=== PATIENT | female | born 1990 | race Caucasian/White ===

== ENCOUNTER 2020-07-20 09:43 | Outpatient (CLI) | payer OTHER, SELFPAY ==
[2020-07-20 10:21] LABS: Cholesterol 238 mg/dL (0-200); HDL Direct 45 mg/dL; Triglycerides 80 mg/dL (<150)
[2020-07-20 10:33] LABS: LDL Cholesterol Direct 154 mg/dL
[2020-07-20 11:08] LABS: Free T4 Free Thyroxine 1.16 ng/mL (0.78-2.19)
[2020-07-20 11:24] LABS: Creatinine Urine 148.6 mg/dL
[2020-07-20 11:45] LABS: Hemoglobin A1C 5.9 % (<5.7)
[2020-07-20 12:12] LABS: MALB Creatinine Ratio < 4.0 mg/g (0-30); Microalbumin Urine Random < 6.0 mg/L (0-16.7)
== END 2020-07-20 09:44 | disposition home or self-care (01) ==
LOC: ANHLAB 09:46
PROVIDERS: PCP Emergency Medicine; Visit Provider Emergency Medicine
DX: Z00.00 Encounter for general adult medical examination without abnormal findings (principal); E78.5 Hyperlipidemia, unspecified
CPT/HCPCS: 36415; 80061; 82043; 83036; 84439; 84443

== ENCOUNTER 2020-07-29 08:22 | Emergency (ER) | payer OTHER, SELFPAY ==
--- NOTE | ~2020-07-29 | XR_ITS ---
EXAMINATION: XR chest 1V portable INDICATION: Shortness of breath cough TECHNIQUE: Portable AP chest at 0847 hours COMPARISON: 02/27/2015 FINDINGS: The lungs are free of acute opacities. There is no pleural effusion or pneumothorax. The ca rdiomediastinal silhouette is normal. The visualized bones and soft tissues are unremarkable. IMPRESSION: 1. No acute cardiopulmonary abnormality. Reviewed, dictated and finalized at location A.
[2020-07-29 08:26] VITALS: BP 131/89; PULSE 81; RESP 24; TEMP 36.8; O2SAT 100
[2020-07-29 08:29] VITALS: BP 131/89; PULSE 85; RESP 19; O2SAT 100
[2020-07-29 08:31] VITALS: BP 121/78; PULSE 77; RESP 17; O2SAT 100
--- NOTE | 2020-07-29 08:31 | ECG_ITS ---
Measurements Intervals [place] Rate: 82 P: 41 AL: 154 QRS: 26 QRSD: 84 T: 45 QT: 367 QTc: 429 Interpretive Statements SINUS RHYTHM NONSPECIFIC T-WAVE ABNORMALITY- ANTEROLATERAL LEADS BORDERLINE ECG Electronically Signed On 07-29-2020 8:40:53 CDT by Yosi Bruce D.O.
[2020-07-29 08:36] VITALS: PULSE 78
--- NOTE | 2020-07-29 08:44 | ED.SOB ---
HPI - SOB/Dyspnea General Chief Complaint: Shortness of Breath/Dyspnea Stated Complaint: sob Time Seen by Provider: 07/29/20 08:42 Source: patient Mode of arrival: ambulatory Limitations: no limitations History of Present Illness HPI Narrative: Patient is a 30-year-old female with a history of asthma who presents for evaluation of shortness of breath. Patient reports she has had a dry cough and shortness of breath worsening over the past 72 hours. She states this feels typical to her bronchitis and asthma flare. She denies fever or chills. She reports shortness of breath. She reports her oxygen level normally is between 90 to 92% but is 100% on room air at our facility. Patient denies recent sick contacts. She reports a burning sensation in her chest which is exacerbated with coughing. She denies pain with inspiration. She denies jaw pain, shoulder pain, radiation of the pain to the back. No diaphoresis. No nausea or vomiting. No lower leg swelling, calf pain or erythema. No history of DVT. Patient does take control. She does not smoke. No recent car or air travel. No loss of sense of taste or smell. Patient states she has been using her albuterol inhaler without much improvement. Related Data Home Medications Medication Instructions Recorded Confirmed Qvar RediHaler 1 inh INHALATION Q12H 10/20/19 10/20/19 albuterol sulfate 1 inh INHALATION QID PRN 10/20/19 10/31/19 citalopram [Celexa] 20 mg PO DAILY 10/20/19 10/31/19 norethindrone (contraceptive) 0.35 mg PO DAILY 10/20/19 10/20/19 [Racheal] albuterol sulfate 90 mcg/actuation 2 puff INHALATION Q4H PRN gm 07/03/20 aerosol inhaler diphenhydramine HCl 25 mg capsule 25 mg PO TID PRN 07/03/20 elagolix 200 mg tablet 200 mg PO BID 07/03/20 fexofenadine 60 mg tablet 60 mg PO Q12H 07/03/20 spironolactone 100 mg tablet 100 mg PO DAILY 07/03/20 Allergies Allergy/AdvReac Type Severity Reaction Status Date / Time ketorolac Allergy Intermediate HIVE Verified 07/29/20 08:32 tramadol Allergy Mild Hives Verified 07/29/20 08:32 latex Allergy Unknown Hives Verified 07/29/20 08:32 pineapple Allergy Unknown Anaphylactic Verified 07/29/20 08:32 Shock pollen extracts Allergy Unknown Unknown Verified 07/29/20 08:32 cat dander Allergy Sneezing Verified 07/29/20 08:32 house dust AdvReac Intermediate Unknown Verified 07/29/20 08:32 Review of Systems Review of Systems: Narrative: CONSTITUTIONAL: Denies fever, chills, or sweats. EYES: Denies visual changes, redness, or discharge. ENT: Reports rhinorrhea and congestion, denies sore throat CARDIOVASCULAR: Reports burning chest pain, denies palpitations or edema RESPIRATORY: Reports cough and shortness of breath GASTROINTESTINAL: Denies abdominal pain, nausea, vomiting, or diarrhea. GENITOURINARY: Denies dysuria or hematuria. SKIN: Denies rash or itching. MUSCULOSKELETAL: Denies back pain, joint pain, or myalgia. NEUROLOGIC: Denies headache, numbness, or weakness. [facility] Past Medical History Medical History Asthma Migraine Social History Social History Smoking status: Never smoker Alcohol intake: never Gender identity (if verbalized by the patient): Female Exam Narrative: Exam Narrative: GENERAL: Awake, alert, conversant HEAD: Normocephalic, atraumatic. EYES: PERRLA and EOMI. ENT: Nares clear, no rhinorrhea or epistaxis. Mucous membranes moist. NECK: Supple. CHEST: No respiratory distress, mild tachypnea, able to speak in full sentences without difficulty, bilateral coarse breath sounds, no expiratory wheezing HEART: Regular rate, sinus rhythm ABDOMEN:Non distended, non tender EXTREMITIES: Normal range of motion. No edema. SKIN: Warm, dry, no rash. NEURO:No focal deficits. Alert and oriented x3 Course Vital Signs Vital signs: Vital Signs Temperature 36.8 C 07/29/20 08:26 Pulse Rate 81
[2020-07-29 08:54] LABS: Basophils Percent Auto 0.2 % (0.2-1.2); Eosinophils Absolute Auto 0.1 K/mm3 (0-0.3); Eosinophils Percent Auto 1.4 % (0-4.4); Hematocrit 40.6 % (37.0-47.0); Hemoglobin 13.7 g/dL (12.0-15.0); Immature Granulocyte Absolute 0.02 K/mm3 (0.00-0.031); Immature Granulocyte Percent A 0.2 % (0-0.5); Lymphocytes Absolute Auto 1.86 K/mm3 (0.9-3.2); Lymphocytes Percent Auto 21.2 % (18.3-44.2); Mean Corpuscular HGB Conc 33.7 g/dl (32-36); Mean Corpuscular Hemoglobin 28.6 pg (26-34); Mean Corpuscular Volume 84.8 fl (80-100); Mean Platelet Volume 10.3 fl (7.4-10.4); Monocytes Absolute Auto 0.4 K/mm3 (0.1-0.6); Monocytes Percent Auto 4.7 % (2.6-8.5); Neutrophils Absolute Auto 6.3 K/mm3 (1.3-6.7); Neutrophils Percent Auto 72.3 % (45.5-73.1); Platelet Count Result 324 k/mm3 (150-375); Red Blood Count 4.79 M/mm3 (4.2-5.4); Red Cell Distribution Width 13.4 % (11.5-14.5); White Blood Count 8.8 K/mm3 (4.5-10.0)
[2020-07-29 09:10] LABS: Alanine Aminotransferase 29 U/L (4-35); Albumin Level 4.5 g/dL (3.5-5.1); Alkaline Phosphatase 64 U/L (38-126); Anion Gap 11 mmol/L (8-16); Aspartate Amino Transferase 23 U/L (14-36); Bilirubin,Total 0.4 mg/dL (0.2-1.3); Blood Urea Nitrogen 9 mg/dL (7-17); Carbon Dioxide 22 mmol/L (22-30); Chloride 104 mmol/L (98-107); Estimated CRCL calculation 142 ml/min; Estimated Glomerular Filt Rate > 60; Glucose 125 mg/dL (65-105); Potassium 4.1 mmol/L (3.4-5.0); Sodium 137 mmol/L (137-145)
[2020-07-29] MEDS: methylPREDNISolone SOD SUCC 125 MG VIAL IV PUSH (09:47)
[2020-07-29] MEDS: MAGNESIUM SULF 2 GM/WATER 50ML 2 GM/50 ML BAG IVPB (09:47)
[2020-07-29 09:48] VITALS: BP 116/82; PULSE 78; RESP 18; O2SAT 99
[2020-07-29 09:48] LABS: Troponin I < 0.012 ng/mL (0.000-0.034)
[2020-07-29 10:05] LABS: D Dimer 0.27 ug/mL (<0.48)
[2020-07-29 11:24] VITALS: BP 125/85; PULSE 78; RESP 13; O2SAT 100
[2020-07-29 20:27] LABS: SARS-CoV-2 RNA PCR Negative
--- NOTE | 2020-08-01 11:57 | PC.NURSE ---
LATE ENTRY This note is being entered to document information to the patient's record. The following information was omitted on [08/01/20], by [Armida Barron Magnesium stopped at 1047 on 07/29/20].
== END 2020-07-29 11:25 | disposition home or self-care (01) ==
PROVIDERS: Emergency Provider Emergency Medicine; PCP Emergency Medicine
DX: J45.901 Unspecified asthma with (acute) exacerbation (principal); Z20.828 Contact with and (suspected) exposure to other viral communicable diseases
CPT/HCPCS: 36415; 71045; 80053; 84484; 85025; 85380; 87635; 93005; 96365; 96375; 99284; C9803; J2930; J3475; U0003

== ENCOUNTER 2020-09-18 09:56 | Outpatient (CLI) | payer OTHER, SELFPAY | END 2020-09-18 09:57 | disposition home or self-care (01) | PROVIDERS: PCP Emergency Medicine; Visit Provider Internal Medicine Critical Care Medicine | DX: J45.909 Unspecified asthma, uncomplicated (principal) | CPT/HCPCS: 36415; 82785; 86003 ==

== ENCOUNTER 2020-10-23 09:41 | Outpatient (CLI) | payer OTHER, SELFPAY ==
--- NOTE | 2020-10-25 12:05 | WPDPFTINT ---
PFT Interpretation PFT Interpretation: This PFT met all criteria for ATS standards and reproducibility FEV/FVC 80% FEV1 90% FVC 89% FEV1 improved by 17% and 470 ml post bronchodilator TLC 99% RV 68% RV/TLC 21 % DLCO 83% when adjusted for alveolar volume but not adjusted for hemoglobin Flow volume loops were normal Impression: Normal PFT except for great improvement after bronchodilator which suggest presence of reactive airway disease or Asthma. Clinical correlation is advised.
== END 2020-10-23 09:42 | disposition home or self-care (01) ==
LOC: ANHPFT 09:41
PROVIDERS: PCP Emergency Medicine; Visit Provider Internal Medicine Critical Care Medicine
DX: J45.909 Unspecified asthma, uncomplicated (principal)
CPT/HCPCS: 94060; 94726; 94729

== ENCOUNTER 2020-10-25 09:30 | Emergency (ER) | payer OTHER, SELFPAY ==
--- NOTE | ~2020-10-25 | XR_ITS ---
XR chest 1V portable DATE: 10/25/2020 11:19 INDICATION: Chest pain TECHNIQUE: Portable AP chest on 10/25/2010 1120 hours COMPARISON: 07/29/2020 portable AP chest FINDINGS: Azygos lobe, normal variant. No pulmonary infiltrate or consolidation, pleural effusion or pulmonary vascular congestion or pneumothorax. Heart size appears within normal limits considering ma gnification associated with AP projection. IMPRESSION: No active cardiopulmonary disease Reviewed, dictated and finalized at location A. FILLER
[2020-10-25 09:47] VITALS: BP 127/62; PULSE 92; RESP 18; TEMP 36.7; O2SAT 100
[2020-10-25 09:52] VITALS: O2SAT 100
[2020-10-25 09:55] VITALS: PULSE 81
--- NOTE | 2020-10-25 11:08 | ED.GENADULT ---
HPI - General Adult General Chief complaint: Shortness of Breath/Dyspnea Stated complaint: asthma/ COVID symptoms Time Seen by Provider: 10/25/20 10:06 Source: patient Mode of arrival: ambulatory Limitations: no limitations History of Present Illness HPI narrative: Patient is a 30-year-old female who presents with Covid symptoms for the last 2 days with cough mild shortness of breath sinus congestion rhinorrhea body aches denies vomiting diarrhea chest pain has history of asthma denies tobacco abuse. On arrival is in the room in no distress Related Data Home Medications Medication Instructions Recorded Confirmed albuterol sulfate 1 inh INHALATION QID PRN 10/20/19 09/18/20 citalopram [Celexa] 20 mg PO DAILY 10/20/19 09/18/20 norethindrone (contraceptive) 0.35 mg PO DAILY 10/20/19 09/18/20 [Racheal] albuterol sulfate 90 mcg/actuation 2 puff INHALATION Q4H PRN gm 07/03/20 09/18/20 aerosol inhaler diphenhydramine HCl 25 mg capsule 25 mg PO TID PRN 07/03/20 09/18/20 elagolix 200 mg tablet 200 mg PO BID 07/03/20 09/18/20 fexofenadine 60 mg tablet 60 mg PO Q12H 07/03/20 09/18/20 spironolactone 100 mg tablet 100 mg PO DAILY 07/03/20 09/18/20 melatonin 3 mg capsule mg PO PRN 09/18/20 09/18/20 Allergies Allergy/AdvReac Type Severity Reaction Status Date / Time ketorolac Allergy Intermediate HIVE Verified 10/25/20 09:54 tramadol Allergy Mild Hives Verified 10/25/20 09:54 latex Allergy Unknown Hives Verified 10/25/20 09:54 pineapple Allergy Unknown Anaphylactic Verified 10/25/20 09:54 Shock pollen extracts Allergy Unknown Unknown Verified 10/25/20 09:54 cat dander Allergy Sneezing Verified 10/25/20 09:54 house dust AdvReac Intermediate Unknown Verified 10/25/20 09:54 Review of Systems Review of Systems: All systems reviewed & are unremarkable except as noted in HPI and below PMFSH Past Medical History Medical History Allergies Arthritis Asthma Asthma Bronchitis Chronic endomyometritis Fatty liver Migraine PCOS (polycystic ovarian syndrome) Family History Family History Mother Diabetes mellitus Other Asthma Cerebrovascular accident Family history of arthritis Family history of cardiovascular disease Family history of malignant neoplasm Family history of migraine headaches Family history of seizure disorder Hypertension Social History Social History Smoking status: Never smoker Alcohol intake: never Gender identity (if verbalized by the patient): Female Exam Narrative: Exam Narrative: GENERAL: Well-appearing, well-nourished, and in no acute distress. HEAD: Normocephalic, atraumatic. EYES: PERRLA and EOMI. ENT: Nares clear, no rhinorrhea or epistaxis. Mucous membranes moist. CHEST: Clear to auscultation. No respiratory distress. No wheezes rales or rhonchi HEART: Regular rate and rhythm. No murmur heard. Normal peripheral pulses. ABDOMEN: Soft, nontender, nondistended EXTREMITIES: Normal range of motion. No edema. SKIN: Warm, dry, no rash. NEURO: No focal deficits. Alert and oriented x3. Cranial nerves II through XII grossly intact PSYCH: Normal mood and affect. Course Course Emergency Course: Patient in the room in no distress aware of case findings treatment plan and diagnosis had evaluation no pneumonia normal vital signs ABCs stable tested for Covid aware that she needs to contact her primary care to get the results and agrees with this plan Vital Signs Vital signs: Vital Signs Temperature 98.1 F 10/25/20 09:47 Pulse Rate 92 10/25/20 09:47 Respiratory Rate 18 10/25/20 09:47 Blood Pressure 127/62 10/25/20 09:47 Pulse Oximetry 100 10/25/20 09:47 Temperature 98.1 F 10/25/20 09:47 Pulse Rate 81 10/25/20 09:55 Respiratory Rate 18 10/25/20 09:47 Blood Pressure 127/62 10/25/20 09
[2020-10-25 21:24] LABS: SARS-CoV-2 RNA PCR Negative
== END 2020-10-25 12:07 | disposition home or self-care (01) ==
PROVIDERS: Emergency Medicine Emergency Medical Services; Emergency Provider Emergency Medicine; PCP Emergency Medicine
DX: J06.9 Acute upper respiratory infection, unspecified (principal); Z20.828 Contact with and (suspected) exposure to other viral communicable diseases; M19.90 Unspecified osteoarthritis, unspecified site; N71.1 Chronic inflammatory disease of uterus; E28.2 Polycystic ovarian syndrome; J45.909 Unspecified asthma, uncomplicated
CPT/HCPCS: 71045; 87635; 99283; C9803; U0003

== ENCOUNTER 2020-10-28 13:01 | Emergency (ER) | payer OTHER, SELFPAY ==
[2020-10-28] VITALS (12 sets, daily range): BP systolic 112–132; BP diastolic 73–97; PULSE 71–90; RESP 15–22; TEMP 36.7; O2SAT 95–100
--- NOTE | ~2020-10-28 | XR_ITS ---
EXAMINATION: XR chest 1V portable 10/28/2020 13:46 INDICATION: Shortness of breath and chest tightness PROCEDURE: AP portable chest COMPARISON: Comparison to multiple prior studies sequentially, with oldest reviewed study dated 01/11. FINDINGS: The lungs are clear. The cardiomediastinal silhouette is within normal limits. There are no pleural effusions. There is no pneumothorax suspected. IMPRESSION: 1: NO ACUTE CARDIOPULMONARY DISEASE. Reviewed, dictated and finalized at location B. COVER MAKER
--- NOTE | 2020-10-28 13:13 | ECG_ITS ---
Measurements Intervals [place] Rate: 84 P: 52 GA: 156 QRS: 28 QRSD: 89 T: 25 QT: 350 QTc: 415 Interpretive Statements SINUS RHYTHM NONSPECIFIC T-WAVE ABNORMALITY- ANT/INF LEADS BASELINE WANDER- V1-V2, V4-V6 BORDERLINE ECG Electronically Signed On 10-28-2020 13:30:28 INSTRUCTIONAL PARAPROFESSIONAL by Yosi Bruce D.O.
[2020-10-28 13:26] LABS: Basophils Percent Auto 0.3 % (0.2-1.2); Eosinophils Absolute Auto 0.1 K/mm3 (0-0.3); Eosinophils Percent Auto 1.2 % (0-4.4); Hematocrit 39.3 % (37.0-47.0); Hemoglobin 13.3 g/dL (12.0-15.0); Immature Granulocyte Absolute 0.03 K/mm3 (0.00-0.031); Immature Granulocyte Percent A 0.3 % (0-0.5); Lymphocytes Absolute Auto 2.93 K/mm3 (0.9-3.2); Lymphocytes Percent Auto 27.5 % (18.3-44.2); Mean Corpuscular HGB Conc 33.8 g/dl (32-36); Mean Corpuscular Hemoglobin 29.5 pg (26-34); Mean Corpuscular Volume 87.1 fl (80-100); Mean Platelet Volume 9.9 fl (7.4-10.4); Monocytes Absolute Auto 0.6 K/mm3 (0.1-0.6); Monocytes Percent Auto 5.4 % (2.6-8.5); Neutrophils Percent Auto 65.3 % (45.5-73.1); Platelet Count Result 337 k/mm3 (150-375); Red Blood Count 4.51 M/mm3 (4.2-5.4); Red Cell Distribution Width 12.5 % (11.5-14.5); White Blood Count 10.7 K/mm3 (4.5-10.0)
[2020-10-28 13:36] LABS: Alanine Aminotransferase 23 U/L (4-35); Albumin Level 4.5 g/dL (3.5-5.1); Alkaline Phosphatase 55 U/L (38-126); Anion Gap 10 mmol/L (8-16); Aspartate Amino Transferase 21 U/L (14-36); Bilirubin,Total 0.3 mg/dL (0.2-1.3); Blood Urea Nitrogen 10 mg/dL (7-17); Calcium 9.4 mg/dL (8.4-10.2); Carbon Dioxide 22 mmol/L (22-30); Chloride 106 mmol/L (98-107); Estimated CRCL calculation 140 ml/min; Estimated Glomerular Filt Rate > 60; Glucose 109 mg/dL (65-105); Potassium 3.7 mmol/L (3.4-5.0); Sodium 138 mmol/L (137-145)
[2020-10-28 13:40] LABS: D Dimer 0.27 ug/mL (<0.48)
[2020-10-28 14:21] LABS: Amphetamine Screen Urine Negative (Negative); Barbiturate Screen Urine Negative (Negative); Benzodiazepines Screen Urine Negative (Negative); Cannabinoid Screen Urine Negative (Negative); Cocaine Screen Urine Negative (Negative); Methadone Screen Urine Negative (Negative); Opiate Screen Urine Negative (Negative); Phencyclidine Screen Urine Negative (Negative)
--- NOTE | 2020-10-28 14:30 | ED.GENADULT ---
HPI - General Adult General Chief complaint: Shortness of Breath/Dyspnea Stated complaint: diff. breathing Time Seen by Provider: 10/28/20 13:07 Source: patient Mode of arrival: ambulatory Limitations: no limitations Related Data Home Medications Medication Instructions Recorded Confirmed albuterol sulfate 1 inh INHALATION QID PRN 10/20/19 09/18/20 citalopram [Celexa] 20 mg PO DAILY 10/20/19 09/18/20 norethindrone (contraceptive) 0.35 mg PO DAILY 10/20/19 09/18/20 [Racheal] albuterol sulfate 90 mcg/actuation 2 puff INHALATION Q4H PRN gm 07/03/20 09/18/20 aerosol inhaler diphenhydramine HCl 25 mg capsule 25 mg PO TID PRN 07/03/20 09/18/20 elagolix 200 mg tablet 200 mg PO BID 07/03/20 09/18/20 fexofenadine 60 mg tablet 60 mg PO Q12H 07/03/20 09/18/20 spironolactone 100 mg tablet 100 mg PO DAILY 07/03/20 09/18/20 melatonin 3 mg capsule mg PO PRN 09/18/20 09/18/20 Allergies Allergy/AdvReac Type Severity Reaction Status Date / Time ketorolac Allergy Intermediate HIVE Verified 10/25/20 09:54 tramadol Allergy Mild Hives Verified 10/25/20 09:54 latex Allergy Unknown Hives Verified 10/25/20 09:54 pineapple Allergy Unknown Anaphylactic Verified 10/25/20 09:54 Shock pollen extracts Allergy Unknown Unknown Verified 10/25/20 09:54 cat dander Allergy Sneezing Verified 10/25/20 09:54 house dust AdvReac Intermediate Unknown Verified 10/25/20 09:54 [facility] Past Medical History Medical History Allergies Arthritis Asthma Asthma Bronchitis Chronic endomyometritis Fatty liver Migraine PCOS (polycystic ovarian syndrome) Family History Family History Mother Diabetes mellitus Other Asthma Cerebrovascular accident Family history of arthritis Family history of cardiovascular disease Family history of malignant neoplasm Family history of migraine headaches Family history of seizure disorder Hypertension Social History Social History Smoking status: Never smoker Alcohol intake: never Gender identity (if verbalized by the patient): Female Course Course Emergency Course: Patient in the room in no distress felt appropriate for discharge home will be swabbed again for Covid as she continues to have symptoms Vital Signs Vital signs: Vital Signs Pulse Rate 79 10/28/20 13:06 Respiratory Rate 22 H 10/28/20 13:06 Blood Pressure 132/84 10/28/20 13:06 Pulse Oximetry 100 10/28/20 13:06 Temperature 98.1 F 10/28/20 13:16 Pulse Rate 71 10/28/20 14:45 Respiratory Rate 22 H 10/28/20 14:45 Blood Pressure 112/73 10/28/20 13:55 Pulse Oximetry 100 10/28/20 14:45 Medical Decision Making MDM Narrative Medical decision making narrative: Patient will be we have swabbed for Covid sent home normal vital signs no high risk changes in the blood work or imaging Vital Signs Vital Signs: Vital Signs Pulse Rate 79 10/28/20 13:06 Respiratory Rate 22 H 10/28/20 13:06 Blood Pressure 132/84 10/28/20 13:06 Pulse Oximetry 100 10/28/20 13:06 Temperature 98.1 F 10/28/20 13:16 Pulse Rate 71 10/28/20 14:45 Respiratory Rate 22 H 10/28/20 14:45 Blood Pressure 112/73 10/28/20 13:55 Pulse Oximetry 100 10/28/20 14:45 Lab Data Result diagrams: 10/28/20 13:19 10/28/20 13:19 Labs: Lab Results 10/28/20 10/28/20 10/28/20 Range/Units 13:19 13:19 13:19 WBC 10.7 H (4.5-10.0) K/mm3 RBC 4.51 (4.2-5.4) M/mm3 Hgb 13.3 (12.0-15.0) g/dL Hct 39.3 (37.0-47.0) % MCV 87.1 (80-100) fl MCH 29.5 (26-34) pg MCHC 33.8 (32-36) g/dl RDW 12.5 (11.5-14.5) % Plt Count 337 (150-375) k/mm3 MPV 9.9 (7.4-10.4) fl Immature Gran % (Auto) 0.3 (0-0.5) % Neut % (Auto) 65.3 (45.5-73.1) % Lymph % (Auto) 27.5 (18.3-44.2) % [place] % (Auto) 5.
[2020-10-28 15:05] LABS: Add Urine Microscopic? YES; Appearance Urine Cloudy (Clear); Bacteria Urine Trace /hpf; Bilirubin Urine Negative (Negative); Blood Urine 3+ (Negative); Color Urine Red (Yellow); Glucose Urine UA Negative (Negative); Ketones Urine Negative (Negative); Leukocyte Esterase Ur 1+ LEU/UL (Negative); Mucus Urine Rare /lpf; Nitrate Urine Negative (Negative); Protein Urine 2+ mg/dL (Negative); RBC Urine >75 /hpf (0-2); Specific Grav Ur 1.018 (1.001-1.035); Urobilinogen Urine Negative mg/dL (<2.0); WBC Urine 16-20 /hpf
[2020-10-29 01:01] LABS: SARS-CoV-2 RNA PCR Negative
== END 2020-10-28 15:00 | disposition home or self-care (01) ==
PROVIDERS: Emergency Medicine Emergency Medical Services; Emergency Provider Emergency Medicine; PCP Emergency Medicine
DX: J06.9 Acute upper respiratory infection, unspecified (principal); M19.90 Unspecified osteoarthritis, unspecified site; J45.909 Unspecified asthma, uncomplicated; N71.1 Chronic inflammatory disease of uterus; E28.2 Polycystic ovarian syndrome
CPT/HCPCS: 36415; 71045; 80053; 80307; 81001; 85025; 85380; 87086; 87088; 87635; 93005; 99284; C9803; U0003

== ENCOUNTER 2021-02-03 10:20 | Outpatient (CLI) | payer OTHER, SELFPAY ==
[2021-02-03 10:48] LABS: Hematocrit 39.4 % (37.0-47.0); Mean Corpuscular Hemoglobin 28.8 pg (26-34); Mean Corpuscular Volume 87.2 fl (80-100); Platelet Count Result 318 k/mm3 (150-375); Red Blood Count 4.52 M/mm3 (4.2-5.4); Red Cell Distribution Width 12.8 % (11.5-14.5); White Blood Count 9.1 K/mm3 (4.5-10.0)
[2021-02-03 10:53] LABS: Cholesterol 192 mg/dL (0-200); HDL Direct 41 mg/dL; Triglycerides 129 mg/dL (<150)
[2021-02-03 11:00] LABS: Immunoglobulin G 1045 mg/dL (700-1600)
[2021-02-03 11:05] LABS: LDL Cholesterol Direct 114 mg/dL
[2021-02-03 11:26] LABS: Free T4 Free Thyroxine 0.99 ng/mL (0.78-2.19)
[2021-02-06 04:02] LABS: Immunoglobulin G, Serum 930 mg/dL (600-1640); Immunoglobulin G1 461 mg/dL (382-929); Immunoglobulin G2 327 mg/dL (241-700); Immunoglobulin G3 44 mg/dL (22-178); Immunoglobulin G4 27.8 mg/dL (4.0-86.0)
== END 2021-02-03 10:21 | disposition home or self-care (01) ==
LOC: ANHLAB 10:20
PROVIDERS: Nurse Practitioner Family; PCP Emergency Medicine; Visit Provider Emergency Medicine
DX: D72.829 Elevated white blood cell count, unspecified (principal)
CPT/HCPCS: 36415; 80061; 82784; 82787; 84439; 84443; 85027

== ENCOUNTER 2021-03-21 08:18 | Outpatient (CLI) | payer OTHER, SELFPAY ==
--- NOTE | 2021-04-04 16:12 | WPDHOMESLEEP ---
Sleep Study - Home Unattended Date of Study: 03/21/21 Ordering Provider: Ruddy Estrada APRN Interpreting Provider: Lizett Trivedi MD Home Sleep Study Type: Apnea Link Air Height: 1.65 m Weight: 113.398 kg Body Mass Index: 41.5 Neck Circumference (inches): 17 [place]: 16 Reason for Sleep Study Tired, requires naps, wakes up coughing Sleep History Edilia Washington is a 30 year old female with asthma. she is tired and excessively sleepy in the day often requiring naps and significant amounts of caffeine. She talked sometimes wakes up coughing or having an asthma attack when she slides off of her pillows and is flat in the bed. she wakes up during the night and she has a difficult time waking in the morning. She takes melatonin 3 mg some nights when she knows she does not have to be up early the next day. This seems to help her get to sleep. She occasionally awakens from sleep feeling short of breath and awakens at night with heartburn, belching or coughing. She frequently snores and occasionally this is loud enough that others complain about it. She frequently has trouble sleep with a cold. She occasionally wakes up gasping for breath at night. She occasionally has breathing problems at night observed by others. She frequently sweats excessively at night. She never notices her heart pounding or beating irregularly at night. She frequently falls asleep during the day occasionally involuntarily and occasionally while driving. She rarely falls asleep while exerting physical effort. She does not have loss of muscle tone was strong emotion. She occasionally has daytime difficulties due to excessive sleepiness. She does not feel paralyzed on waking or falling asleep. She rarely has vivid dreamlike scenes upon awakening or falling asleep. She has never free to go to sleep. She really has nightmares. She rarely remembers her dreams. She occasionally has racing thoughts. She frequently feels sad or depressed. She frequently has anxiety. She occasionally has muscular tension. She does not notice parts of her body jerking. She frequently kicks at night and has crawling and aching feelings in her legs. She frequently has leg pain at night. She frequently has morning jaw pain. She rarely grinds her teeth during sleep. She constantly is bothered by pain during the day. She frequently is awakened by pain at night. She frequently wakes up feeling stiff in the morning with sore achy muscles and occasionally wakes up with pain in the neck and spine. She has dizziness, fatigue, memory problems, concentration difficulties and frequent morning headaches. She feels depressed. Normal bedtime is between 8 and 9:00 p.m. falling asleep within an hour, typically waking 3-4 times during the night. Sometimes she stays awake for a few minutes, purposefully not looking at the clock. These awakenings happen in the middle of the night or the parachute inspector hours. When she wakes in the night, she turns over and tries to find a comfortable position to help her fall asleep again. She wakes in the morning at 7:00 a.m.. Her weekend schedule shows that she goes to bed slightly later, bedtime is between 9 and 10:00 p.m. and she still wakes is 7:00 a.m. She estimates getting 6-7 hours of sleep at night. Her sleepiness impacts her social life. She frequently stays at home or leaves and event early because of her excessive sleepiness. At times she takes naps in the afternoon or evening. A short nap is not refreshing. She is usually drowsy in the morning for 3 hours or longer. Habits: NO tobacco. Caffeine 4-5 servings a day. Alcohol 1 or 2 servings per month. [facility] Past Medical History Medical History Allergies Arthritis Asthma Asthma Bronchitis Chronic endomyometritis Fatty liver Migraine PCOS (polycystic ovarian syndrome) Family History Family History (Reviewed 01/27/21 @ 15:01 by Ruddy Estrada,
[2021-04-04 16:14] VITALS: BMI 41.5
== END 2021-03-21 08:19 | disposition home or self-care (01) ==
LOC: ANHCSM 08:19
PROVIDERS: PCP Emergency Medicine; Visit Provider Nurse Practitioner Family
DX: G47.10 Hypersomnia, unspecified (principal)
CPT/HCPCS: 95806

== ENCOUNTER 2021-05-03 09:28 | Outpatient (CLI) | payer OTHER, SELFPAY ==
[2021-05-03 10:02] LABS: Creatinine Urine 179.6 mg/dL
[2021-05-03 10:05] LABS: MALB Creatinine Ratio 8.3 mg/g (0-30); Microalbumin Urine Random 14.9 mg/L (0-16.7)
[2021-05-03 10:05] LABS: Hemoglobin A1C 5.9 % (<5.7)
[2021-05-03 10:16] LABS: Alanine Aminotransferase 30 U/L (4-35); Albumin Level 4.3 g/dL (3.5-5.1); Alkaline Phosphatase 62 U/L (38-126); Anion Gap 10 mmol/L (8-16); Aspartate Amino Transferase 24 U/L (14-36); Bilirubin,Total 0.4 mg/dL (0.2-1.3); Blood Urea Nitrogen 8 mg/dL (7-17); Calcium 9.2 mg/dL (8.4-10.2); Carbon Dioxide 24 mmol/L (22-30); Chloride 105 mmol/L (98-107); Cholesterol 238 mg/dL (0-200); Estimated Glomerular Filt Rate > 60; Glucose 114 mg/dL (65-105); HDL Direct 49 mg/dL; Potassium 4.3 mmol/L (3.4-5.0); Sodium 139 mmol/L (137-145); Triglycerides 102 mg/dL (<150)
[2021-05-03 10:26] LABS: LDL Cholesterol Direct 123 mg/dL
[2021-05-03 10:39] LABS: Free T4 Free Thyroxine 0.97 ng/mL (0.78-2.19); Vitamin D 25 Hydroxy 31.2 ng/mL
[2021-05-03 11:33] LABS: Add Urine Microscopic? YES; Appearance Urine Cloudy (Clear); Bacteria Urine Trace /hpf; Bilirubin Urine Negative (Negative); Blood Urine 1+ (Negative); Color Urine Yellow (Yellow); Glucose Urine UA Negative (Negative); Ketones Urine Negative (Negative); Leukocyte Esterase Ur 2+ LEU/UL (NEGATIVE); Mucus Urine Rare /lpf; Nitrate Urine Negative (Negative); Protein Urine Negative (Negative); RBC Urine 0-2 /hpf (0-2); Specific Grav Ur 1.019 (1.001-1.035); Squamous Epithelial Cell Urine Many /hpf (Few); Urobilinogen Urine Negative mg/dL (<2.0)
[2021-05-03 11:41] LABS: Mean Corpuscular HGB Conc 32.5 g/dl (32-36); Mean Corpuscular Hemoglobin 28.6 pg (26-34); Mean Corpuscular Volume 88.1 fl (80-100); Mean Platelet Volume 10.1 fl (7.4-10.4); Platelet Count Result 344 k/mm3 (150-375); Red Blood Count 4.54 M/mm3 (4.2-5.4); White Blood Count 8.2 K/mm3 (4.5-10.0)
== END 2021-05-03 09:29 | disposition home or self-care (01) ==
PROVIDERS: PCP Emergency Medicine; Visit Provider Emergency Medicine
DX: Z00.00 Encounter for general adult medical examination without abnormal findings (principal); D64.9 Anemia, unspecified; F41.9 Anxiety disorder, unspecified
CPT/HCPCS: 36415; 80053; 80061; 81001; 82043; 82306; 83036; 84439; 84443; 85027

== ENCOUNTER 2021-06-13 15:25 | Outpatient (CLI) | payer OTHER, SELFPAY ==
[2021-06-13 16:18] LABS: Rheumatoid Factor < 8.6 IU/ML (<12)
[2021-06-13 16:28] LABS: Erythrocyte Sedimentation Rate 44 mm/hr (0-20)
== END 2021-06-13 15:26 | disposition home or self-care (01) ==
LOC: ANHLAB 15:27
PROVIDERS: PCP Emergency Medicine; Visit Provider Emergency Medicine
DX: M12.9 Arthropathy, unspecified (principal)
CPT/HCPCS: 36415; 85652; 86038; 86430

== ENCOUNTER 2021-08-01 00:19 | Day surgery (SDC) | payer OTHER, SELFPAY ==
[2021-07-29 13:06] VITALS: BMI 43.8
[2021-08-01] VITALS (10 sets, daily range): BP systolic 116–150; BP diastolic 69–92; PULSE 66–97; RESP 13–22; TEMP 36–36.6; O2SAT 92–100
[2021-08-01] MEDS: ACETAMINOPHEN 500 MG TABLET 1000 MG PO (08:40)
[2021-08-01] MEDS: LACTATED RINGERS 1,000 ML 30 ML IV CONT ×2 (08:52→15:25)
--- NOTE | 2021-08-01 09:05 | WPDANESEPPF ---
Anes - Initial Pre Proc Eval Procedure: Operation Date: 08/01/21 10:00 Proposed Procedures p Total Laparoscopic Hysterectomy, Bilateral Salpingectomy - Juan Walker MD Date/Time: 08/01/21 09:05 Surgeon: Juan Walker MD Pre Op Diagnosis: pelvic pain, dysmenorrhea,menorrhagia Patient Data Age: 31 Gender: F Height: 1.63 m Weight: 113 kg Last Vital Signs Temp 36.4 C 08/01/21 08:51 Pulse 87 08/01/21 08:51 BP 142/92 H 08/01/21 08:51 Pulse Ox 100 08/01/21 08:51 Allergies Allergy/AdvReac Type Severity Reaction Status Date / Time pineapple Allergy Severe Anaphylactic Verified 08/01/21 08:19 Shock ketorolac Allergy Intermediate HIVE Verified 08/01/21 08:19 latex Allergy Intermediate Hives Verified 08/01/21 08:19 cat dander Allergy Mild Sneezing Verified 08/01/21 08:19 pollen extracts Allergy Mild Unknown Verified 08/01/21 08:19 tramadol Allergy Mild Hives Verified 08/01/21 08:19 house dust AdvReac Intermediate Unknown Verified 08/01/21 08:19 Home Medications Medication Instructions Recorded Confirmed Type albuterol sulfate 90 mcg/actuation 2 puff INHALATION Q4H PRN gm 07/03/20 08/01/21 History aerosol inhaler spironolactone 100 mg tablet 100 mg PO DAILY 07/03/20 08/01/21 History tiotropium bromide 18 mcg capsule 1 cap INHALATION DAILY 30 Days #30 09/18/20 08/01/21 Rx with inhalation device inh fexofenadine [Blank] 180 mg PO DAILY 07/29/21 08/01/21 History magnesium 250 mg PO DAILY 07/29/21 08/01/21 History sumatriptan succinate [Imitrex] 100 mg PO ONCE PRN 07/29/21 08/01/21 History trazodone 50 mg PO HS PRN 07/29/21 08/01/21 History vilazodone [Viibryd] 40 mg PO DAILY 07/29/21 08/01/21 History Laboratory Tests 08/01/21 08:30 Sodium Pending Potassium Pending Chloride Pending Carbon Dioxide Pending Anion Gap Pending BUN Pending Creatinine Pending Estim Creat Clear Calc Pending Estimated GFR Pending Glucose Pending Calcium Pending Patient hx anesthesia problems: post op nausea/vomiting Family hx anesthesia problems: none PMFSH Past Medical History Medical History Allergies Arthritis Asthma Asthma Bronchitis Chronic endomyometritis Fatty liver Migraine PCOS (polycystic ovarian syndrome) Family History Family History Mother Diabetes mellitus Hypertension Depression Father Alcoholism Depression Sibling Depression Grandparent Skin cancer Grandparent Skin cancer Hypertension Heart disease Cerebrovascular accident Other Asthma Family history of arthritis Family history of cardiovascular disease Family history of malignant neoplasm Family history of migraine headaches Family history of seizure disorder Social History Social History Smoking status: Never smoker Alcohol intake: current Alcohol use details: 1-2 servings a month Substance use: never Substance use type: does not use Living arrangements: with family Gender identity (if verbalized by the patient): Female Spiritual care concerns: No Anes - Eval Final PreProcedure Day of Procedure 08/01/21 09:05 Patient weight: morbidly obese Heart: regular rate and rhythm Lungs: clear to auscultation Airway: Mallampati scale class II Neurological: alert and oriented Last oral intake: >/= 8 hours ASA classification: III Emergent: no Anesthetic plan: proceed Anesthesia type and monitoring: general ETT and standard monitoring Informed Consent: The patient's anesthetic plan and its attendant risks and benefits were discussed with the patient/family/POA. Questions were solicited and answers provided to the satisfaction of the patient/family/POA.
[2021-08-01 09:14] LABS: Anion Gap 8 mmol/L (8-16); Blood Urea Nitrogen 11 mg/dL (7-17); Carbon Dioxide 21 mmol/L (22-30); Chloride 106 mmol/L (98-107); Estimated CRCL calculation 121 ml/min; Estimated Glomerular Filt Rate > 60; Glucose 118 mg/dL (65-110); Potassium 3.9 mmol/L (3.4-5.0); Sodium 135 mmol/L (137-145)
[2021-08-01] MEDS: SCOPOLAMINE 1.5 MG PATCH TRANSDERM (09:28)
--- NOTE | 2021-08-01 10:34 | SUR.PREOP ---
1030- UPDATED PT THAT DR. SUE IS RUNNING ABOUT A HOUR BEHIND. PT STATED SHE IS TEXTING HER SISTER AND WILL LET HER KNOW
--- NOTE | 2021-08-01 12:20 | WPDHPUPDATE1 ---
History and Physical Update Update Date/Time: 08/01/21 12:20 History and Physical has been reviewed, including an updated exam of the patient. There are NO changes in the patient's condition. Risks, benefits, and alternatives have been discussed and questions answered. Patient agrees to proceed with procedure.
[2021-08-01] MEDS: ceFAZolin 2 GM/D5W 50 ML 2 GM/50 ML BAG IVPB (13:00)
[2021-08-01] MEDS: fentaNYL CITRATE INJ (*CRX) 100 MCG/2 ML VIAL 25 MCG IV PUSH ×6 (15:46→16:35)
--- NOTE | 2021-08-01 15:51 | W.PM.PROC2 ---
Procedure Note - Detailed Date of Procedure 08/01/21 Pre-op Diagnosis pelvic pain, dysmenorrhea,menorrhagia Post-op Diagnosis same Procedure Performed Total laparoscopic hysterectomy and right salpingectomy. Surgeon Juan Walker MD Anesthesia general Indications Severe menometrorrhagia, pelvic pain Findings There was an absent left fallopian tube. The bilateral ovaries appeared normal. The fallopian tube on the right was normal. The uterus appeared normal. Around the cervix there was considerable scarring and adhesions in the surrounding paracervical tissue. The bladder was densely adherent to the lower uterine segment and cervix. Description of Procedure This patient was taken to the operating room. She was prepped and draped in the dorsal lithotomy position after induction of general anesthesia. A 5 mm skin incision was made in the left upper quadrant the abdomen. A 5 mm trocar was inserted into the intrauterine cavity under direct visualization of the scope. Pneumoperitoneum was achieved. A left lower quadrant 11 mm incision was made with scalpel. An 11 mm trocar was inserted into the abdominal cavity under direct visualization the scope. A 5 mm infraumbilical incision was made with a scalpel and a 5 mm trocar was inserted the intra-abdominal cavity under direct visualization of the scope. The uterine manipulator was placed. This was done with a speculum and tenaculum. The speculum was placed. The cervix was grasped with a tenaculum. The stay sutures were placed at 3 and 9:00 a.m.. The stay sutures of 0 Vicryl were brought through the appropriately sized Eloisa cup. The tip of the ERIN manipulator was placed in the intrauterine cavity. The cup was slid into place around the cervix and into the fornices. It was locked into place. The sutures were then wrapped around the handle and tied under tension. Bilateral ureteral lysis was performed. This was done from the pelvic brim down to the uterine artery. This was done with careful dissection using sharp and blunt dissection. The right fallopian tube was removed. The mesosalpinx between the fallopian tube and the ovary was cauterized transected to LigaSure cautery. This was repeated in a stepwise fashion around the tube a cauterized in the mesosalpinx medially to the uterine cornua. The tube was then transected and cauterized and removed. It was taken out the left lower quadrant trocar site. The bilateral suspensory ligament of the ovaries was cauterized transected. The bilateral round ligaments were cauterized and transected.. In a stepwise fashion along the lateral aspects of the uterus the round ligament and broad ligaments were cauterized transected down to the level of the uterine arteries. A bladder flap was created in the bladder was moved distally to the end of the cervix and over the Eloisa cup. The bilateral uterine arteries were cauterized and transected. Colpotomy was then performed. In a circumferential fashion the vagina was transected using unipolar cautery. The incision was made down on the Eloisa. The uterus and cervix were taken out through the vagina. A pneumo occluder was placed in the vagina. The vaginal cuff was closed with a 0 V lock suture. The pelvis was irrigated with copious amounts antibiotic irrigation. The ureters were again examined and found to be intact and flowing freely under the uterine arteries into the bladder. The bladder was intact. It was examined directly. The pneumoperitoneum was then reduced. Trocars removed. The skin incisions were closed with subcuticular could 4 Monocryl and covered with Dermabond para The vagina was irrigated with Betadine solution after removal of the Pneumo occluder. The patient was taken to recovery room. She was stable condition. Sponge lap and needle counts were correct x2. Estimated Blood Loss -200.0 Drains Yes Packing No Pathology yes Complications No immediate complications Condition sta
--- NOTE | 2021-08-01 17:00 | PC.NURSE ---
This patient, Edilia Washington, was received from PACU on 08/01/21 at 1700. Patient/family oriented to unit policies and routines
[2021-08-01] MEDS: DEXTROSE 5%/0.45% SOD CHL 1,000 ML 125 ML IV CONT (17:43)
[2021-08-01] MEDS: HYDROcodone/acetaminophen (*CRX) 5-325 MG TABLET 1 TAB PO ×2 (19:55→21:31)
[2021-08-02 00:14] VITALS: BP 119/66; PULSE 86; RESP 14; TEMP 37; O2SAT 99
[2021-08-02] MEDS: HYDROcodone/acetaminophen (*CRX) 10-325 MG TABLET 1 TAB PO ×4 (00:21→14:13)
[2021-08-02 04:27] VITALS: BP 92/51; PULSE 81; RESP 16; TEMP 36.8; O2SAT 98
[2021-08-02 08:20] VITALS: BP 113/72; PULSE 71; RESP 16; TEMP 36.4; O2SAT 100
--- NOTE | 2021-08-02 12:13 | PM.GYNPNOP ---
TECHNICAL LEAD - A/P Postoperative Procedures: Procedures Operation Date: 08/01/21 10:00 Actual Procedure Side Surgeon p Total Laparoscopic Hysterectomy, Right Salpingectomy Right Juan Walker MD Postoperative day: 1 Postoperative status: doing well and other (Tollerating Regular Diet) Postoperative plan: routine post-op care and discharge Time Spent With Patient Time: Total time spent is greater than 50% in coordination of care (as documented) at patient's floor/unit and/or counseling patient: Time with patient: 15 - 25 minutes TECHNICAL LEAD- PN:Subj Post-Op Subjective Date/time seen: 08/02/21 12:13 Subjective: patient reports feeling better, pain is well controlled and patient is tolerating oral intake Exam Const: General: cooperative, healthy appearing, comfortable and no acute distress Resp: Auscultation: no crackles, no rales, no rhonchi and no wheezes Cardio: Rhythm: regular rhythm Heart sounds: no click and no murmurs GI: Inspection: non-distended Auscultation: normal bowel sounds Other: Incisions - CDI Extrem: General: normal to inspection, no pedal edema and no calf tenderness TECHNICAL LEAD - PN: Obj Data Vital Signs Vital Signs: Vital Signs - 24 hr 08/01/21 15:25 08/01/21 15:40 08/01/21 15:55 Temperature 97.2 F L Pulse Rate 90 85 88 Respiratory Rate 22 H 13 16 Blood Pressure 137/71 139/70 143/72 H Pulse Oximetry 97 100 92 08/01/21 16:10 08/01/21 16:25 08/01/21 16:40 Temperature 97.4 F L Pulse Rate 97 80 76 Respiratory Rate 21 H 20 18 Blood Pressure 146/75 H 150/74 H 145/72 H Pulse Oximetry 98 94 98 08/01/21 16:55 08/01/21 19:45 08/01/21 19:50 Temperature 97.4 F L 97.8 F 96.8 F L Pulse Rate 71 66 78 Respiratory Rate 20 16 16 Blood Pressure 139/70 116/69 145/75 H Pulse Oximetry 99 97 100 08/02/21 00:14 08/02/21 04:27 Temperature 98.6 F 98.3 F Pulse Rate 86 81 Respiratory Rate 14 16 Blood Pressure 119/66 92/51 L Pulse Oximetry 99 98 Intake/Output Intake/Output: Intake & Output 07/30/21 07/31/21 08/01/21 08/02/21 23:59 23:59 23:59 23:59 Intake Total 2240 640 Output Total 600 250 Balance 1640 390 Meds/Results Medications: Active Medications Generic Name Dose Route Start Last Admin Trade Name Freq PRN Reason Stop Dose Admin Hydrocodone Bitart/Acetaminophen 1 tab 08/01/21 15:57 08/01/21 21:31 Hydrocodone/Acetaminophen (*Crx) 5-325 Mg Tablet PO 1 tab Q3H PRN Administration Pain Rated 5 or Less Hydrocodone Bitart/Acetaminophen 1 tab 08/01/21 15:57 08/02/21 09:11 Hydrocodone/Acetaminophen (*Crx) 10-325 Mg Tablet PO 1 tab Q3H PRN Administration Pain Rated 6 or Greater Dextrose/Sodium Chloride 1,000 mls @ 125 mls/hr 08/01/21 16:00 08/01/21 21:40 Dextrose 5% Sodium Chloride 0.45% IV CONT Infused .Q8H TESFAYE Infusion Ibuprofen 600 mg 08/01/21 15:57 Ibuprofen 600 Mg Tablet PO Q6H PRN Cramping Morphine Sulfate 2 mg 08/01/21 19:34 Morphine Sulfate (*Crx) 2 Mg/Ml Inj IV PUSH Q1H PRN Pain Rated 7-10 Naloxone HCl 0.1 mg 08/01/21 15:57 Naloxone Hcl 0.4 Mg/Ml Vial IV PUSH Q2M PRN Respiratory rate less than 10 Ondansetron HCl 4 mg 08/01/21 15:57 Ondansetron Inj 4 Mg/2 Ml Vial IV PUSH Q6H PRN Nausea And Vomiting Labs CBC & Chem 7: 08/01/21 08:30
[2021-08-02 13:00] VITALS: TEMP 36.7
== END 2021-08-02 14:31 | disposition home or self-care (01) ==
LOC: ANHSURGERY 09:30 → ANHOB2 16:44
PROVIDERS: PCP Emergency Medicine; Visit Provider Obstetrics & Gynecology
PROC: 0UT9FZZ Resection of Uterus, Via Natural or Artificial Opening With Percutaneous Endoscopic Assistance (ICD-10-PCS; CPT 58571; principal; 2021-08-01 10:00)
DX: R10.2 Pelvic and perineal pain (principal); N94.6 Dysmenorrhea, unspecified; N92.1 Excessive and frequent menstruation with irregular cycle; N73.6 Female pelvic peritoneal adhesions (postinfective); N72 Inflammatory disease of cervix uteri; N83.8 Other noninflammatory disorders of ovary, fallopian tube and broad ligament; J45.909 Unspecified asthma, uncomplicated; K76.0 Fatty (change of) liver, not elsewhere classified; E28.2 Polycystic ovarian syndrome; E66.01 Morbid (severe) obesity due to excess calories; Z68.41 Body mass index [BMI] 40.0-44.9, adult; Z79.51 Long term (current) use of inhaled steroids
CPT/HCPCS: 58571; 36415; 80048; 88307; 99199; A9270; J0690; J1100; J1170; J1200; J2250; J2405; J2704; J3010; J7030; J7120

== ENCOUNTER → 2021-12-03 03:13 | Outpatient (CLI) | payer OTHER, SELFPAY ==
[2021-12-03 20:49] LABS: SARS-CoV-2 RNA PCR Negative
== END ==
PROVIDERS: PCP Emergency Medicine; Visit Provider Emergency Medicine
DX: R05.9 Cough, unspecified (principal); R06.02 Shortness of breath; Z20.822 Contact with and (suspected) exposure to COVID-19
CPT/HCPCS: C9803; U0003; U0005

== ENCOUNTER 2022-01-02 20:44 | Emergency (ER) | payer OTHER, SELFPAY ==
[2022-01-02 20:50] VITALS: BP 130/89; PULSE 95; RESP 18; TEMP 36.3; O2SAT 100
--- NOTE | 2022-01-02 22:54 | ED.ABDPAIN ---
HPI - Abdominal Pain General Chief Complaint: MILLER KILN DRIED SALT Stated Complaint: abd pain Time Seen by Provider: 01/02/22 22:36 Source: patient Mode of arrival: ambulatory Limitations: no limitations History of Present Illness HPI narrative: Patient is a 31-year-old female complaining of lower abdominal pain, 8 out of 10, accompanied by nausea and vomiting x1 week. Patient states that she was seen at [facility] 3 days ago for the same complaint, had labs and a CT scan of her abdomen pelvis done, was told that she had a cyst and was discharged home and to follow-up with her primary care physician. Patient states that she has seen her primary care physician yesterday and was told to follow-up with her [facility]. Related Data Home Medications Medication Instructions Recorded Confirmed albuterol sulfate 90 mcg/actuation 2 puff INHALATION Q4H PRN gm 07/03/20 08/01/21 aerosol inhaler spironolactone 100 mg tablet 100 mg PO DAILY 07/03/20 08/01/21 Viibryd 40 mg PO DAILY 07/29/21 08/01/21 fexofenadine 180 mg PO DAILY 07/29/21 08/01/21 magnesium 250 mg PO DAILY 07/29/21 08/01/21 sumatriptan succinate [Imitrex] 100 mg PO ONCE PRN 07/29/21 08/01/21 trazodone 50 mg PO HS PRN 07/29/21 08/01/21 Allergies Allergy/AdvReac Type Severity Reaction Status Date / Time pineapple Allergy Severe Anaphylactic Verified 08/01/21 08:19 Shock ketorolac Allergy Intermediate HIVE Verified 08/01/21 08:19 latex Allergy Intermediate Hives Verified 08/01/21 08:19 cat dander Allergy Mild Sneezing Verified 08/01/21 08:19 pollen extracts Allergy Mild Unknown Verified 08/01/21 08:19 tramadol Allergy Mild Hives Verified 08/01/21 08:19 house dust AdvReac Intermediate Unknown Verified 08/01/21 08:19 Review of Systems Review of Systems: All systems reviewed & are unremarkable except as noted in HPI and below Constitutional: Constitutional: Denies body ache(s), Denies chills, Denies excessive sweating, Denies fatigue, Denies fever(s), Denies headache(s), Denies lethargy, Denies malaise, Denies weakness and Denies weight loss Eyes: Eyes: Denies blurry vision, Denies change in vision and Denies loss of vision ENT: Denies dizziness, Denies ear discharge, Denies headache(s), Denies lip swelling, Denies epistaxis, Denies nasal congestion, Denies neck pain, Denies throat swelling and Denies tongue swelling Cardiovascular: Cardiovascular: Denies chest pain, Denies chest pain at rest, Denies chest pain with activity, Denies diaphoresis, Denies rapid heart rate, Denies edema, Denies irregular heart rhythm, Denies lightheadedness, Denies palpitations, Denies dyspnea and Denies dyspnea on exertion Respiratory: Respiratory: Denies chest congestion, Denies cough, Denies hemoptysis, Denies dyspnea and Denies dyspnea on exertion Gastrointestinal: Gastrointestinal: Denies melena, Denies hematochezia, Denies diarrhea and Denies hematemesis Musculoskeletal: Musculoskeletal: Denies abnormal gait, Denies deformity, Denies joint swelling, Denies limited range of motion, Denies neck pain and Denies numbness Neurologic: Denies Abnormal speech present, Denies abnormal gait, Denies confusion, Denies dizziness, Denies headache(s), Denies focal weakness, Denies loss of vision, Denies numbness, Denies Other visual disturbances, Denies Sensory deficit (Neuro) and Denies weakness Psychiatric: Psychiatric: Denies confusion, Denies depression, Denies auditory hallucinations, Denies homicidal ideation and Denies suicidal ideation Endocrine: Endocrine: Denies cold intolerance, Denies excessive sweating, Denies fatigue, Denies heat intolerance and Denies palpitations Hematologic/Lymphatic: Hematologic/Lymphatic: Denies easy bleeding and Denies easy bruising Allergic/Immunologic: Allergic/Immunologic: Denies lip swelling, Denies throat swelling and Denies tongue swelling PMFSH Past Medical History Medical History Allergies Arthritis Asthma Asthma Bro
--- NOTE | 2022-01-02 23:34 | PC.NURSE ---
Pt states she is leaving. States i already had these tests the other day Service recovery attempted, unsuccessful. ERP is aware and pt ambulated out of ER with steady gait in no distress.
== END 2022-01-02 23:35 | disposition left against medical advice (07) ==
PROVIDERS: Emergency Provider Emergency Medicine; PCP Emergency Medicine
DX: R10.30 Lower abdominal pain, unspecified (principal); M19.90 Unspecified osteoarthritis, unspecified site; J45.909 Unspecified asthma, uncomplicated; E28.2 Polycystic ovarian syndrome; N71.1 Chronic inflammatory disease of uterus
CPT/HCPCS: 99281

== ENCOUNTER 2022-01-19 09:24 | Outpatient (CLI) | payer OTHER, SELFPAY ==
--- NOTE | ~2022-01-19 | CT_ITS ---
EXAMINATION: CT abdomen pelvis w con INDICATION: Retroperitoneal lymphadenopathy TECHNIQUE: Computed tomographic images of the abdomen and pelvis were obtained after the administrati on of 100 cc of Omnipaque 350 intravenous contrast. The dose-length product (DLP) was 1020.12 mGy-cm. Automated exposure control and iterative reconstruction technique were employed. COMPARISON: 08/08/2019 FINDINGS: The lung bases are clear. The heart size is normal. There are changes of interval cholecyst ectomy. There is focal fatty infiltration of the liver near the ligamentum teres. The spleen, pancrea s, and adrenal glands are normal. There is a 1.3 cm cyst of the left kidney. The right kidney is unre markable. No pathologically enlarged abdominal or pelvic lymph nodes are identified. There is no free intraperitoneal gas or evidence of bowel obstruction. The appendix is normal. There is a small fat-c ontaining umbilical hernia. Changes of hysterectomy are noted. A corpus luteum is noted in the right ovary. IMPRESSION: 1. No lymphadenopathy identified. Reviewed, dictated and finalized at location F. LY PRACTICE MD
== END 2022-01-19 09:25 | disposition home or self-care (01) ==
LOC: ANHIMG 09:25
PROVIDERS: PCP Emergency Medicine; Visit Provider Internal Medicine Hematology & Oncology
DX: R59.0 Localized enlarged lymph nodes (principal)
CPT/HCPCS: 74177; Q9967

== ENCOUNTER 2022-01-20 16:38 | Outpatient (CLI) | payer OTHER, SELFPAY ==
[2022-01-20 17:25] LABS: Basophils Percent Auto 0.4 % (0.2-1.2); Eosinophils Absolute Auto 0.1 K/mm3 (0-0.3); Eosinophils Percent Auto 0.8 % (0-4.4); Hematocrit 39.4 % (37.0-47.0); Hemoglobin 13.3 g/dL (12.0-15.0); Immature Granulocyte Absolute 0.03 K/mm3 (0.00-0.031); Immature Granulocyte Percent A 0.3 % (0-0.5); Lymphocytes Absolute Auto 2.29 K/mm3 (0.9-3.2); Lymphocytes Percent Auto 23.7 % (18.3-44.2); Mean Corpuscular HGB Conc 33.8 g/dl (32-36); Mean Corpuscular Hemoglobin 29.5 pg (26-34); Mean Corpuscular Volume 87.4 fl (80-100); Mean Platelet Volume 10.4 fl (7.4-10.4); Monocytes Absolute Auto 0.6 K/mm3 (0.1-0.6); Monocytes Percent Auto 6.2 % (2.6-8.5); Neutrophils Absolute Auto 6.6 K/mm3 (1.3-6.7); Neutrophils Percent Auto 68.6 % (45.5-73.1); Platelet Count Result 287 k/mm3 (150-375); Red Blood Count 4.51 M/mm3 (4.2-5.4); Red Cell Distribution Width 13.2 % (11.5-14.5); White Blood Count 9.7 K/mm3 (4.5-10.0)
[2022-01-20 17:39] LABS: Alanine Aminotransferase 22 U/L (4-35); Albumin Level 4.5 g/dL (3.5-5.1); Alkaline Phosphatase 64 U/L (38-126); Anion Gap 10 mmol/L (8-16); Aspartate Amino Transferase 20 U/L (14-36); Bilirubin,Total 0.5 mg/dL (0.2-1.3); Blood Urea Nitrogen 12 mg/dL (7-17); Calcium 8.5 mg/dL (8.4-10.2); Carbon Dioxide 20 mmol/L (22-30); Chloride 108 mmol/L (98-107); Estimated Glomerular Filt Rate > 60; Glucose 131 mg/dL (65-110); Lactate Dehydrogenase 395 U/L (313-618); Potassium 3.3 mmol/L (3.4-5.0); Sodium 138 mmol/L (137-145)
== END 2022-01-20 16:39 | disposition home or self-care (01) ==
LOC: ANHLAB 16:40
PROVIDERS: PCP Emergency Medicine; Visit Provider Internal Medicine Hematology & Oncology
DX: R59.0 Localized enlarged lymph nodes (principal)
CPT/HCPCS: 36415; 80053; 83615; 85025

== ENCOUNTER 2023-08-13 09:12 | Outpatient (CLI) | payer BC, SELFPAY ==
[2023-08-13 10:06] LABS: Hematocrit 38.7 % (37.0-47.0); Hemoglobin 12.9 g/dL (12.0-15.0); Mean Corpuscular HGB Conc 33.3 g/dl (32-36); Mean Corpuscular Hemoglobin 30.4 pg (26-34); Mean Corpuscular Volume 91.3 fl (80-100); Mean Platelet Volume 10.2 fl (7.4-10.4); Platelet Count Result 299 k/mm3 (150-375); Red Blood Count 4.24 M/mm3 (4.2-5.4); Red Cell Distribution Width 12.6 % (11.5-14.5); White Blood Count 7.9 K/mm3 (4.5-10.0)
[2023-08-13 10:40] LABS: Hemoglobin A1C 5.5 % (<5.7)
[2023-08-13 10:49] LABS: Thyroid Stimulating Hormone 0.826 uIU/mL (0.465-4.680)
[2023-08-13 10:56] LABS: Free T4 Free Thyroxine 1.37 ng/mL (0.78-2.19); Vitamin D 25 Hydroxy 30.5 ng/mL
[2023-08-13 11:49] LABS: Creatinine Urine 242.9 mg/dL; MALB Creatinine Ratio 4.5 mg/g (0-30)
[2023-08-13 12:30] LABS: Alanine Aminotransferase 20 U/L (6-35); Albumin Level 4.3 g/dL (3.5-5.1); Alkaline Phosphatase 55 U/L (38-126); Anion Gap 9 mmol/L (8-16); Aspartate Amino Transferase 23 U/L (14-36); Bilirubin,Total 0.6 mg/dL (0.2-1.3); Blood Urea Nitrogen 8 mg/dL (7-17); Calcium 8.6 mg/dL (8.4-10.2); Carbon Dioxide 23 mmol/L (22-30); Chloride 105 mmol/L (98-107); Cholesterol 197 mg/dL (0-200); Estimated Glomerular Filt Rate > 60; Glucose 100 mg/dL (65-110); HDL Direct 44 mg/dL; LDL Cholesterol Direct 114 mg/dL; Potassium 4.6 mmol/L (3.4-5.0); Sodium 137 mmol/L (137-145); Triglycerides 87 mg/dL (<150)
== END 2023-08-13 09:13 | disposition home or self-care (01) ==
LOC: ANHLAB 09:16
PROVIDERS: PCP Emergency Medicine; Visit Provider Emergency Medicine
DX: F41.9 Anxiety disorder, unspecified (principal); M54.50 Low back pain, unspecified; F32.9 Major depressive disorder, single episode, unspecified; E78.5 Hyperlipidemia, unspecified; J45.909 Unspecified asthma, uncomplicated; K76.0 Fatty (change of) liver, not elsewhere classified; K31.84 Gastroparesis; G43.909 Migraine, unspecified, not intractable, without status migrainosus
CPT/HCPCS: 36415; 80053; 80061; 82043; 82306; 83036; 84439; 84443; 85027

== ENCOUNTER 2023-11-08 08:51 | Emergency (ER) | payer BC, SELFPAY ==
--- NOTE | 2023-11-08 08:53 | ED.URI ---
HPI - URI/Sore Throat General Chief Complaint: Upper Respiratory Infection Stated Complaint: Cough, Congestion, Earache, Chest Pain Time Seen by Provider: 11/08/23 09:00 Source: patient, RN notes reviewed and old records reviewed Mode of arrival: ambulatory Limitations: no limitations History of Present Illness HPI Narrative: 33-year-old female presents to the [facility] with complaints of cough, congestion, ear pain that started 4 days ago. Has taken Tamiflu. Denies fevers. Denies any wheezing. Denies shortness of breath, abdominal pain, chest pain Onset (ago): day(s) (4) Treatments prior to arrival: cold medicine Related Data Home Medications Medication Instructions Recorded Confirmed albuterol sulfate 90 mcg/actuation 2 puff inhalation Q4H PRN 07/03/20 08/01/21 aerosol inhaler (Ventolin HFA) Shortness Of Breath spironolactone 100 mg tablet 100 mg PO DAILY 07/03/20 08/01/21 (Aldactone) fexofenadine 180 mg tablet 180 mg PO DAILY 07/29/21 08/01/21 magnesium 250 mg tablet 250 mg PO DAILY 07/29/21 08/01/21 sumatriptan succinate 100 mg 100 mg PO ONCE PRN Migraine 07/29/21 08/01/21 tablet (Imitrex) Headache trazodone 50 mg tablet 50 mg PO HS PRN Insomnia 07/29/21 08/01/21 vilazodone 40 mg tablet (Viibryd) 40 mg PO DAILY 07/29/21 08/01/21 Allergies Allergy/AdvReac Type Severity Reaction Status Date / Time pineapple Allergy Severe Anaphylactic Verified 11/08/23 08:54 Shock ketorolac Allergy Intermediate HIVE Verified 11/08/23 08:54 latex Allergy Intermediate Hives Verified 11/08/23 08:54 cat dander Allergy Mild Sneezing Verified 11/08/23 08:54 pollen extracts Allergy Mild Unknown Verified 11/08/23 08:54 tramadol Allergy Mild Hives Verified 11/08/23 08:54 house dust AdvReac Intermediate Unknown Verified 11/08/23 08:54 Review of Systems Review of Systems: All systems reviewed & are unremarkable except as noted in HPI and below Constitutional: Constitutional: Reports no additional constitutional complaints Eyes: Eyes: Reports no additional eye complaints ENT: Reports as per HPI, Reports otalgia and Reports nasal congestion Cardiovascular: Cardiovascular: Reports no additional cardiovascular complaints, Denies chest pain and Denies dyspnea Respiratory: Respiratory: Reports as per HPI, Reports chest congestion, Reports cough and Denies dyspnea Gastrointestinal: Gastrointestinal: Reports no additional gastrointestinal complaints, Denies abdominal pain, Denies nausea and Denies vomiting Musculoskeletal: Musculoskeletal: Reports no additional musculoskeletal complaints Integumentary/Breasts: Skin/Breast: Reports system reviewed and no additional complaints, except as docu Neurologic: Reports system reviewed and no additional complaints, except as documented Psychiatric: Psychiatric: Reports no additional psychiatric complaints Allergic/Immunologic: Allergic/Immunologic: Reports no additional allergic/immunologic complaints PMFSH Past Medical History Medical History (Updated 11/08/23 @ 09:10 by Carlota Fonseca APRN) Allergies Anxiety Arthritis Asthma Asthma Bronchitis Chronic endomyometritis Fatty liver Hypertension Migraine PCOS (polycystic ovarian syndrome) Family History Family History Mother Diabetes mellitus Hypertension Depression Father Alcoholism Depression Sibling Depression Grandparent Skin cancer Grandparent Skin cancer Hypertension Heart disease Cerebrovascular accident Other Asthma Family history of arthritis Family history of cardiovascular disease Family history of malignant neoplasm Family history of migraine headaches Family history of seizure disorder Social History Social History Smoking status: Never smoker Alcohol intake: current Alcohol use details: 1-2 servings a month Substance use: never Substance use type: does not use
[2023-11-08 08:56] VITALS: BP 106/80; PULSE 87; RESP 20; TEMP 36.7; O2SAT 99
== END 2023-11-08 09:13 | disposition home or self-care (01) ==
PROVIDERS: Emergency Provider Nurse Practitioner; PCP Emergency Medicine
DX: J06.9 Acute upper respiratory infection, unspecified (principal); M19.90 Unspecified osteoarthritis, unspecified site; J45.909 Unspecified asthma, uncomplicated; K76.0 Fatty (change of) liver, not elsewhere classified; I10 Essential (primary) hypertension; E28.2 Polycystic ovarian syndrome
CPT/HCPCS: 99211; G0463

== ENCOUNTER 2024-02-07 08:47 | Emergency (ER) | payer BC, SELFPAY ==
[2024-02-07 08:52] VITALS: BP 101/82; PULSE 85; RESP 16; TEMP 36.4; O2SAT 100
--- NOTE | 2024-02-07 08:52 | ED.URI ---
HPI - URI/Sore Throat General Chief Complaint: Upper Respiratory Infection Stated Complaint: Bodyache, Headahce, Sore Throat, Cough Time Seen by Provider: 02/07/24 08:52 Source: patient Mode of arrival: ambulatory Limitations: no limitations History of Present Illness HPI Narrative: Radha is a 33-year-old female patient presenting to the clinic today with complaints of body aches, headache, sore throat, and cough x3 days. She reports no known fevers as she has not been able discharge her temperature as she does not have a thermometer at home. MD elicited complaint: sore throat and nasal congestion Related Data Home Medications Medication Instructions Recorded Confirmed albuterol sulfate 90 mcg/actuation 2 puff inhalation Q4H PRN 07/03/20 08/01/21 aerosol inhaler (Ventolin HFA) Shortness Of Breath spironolactone 100 mg tablet 100 mg PO DAILY 07/03/20 08/01/21 (Aldactone) fexofenadine 180 mg tablet 180 mg PO DAILY 07/29/21 08/01/21 magnesium 250 mg tablet 250 mg PO DAILY 07/29/21 08/01/21 sumatriptan succinate 100 mg 100 mg PO ONCE PRN Migraine 07/29/21 08/01/21 tablet (Imitrex) Headache trazodone 50 mg tablet 50 mg PO HS PRN Insomnia 07/29/21 08/01/21 budesonide-formoterol HFA 160 inhalation 02/07/24 mcg-4.5 mcg/actuation aerosol inhaler (Symbicort) duloxetine 60 mg capsule,delayed mg PO 02/07/24 release gabapentin 100 mg capsule mg 02/07/24 pantoprazole 40 mg tablet,delayed mg PO 02/07/24 release tiotropium bromide 18 mcg capsule inhalation 02/07/24 with inhalation device (Spiriva with HandiHaler) Allergies Allergy/AdvReac Type Severity Reaction Status Date / Time pineapple Allergy Severe Anaphylactic Verified 11/08/23 08:54 Shock ketorolac Allergy Intermediate HIVE Verified 11/08/23 08:54 latex Allergy Intermediate Hives Verified 11/08/23 08:54 cat dander Allergy Mild Sneezing Verified 11/08/23 08:54 pollen extracts Allergy Mild Unknown Verified 11/08/23 08:54 tramadol Allergy Mild Hives Verified 11/08/23 08:54 house dust AdvReac Intermediate Unknown Verified 11/08/23 08:54 Review of Systems Review of Systems: Pertinent positives per HPI. Patient denies any fever, rash, visual changes, dizziness, shortness of breath, chest pain, palpitations, nausea, vomiting, diarrhea, constipation, abdominal pain, or any urinary issues. PMFSH Past Medical History Medical History Allergies Anxiety Arthritis Asthma Asthma Bronchitis Chronic endomyometritis Fatty liver Hypertension Migraine PCOS (polycystic ovarian syndrome) Family History Family History Mother Diabetes mellitus Hypertension Depression Father Alcoholism Depression Sibling Depression Grandparent Skin cancer Grandparent Skin cancer Hypertension Heart disease Cerebrovascular accident Other Asthma Family history of arthritis Family history of cardiovascular disease Family history of malignant neoplasm Family history of migraine headaches Family history of seizure disorder Social History Social History Smoking status: Never smoker Alcohol intake: current Alcohol use details: 1-2 servings a month Substance use: never Substance use type: does not use Living arrangements: with family Gender identity (if verbalized by the patient): Female Spiritual care concerns: No Comments At the time of my signature, I reviewed and agree with the nursing past medical, surgical, social, and family history. There is no relevant family history pertinent to the patient complaint. Exam Narrative: General: Well-developed, well nourished, in no apparent distress Head: Normocephalic, atraumatic Eyes: Pupils equally round and reactive to light bilaterally, EOM intact, sclera and conjunctive clear, no discharge, lids
== END 2024-02-07 09:33 | disposition home or self-care (01) ==
PROVIDERS: Emergency Provider Nurse Practitioner Family; PCP Emergency Medicine
DX: B34.9 Viral infection, unspecified (principal); J06.9 Acute upper respiratory infection, unspecified; J02.9 Acute pharyngitis, unspecified; Z20.822 Contact with and (suspected) exposure to COVID-19; J45.909 Unspecified asthma, uncomplicated; M19.90 Unspecified osteoarthritis, unspecified site; K76.0 Fatty (change of) liver, not elsewhere classified; I10 Essential (primary) hypertension; E28.2 Polycystic ovarian syndrome
CPT/HCPCS: 87081; 87426; 87804; 87880; 99213; G0463

== ENCOUNTER 2024-05-03 17:30 | Outpatient (CLI) | payer BC, SELFPAY ==
[2024-05-03 18:01] LABS: Basophils Percent Auto 0.4 % (0.2-1.2); Eosinophils Absolute Auto 0.2 K/mm3 (0-0.3); Eosinophils Percent Auto 2.1 % (0-4.4); Hematocrit 37.9 % (37.0-47.0); Hemoglobin 12.6 g/dL (12.0-15.0); Immature Granulocyte Absolute 0.03 K/mm3 (0.00-0.031); Immature Granulocyte Percent A 0.3 % (0-0.5); Lymphocytes Absolute Auto 2.86 K/mm3 (0.9-3.2); Lymphocytes Percent Auto 30.4 % (18.3-44.2); Mean Corpuscular HGB Conc 33.2 g/dl (32-36); Mean Corpuscular Hemoglobin 29.6 pg (26-34); Mean Platelet Volume 10.2 fl (7.4-10.4); Monocytes Absolute Auto 0.5 K/mm3 (0.1-0.6); Monocytes Percent Auto 4.8 % (2.6-8.5); Neutrophils Absolute Auto 5.8 K/mm3 (1.3-6.7); Platelet Count Result 284 k/mm3 (150-375); Red Blood Count 4.26 M/mm3 (4.2-5.4); Red Cell Distribution Width 12.5 % (11.5-14.5); White Blood Count 9.4 K/mm3 (4.5-10.0)
[2024-05-03 18:15] LABS: Albumin Level 4.3 g/dL (3.5-5.1); Anion Gap 9 mmol/L (4-12); Blood Urea Nitrogen 16 mg/dL (7-17); Calcium 8.5 mg/dL (8.4-10.2); Carbon Dioxide 22 mmol/L (22-30); Chloride 108 mmol/L (98-107); Estimated Glomerular Filt Rate > 60; Glucose 103 mg/dL (65-110); Phosphorus 3.7 mg/dL (2.5-4.5); Potassium 3.6 mmol/L (3.4-5.0); Sodium 139 mmol/L (137-145)
[2024-05-03 18:39] LABS: Vitamin D 25 Hydroxy 35.4 ng/mL
[2024-05-03 18:41] LABS: Creatinine Urine 199.7 mg/dL
[2024-05-03 19:00] LABS: Appearance Urine Clear (Clear); Bilirubin Urine Negative (Negative); Blood Urine Negative (Negative); Color Urine Yellow (Yellow); Glucose Urine UA Negative (Negative); Ketones Urine Negative (Negative); Leukocyte Esterase Ur Negative LEU/UL (Negative); Nitrate Urine Negative (Negative); Protein Urine Negative (Negative); Specific Grav Ur 1.029 (1.001-1.035); Urobilinogen Urine 0.2 mg/dL (<2.0); pH Urine 5.5 (5.0-9.0)
[2024-05-03 19:02] LABS: Add Urine Microscopic? NO
[2024-05-03 19:17] LABS: Total Protein Urine Random < 5 mg/dL; Ur Ttl Prot Creatinine Ratio < 0.03 mg/mg (0-0.20)
== END 2024-05-03 17:31 | disposition home or self-care (01) ==
LOC: ANHLAB 17:33
PROVIDERS: PCP Emergency Medicine; Visit Provider Hospitalist
DX: N18.2 Chronic kidney disease, stage 2 (mild) (principal)
CPT/HCPCS: 36415; 80069; 81003; 82306; 82570; 84156; 85025

== ENCOUNTER 2025-01-15 10:14 | Emergency (ER) | payer SELFPAY ==
[2025-01-15 10:33] VITALS: BP 141/83; PULSE 70; RESP 16; TEMP 36.8; O2SAT 100
--- NOTE | 2025-01-15 11:53 | ED_ITS ---
HPI - URI/Sore Throat General Chief Complaint: Upper Respiratory Infection Stated Complaint: Chest Congestion/Body Ache Time Seen by Provider: 01/15/25 11:45 Source: patient, RN notes reviewed and old records reviewed Mode of arrival: ambulatory Limitations: no limitations History of Present Illness HPI Narrative: 34 year old female who presents to [facility] with complaints of cough and congestion with some body aches and headache for the past 6 days. 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 Patient reports that she has taken some Tylenol for her headache and myalgia reports no recent fever.. MD elicited complaint: cough, rhinorrhea, nasal congestion and other (body aches) Pertinent past history: asthma Onset (ago): day(s) (6) Severity: moderate Able to tolerate fluids by mouth: Yes Treatments prior to arrival: acetaminophen Related Data Home Medications ?Medication ?Instructions ?Recorded ?Confirmed ?Last Taken ?Type albuterol sulfate 90 mcg/actuation 2 puff inhalation Q4H PRN 07/03/20 01/15/25 07/29/21 History aerosol inhaler (Ventolin HFA) Shortness Of Breath spironolactone 100 mg tablet 100 mg PO DAILY 07/03/20 01/15/25 07/31/21 History (Aldactone) fexofenadine 180 mg tablet 180 mg PO DAILY 07/29/21 01/15/25 07/31/21 History magnesium 250 mg tablet 250 mg PO DAILY 07/29/21 01/15/25 07/31/21 History sumatriptan succinate 100 mg 100 mg PO ONCE PRN Migraine 07/29/21 01/15/25 07/23/21 History tablet (Imitrex) Headache trazodone 50 mg tablet 50 mg PO HS PRN Insomnia 07/29/21 01/15/25 07/31/21 History budesonide-formoterol HFA 160 1 inh inhalation DIRECTED 02/07/24 01/15/25 Unknown History mcg-4.5 mcg/actuation aerosol inhaler (Symbicort) duloxetine 60 mg capsule,delayed 60 mg PO DIRECTED 02/07/24 01/15/25 Unknown History release gabapentin 100 mg capsule 100 mg DIRECTED 02/07/24 02/07/24 Unknown History pantoprazole 40 mg tablet,delayed 40 mg PO DIRECTED 02/07/24 01/15/25 Unknown History release tiotropium bromide 18 mcg capsule 18 mcg inhalation DIRECTED 02/07/24 01/15/25 Unknown History with inhalation device (Spiriva with HandiHaler) amoxicillin 500 mg capsule mg 01/15/25 Unknown History Allergies Allergy/AdvReac Type Severity Reaction Status Date / Time pineapple Allergy Severe Anaphylactic Verified 11/08/23 08:54 Shock ketorolac Allergy Intermediate HIVE Verified 11/08/23 08:54 latex Allergy Intermediate Hives Verified 11/08/23 08:54 cat dander Allergy Mild Sneezing Verified 11/08/23 08:54 pollen extracts Allergy Mild Unknown Verified 11/08/23 08:54 tramadol Allergy Mild Hives Verified 11/08/23 08:54 house dust AdvReac Intermediate Unknown Verified 11/08/23 08:54 Review of Systems Review of Systems: CONSTITUTIONAL: Reports malaise, no present chills, sweats, or fever. did have at beginning of illness EYES: Denies visual changes, redness, or discharge. ENT: Reports rhinorrhea, congestion, sinus pain, no otalgia and no sore throat. CARDIOVASCULAR: Denies chest pain, palpitations, or edema. RESPIRATORY: Reports cough.? Denies dyspnea. GASTROINTESTINAL: Denies abdominal pain, nausea, vomiting, diarrhea SKIN: Denies rash or itching. MUSCULOSKELETAL: reports myalgia. NEUROLOGIC:Reports headache. All systems reviewed & are unremarkable except as noted in HPI and below PMFSH Past Medical History Medical History Hypertension Anxiety Asthma Fatty liver Bronchitis Arthritis Chronic endomyometritis PCOS (polycystic ovarian syndrome) Allergies Migraine Asthma Surgical History Surgical History H/O: hysterectomy History of cholecystectomy Family History Family History Mother Diabetes mellitus Hypertension Depression Father Alcoholism Depression Sibling Depression Grandparent Skin cancer Grandparent Skin cancer Hypertension Heart disease Cerebrovascular accident Other Asthma Family history of arthritis Family history of cardiovascular disease Family history of malignant neoplasm Family history of migraine headaches Family history of seizure disorder Social History Social History Smoking status: Never smoker Alcohol intake: current Alcohol use details: 1-2 servings a month Substance use: never Substance use type: does not use Living arrangements: with family Gender identity (if verbalized by the patient): Female Spiritual care concerns: No Comments At time of signature, agree with nursing past medical, surgical, social and family history. There is no relevant family history pertinent to the presenting complaint Exam Narrative: GENERAL: Well-appearing, well-nourished, and in no acute distress. HEAD: Normocephalic EYES: PERRLA, conjunctivae clear ENT: Nares clear, turbinates edematous and erythematous, clear discharge. Mucous membranes moist. TM pearly crump with dull light reflex bilaterally; no tragal tenderness. Oropharynx erythematous without lesions. Tonsils not enlarged and without exudate, no drooling, no hoarseness, no trismus, uvula midline.post nasal drainage NECK: Supple. No lymphadenopathy CHEST: Clear to auscultation, breath sounds equal. No wheezing, rhonchi, rales, or stridor. No respiratory distress, speaks in full sentences.ough noted dry SAO2 100% on room air HEART: Regular rate and rhythm. No murmur heard. SKIN: Warm, dry, no rash. NEURO: Alert and oriented x3. PSYCH: Normal mood and affect Course Course Emergency Course: Patient is aware of diagnosis, understands and agrees to treatment plan.? Anticipatory guidance given.? Patient agrees to follow-up as directed and is aware of reasons to seek care at the emergency department. Portions of this record may have been created with voice recognition software Level of Care: Express Care Visit Vital Signs Vital signs: Vital Signs Temperature 36.8 C 01/15/25 10:33 Pulse Rate 70 01/15/25 10:33 Respiratory Rate 16 01/15/25 10:33 Blood Pressure 141/83 H 01/15/25 10:33 Pulse Oximetry 100 01/15/25 10:33 Oxygen Delivery Room Air 01/15/25 10:33 Temperature 36.8 C 01/15/25 10:33 Pulse Rate 70 01/15/25 10:33 Respiratory Rate 16 01/15/25 10:33 Blood Pressure 141/83 H 01/15/25 10:33 Pulse Oximetry 100 01/15/25 10:33 Oxygen Delivery Room Air 01/15/25 10:33 Reviewed MDM - URI/Sore Throat MDM Narrative Medical decision making narrative: Differential diagnosis considered: Wen virus, strep pharyngitis, allergic rhinitis, upper respiratory tract infection, sinusitis, rhinosinusitis, nasopharyngitis. viral pharyngitis, otitis media, otitis externa, pneumonia, bronchitis, viral cough syndrome, viral syndrome, and influenza.? Exam findings show no acute concerns or changes; patient is non-toxic appearing and is in no distress.? Patient is appropriate for outpatient treatment and follow-up. Differential Diagnosis Differential diagnosis: Likely upper respiratory infection, viral infection, bronchitis, influenza and other (COVID cough) Medical Records Attestation: I reviewed the patient's medical records. Lab Data Attestation: I reviewed the patient's lab results. Lab results narrative: Influenza A negative, Influenza B negative, COVID antigen negative Labs: Lab Results 01/15/25 Range/Units 10:26 POC Influenza A Ag Negative (Negative) POC Influenza B Ag Negative (Negative) POC SARS CoV-2 Ag Negative (Negative) reviewed Critical Care Time Critical Care Time Critical Care Time: No Discharge Plan Discharge Clinical Impression: Upper respiratory infection, viral Patient Disposition: Home, Self-Care Condition: Stable Instructions: Antibiotic Form, Upper Respiratory Infection (ED) Additional Instructions: Increase fluids especially juices and water [id number]-wsm-[id number] cough and cold medicine of your choice for your symptoms Zyrtec or Claritin daily Continue your inhaler/nebulizer as directed heat to the face 20-30 minutes 4-6 times a day for pain Salt water gargles, throat lozenges or throat sprays as desired If your symptoms persist, change or worsen significantly before you can contact your personal physician then please, without delay, go to the emergency department for further evaluation. Follow-up with PCP in 7-10 days or sooner if needed Follow up with PCP soon in regards to your blood pressure which is elevated above threshold for referral. Blood pressure above 120/80 may indicate pre- hypertension. 141/83 Patient Language: Dominican Prescriptions: No Action amoxicillin 500 mg capsule pantoprazole 40 mg tablet,delayed release (DR/EC) 40 mg PO DIRECTED gabapentin 100 mg capsule 100 mg DIRECTED tiotropium bromide [Spiriva with HandiHaler] 18 mcg capsule, w/inhalation device 18 mcg INHALATION DIRECTED duloxetine 60 mg capsule,delayed release(DR/EC) 60 mg PO DIRECTED budesonide-formoterol [Symbicort] 160-4.5 mcg/actuation HFA aerosol inhaler 1 inh INHALATION DIRECTED albuterol sulfate [Ventolin HFA] 90 mcg/actuation HFA aerosol inhaler 2 puff INHALATION Q4H PRN (Reason: Shortness Of Breath) spironolactone [Aldactone] 100 mg tablet 100 mg PO DAILY sumatriptan succinate [Imitrex] 100 mg Tablet 100 mg PO ONCE PRN (Reason: Migraine Headache) fexofenadine 180 mg Tablet 180 mg PO DAILY magnesium 250 mg Tablet 250 mg PO DAILY trazodone 50 mg tablet 50 mg PO HS PRN (Reason: Insomnia) Follow-up/Referrals: Phu Wadsworth MD [Primary Care Provider] - Time of Disposition: 12:07 Quality Joelle Coma Scale Eyes: Open Verbal: Oriented and Alert Motor: Follows Commands Joelle Coma Total Score: 15
--- OUTSIDE RECORDS SUMMARY | 2025-01-15 13:08 | XMS_ITS | Clinical Summary ---
Author Organization [facility] Aydee Acevedo Address [address] [place] [address] Care Team Providers Care Databases Software Consultant Name Role Phone Phu Wadsworth MD Primary Care Provider [phone] Allergies Active Allergy Reactions Criticality Noted Date Comments Ketorolac Hives,Unknown High 11/02/2019 Latex Hives,Itching,Other (See Comments) High 08/16/2019 Reddness; Latex gloves Reddness; Latex gloves Reddness; Latex gloves Reddness; Latex gloves Pineapple Unknown 08/20/2021 Tramadol Hives,Itching High 08/16/2019 Medications vilazodone HCl (VIIBRYD ORAL) Viibryd Activ e traZODone (DESYREL) 50 mg tablet trazodone 50 mg tablet TAKE 4 TABLETS BY MOUTH AT BEDTIME NEEDED FOR SLEEP 1 Active DULoxetine (CYMBALTA) 60 mg Capsule, Delayed Release(E.C.) duloxetine 60 mg capsule,delayed release TAKE 1 CAPSULE BY MOUTH EVERY DAY IN THE MORNING Active albuterol sulfate 90 mcg/actuation metered powder inhaler Take by inhalation. Active budesonide-for moteroL (SYMBICORT) 160-4.5 mcg/actuation HFA Aerosol Inhaler Take 1 Puff by inhalation 2 times daily. 1 Active fexofenadine (JESSICA) 180 mg tablet Take 180 mg by mouth. 1 Active fluticasone propionate (FLONASE) 50 mcg/spray [place], Suspension nasal inhaler fluticasone propionate 50 mcg/actuation nasal spray,suspension USE TWO SPRAYS IN EACH NOSTRIL ONCE A DAY 1 Active gabapentin (NEURONTIN) 100 mg capsule gabapentin 100 mg capsule TAKE 1 (ONE) CAPSULE BY MOUTH AT BEDTIME 1 Active Magnesium 250 mg Tablet [facility] Magnesium Oxide 250 MG Oral Tablet QTY: 0 tablet Days: 0 Refills: 0 Written: 05/29/21 Patient Instructions: 1 tab daily otc 1 Active meclizine 25 mg Tablet, Chewable Take 25 mg by mouth. 1 Active metoclopramide HCl (REGLAN) 10 mg tablet Take 1 pill 15 minutes before eating up to 4 times daily to help with nausea and vomiting issues. 2 Active pantoprazole (PROTONIX) 40 mg Tablet, Delayed Release (E.C.) pantoprazole 40 mg tablet,delayed release 1 Active polyethylene glycol 3350 (MIRALAX) 17 gram/dose Powder Take 1 capful nightly as needed for constipation management. 1 Active spironolactone (ALDACTONE) 100 mg tablet spironolactone 100 mg tablet TAKE 1 TABLET BY MOUTH EVERY DAY 1 Active SUMAtriptan (IMITREX) 100 mg tablet sumatriptan 100 mg tablet TAKE 1/2 - 1 TABLET A DAY AT THE ONSET OF MIGRAINE HEADACHE 1 Active tiotropium (Spiriva with HandiHaler) 18 mcg capsule Spiriva with HandiHaler 18 mcg and inhalation capsules 1 CAP DAILY 1 DOSE=2 INHALATIONS HOLD BREATHE FOR 5-10 SECONDS WITH EACH INHALATION 0 Active topiramate (TOPAMAX) 25 mg tablet topiramate 25 mg tablet TAKE ONE TABLET BY MOUTH TWICE DAILY 1 Active Active Problems Problem Noted Date Diagnosed Date Lymphadenopathy, retroperitoneal 10/28/2021 Social History Tobacco Use Types Packs/Day Years Used Date Smoking Tobacco: Never Smokeless Tobacco: Never Comments Unknown Sex and Gender Information Value Date Recorded Sex Assigned at Not on file Legal Sex Female 1:18 PM PLACING JUDGE Gender Identity Not on file Sexual Orientation Not on file Last Filed Vital Signs Vital Sign Reading Time Taken Comments Blood Pressure 93/63 01/26/2022 10:52 AM PLACING JUDGE Pulse 78 01/26/2022 10:52 AM PLACING JUDGE Temperature 36.6 C (97.8 F) 01/26/2022 10:52 AM PLACING JUDGE Respiratory Rate - - Oxygen Saturation 98% 01/26/2022 10: 52 AM PLACING JUDGE Inhaled Oxygen Concentration - - Weight 108.9 kg (240 lb) 01/26/2022 10: 52 AM PLACING JUDGE last weight on 10/28 was put in incorrectly Pt stated 255 Height 165.1 cm (5' 5 ) 01/26/2022 10:5 2 AM PLACING JUDGE Body Mass Index 39.94 01/26/2022 10:52 AM PLACING JUDGE Plan of Treatment Health Maintenance Due Date Last Done Comments PNEUMOCOCCAL VACCINE 0-64 YE ARS (1 of 2 - PCV) 1994 DIABETES ANNUAL FOOT EXAM 2006 DIABETES ANNUAL RETINAL EXAM 2006 DIABETES HBA1C Q 6 MONTHS 2006 DIABETES MICROALBUMIN ANNUAL SCREEN 2006 LDL CHOLESTEROL ANNUAL 2006 DTAP/TDAP/TD VACCINES (1 - Tdap) 2007 HEPATITIS B VACCINES (1 of 3 - 19+ 3-dose series) 2007 CERVICAL CANCER SCREENING 2018 INFLUENZA VACCINE (#1) 2024 HPV VACCINES Aged Out No longer eligi ble based on patient's age to complete this topic Insurance [facility] MEDICAID Care Teams Databases Software Consultant Relationship Specialty Start Date End Date Phu Wadsworth MD [address] [place] [phone] PCP - General Emergency Medicine 10/28/21
--- OUTSIDE RECORDS SUMMARY | 2025-01-15 13:08 | XMS_ITS | Clinical Summary ---
Author Organization [facility] Jessa thibodeaux Address [address] [place] [id number] Phone Care Team Providers Care Services Delivery Driver Name Role Phone Phu Wadsworth MD Primary Care Provider [phone] Allergies Active Allergy Reactions Criticality Noted Date Comments Ketorolac Tromethamine 03/26/2022 Tramadol Hives,Itching High 08/16/2019 Medications Medication Sig Dispensed Refills Start Date End Date Status budesonide-formot harsh (SYMBICORT) 160-4.5 MCG/ACT inhaler Symbicort 160-4.5 MCG/ACT Inhalation Aerosol QTY: 0 Days: 30 Refills: 0 Written: 12/05/20 Patient Instructions: 1 puff twice daily 12/05/2020 Active DULoxetine (CYMBALTA) [address] capsule duloxetine 60 mg capsule,delayed release TAKE 1 CAPSULE BY MOUTH EVERY DAY IN THE MORNING Active fluticasone (FLONASE) 50 MCG/ACT nasal spray fluticasone propionate 50 mcg/actuation nasal spray,suspension USE TWO SPRAYS IN EACH NOSTRIL ONCE A DAY 08/27/2021 Active meclizine (ANTIVERT) 25 MG tablet meclizine 25 mg tablet TAKE 1 (ONE) TABLET BY MOUTH 2 TIMES DAILY 08/20/2021 Active metoclopramide (REGLAN) 10 MG tablet metoclopramide 10 mg tablet PLEASE SEE ATTACHED FOR DETAILED DIRECTIONS 01/05/2022 Active gabapentin (NEURONTIN) 100 MG capsule gabapentin 100 mg capsule TAKE 1 (ONE) CAPSULE BY MOUTH AT BEDTIME 08/20/2021 Active ondansetron (ZOFRAN) 4 MG tablet Take by mouth if needed for nausea or vomiting Active tiotropium (SPIRIVA) 18 MCG per inhalation capsule Place 1 capsule into inhaler and inhale 1 (one) time each day Active SUMAtriptan (IMITREX) 100 MG tablet Take 100 mg by mouth 1 (one) time if needed for migraine Active TOPIRAMATE ER PO Take 50 mg by mouth 2 (two) times a day Active pantoprazole (PROTONIX) 40 MG EC tablet Take 40 mg by mouth 1 (one) time each day before breakfast Do not crush, chew, or split. Active traZODone (DESYREL) 50 MG tablet Take 50 mg by mouth every night Active senna-docusate (PERICOLACE) 8.6-50 MG per tablet Take 1 tablet by mouth 1 (one) time each day Active spironolactone (ALDACTONE) 100 MG tablet Take 100 mg by mouth 1 (one) time each day Active vilazodone (VIIBRYD) 40 mg tablet tablet 40 mg 1 (one) time each day Active ergocalciferol (VITAMIN D2) 1.25 MG (05565 UT) capsule Take 1 capsule (50,000 Units total) by mouth 1 (one) time per week 5 capsule 11 03/25/2023 Active Active Problems Problem Noted Date Diagnosed Date Angiomyolipoma of kidney 05/08/2024 Chronic kidney disease, Stage II (mild) 04/13/20 24 Vitamin D deficiency 04/13/2024 Resolved Problems Problem Noted Date Diagnosed Date Resolved Date Angiomyolipoma of kidney 08/2024 Family History Medical History Relation Comments Alcohol abuse Father Drug abuse Father Diabetes Mother Mental illness Mother Relation Status Comments Father Mother Social History Tobacco Use Types Packs/Day Years Used Date Smoking Tobacco: Former Smokeless Tobacco: Never Tobacco Cessation:Counseling Given: Not Answered Sex and Gender Information Value Date Recorded Sex Assigned at Not on file Gender Identity Not on file Sexual Orientation Not on file Last Filed Vital Signs Vital Sign Reading Time Taken Comments Blood Pressure 121/81 05/09/2024 2:36 PM CDT Pulse 83 05/09/2024 2:36 PM CDT Temperature 36.9 C (98.5 F) 03/26/2022 1:01 PM CDT Respiratory Rate - - Oxygen Saturation - - Inhaled Oxygen Concentration - - Weight 103 kg (227 lb) 05/09/2024 2:36 PM CDT Height 162.6 cm (5' 4 ) 05/09/2024 2:36 PM CDT Body Mass Index 38.96 05/09/2024 2:36 PM CDT Plan of Treatment Health Maintenance Due Date Last Done Comments Diabetic Foot Exam 1998 Ophthalmology Exam 1998 Pneumococcal PPSV23 Highest Risk Adult (1 of 3 - PCV13 ) 2007 Influenza Vaccine (#1) 2024 Care Teams Services Delivery Driver Relationship Specialty Start Date End Date Phu Wadsworth MD PCP - General Family Medicine 08/26/22
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
--- OUTSIDE RECORDS SUMMARY | 2025-01-15 13:08 | XMS_ITS | Referral Summary ---
Author Organization [facility] Address [address] [place] [address] Care Team Providers Care Principal Strategist Name Role Phone Phu Wadsworth MD Primary Care Provider [phone] Encounters Date Type Department Care Team Description 11/11/2024 3:16 PM PLANT RELIABILITY ENGINEER - 11/11/2024 5:18 PM PLANT RELIABILITY ENGINEER Emergency [facility] Emergency Department [address] [place] [address] Allergic reaction, initial encounter (Primary Dx) Discharge Disposition: Discharge to home or self care from Last 3 Months Allergies Active Allergy Reactions Criticality Noted Date Comments Latex Hives,Itching,Other (See comments) Medium 08/16/2019 Reddness; Latex gloves Other Hives Medium 05/29/2021 Pineapple Ketorolac Unknown Low 11/02/2019 Tramadol Medications traZODone (DESYREL) 50 mg tablet 1 Active fexofenadine (JESSICA) 180 mg tablet Take 180 mg by mouth 1 Active spironolactone (ALDACTONE) 100 mg tablet Spironolactone 100 MG Oral Tablet QTY: 0 tablet Days: 30 Refills: 0 Written: 04/21/21 Patient Instructions: 1 tab daily 1 Active budesonide-for moteroL (SYMBICORT) 160-4.5 mcg/actuation inhaler Symbicort 160-4.5 MCG/ACT Inhalation Aerosol QTY: 0 Days: 30 Refills: 0 Written: 12/05/20 Patient Instructions: 1 puff twice daily 1 Active tiotropium (SPIRIVA) 18 mcg per inhalation capsule Spiriva HandiHaler 18 MCG Inhalation Capsule QTY: 0 capsule Days: 30 Refills: 0 Written: 10/15/20 Patient Instructions: 1 inhalation daily 0 Active albuterol (PROAIR RESPICLICK) 90 mcg/actuation inhaler Inhale daily as needed Active magnesium oxide (MAG-OX) 415 mg (250 mg elemental) tablet [facility] Magnesium Oxide 250 MG Oral Tablet QTY: 0 tablet Days: 0 Refills: 0 Written: 05/29/21 Patient Instructions: 1 tab daily otc 1 Active meclizine (ANTIVERT) 25 mg tablet Take 25 mg by mouth every 8 (eight) hours as needed 1 Active vilazodone HCl (VIIBRYD ORAL) Viibryd Activ e gabapentin (NEURONTIN) 100 mg capsule Take 100 mg by mouth nightly 1 Active SUMAtriptan (IMITREX) 100 mg tablet 1 Active topiramate (TOPAMAX) 25 mg tablet Take 25 mg by mouth 2 (two) times a day [address] (CYMBALTA) 30 mg capsule Take 30 mg by mouth daily 1 Active fluticasone propionate (FLONASE) 50 mcg/actuation nasal spray Administer 2 sprays into affected nostril(s) daily 1 Active ondansetron (ZOFRAN) 4 mg tablet Take 1 tablet (4 mg total) by mouth every 6 (six) hours 20 tablet 5 1 Active polyethylene glycol (MIRALAX) 17 gram/dose powder Take 1 capful nightly as needed for constipation management. 595 g [address] (PROTONIX) 40 mg EC tablet Take 1 tablet (40 mg total) by mouth every other day 1 Active ibuprofen (ADVIL,MOTRIN) 600 mg tablet Take 1 tablet (600 mg total) by mouth 4 (four) times a day as needed for pain With food 15 tablet 2 Active cyclobenzaprin e (FLEXERIL) 10 mg tablet Take 1 tablet (10 mg total) by mouth 3 (three) times a day as needed for muscle spasms 12 tablet 2 Active metoclopramide (REGLAN) 10 mg tablet TAKE 1 TABLET BY MOUTH 15 MINUTES BEFORE EATING UP TO 4 TIMES DAILY TO HELP WITH NAUSEA AND VOMITING ISSUES. 120 tablet 3 2 Active senna-docusate (PERICOLACE) 8.6-50 mg Take 2 tablets by mouth nightly 60 tablet 3 Active methylPREDNISo lone (MEDROL DOSEPACK) 4 mg Dosepack follow package directions 21 tablet 4 Active Active Problems Problem Noted Date Diagnosed Date Gastroparesis 03/05/2022 Chronic constipation 02/02/2022 Irritable bowel syndrome wit h both constipation and diarrhea 01/05/2022 Epigastric pain 01/05/2022 Dark stools 01/05/2022 Acute constipation 11/17/2021 History of colitis 11/17/2021 BRBPR (bright red blood per rectum) 11/17/2021 Nausea without vomiting 11/17/2021 Lymphadenopathy, retroperitoneal 10/28/2021 Gastroesophageal reflux disease 09/25/2021 History of GI bleed 09/25/2021 BMI 40.0-44.9, adult 09/25/2021 Status post cholecystectomy 09/25/2021 Persistent asthma without complication Gastroesophageal reflux disease without esophagi tis 07/01/2021 Psychophysiological insomnia 05/29/2021 Major depression 05/29/2021 Generalized anxiety disorder 05/29/2021 Nonalcoholic fatty liver disease 01/21/2021 Mental disorder 01/21/2021 Endometritis 01/21/2021 Diabetes mellitus 01/21/2021 Persistent asthma without complication 1 Social History Tobacco Use Types Packs/Day Years Used Date Smoking Tobacco: Never Smokeless Tobacco: Never Alcohol Use Standard Drinks/Week Comments Yes 0 (1 standard drink = 0.6 oz pur e alcohol) socially Personal Safety Answer Date Recorded Have you ever been in or are you currently in a harmful physical or emotional relationship or is someone making you feel afraid or unsafe? Denies 11/11/2024 Comments No Sex and Gender Information Value Date Recorded Sex Assigned at Not on file Legal Sex Female 8:55 PM PLANT RELIABILITY ENGINEER Gender Identity Not on file Sexual Orientation Not on file Last Filed Vital Signs Vital Sign Reading Time Taken Comments Blood Pressure 110/85 11/11/2024 5:16 PM PLANT RELIABILITY ENGINEER Pulse 81 11/11/2024 5:16 PM PLANT RELIABILITY ENGINEER Temperature 36.6 C (97.9 F) 11/11/2024 3:11 PM PLANT RELIABILITY ENGINEER Respiratory Rate 16 11/11/2024 5:16 PM PLANT RELIABILITY ENGINEER Oxygen Saturation 98% 11/11/2024 5:16 PM PLANT RELIABILITY ENGINEER Inhaled Oxygen Concentration - - Weight 104.3 kg (230 lb) 11/11/2024 3:11 PM PLANT RELIABILITY ENGINEER Height 165.1 cm (5' 5 ) 11/11/2024 3:11 PM PLANT RELIABILITY ENGINEER Body Mass Index 38.27 11/11/2024 3:11 PM PLANT RELIABILITY ENGINEER Plan of Treatment Not on file Procedures Procedure Name Priority Date/Time Associated Diagnosis Comments ECG 12-LEAD STAT 11/11/2024 3:20 PM PLANT RELIABILITY ENGINEER EGFR Routine 03/04/2023 8:09 AM CDT from Last 3 Months or Most Recently Relevant to Health Maintenance Results * ECG 12 lead (11/11/2024 3:20 PM PLANT RELIABILITY ENGINEER) 11/11/2024 3:20 PM PLANT RELIABILITY ENGINEER Narrative [facility] - 11/13/2024 10:59 AM PLANT RELIABILITY ENGINEER Vent Rate: 78 bpm RR Interval: 762 msec GA Interval: 166 msec QRS Duration: 86 msec QT Interval: 372 msec QTC Interval: 406 msec P-R-T [place]: 37 - 15 - 12 degrees IMPRESSION: SINUS RHYTHM POSSIBLE LEFT ATRIAL ENLARGEMENT [-0.1mV P WAVE IN V1/V2] POSSIBLE LEFT VENTRICULAR HYPERTROPHY [VOLTAGE CRITERIA PLUS LAE OR QRS WIDENING] NONSPECIFIC T-WAVE ABNORMALITY ABNORMAL ECG Electronically Signed By: Justo Olsen MD B us Aroldo Marques MD ECG ORDERABLES Final Result [facility] * eGFR (03/04/2023 8:09 AM CDT) eGFR 96 mL/min/1. 73 m2 [facility] ([facility]) Comment: Interpretive Data Reference Interval Normal >/= 90 mL/min/1.73m2 Mildly decreased* 60 - 89 mL/min/1.73m2 Mildly to moderately decreased 45 - 59 mL/min/1.73m2 Moderately to severely decreased 30 - 44 mL/min/1.73m2 Severely decreased 15 - 29 mL/min/1.73m2 Kidney Failure < 15 mL/min/1.73m2 *Relative to young adult level Estimated glomerular filtration rate is determined by the 2020 CKD-EPI equation recommended by the National Kidney Foundation (A Unifying Approach to GFR Estimation: Recommendations of the NKF-ASK Task Force on Reassessing the Inclusion of Race in Diagnosing Kidney Disease, JASN 2020). The CKD-EPI equation should not be used for patients with unstable renal function and has not been validated in children and those over 70. Current interpretive data was last reviewed 2021. Blood 03/04/2023 8:09 AM CDT 03/04/2023 8:35 AM CDT us Ryland Ortiz MD LAB BLOOD ORDERABLES Final Resul t [facility] ([facility]) [facility] Department [place] [address] from Last 3 Months or Most Recently Relevant to Health Maintenance Insurance [facility] IDPA Advance Directives For more information, please contact: [phone] * Full Code (Latest Code Status on File) Date Activated Date Inactivated Comments 01/19/2022 12:48 PM 01/19/2022 6:31 PM * Full Code Date Activated Date Inactivated Comments 01/19/2022 12:48 PM 01/19/2022 12:48 PM Care Teams Principal Strategist Relationship Specialty Start Date End Date Puh Wadsworth MD PCP - General Emergency Medicine 06/11/21
--- OUTSIDE RECORDS SUMMARY | 2025-01-15 13:08 | XMS_ITS | Clinical Summary ---
Author Organization [facility] Address [address] [place] [address] Phone Care Team Providers Care Manager Diversity Name Role Phone JAYDON BOSS, ZAC SABILLON Unavailable [phone] Reason for Visit and Chief Complaint NO SHOW Problems Includes: Problems addressed during this encounter and other active Problems All Visits Onset Date Resolved Date Provider Condition S tatus Migraine Headache 11/29/2022 ZAC Valerio MD Active Last Documented On 3 8:31AM ; [facility] Nonorganic Sleep Apnea Obstructive 11/29/2022 Jason DAVIES MD Active Last Documented On 3 8:31AM ; [facility] Restless Legs Syndrome 11/29/2022 ZAC KERN MD Active Last Documented On 3 8:31AM ; [facility] Adult Attention Deficit Hype ractivity Disorder 01/27/2022 ZAC DAVIES MD Active Last Documented On 2 8:44AM ; [facility] Generalized Anxiety Disorder 05/29/2021 ZAC DAVIES MD Active Last Documented On 1 3:14PM ; [facility] Psychophysiological Insomnia 05/29/2021 ZAC DAVIES MD Active Last Documented On 1 3:14PM ; [facility] Major Depression 05/29/2021 ZAC DAVIES MD Active Last Documented On 1 3:14PM ; [facility] Plan of Treatment No Plan of Treatment Recorded Assessments Includes: Assessments from this encounter No Assessments Recorded Medical Equipment - Implanted Devices Includes: Current Devices No Medical Equipment Recorded Medications Includes: Medications discussed during this encounter and other current Medications Current Medications (continue as prescribed) DULoxetine HCl 60 MG Oral Capsule Delayed Release Particles 03/22/2023 Provider: ZAC DAVIES MD Diagnosis: Major depressive disorder, recurrent, moderate TAKE 1 CAPSULE BY MOUTH EVER Y DAY IN THE MORNING Last Documented On 03/22/2023 5:25AM By Marta Davies MD ; [facility] Aimovig 70 MG/ML Subcutaneous Solution Auto-injector 02/24/2023 Provider: ZAC DAVIES MD Diagnosis: Migraine w/o aur a, not intractable, w/o status migrainosus as directed - inject 70 mg ( 1 ml) SQ once a month to upper thigh, please rotate sites Last Documented On 02/24/2023 8:48AM By Marta Davies MD ; [facility] Aimovig 70 MG/ML Subcutaneou s Solution Auto-injector 02/24/2023 Provider: ZAC TEMPLETON MD Diagnosis: Chronic migraine w/o aura, not intractable, w/o stat migr as directed - inject 1 ml (7 0 mg) subcutaneously to upper thigh once a month, please rotate sites Last Documented On 02/24/2023 8:48AM By Marta Davies MD ; [facility] traZODone HCl 50 MG Oral Tablet 02/22/2023 Provider: ZAC DAVIES MD Diagnosis: Psychophysiologi c insomnia TAKE 4 TABLETS (200MG) AT BE DTIME NEEDED FOR SLEEP Last Documented On 02/22/2023 7:21AM By Marta Davies MD ; [facility] Topiramate 50 MG Oral Tablet 02/02/2023 Provider: ZAC DAVIES MD Diagnosis: Chronic migraine w/o aura, not intractable, w/o stat migr One tablet twice a day Last Documented On 02/02/2023 9:45AM By Marta Davies MD ; [facility] Focalin 10 MG Oral Tablet 02/01/2023 Provider: ZAC DAVIES MD Diagnosis: Attn-defct hyper activity disorder, predom inattentive type as directed -- 1 tab in am a nd 1 tab at noon Last Documented On 02/01/2023 4:41AM By Marta Davies MD ; [facility] Gabapentin 300 MG Oral Capsule 01/26/2023 Provider: ZAC DAVIES MD Diagnosis: Restless legs sy ndrome as directed -- 1 cap in even ing for restless legs Last Documented On 10:27AM By Marta Davies MD ; [facility] Meclizine HCl 25 MG Oral Tablet 11/24/2022 Provider: Diagnosis: 1 TAB BID PRN Last Documented On 01/26/2023 9:26AM By DOMINGA COON ; [facility] DULoxetine HCl 30 MG Oral Capsule Delayed Release Particles 08/20/2022 Provider: ZAC DAVIES MD Diagnosis: Generalized anxi ety disorder TAKE 1 CAPSULE BY MOUTH EVER Y DAY (TAKE WITH 60MG CAPSULE) Last Documented On 11:28AM By Marta Davies MD ; [facility] Ondansetron HCl 4 MG Oral Tablet 03/26/2022 Provider : MARIANN GUTIERREZ TOBACCO CHECKOUT CLERK Diagnosis: as directed Last Documented On 04/21/2022 4:14PM By DOMINGA COON ; [facility] Senexon-S 8.6-50 MG Oral Tablet 02/04/2022 Provider: MARIANN GUTIERREZ NP Diagnosis: 1 daily prn Last Documented On 02/26/2022 4:13PM By DOMINGA COON ; [facility] Metoclopramide HCl 10 MG Oral Tablet 01/27/2022 Prov ider: MARIANN GUTIERREZ TOBACCO CHECKOUT CLERK Diagnosis: 1 ac tid Last Documented On 02/26/2022 4:14PM By DOMINGA COON ; [facility] Fluticasone Propionate 50 MCG/ACT Nasal Suspension 03/2022 Provider: Diagnosis: Last Documented On 12/17/2021 4:21PM By ALEXIS ELI ; [facility] Pantoprazole Sodium 40 MG Oral Tablet Delayed Release 11/23/2021 Provider: Diagnosis: 1 tab daily Last Documented On 12/17/2021 4:21PM By ALEXIS ELI ; [facility] Gabapentin 100 MG Oral Capsule 08/20/2021 Provider: Diagnosis: [address] Ember Santos Last Documented On 08/25/2021 2:01PM By DOMINGA COON ; [facility] Albuterol Sulfate 108 (90 Ba se) MCG/ACT Inhalation Aerosol Powder Breath Activated 05/29/2021 Provider: Diagnosis: 1-2 puffs q 4-6 hours prn Last Documented On 05/29/2021 3:25PM By DOMINGA COON ; [facility] Blank Allergy 180 MG Oral Tablet 05/29/2021 Provid er: Diagnosis: 1 tab daily otc Last Documented On 05/29/2021 3:24PM By DOMINGA COON ; [facility] Spironolactone 100 MG Oral Tablet 04/21/2021 Provide r: JASON BENITO APN Diagnosis: 1 tab daily Last Documented On 05/29/2021 3:20PM By DOMINGA COON ; [facility] Symbicort 160-4.5 MCG/ACT Inhalation Aerosol Provider: CARLO JAQUEZ MD Diagnosis: 1 puff twice daily Last Documented On 05/29/2021 3:21PM By DOMINGA COON ; [facility] Spiriva HandiHaler 18 MCG Inhalation Capsule 0 Provider: Diagnosis: 1 inhalation daily Last Documented On 05/29/2021 3:22PM By DOMINGA COON ; [facility] Medications Administered Includes: Administered Medications from this encounter No Administered Medications Recorded Results Includes: Results discussed during this encounter No Results Recorded For Specified Dates History of Present Illness Includes: History of Present Illness from this encounter No History of Present Illness Recorded Social History No Social History Recorded - Smoking Status Unknown Medical History Includes: Medical History addressed during this encounter No Medical History Recorded Family History Includes: Family History addressed during this encounter No Family History Recorded Review of Systems Includes: Review of Systems from this encounter No Review of Systems Recorded Mental Status Includes: Mental Status from this encounter No Mental Status Recorded Functional Status Includes: Functional Status from this encounter No Functional Status Recorded Physical Exam Includes: Physical Exam from this encounter No Physical Exam Recorded Allergies Includes: Active Allergies Substance Type Reaction Onset Date Resolved Date Statu s traMADol HCl Allergy Hives / Urticaria 05/29/2021 Active Last Documented On 01/27/2024 9:10AM ; [facility] Note: Imported from external source. TORADOL Allergy Hives / Urticaria 05/29/2021 A ctive Last Documented On 01/27/2024 9:10AM ; [facility] Note: Imported from external source. Pineapple Allergy 01/26/2023 Active Last Documented On 01/27/2024 9:10AM ; [facility] Note: Imported from external source. Latex Allergy Hives / Urticaria 05/29/2021 A ctive Last Documented On 01/27/2024 9:10AM ; [facility] Note: Imported from external source. Encounters Encounter Provider Location Date Check-In Time Check-Out Time Diagnosis NO SHOW ZAC DAVIES MD [facility] 12/25/2022 10:00AM 11:59PM Insurance Includes: Active Insurance Policies Plan Name Member ID Group # Subscriber Relationship Effect bea Dates 1 - [facility] [id number] TONY SOLANO Self Clinical Notes Includes: Clinical Notes from this encounter No Clinical Notes Recorded
--- OUTSIDE RECORDS SUMMARY | 2025-01-15 13:08 | XMS_ITS | Continuity of Care Document ---
Author Organization [facility] Address [address] [place] [address] Phone Care Team Providers Care Commercial Artist Name Role Phone Bubba Toro MD Unavailable Unavailable Allergies, Adverse Reactions, Alerts Substance Reaction Status Criticality No Known Allergies Active No Inform ation Medications Medication Instructions Dosage Effective Dates (start - stop) Status Comments Qvar 80 mcg/actuation Metered Aerosol oral inhaler inhale 1 puff by inhalation route 2 times every day - Active Procedures Procedure Date OFFICE/OUTPATIENT VISIT, EST OFFICE/OUTPATIENT VISIT, EST OFFICE/OUTPATIENT VISIT, EST PREV VISIT, NEW, AGE 18-39 Advance Directives Directive Yes / No Effective Date File Name No Information Encounters Encounter Description Practice Location Reason(s) For Visit Diagnoses Date Provider Providers Copied on Encounter OFFICE/OUTPA TIENT VISIT, [facility], [address] [place], [place], [id number], tel:[phone] [facility] knee pain (chief complaint) asthma (chief complaint) Dietary surveillance and counselingAsthmaWei ght gain poorBlood pressure elevatedPain in joint involving lower leg [address] [facility] [place], [id number] , [place]. tel:[phone] Referring Provider: Althea Oseguera [facility], [place], [place], [id number]. tel:[phone] OFFICE/OUTPA TIENT VISIT, [facility], [address] [place], [id number], tel:[phone] [facility] knee pain (chief complaint) Dietary surveillance and counselingPain in joint involving lower leg [address] [place], [place], [address] , . tel:[phone] Referring Provider: Althea Oseguera [address] [facility] [place], [id number]. tel:[phone] OFFICE/OUTPA TIENT VISIT, [facility], [address] [place], [id number], tel:[phone] [facility] HLP (chief complaint) low vitami D (chief complaint) knee pain (chief complaint) Dietary surveillance and counselingOther and unspecified hyperlipidemiaUnspe cified vitamin d deficiencyPain in joint involving lower leg Feb-2 5 [address] Gaffney [address] [place], [address] , . tel:[phone] Referring Provider: Althea Oseguera [address] [place], [id number]. tel:[phone] PREV VISIT, NEW, AGE 18-39 [facility], [address] [place], [id number], [place] tel:[phone] [facility] Physical (chief complaint) Dietary surveillance and counselingRoutine Medical ExamRoutine Medical Exam 0 [address], [place], [id number] , [place]. tel:[phone] Family History Family Member Type Diagnosis Age At Onset Mother Problem (finding) Hypertension Sister Problem (finding) Diabetes mellitus Mother Problem (finding) Diabetes mellitus Father Problem (finding) Anxiety Payers Payer name Insurance type Covered constitution party ID Authoriza tion(s) No Information Social History Type Description Quantity Date Captured Comments Alcohol Use Details Caffeine Use Details Unknown Tobacco Use Status No Information Smoking Status Never smoker Sex Female Vital Signs Date / Time: Height Weight BMI Pulse Rate Blood Pressure Temperature Respiratory Rate Body Surface Area Head Circumference BMI percentile Pulse Ox Inhaled Ox 4:28 PM 162.56 cm 213.00 lbs 36.5 6 kg/m eter (2) 94 /min 145/87 mm[Hg] 98.8 F 18 /min Chief Complaint And Reason For Visit From encounter dated '05/02/2015 15:15'. knee pain (chief complaint). Description: Location: knee. Additional information: Pt has chronic right knee pain. Pt had MRI done which showed some meniscus tear and also chondromalacia. Pt denies any worsening pain. Pt c/o daily pain. Pt denie any swelling. asthma (chief complaint). Description: The initial visit date was 05/02/2015. Additional information: Pt has asthma. Pt is out of symticort Pt statse that when she has symbicort, pt rarely uses albuterol. Pt needs more albuterol without symbicort. Plan Of Treatment Date Type Action Status Goal Special diet education compl eted Referral Ordered: Orthopedic Surgery (related to Pain in joint involving lower leg) ordered Referral Ordered: Referrals: Orthopedic Surgery ordered Referral Ordered: MRI LOWER EXTREMITY W/O DYE Right knee ordered Referral Referred To: Physical Therapy Ordered: Referral: Physical Therapy. ordered History Of Present Illness Encounter Date Complaint History Of Prese nt Illness knee pain Location: knee. Additional information: Pt has chronic right knee pain. Pt had MRI done which showed some meniscus tear and also chondromalacia. Pt denies any worsening pain. Pt c/o daily pain. Pt denie any swelling. asthma The initial visi t date was 05/02/2015. Additional information: Pt has asthma. Pt is out of symticort Pt statse that when she has symbicort, pt rarely uses albuterol. Pt needs more albuterol without symbicort. Instructions Date Instruction Additional Infor dixon Special diet education Related t o Dietary surveillance and counseling Prescribed activity/ exercise education Related to Dietary surveillance and counseling Decrease caloric intake Related to Dietary surveillance counseling Physical activity counseling Rel ated to Dietary surveillance counseling Decrease caloric intake Related to Dietary surveillance counseling Physical activity counseling Rel ated to Dietary surveillance counseling Decrease caloric intake Related to Dietary surveillance counseling Physical activity counseling Rel ated to Dietary surveillance counseling Assessments Type Assessment Date assessment Dietary surveillance and residential counselor ing assessment Asthma assessment Weight gain poor assessment Blood pressure elevated 015 assessment Pain in joint involving lower le g Mental Status Date Cognitive Assessment Orientation - [employer] ed to time, place, person, situation.
--- OUTSIDE RECORDS SUMMARY | 2025-01-15 13:08 | XMS_ITS ---
Care Plan - [facility] Medical Group S Created on: January 15, 2025 TONY SOLANO : 1990 Sex: Female Author Organization [facility] Medical [facility] Address [address] [place] [address] Phone Care Team Providers Care Cargoman Name Role Phone JAYDON BOSS, ZAC SABILLON Unavailable [phone]
--- OUTSIDE RECORDS SUMMARY | 2025-01-15 13:08 | XMS_ITS | Clinical Summary ---
Author Organization [facility] Address [address] [place] [address] Phone Care Team Providers Care Underwriting Manager Name Role Phone JAYDON BOSS, ZAC SABILLON Unavailable [phone] Reason for Visit and Chief Complaint NO SHOW Problems Includes: Problems addressed during this encounter and other active Problems All Visits Onset Date Resolved Date Provider Condition S tatus Migraine Headache 11/29/2022 ZAC Valerio MD Active Last Documented On 3 8:31AM ; [facility] Nonorganic Sleep Apnea Obstructive 11/29/2022 Jason DAVIES MD Active Last Documented On 3 8:31AM ; [facility] Restless Legs Syndrome 11/29/2022 ZAC KERN MD Active Last Documented On 3 8:31AM ; [facility] Adult Attention Deficit Hype ractivity Disorder 01/27/2022 ZAC DAVIES MD Active Last Documented On 2 8:44AM ; [facility] Generalized Anxiety Disorder 05/29/2021 ZAC DAVIES MD Active Last Documented On 1 3:14PM ; [facility] Psychophysiological Insomnia 05/29/2021 ZAC DAVIES MD Active Last Documented On 1 3:14PM ; [facility] Major Depression 05/29/2021 ZAC DAVIES MD Active Last Documented On 1 3:14PM ; [facility] Plan of Treatment No Plan of Treatment [...] 03/22/2023 5:25AM By Marta Davies MD ; [facility] Aimovig 70 MG/ML Subcutaneous Solution Auto-injector 02/24/2023 Provider: ZAC DAVIES MD Diagnosis: Migraine w/o aur a, not intractable, w/o status migrainosus as directed - inject 70 mg ( 1 ml) SQ once a month to upper thigh, please rotate sites Last Documented On 02/24/2023 8:48AM By Marta Davies MD ; [facility] Aimovig 70 MG/ML Subcutaneou s Solution Auto-injector 02/24/2023 Provider: ZAC TEMPLETON MD Diagnosis: Chronic migraine w/o aura, not intractable, w/o stat migr as directed - inject 1 ml (7 0 mg) subcutaneously to upper thigh once a month, please rotate sites Last Documented On 02/24/2023 8:48AM By Marta Davies MD ; [facility] traZODone HCl 50 MG Oral Tablet 02/22/2023 Provider: ZAC DAVIES MD Diagnosis: Psychophysiologi c insomnia TAKE 4 TABLETS (200MG) AT BE DTIME NEEDED FOR SLEEP Last Documented On 02/22/2023 7:21AM By Marta Davies MD ; [facility] Topiramate 50 MG Oral Tablet 02/02/2023 Provider: ZAC DAVIES MD Diagnosis: Chronic migraine w/o aura, not intractable, w/o stat migr One tablet twice a day Last Documented On 02/02/2023 9:45AM By Marta Davies MD ; [facility] Focalin 10 MG Oral Tablet 02/01/2023 Provider: ZAC DAVIES MD Diagnosis: Attn-defct hyper activity disorder, predom inattentive type as directed -- 1 tab in am a nd 1 tab at noon Last Documented On 02/01/2023 4:41AM By Marta Davies MD ; [facility] Gabapentin 300 MG Oral Capsule 01/26/2023 Provider: ZAC DAVIES MD Diagnosis: Restless legs sy ndrome as directed -- 1 cap in even ing for restless legs Last Documented On 10:27AM By Marta Davies MD ; [facility] Meclizine HCl 25 MG Oral Tablet 11/24/2022 Provider: Diagnosis: 1 TAB BID PRN Last Documented On 01/26/2023 9:26AM By DOMINGA COON ; [facility] DULoxetine HCl 30 MG Oral Capsule Delayed Release Particles 08/20/2022 Provider: ZAC DAVIES MD Diagnosis: Generalized anxi ety disorder TAKE 1 CAPSULE BY MOUTH EVER Y DAY (TAKE WITH 60MG CAPSULE) Last Documented On 11:28AM By Marta Davies MD ; [facility] Ondansetron HCl 4 MG Oral Tablet 03/26/2022 Provider : MARIANN GUTIERREZ BRANCH LENDING MANAGER Diagnosis: as directed Last Documented On 04/21/2022 4:14PM By DOMINGA COON ; [facility] Senexon-S 8.6-50 MG Oral Tablet 02/04/2022 Provider: MARIANN GUTIERREZ NP Diagnosis: 1 daily prn Last Documented On 02/26/2022 4:13PM By DOMINGA COON ; [facility] Metoclopramide HCl 10 MG Oral Tablet 01/27/2022 Prov ider: MARIANN GUTIERREZ BRANCH LENDING MANAGER Diagnosis: 1 ac tid Last Documented On 02/26/2022 4:14PM By DOMINGA COON ; [facility] Fluticasone Propionate 50 MCG/ACT Nasal Suspension 03/2022 Provider: Diagnosis: Last Documented On 12/17/2021 4:21PM By ALEXIS ELI ; [facility] Pantoprazole Sodium 40 MG Oral Tablet Delayed Release 11/23/2021 Provider: Diagnosis: 1 tab daily Last Documented On 12/17/2021 4:21PM By ALEXIS ELI ; [facility] Gabapentin 100 MG Oral Capsule 08/20/2021 Provider: Diagnosis: [address] Ember Santos Last Documented On 08/25/2021 2:01PM By DOMINGA COON ; [facility] Albuterol Sulfate 108 (90 Ba se) MCG/ACT Inhalation Aerosol Powder Breath Activated 05/29/2021 Provider: Diagnosis: 1-2 puffs q 4-6 hours prn Last Documented On 05/29/2021 3:25PM By DOMINGA COON ; [facility] Blank Allergy 180 MG Oral Tablet 05/29/2021 Provid er: Diagnosis: 1 tab daily otc Last Documented On 05/29/2021 3:24PM By DOMINGA COON ; [facility] Spironolactone 100 MG Oral Tablet 04/21/2021 Provide r: JASON BENITO APN Diagnosis: 1 tab daily Last Documented On 05/29/2021 3:20PM By DOMINGA COON ; [facility] Symbicort 160-4.5 MCG/ACT Inhalation Aerosol Provider: CARLO JAQUEZ MD Diagnosis: 1 puff twice daily Last Documented On 05/29/2021 3:21PM By DOMINGA COON ; [facility] Spiriva HandiHaler 18 MCG Inhalation Capsule 0 Provider: Diagnosis: 1 inhalation daily Last Documented On 05/29/2021 3:22PM By DOMINGA COON ; [facility] Medications Administered Includes: Administered Medications from this [...] Active Last Documented On 01/27/2024 9:10AM ; [facility] Note: Imported from external source. TORADOL Allergy Hives / Urticaria 05/29/2021 A ctive Last Documented On 01/27/2024 9:10AM ; [facility] Note: Imported from external source. Pineapple Allergy 01/26/2023 Active Last Documented On 01/27/2024 9:10AM ; [facility] Note: Imported from external source. Latex Allergy Hives / Urticaria 05/29/2021 A ctive Last Documented On 01/27/2024 9:10AM ; [facility] Note: Imported from external source. Encounters Encounter Provider Location Date Check-In Time Check-Out Time Diagnosis NO SHOW ZAC DAVIES MD [facility] 09/02/2022 4:30PM 11:59PM Insurance Includes: Active Insurance Policies Plan Name Member ID Group # Subscriber Relationship Effect bea Dates 1 - [facility] [id number] TONY SOLANO Self Clinical Notes Includes: Clinical Notes from this encounter No Clinical Notes Recorded
--- OUTSIDE RECORDS SUMMARY | 2025-01-15 13:08 | XMS_ITS | Patient Health Summary ---
Author Organization [facility] Address [address] [place] [address] Care Team Providers Care Services Clerk Name Role Phone Phu Wadsworth MD Primary Care Provider [phone] Note from [facility],non-owned Affiliates and Associated Physician Practices is amultiple site organization consisting of ambulatory clinics and hospital sitesin [place], [place], [place] and [place]. This disclosure is being madepursuant to the Care Everywhere program and may not contain all information available regarding this patient. Last updated 18.[facility] Allergies * Ketorolac Tromethamine(Urticaria) -Medium Criticality * Latex(Urticaria,Itching,Other) -Medium Criticality * Pineapple(Unknown) * Tramadol(Urticaria,Itching) -Medium Criticality Medications * Be aware that medications may not be up to date on this document. Alwaysverify current medications with the patient. * fexofenadine (JESSICA) 180 MG tablet(Started 05/29/2021) Take 180 mg by mouth once daily * magnesium (V-R MAGNESIUM) 250 MG tablet(Started 05/29/2021) Take 250 mg by mouth once daily * Albuterol Sulfate 108 (90 Base) MCG/ACT Inhale 90 mcg by mouth as directed * budesonide-formoterol (SYMBICORT) 160-4.5 MCG/ACT inhaler(Started 12/05/2020) Inhale 1 puff by mouth 2 times daily * tiotropium (SPIRIVA HANDIHALER) 18 MCG inhalation capsule(Started 10/15/2020) Inhale 1 capsule by mouth once daily * spironolactone (ALDACTONE) 100 MG tablet(Started 04/21/2021) Take 1 tablet by mouth once daily * traZODone (DESYREL) 50 MG tablet(Started 07/26/2021) Take 50 mg by mouth nightly as needed * Vilazodone HCl (VIIBRYD PO) Take 50 mg by mouth once daily * SUMAtriptan (IMITREX) 100 MG tablet Take 100 mg by mouth once * topiramate (TOPAMAX) 25 MG tablet Take 25 mg by mouth 2 times daily * DULoxetine (CYMBALTA) 30 MG capsule(Started 08/25/2021) Take 30 mg by mouth once daily * meclizine (Antivert) 25 MG tablet(Started 11/24/2022) TAKE 1 (ONE) TABLET BY MOUTH 2 TIMES DAILY 11 refills by 11/24/2023 * gabapentin (Neurontin) 100 MG capsule(Started 11/24/2022) TAKE 1 (ONE) CAPSULE BY MOUTH AT BEDTIME 3 refills by 11/24/2023 * fluticasone propionate (Flonase) 50 MCG/ACT nasal spray(Started 12/25/2022) USE TWO SPRAYS IN EACH NOSTRIL ONCE A DAY 4 refills by 12/25/2023 Active Problems Problem Noted Date Diagnosed Date Gastroesophageal reflux disease without esophagi tis 07/01/2021 Diabetes mellitus 01/21/2021 Nonalcoholic fatty liver disease 01/21/2021 Persistent asthma without complication Social History Tobacco Use Types Packs/Day Years Used Date Smoking Tobacco: Never Smokeless Tobacco: Never Alcohol Use Standard Drinks/Week Comments Not Currently 0 (1 standard drink = 0.6 oz pur e alcohol) Sex and Gender Information Value Date Recorded Sex Assigned at Not on file Gender Identity Not on file Sexual Orientation Not on file Last Filed Vital Signs Vital Sign Reading Time Taken Comments Blood Pressure 118/87 08/20/2021 9:26 AM CDT Pulse 84 08/20/2021 9:26 AM CDT Temperature 36.7 C (98 F) 08/20/2021 9:26 AM CDT Respiratory Rate - - Oxygen Saturation 98% 08/20/2021 9:26 AM CDT Inhaled Oxygen Concentration - - Weight 112.5 kg (248 lb) 08/27/2021 9:19 AM CDT Height 165.1 cm (5' 5 ) 08/27/2021 9:19 AM CDT Body Mass Index 41.27 08/27/2021 9:19 AM CDT Procedures * PA NASAL ENDOSCOPY,DX(Performed 08/27/2021) Performed for Sinus problem Results * PA NASAL ENDOSCOPY,DX (08/27/2021 10:22 AM CDT) Narrative Sandeep Peterson MD - 08/27/2021 10:22 AM CDT Oscar Loera MD 08/27/2021 12:07 PM Procedure: Rigid Nasal Endoscopy Anesthesia: Bilateral Nasal Cavities sprayed with lidocaine and Neosynephrine Detail: Rigid nasal endoscopy performed bilaterally. Septum was deviated to the Left high with right midvault septal spur. Bilateral nasal cavity showed no polyps or purulence. Dr. Peterson was present for the entire procedure. Sandeep Peterson MD PROCEDURE/MINOR RITA GICAL ORDERABLES Care Teams Services Clerk Relationship Specialty Start Date End Date Phu Wadsworth MD [address] [place] [address] [address] [place] [address] PCP - General 08/14/21
--- OUTSIDE RECORDS SUMMARY | 2025-01-15 13:08 | XMS_ITS | Clinical Summary ---
Author Organization [facility] Address [address] [place] [address] Phone Care Team Providers Care Talent Acquisition Manager Name Role Phone JAYDON BOSS, ZAC SABILLON Unavailable [phone] Reason for Visit and Chief Complaint PSYCH ADULT FOLLOW UP Problems Includes: Problems addressed during this encounter and other active Problems All Visits Onset Date Resolved Date Provider Condition S tatus Migraine Headache 11/29/2022 Active Last Documented On 3 5:53PM ; [facility] Nonorganic Sleep Apnea Obstructive 11/29/2022 Active Last Documented On 3 5:53PM ; [facility] Restless Legs Syndrome 11/29/2022 Ac tive Last Documented On 3 5:53PM ; [facility] Adult Attention Deficit Hyperactivity Disorder 01/27/2022 Active Last Documented On 3 5:53PM ; [facility] Generalized Anxiety Disorder 05/29/2021 Active Last Documented On 3 5:53PM ; [facility] Psychophysiological Insomnia 05/29/2021 Active Last Documented On 3 5:53PM ; [facility] Major Depression 05/29/2021 Active Last Documented On 3 5:53PM ; [facility] Plan of Treatment No Plan of Treatment Recorded Assessments Includes: Assessments from this encounter No Assessments Recorded Medical Equipment - Implanted Devices Includes: Current Devices No Medical Equipment Recorded Medications Includes: Medications discussed during this encounter and other current Medications Current Medications (continue as prescribed) Azstarys 52.3-10.4 MG Oral Capsule 03/28/2024 Provider: ZAC DAVIES MD Diagnosis: Attn-defct hyper activity disorder, predom inattentive type as directed - 1 cap in am Last Documented On 03/28/2024 2:09PM By Marta Davies MD ; [facility] traZODone HCl 50 MG Oral Tablet 02/29/2024 Provider: ZAC DAVIES MD Diagnosis: Psychophysiologi c insomnia TAKE 3 TABLETS BY MOUTH AT B EDTIME NEEDED FOR SLEEP Last Documented On 02/29/2024 12:32PM By Marta Davies MD ; [facility] rOPINIRole HCl 1 MG Oral Tablet 01/27/2024 Provider: ZAC DAVIES MD Diagnosis: Restless legs sy ndrome as directed -1/2 tab in the evening for 1 week then 1 tab in the evening thereafter Last Documented On 01/27/2024 10:15AM By Marta Davies MD ; [facility] Nurtec 75 MG Oral Tablet Disintegrating 01/27/2024 Provider: ZAC DAVIES MD Diagnosis: Migraine w/o aur a, not intractable, w/o status migrainosus as directed - 1 tab a day as needed at the onset of migraine headaches Last Documented On 01/27/2024 9:42AM By Marta Davies MD ; [facility] Aimovig 70 MG/ML Subcutaneous Solution Auto-injector 01/27/2024 Provider: ZAC DAVIES MD Diagnosis: Migraine w/o aur a, not intractable, w/o status migrainosus as directed - inject 70 mg ( 1 ml) SQ once a month to upper thigh, please rotate sites Last Documented On 01/27/2024 9:42AM By Marta Davies MD ; [facility] Vyvanse 30 MG Oral Capsule 12/13/2023 Provider: ZAC DAVIES MD Diagnosis: Attn-defct hyper activity disorder, predom inattentive type 1 Capsule every morning Last Documented On 12/13/2023 1:47AM By Marta Davies MD ; [facility] Gabapentin 300 MG Oral Capsule 07/29/2023 Provider: ZAC DAVIES MD Diagnosis: Restless legs sy ndrome as directed -- 1 cap in even ing for restless legs Last Documented On 03/28/2024 10:27AM By ALEXIS ELI ; [facility] DULoxetine HCl 60 MG Oral Capsule Delayed Release Particles 07/29/2023 Provider: ZAC DAVIES MD Diagnosis: Major depressive disorder, recurrent, moderate TAKE 1 CAPSULE BY MOUTH EVER Y DAY IN THE MORNING Last Documented On 03/28/2024 10:26AM By ALEXIS ELI ; [facility] DULoxetine HCl 30 MG Oral Capsule Delayed Release Particles 07/29/2023 Provider: ZAC DAVIES MD Diagnosis: Generalized anxi ety disorder TAKE 1 CAPSULE BY MOUTH EVER Y DAY (TAKE WITH 60MG CAPSULE) Last Documented On 03/28/2024 10:26AM By ALEXIS ELI ; [facility] Topiramate 50 MG Oral Tablet 04/20/2023 Provider: ZAC DAVIES MD Diagnosis: Chronic migraine w/o aura, not intractable, w/o stat migr One tablet twice a day Last Documented On 03/28/2024 10:29AM By ALEXIS ELI ; [facility] Meclizine HCl 25 MG OR TABS 11/24/2022 Provider: Diagnosis: 1 TAB BID PRN Last Documented On 03/27/2023 5:34PM By DOMINGA COON ; [facility] Ondansetron HCl 4 MG OR TABS 03/26/2022 Provider: Diagnosis: as directed Last Documented On 03/27/2023 5:34PM By DOMINGA COON ; [facility] Senexon-S 8.6-50 MG OR TABS 02/04/2022 Provider: Diagnosis: 1 daily prn Last Documented On 03/27/2023 5:34PM By DOMINGA COON ; [facility] Metoclopramide HCl 10 MG OR TABS 01/27/2022 Provider : Diagnosis: 1 ac tid Last Documented On 03/27/2023 5:34PM By DOMINGA COON ; [facility] Fluticasone Propionate 50 MCG/ACT NA SUSP 12/03/2021 Provider: Diagnosis: Last Documented On 03/27/2023 5:34PM By ALEXIS ELI ; [facility] Pantoprazole Sodium 40 MG OR TBEC 11/23/2021 Provide r: Diagnosis: 1 tab daily Last Documented On 03/27/2023 5:34PM By ALEXIS ELI ; [facility] Blank Allergy 180 MG OR TABS 05/29/2021 Provider: Diagnosis: 1 tab daily otc Last Documented On 03/27/2023 5:34PM By DOMINGA COON ; [facility] Albuterol Sulfate 108 (90 Base) MCG/ACT IN AEPB 2020 Provider: Diagnosis: 1-2 puffs q 4-6 hours prn Last Documented On 03/27/2023 5:34PM By DOMINGA COON ; [facility] Spironolactone 100 MG OR TABS 04/21/2021 Provider: Diagnosis: 1 tab daily Last Documented On 03/27/2023 5:34PM By DOMINGA COON ; [facility] Symbicort 160-4.5 MCG/ACT IN AERO 12/05/2020 Provide r: Diagnosis: 1 puff twice daily Last Documented On 03/27/2023 5:34PM By DOMINGA COON ; [facility] Spiriva HandiHaler 18 MCG IN CAPS 10/15/2020 Provide r: Diagnosis: 1 inhalation daily Last Documented On 03/27/2023 5:34PM By DOMINGA COON ; [facility] Medications Administered Includes: Administered Medications from [...] Active Last Documented On 01/27/2024 9:10AM ; [facility] Note: Imported from external source. TORADOL Allergy Hives / Urticaria 05/29/2021 A ctive Last Documented On 01/27/2024 9:10AM ; [facility] Note: Imported from external source. Pineapple Allergy 01/26/2023 Active Last Documented On 01/27/2024 9:10AM ; [facility] Note: Imported from external source. Latex Allergy Hives / Urticaria 05/29/2021 A ctive Last Documented On 01/27/2024 9:10AM ; [facility] Note: Imported from external source. Insurance Includes: Active Insurance Policies Plan Name Member ID Group # Subscriber Relationship Effect bea Dates 1 - [facility] [id number] TONY SOLANO Self Clinical Notes Includes: Clinical Notes from this encounter No Clinical Notes Recorded
--- OUTSIDE RECORDS SUMMARY | 2025-01-15 13:08 | XMS_ITS | Clinical Summary ---
Author Organization [facility] Address [address] [place] [address] Phone Care Team Providers Care Operations Management Professionals Name Role Phone JAYDON BOSS, ZAC SABILLON Unavailable [phone] Reason for Visit and Chief Complaint PSYCH ADULT FOLLOW UP Problems Includes: Problems addressed during this encounter and other active Problems All Visits Onset Date Resolved Date Provider Condition S tatus Migraine Headache 11/29/2022 Active Last Documented On 3 5:53PM ; [facility] Nonorganic Sleep Apnea Obstructive 11/29/2022 Active Last Documented On 3 5:53PM ; [facility] Restless Legs Syndrome 11/29/2022 Ac tive Last Documented On 3 5:53PM ; [facility] Adult Attention Deficit Hyperactivity Disorder 01/27/2022 Active Last Documented On 3 5:53PM ; [facility] Generalized Anxiety Disorder 05/29/2021 Active Last Documented On 3 5:53PM ; [facility] Psychophysiological Insomnia 05/29/2021 Active Last Documented On 3 5:53PM ; [facility] Major Depression 05/29/2021 Active Last Documented On 3 5:53PM ; [facility] Plan of Treatment No Plan [...] 03/28/2024 2:09PM By Marta Davies MD ; [facility] traZODone HCl 50 MG Oral Tablet 02/29/2024 Provider: ZAC DAVIES MD Diagnosis: Psychophysiologi c insomnia TAKE 3 TABLETS BY MOUTH AT B EDTIME NEEDED FOR SLEEP Last Documented On 02/29/2024 12:32PM By Marta Davies MD ; [facility] rOPINIRole HCl 1 MG Oral Tablet 01/27/2024 Provider: ZAC DAVIES MD Diagnosis: Restless legs sy ndrome as directed -1/2 tab in the evening for 1 week then 1 tab in the evening thereafter Last Documented On 01/27/2024 10:15AM By Marta Davies MD ; [facility] Nurtec 75 MG Oral Tablet Disintegrating 01/27/2024 Provider: ZAC DAVIES MD Diagnosis: Migraine w/o aur a, not intractable, w/o status migrainosus as directed - 1 tab a day as needed at the onset of migraine headaches Last Documented On 01/27/2024 9:42AM By Marta Davies MD ; [facility] Aimovig 70 MG/ML Subcutaneous Solution Auto-injector 01/27/2024 Provider: ZAC DAVIES MD Diagnosis: Migraine w/o aur a, not intractable, w/o status migrainosus as directed - inject 70 mg ( 1 ml) SQ once a month to upper thigh, please rotate sites Last Documented On 01/27/2024 9:42AM By Marta Davies MD ; [facility] Vyvanse 30 MG Oral Capsule 12/13/2023 Provider: ZAC DAVIES MD Diagnosis: Attn-defct hyper activity disorder, predom inattentive type 1 Capsule every morning Last Documented On 12/13/2023 1:47AM By Marta Davies MD ; [facility] Gabapentin 300 MG Oral Capsule [...] On 03/28/2024 10:26AM By ALEXIS ELI ; [facility] DULoxetine HCl 30 MG Oral Capsule Delayed Release Particles 07/29/2023 Provider: ZAC DAVIES MD Diagnosis: Generalized anxi ety disorder TAKE 1 CAPSULE BY MOUTH EVER Y DAY (TAKE WITH 60MG CAPSULE) Last Documented On 03/28/2024 10:26AM By ALEXIS ELI ; [facility] Topiramate 50 MG Oral Tablet 04/20/2023 Provider: ZAC DAVIES MD Diagnosis: Chronic migraine w/o aura, not intractable, w/o stat migr One tablet twice a day Last Documented On 03/28/2024 10:29AM By ALEXIS ELI ; [facility] Meclizine HCl 25 MG OR TABS 11/24/2022 Provider: Diagnosis: 1 TAB BID PRN Last Documented On 03/27/2023 5:34PM By DOMINGA COON ; [facility] Ondansetron HCl 4 MG OR TABS 03/26/2022 Provider: Diagnosis: as directed Last Documented On 03/27/2023 5:34PM By DOMINGA COON ; [facility] Senexon-S 8.6-50 MG OR TABS 02/04/2022 Provider: Diagnosis: 1 daily prn Last Documented On 03/27/2023 5:34PM By DOMINGA COON ; [facility] Metoclopramide HCl 10 MG OR TABS 01/27/2022 Provider : Diagnosis: 1 ac tid Last Documented On 03/27/2023 5:34PM By DOMINGA COON ; [facility] Fluticasone Propionate 50 MCG/ACT NA SUSP 12/03/2021 Provider: Diagnosis: Last Documented On 03/27/2023 5:34PM By ALEXIS ELI ; [facility] Pantoprazole Sodium 40 MG OR TBEC 11/23/2021 Provide r: Diagnosis: 1 tab daily Last Documented On 03/27/2023 5:34PM By ALEXIS ELI ; [facility] Blank Allergy 180 MG OR TABS 05/29/2021 Provider: Diagnosis: 1 tab daily otc Last Documented On 03/27/2023 5:34PM By DOMINGA COON ; [facility] Albuterol Sulfate 108 (90 Base) MCG/ACT IN AEPB 2020 Provider: Diagnosis: 1-2 puffs q 4-6 hours prn Last Documented On 03/27/2023 5:34PM By DOMINGA COON ; [facility] Spironolactone 100 MG OR TABS 04/21/2021 Provider: Diagnosis: 1 tab daily Last Documented On 03/27/2023 5:34PM By DOMINGA COON ; [facility] Symbicort 160-4.5 MCG/ACT IN AERO 12/05/2020 Provide r: Diagnosis: 1 puff twice daily Last Documented On 03/27/2023 5:34PM By DOMINGA COON ; [facility] Spiriva HandiHaler 18 MCG IN CAPS 10/15/2020 Provide r: Diagnosis: 1 inhalation daily Last Documented On 03/27/2023 5:34PM By DOMINGA COON ; [facility] Medications Administered Includes: Administered Medications from [...] Active Last Documented On 01/27/2024 9:10AM ; [facility] Note: Imported from external source. TORADOL Allergy Hives / Urticaria 05/29/2021 A ctive Last Documented On 01/27/2024 9:10AM ; [facility] Note: Imported from external source. Pineapple Allergy 01/26/2023 Active Last Documented On 01/27/2024 9:10AM ; [facility] Note: Imported from external source. Latex Allergy Hives / Urticaria 05/29/2021 A ctive Last Documented On 01/27/2024 9:10AM ; [facility] Note: Imported from external source. Insurance Includes: Active Insurance Policies Plan Name Member ID Group # Subscriber Relationship Effect bea Dates 1 - [facility] [id number] TONY SOLANO Self Clinical Notes Includes: Clinical Notes from this encounter No Clinical Notes Recorded
--- OUTSIDE RECORDS SUMMARY | 2025-01-15 13:08 | XMS_ITS | Clinical Summary ---
Author Organization [facility] Address [address] [place] [address] Care Team Providers Care Air Table Operator Name Role Phone Phu Wadsworth MD Primary Care Provider [phone] Source Comments [facility],non-owned Affiliates and Associated Physician Practices is amultiple site organization consisting of ambulatory clinics and hospital sitesin [place], [place], [place] and [place]. This disclosure is being madepursuant to the Care Everywhere program and may not contain all information available regarding this patient. Last updated 18.[facility] Allergies Active Allergy Reactions Criticality Noted Date Comments Ketorolac Tromethamine Urticaria Medium 05/20/2020 Latex Urticaria,Itching,Ot her Medium 08/16/2019 Reddness; Latex gloves Reddness; Latex gloves Pineapple Unknown 08/20/2021 Tramadol Urticaria,Itching Medium 08/16/2019 Medications * Be aware that medications may not be up to date on this document. Alwaysverify current medications with the patient. Medication Sig Dispensed Refills Start Date End Date Status fexofenadine (JESSICA) 180 MG tablet Take 180 mg by mouth once daily 05/29/2021 Active magnesium (V-R MAGNESIUM) 250 MG tablet Take 250 mg by mouth once daily 05/29/2021 Active Albuterol Sulfate 108 (90 Base) MCG/ACT Inhale 90 mcg by mouth as directed Active budesonide-formotero l (SYMBICORT) 160-4.5 MCG/ACT inhaler Inhale 1 puff by mouth 2 times daily 12/05/2020 Active tiotropium (SPIRIVA HANDIHALER) 18 MCG inhalation capsule Inhale 1 capsule by mouth once daily 10/15/2020 Active spironolactone (ALDACTONE) 100 MG tablet Take 1 tablet by mouth once daily 04/21/2021 Active traZODone (DESYREL) 50 MG tablet Take 50 mg by mouth nightly as needed 07/26/2021 Active Vilazodone HCl (VIIBRYD PO) Take 50 mg by mouth once daily Active SUMAtriptan (IMITREX) 100 MG tablet Take 100 mg by mouth once Active topiramate (TOPAMAX) 25 MG tablet Take 25 mg by mouth 2 times daily Active DULoxetine (CYMBALTA) 30 MG capsule Take 30 mg by mouth once daily 08/25/2021 Active meclizine (Antivert) 25 MG tabletIndications:Be nign paroxysmal positional vertigo, unspecified laterality TAKE 1 (ONE) TABLET BY MOUTH 2 TIMES DAILY 60 tablet 11 11/24/2022 Active gabapentin (Neurontin) 100 MG capsuleIndications:B enign paroxysmal positional vertigo, unspecified laterality TAKE 1 (ONE) CAPSULE BY MOUTH AT BEDTIME 90 capsule 3 11/24/2022 Active fluticasone propionate (Flonase) 50 MCG/ACT nasal spray USE TWO SPRAYS IN EACH NOSTRIL ONCE A DAY 48 g 4 12/25/2022 Active Active Problems Problem Noted Date Diagnosed [...] Mass Index 41.27 08/27/2021 9:19 AM CDT Plan of Treatment Health Maintenance Due Date Last Done Comments PAP SMEAR 1988 HIV SCREENING 2003 HEPATITIS C SCREENING 07/06/2006 DIABETES-SERUM CREATININE 2006 DTAP/TDAP/TD VACCINES (1 - Tdap) 2007 HEPATITIS B VACCINE (1 of 3 - 19+ 3-dose series) 2007 PNEUMOCOCCAL VACCINE (1 of 2 - PCV) 2007 DIABETES RETINOPATHY SCREENING 08/27/2021 DIABETES-FOOT EXAM WITH MONOFILAMENT 08/27/2021 DIABETES-HGB A1C 08/27/2021 COVID-19 VACCINE (1 - 2023-2 5 season) 2024 INFLUENZA VACCINE (#1) 2024 DEPRESSION SCREENING 11/29/2024 DIABETES - URINE PROTEIN SCREENING 11/29/2024 ZOSTER VACCINE (1 of 2) 2038 HIB VACCINE Aged Out No longer eligi ble based on patient's age to complete this topic HPV VACCINE Aged Out No longer eligi ble based on patient's age to complete this topic MENINGOCOCCAL (Group B) VACCINE Aged Out No longer eligible based on patient's age to complete this topic MENINGOCOCCAL VACCINE Aged Out No luisa jb eligible based on patient's age to complete this topic Care Teams Air Table Operator Relationship Specialty Start Date End Date Phu Wadsworth MD [address] [place] [id number] PCP - General 08/14/21
--- OUTSIDE RECORDS SUMMARY | 2025-01-15 13:08 | XMS_ITS | Referral Summary ---
Author Organization [facility] Address [address] [place] [address] Care Team Providers Care Home Sales Service Professional Name Role Phone Phu Wadsworth MD Primary Care Provider [phone] Source Comments [facility],non-owned Affiliates and Associated Physician Practices is amultiple site organization consisting of ambulatory clinics and hospital sitesin [place], [place], [place] and [place]. This disclosure is being madepursuant to the Care Everywhere program and may not contain all information available regarding this patient. Last updated 18.[facility] Allergies Active Allergy Reactions Criticality Noted Date [...] 08/27/2021 9:19 AM CDT Plan of Treatment Not on file Care Teams Home Sales Service Professional Relationship Specialty Start Date End Date Phu Wadsworth MD [address] [place] [address] [address] [place] [address] PCP - General 08/14/21
--- OUTSIDE RECORDS SUMMARY | 2025-01-15 13:08 | XMS_ITS | Clinical Summary ---
Author Organization [facility] Address [address], [address] [address] Phone Care Team Providers Care Viscosity Inspector Name Role Phone Phu Wadsworth MD Primary Care Provider [phone] Myles Dmitriy Inderjit DO Unavailable [phone] Allergies Active Allergy Reactions Criticality Noted Date Comments Latex Hives,Itching,Other (see Comments) Medium 08/16/2019 Reddness; Latex gloves Ketorolac Tromethamine Hives 05/20/2020 Tramadol Hives,Itching Medium 08/16/2019 Medications citalopram (CELEXA) 10 MG Tablet Take 20 mg by mouth daily. 0 9 Active Beclomethasone Dipropionate (QVAR IN) take 1 Puff by inhalation daily. Active ALBUTEROL IN take by inhalation Daily as needed. Active Cetirizine HCl (ZYRTEC PO) Take 1 Tab by mouth Daily as needed. Active Fexofenadine HCl (JESSICA PO) Take by mouth. Ac tive meclizine (ANTIVERT) 25 MG Chewable Tablet Take 1 Tablet by mouth every 8 hours as needed for Dizziness. 30 Tablet 1 Active ondansetron (Zofran ODT) 4 MG TABLET DISPERSIBLE Take 1 Tablet by mouth every 8 hours as needed for Nausea - 1st line. 10 Tablet 1 Active Family History Medical History Relation Name Comments Diabetes Mother Cancer Paternal Grandfather stomach Diabetes Paternal Grandfather Cancer Paternal Grandmother skin Relation Name Status Comments Father Mother Alive Paternal Grandfather Paternal Grandmother Social History Tobacco Use Types Packs/Day Years Used Date Smoking Tobacco: Never Smokeless Tobacco: Never Alcohol Use Standard Drinks/Week Comments Yes 0 (1 standard drink = 0.6 oz pur e alcohol) once every few months Comments No Sex and Gender Information Value Date Recorded Sex Assigned at Not on file Legal Sex Female 10:50 PM CDT Gender Identity Not on file Sexual Orientation Not on file Last Filed Vital Signs Vital Sign Reading Time Taken Comments Blood Pressure 138/80 01/21/2021 11:45 AM SKIMMER SCOOP OPERATOR Pulse 65 01/21/2021 11:45 AM SKIMMER SCOOP OPERATOR Temperature 36.4 C (97.5 F) 01/21/2021 10:27 AM SKIMMER SCOOP OPERATOR Respiratory Rate 22 01/21/2021 11:45 AM SKIMMER SCOOP OPERATOR Oxygen Saturation 100% 01/21/2021 11:45 AM SKIMMER SCOOP OPERATOR Inhaled Oxygen Concentration - - Weight 115.7 kg (255 lb) 01/21/2021 10:18 AM SKIMMER SCOOP OPERATOR Height 165.1 cm (5' 5 ) 01/21/2021 10:18 AM SKIMMER SCOOP OPERATOR Body Mass Index 42.43 01/21/2021 10:18 AM SKIMMER SCOOP OPERATOR Plan of Treatment Health Maintenance Due Date Last Done Comments Hepatitis C Virus (HCV) Screening 1988 TdaP Immunization 1988 Hepatitis B Immunization (1 of 3 - 19+ 3-dose series) 2007 Pap Smear 2009 Cervical Cancer Screening (CCS) 2018 HPV/Cotest 2018 Influenza Immunization (#1) 2024 SARS-COV-2 Immunization ( season) 2024 Respiratory Syncytial Virus (RSV) Immunization (Adult) (1 - 1-dose 75+ series) 2063 Meningococcal Immunization (ACWY) Aged Out No longer eligible based on patient's age to complete this topic Pneumococcal Immunization Combined Aged Out No longer eligible based on patient's age to complete this topic Rotavirus Immunization Aged Out No lo nger eligible based on patient's age to complete this topic Insurance MEDICAID [facility] Care Teams Viscosity Inspector Relationship Specialty Start Date End Date Phu Wadsworth MD [address] [address] PCP - General Family Medicine 08/15/19 Dmitriy Bueno DO [address] [address] Gastroenterology 08/15/19
--- OUTSIDE RECORDS SUMMARY | 2025-01-15 13:09 | XMS_ITS | Clinical Summary ---
Author Organization [facility] S Address [address] [place] [address] Phone Care Team Providers Care Head Counselor Name Role Phone JAYDON BOSS, ZAC SABILLON Unavailable [phone] Reason for Visit and Chief Complaint The Chief Complaint is: follow up for depression, anxiety, thoughts of self harm Problems Includes: Problems addressed during this encounter and other active Problems Current Visit Onset Date Resolved Date Provider Conditio n Status Adult Attention Deficit Hyperactivity Disorder 01/27/2022 ZAC TEMPLETON MD Active Last Documented On 2 8:44AM ; [facility] General[facility] Anxiety Disorder 05/29/2021 ZAC INTERIANO MD Active Last Documented On 1 3:14PM ; [facility] Psychophysiological Insomnia 05/29/2021 ZAC INTERIANO MD Active Last Documented On 1 3:14PM ; [facility] Major Depression 05/29/2021 ZAC INTERIANO MD Active Last Documented On 1 3:14PM ; [facility] Past Visits Onset Date Resolved Date Provider Condition Status Migraine Headache 11/29/2022 ZAC Valerio MD Active Last Documented On 3 8:31AM ; [facility] Nonorganic Sleep Apnea Obstructive 11/29/2022 Jason INTERIANO MD Active Last Documented On 3 8:31AM ; [facility] Restless Legs Syndrome 11/29/2022 ZAC KERN MD Active Last Documented On 3 8:31AM ; [facility] Plan of Treatment Generalized Anxiety Disorder - Cymbalta to 90 mg a day for anxiety and mood (04/21/22) Major Depressive Disorder - Cymbalta to 90 mg a day (04/21/22) Attention Deficit Disorder - Focalin 10 mg in am, 1 tab at noon Migraine Headaches - Topamax 50 mg 2 x a day Psychophysiological Insomnia - Trazodone 50 mg 4 tabs at bedtime as needed for sleep, encouraged good sleep hygiene habits - Last Documented On 09/24/2022 4:23AM ; [facility] Instructions to patient Lose weight - gained 5 lbs s rina last visit Last Documented On 2 11:32AM ; [facility] Education and Decision Aids were provided during visit for: Patient education about medi cation ---Education was given on medication(s) and diagnosis. I reviewed the risks, benefits and side effects of patient's medications Last Documented On 2 10:10AM ; [facility] Discussed calming techniques such as breathing exercises and other relaxation techniques Last Documented On 2 10:10AM ; [facility] Discussed good sleep hygiene habits Last Documented On 2 10:22AM ; [facility] Assessments Includes: Assessments from this encounter Findings - Major depressive disorder - Last Documented On 09/24/2022 4:23AM ; [facility] - Psychophysiological insomnia - Last Documented On 09/24/2022 4:23AM ; [facility] - Generalized anxiety disorder - Last Documented On 09/24/2022 4:23AM ; [facility] - Adult attention deficit hyperactivity disorder - Last Documented On 09/24/2022 4:23AM ; [facility] Instructions Includes: Instructions from this encounter Instructions to patient Lose weight - gained 5 lbs s rina last visit Last Documented On 2 11:32AM ; [facility] Education and Decision Aids were provided during visit for: Patient education about medi cation ---Education was given on medication(s) and diagnosis. I reviewed the risks, benefits and side effects of patient's medications Last Documented On 2 10:10AM ; [facility] Discussed calming techniques such as breathing exercises and other relaxation techniques Last Documented On 2 10:10AM ; [facility] Discussed good sleep hygiene habits Last Documented On 2 10:22AM ; [facility] Medical Equipment - Implanted Devices Includes: Current Devices No Medical Equipment Recorded Medications Includes: Medications discussed during this encounter and other current Medications New / Renewed during this visit ZAC INTERIANO MD on 09/03/2022 Focalin 10 MG Oral Tablet Provider: ZAC INTERIANO MD 30 day supply: 60 tablet, 0 refills Diagnosis: Attn-defct hyperactivity disorder, predom inattentive type as directed -- 1 tab in am a nd 1 tab at noon Pharmacy: [address], [address] - Last Documented On 11/26/2022 3:40PM By Marta Interiano MD ; [facility] Topiramate 50 MG Oral Tablet Provider: ZAC INTERIANO MD 90 day supply: 180 tablet, 1 refills Diagnosis: Chronic migraine w/o aura, not intractable, w/o stat migr One tablet twice a day Pharmacy: [facility] [address], [address] - Last Documented On 02/02/2023 9:32AM By Marta Interiano MD ; [facility] Cymbalta 60 MG Oral Capsule Delayed Release Particles Provider: ZAC INTERIANO MD 90 day supply: 90 capsule, 1 refills Diagnosis: Major depressive disorder, recurrent, moderate 1 Capsule every morning Pharmacy: [facility] KR[address]SY [address], [address] - Last Documented On 03/22/2023 5:23AM By Marta Interiano MD ; [facility] Current Medications (continue as prescribed) DULoxetine HCl 60 MG Oral Capsule Delayed Release Particles 03/22/2023 Provider: ZAC INTERIANO MD Diagnosis: Major depressive disorder, recurrent, moderate TAKE 1 CAPSULE BY MOUTH EVER Y DAY IN THE MORNING Last Documented On 03/22/2023 5:25AM By Marta Interiano MD ; [facility] Aimovig 70 MG/ML Subcutaneous Solution Auto-injector 02/24/2023 Provider: ZAC INTERIANO MD Diagnosis: Migraine w/o aur a, not intractable, w/o status migrainosus as directed - inject 70 mg ( 1 ml) SQ once a month to upper thigh, please rotate sites Last Documented On 02/24/2023 8:48AM By Marta Interiano MD ; [facility] Aimovig 70 MG/ML Subcutaneou s Solution Auto-injector 02/24/2023 Provider: ZAC TEMPLETON MD Diagnosis: Chronic migraine w/o aura, not intractable, w/o stat migr as directed - inject 1 ml (7 0 mg) subcutaneously to upper thigh once a month, please rotate sites Last Documented On 02/24/2023 8:48AM By Marta Interiano MD ; [facility] traZODone HCl 50 MG Oral Tablet 02/22/2023 Provider: ZAC INTERIANO MD Diagnosis: Psychophysiologi c insomnia TAKE 4 TABLETS (200MG) AT BE DTIME NEEDED FOR SLEEP Last Documented On 02/22/2023 7:21AM By Marta Interiano MD ; [facility] Topiramate 50 MG Oral Tablet 02/02/2023 Provider: ZAC INTERIANO MD Diagnosis: Chronic migraine w/o aura, not intractable, w/o stat migr One tablet twice a day Last Documented On 02/02/2023 9:45AM By Marta Interiano MD ; [facility] Focalin 10 MG Oral Tablet 02/01/2023 Provider: ZAC INTERIANO MD Diagnosis: Attn-defct hyper activity disorder, predom inattentive type as directed -- 1 tab in am a nd 1 tab at noon Last Documented On 02/01/2023 4:41AM By Marta Interiano MD ; [facility] Gabapentin 300 MG Oral Capsule 01/26/2023 Provider: ZAC INTERIANO MD Diagnosis: Restless legs sy ndrome as directed -- 1 cap in even ing for restless legs Last Documented On 10:27AM By Marta Interiano MD ; [facility] Meclizine HCl 25 MG Oral Tablet 11/24/2022 Provider: Diagnosis: 1 TAB BID PRN Last Documented On 01/26/2023 9:26AM By DOMINGA COON ; [facility] DULoxetine HCl 30 MG Oral Capsule Delayed Release Particles 08/20/2022 Provider: ZAC INTERIANO MD Diagnosis: Generalized anxi ety disorder TAKE 1 CAPSULE BY MOUTH EVER Y DAY (TAKE WITH 60MG CAPSULE) Last Documented On 11:28AM By Marta Interiano MD ; [facility] Ondansetron HCl 4 MG Oral Tablet 03/26/2022 Provider : MOSHE GUTIERREZ NP Diagnosis: as directed Last Documented On 04/21/2022 4:14PM By DOMINGA COON ; [facility] Senexon-S 8.6-50 MG Oral Tablet 02/04/2022 Provider: MOSHE GUTIERREZ NP Diagnosis: 1 daily prn Last Documented On 02/26/2022 4:13PM By DOMINGA COON ; [facility] Metoclopramide HCl 10 MG Oral Tablet 01/27/2022 Prov ider: MOSHE GUTIERREZ NP Diagnosis: 1 ac tid Last Documented On 02/26/2022 4:14PM By DOMINGA COON ; [facility] Fluticasone Propionate 50 MCG/ACT Nasal Suspension 03/2022 Provider: Diagnosis: Last Documented On 12/17/2021 4:21PM By ALEXIS ELI ; [facility] Pantoprazole Sodium 40 MG Oral Tablet Delayed Release 11/23/2021 Provider: Diagnosis: 1 tab daily Last Documented On 12/17/2021 4:21PM By ALEXIS ELI ; [facility] Gabapentin 100 MG Oral Capsule 08/20/2021 Provider: Diagnosis: [address] Ember Santos Last Documented On 08/25/2021 2:01PM By DOMINGA COON ; [facility] Albuterol Sulfate 108 (90 Ba se) MCG/ACT Inhalation Aerosol Powder Breath Activated 05/29/2021 Provider: Diagnosis: 1-2 puffs q 4-6 hours prn Last Documented On 05/29/2021 3:25PM By DOMINGA COON ; [facility] Blank Allergy 180 MG Oral Tablet 05/29/2021 Provid er: Diagnosis: 1 tab daily otc Last Documented On 05/29/2021 3:24PM By DOMINGA COON ; [facility] Spironolactone 100 MG Oral Tablet 04/21/2021 Provide r: JASON BENITO JANINA Diagnosis: 1 tab daily Last Documented On 05/29/2021 3:20PM By DOMINGA COON ; [facility] Symbicort 160-4.5 MCG/ACT Inhalation Aerosol 1 Provider: CARLO JAQUEZ MD Diagnosis: 1 puff twice daily Last Documented On 05/29/2021 3:21PM By DOMINGA COON ; [facility] Spiriva HandiHaler 18 MCG Inhalation Capsule 0 Provider: Diagnosis: 1 inhalation daily Last Documented On 05/29/2021 3:22PM By DOMINGA COON ; [facility] Past Medications on file Sunosi 150 MG Oral Tablet 02/24/2023 - 03/26/2023 Provider: ZAC BLACK MD Diagnosis: Obstructive slee p apnea (adult) (pediatric) 1 tablet every morning Last Documented On 02/24/2023 8:41AM By Marta Interiano MD ; [facility] Meclizine HCl 25 MG Oral Tablet 09/03/2022 - 2 Provider: Diagnosis: 1 tab twice daily prn Dr. Ember Santos Last Documented On 09/03/2022 3:07PM By DOMINGA COON ; [facility] Focalin 10 MG Oral Tablet 06/18/2022 - 07/18/2022 Provider: ZAC INTERIANO MD Diagnosis: Attn-defct hyper activity disorder, predom inattentive type as directed -- 1 tab in am, 1 tab at noon Last Documented On 06/18/2022 5:28PM By Marta Interiano MD ; [facility] Focalin 10 MG Oral Tablet 04/21/2022 - 05/21/2022 Provider: ZAC INTERIANO MD Diagnosis: Attn-defct hyper activity disorder, predom inattentive type as directed -- 1 tab in am Last Documented On 04/21/2022 4:54PM By Marta Interiano MD ; [facility] Viibryd Starter Pack 10 & 20 MG Oral Kit 05/29/2021 - 06/28/2021 Provider: ZAC INTERIANO MD Diagnosis: Major depressive disorder, recurrent, moderate as directed -- 10 mg in am w / food for 2 weeks then 20 mg 1 tab in am w/ food thereafter Last Documented On 05/29/2021 4:05PM By Marta Interiano MD ; [facility] Medications Administered Includes: Administered Medications from this encounter No Administered Medications Recorded Vital Signs Includes: Vital Signs from this encounter Vital Name 09/03/2022 10:23A Blood Pressure Sitting L 116/70 BP Cuff Size Regular Pulse Rate-Sitting (bpm) 70 Pulse Rhythm Regular Height (in) 66 Weight (lb) 230 Body Mass Index (kg/m2) 37.1 Body Surface Area (m2) 2.1 Note: self reported vitals Last Documented: On 09/03/2022 10:24A M ; [facility] Results Includes: Results discussed during this encounter No Results Recorded For Specified Dates History of Present Illness Includes: History of Present Illness from this encounter HPI EDILIA SOLANO is a 32 year old female. - Allergy list reviewed - Past medical history reviewed - Medication list reviewed This visit was conducted with use of interactive audio and video telecommunication system with real time communication between the patient and the provider. Patient consent for virtual visit obtained today. Total time spent with patient via audio and video telecommunication 30 minutes. Edilia reported that she seemed to be doing better. She is now taking Cymbalta 90 mg a day which has helped with her mood. She is not as depressed. She has been motivated to do her daily tasks. 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 She goes to work around 11 am to 6 pm. 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 She is able to come home at a decent time but she may be sleeping over and does not have to wake up early. She is not doing shift-work anymore. Sleep has been good with the Trazodone 50 mg three or four at bedtime. She is not napping during the day but occasionally she gets tired. Appetite is good. She admits to overeating at times. She gained 5 pounds since she was last seen. She was reminded to do portion control, low fat low carb diet. Her migraine headaches seem to be less with the Aimovig 70 mg subcutaneous once a month along with Topamax 50 mg twice a day. She has not been as anxious. No major panic attacks. The Buspar 10 mg twice a day was discontinued 03/2022. She is able to focus and concentrate better with the Focalin. At times, it is not lasting long enough, especially if she has a long afternoon but the second dose of Focalin seems to help her get through the long afternoon. At times, she may feel bad about herself but it is getting better. She said that she is trying to get along with her adopted sister who at times can be irritated and turner and so she just goes back to her room and not deal with the argument. She denied having any psychomotor restlessness. She denied having any suicidal thoughts. No delusions or hallucinations. She denied side effects from her medications. She said that last June she had a back strain and showed that she had degenerative joint disease and was given Flexeril and Ibuprofen. She also has history of Asthma and had exacerbation of Bronchitis 07/13/22 and was given Cefdinir and Albuterol. MENTAL STATUS EXAM: Sensorium - alert, oriented to name, place, and time Attitude - cooperative Gait - ambulatory Sleep - good Interest/Energy/Motivation - good occ tired Guilt/Worthlessness - absent Concentration/Attention Span - able to focus and concentrate Memory Recall - fairly good Appetite - good - at times may overeat, on 06/18/22 pt weighed 225 lbs and on 09/03/22 she weighed 230 lbs so she gained 5 lbs Suicidal Thoughts - absent Homicidal Thoughts - absent Delusions - absent Hallucinations - absent Appearance - casually groomed Motor Behavior - calm Eye Contact - intermittent Speech - fluent Mood -better, not as depressed Affect - not as anxious Thought Process - coherent Insight and Judgment - intact Social History Description Last Updated She was born in [place], [place] and raised outside of [facility]. 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 Her sexual orientation is pansexual or aromantic. She has no past or pending legal history. She enjoys reading, sewing, knitting and gardening. 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 Last Documented On 2 10:10AM ; [facility] Non-smoker 09/03/2022 Last Documented On 2 4:23AM ; [facility] Daily coffee consumption - d rinks 1-2 cups of coffee a week, 1-2 cans of soda a week and 1-2 glasses of green tea with ginseng a week 06/18/2022 Last Documented On 2 10:10AM ; [facility] Not using alcohol - none, past history o f heavy drinking 08/25/2021 Last Documented On 2 10:10AM ; [facility] Drug use - narcotics - 4 -7 pills daily from age [age] having stopped in 200505/29/2021 Last Documented On 2 10:10AM ; [facility] Single 05/29/2021 Last Documented On 2 10:10AM ; [facility] Smoking Status Unknown Procedures and Surgical History Includes: Procedures from this encounter Procedures Code Diagnosis Performing Provider Service L ocation Service Date education and instructions Last Documented On 2 10:10AM ; [facility] dangerousness assessment: suicide risk -not suic idal 3085F Last Documented On 2 10:10AM ; [facility] use of tobacco assessment performed 1000F Last Documented On 2 10:10AM ; [facility] patient screened for future fall risk - no recen t falls 3288F Last Documented On 2 10:10AM ; [facility] review of medications documented 1160F Last Documented On 2 10:10AM ; [facility] screening for adult depressi on: impression and score - please see above treatment and PHQ score Last Documented On 2 10:10AM ; [facility] standardized depression screening: posit bea for symptoms Last Documented On 2 10:10AM ; [facility] encouragement to exercise Last Documented On 2 10:10AM ; [facility] Clinical summary provided to patient Last Documented On 2 10:10AM ; [facility] PHQ-9: total score 5 Last Documented On 2 11:31AM ; [facility] Surgical History Last Updated History of hysterectomy - 08/05/21 022 Last Documented On 2 10:10AM ; [facility] History of abdominal surgery Left fallop jovany tube tumors removed-- 201806/16/2021 Last Documented On 2 10:10AM ; [facility] History of knee surgery - right knee rec onstruction 201405/29/2021 Last Documented On 2 10:10AM ; [facility] History of cholecystectomy - 2018 Last Documented On 2 10:10AM ; [facility] Medical History Includes: Medical History addressed during this encounter Description Last Updated History of gastroparesis 02/24/2023 Last Documented On 2 10:10AM ; [facility] Primary Care Provider: Dr. Iman Jaquez ~Dr. Yaniv Walker -- Unleavened Dough Mixer ~ENT -- at [facility] ~Dr. 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[facility] [employer] 02/24/2023 Last Documented On 2 10:10AM ; [facility] History of infection of tooth - given Am oxil 500 mg 07/27/22 09/03/2022 Last Documented On 2 4:23AM ; [facility] History of back strain - Deg enerative Disc Disease -- given Flexeril 10 mg and Ibuprofen 600 mg 07/20/22; with bulging discs -- given Prednisone 20 mg and Norflex 100 mg 04/24/22 09/03/2022 Last Documented On 2 4:23AM ; [facility] History of bronchitis - give n Cefdinir 300 mg and Albuterol HFA 90 mcg inhaler 09/03/2022 Last Documented On 2 4:23AM ; [facility] History of COVID-19 infection - tested p ositive/isolation 08/10/22-08/17/22 09/03/2022 Last Documented On 2 4:23AM ; [facility] History of migraine headache 06/19/2022 Last Documented On 2 10:10AM ; [facility] History of Nausea with vomiting - given Zofran 4 mg 03/26/22 04/21/2022 Last Documented On 2 10:10AM ; [facility] History of constipation - gi [facility] Miralax 03/26/22; Senexon-S 8.6mg -50 mg -- started 02/04/22 04/21/2022 Last Documented On 2 10:10AM ; [facility] History of coronavirus 2019- nCoV vaccine - Pfizer #1 03/10/21 #2 04/01/21 #3 02/202204/21/2022 Last Documented On 2 10:10AM ; [facility] History of an endoscopic / f iberoptic examination was performed - for Dysphagia -- 11/2021 -- normal per patient 02/26/2022 Last Documented On 2 10:10AM ; [facility] History of ovarian cyst - CT scan of abdomen/pelvis from 11/2021 showed a 5 cm mass/cyst on an ovary -- has ultrasound every 6-8 weeks to monitor 02/26/2022 Last Documented On 2 10:10AM ; [facility] History of colonoscopy - 11/2021 -- lisa l per patient 02/26/2022 Last Documented On 2 10:10AM ; [facility] History of dysphagia - started Reglan 10 mg 01/05/22 02/26/2022 Last Documented On 2 10:10AM ; [facility] History of acute suppurative sinusitis - given Augmentin 875 mg 02/06/22 02/26/2022 Last Documented On 2 10:10AM ; [facility] History of sleep testing was performed - in 2019 by [facility] -- inconclusive 02/26/2022 Last Documented On 2 10:10AM ; [facility] History of GI bleed - via en doscopy - was hospitalized for 4 days -- 2019 -- should not be using anymore NSAIDS 12/17/2021 Last Documented On 2 10:10AM ; [facility] History of Polycystic Ovaria n Syndrome (PCOS) - age 23 - left fallopian tube removed in 2019 -- complete hysterectomy 08/05/21 -- given Hydrocodone 5/325 #25 -- still has ovaries 08/25/2021 Last Documented On 2 10:10AM ; [facility] History of hyperlipidemia 06/16/2021 Last Documented On 2 10:10AM ; [facility] History of endometriosis - age 23 2020 Last Documented On 2 10:10AM ; [facility] History of fatty liver - age 28 05/29/20 Last Documented On 2 10:10AM ; [facility] History of asthma - since childhood 11/2020 Last Documented On 2 10:10AM ; [facility] Family History Includes: Family History addressed during this encounter Description Last Updated Maternal history of alcoholism - Mother 06/16/2021 Last Documented On 2 10:10AM ; [facility] Maternal history of bipolar disorder NOS - Mother 06/16/2021 Last Documented On 2 10:10AM ; [facility] Paternal history of combined drug and al cohol abuse - Father 06/16/2021 Last Documented On 2 10:10AM ; [facility] Fraternal history of depression - Brothe r 06/16/2021 Last Documented On 2 10:10AM ; [facility] Paternal grandmother's history of depres edward 06/16/2021 Last Documented On 2 10:10AM ; [facility] Sororal history of depression and Anxiet y - Sister 06/16/2021 Last Documented On 2 10:10AM ; [facility] Paternal grandmother's history of lisy ia 05/29/2021 Last Documented On 2 10:10AM ; [facility] Review of Systems Includes: Review of Systems from this encounter Systemic: Feeling poorly (malaise) - occasionally tired. No fever, no chills, and no night sweats. Head: Headache. No sinus pain. Neck: Neck pain and neck stiffness. Eyes: No vision problems. Itching of the eyes. No eye pain. Otolaryngeal: No hearing loss and no earache. Nasal discharge. No hoarseness and no sore throat. Cardiovascular: No chest pain or discomfort, no palpitations, and the heart rate was not fast. Pulmonary: No dyspnea, no cough, and no wheezing. Gastrointestinal: No heartburn. No nausea, no vomiting, no diarrhea, and no constipation. Genitourinary: No increase in urinary frequency. No dysuria. Endocrine: No polydipsia and no excessive sweating. Musculoskeletal: No muscle aches. Pain localized to one or more joints and joint stiffness localized to one or more joints. Neurological: No dizziness, no vertigo, no fainting, and no motor disturbances. [...] Last Documented On 01/27/2024 9:10AM ; [facility] Note: Imported from external source. TORADOL Allergy Hives / Urticaria 05/29/2021 A ctive Last Documented On 01/27/2024 9:10AM ; [facility] Note: Imported from external source. Pineapple Allergy 01/26/2023 Active Last Documented On 01/27/2024 9:10AM ; [facility] [facility] Note: Imported from external source. Latex Allergy Hives / Urticaria 05/29/2021 A ctive Last Documented On 01/27/2024 9:10AM ; [facility] Note: Imported from external source. Encounters Encounter Provider Location Date Check-In Time Check-Out Time Diagnosis [facility] MD [facility] 09/03/20 22 10:09AM 11:59PM Generalized Anxiety Disorder,Psychoph ysiological Insomnia,Major Depression,Adult Attention Deficit Hyperactivity Disorder Insurance Includes: Active Insurance Policies Plan Name Member ID Group # Subscriber Relationship Effect bea Dates 1 - [facility] [id number] EDILIA SOLANO Self Clinical Notes Includes: Clinical Notes from this encounter No Clinical Notes Recorded
--- OUTSIDE RECORDS SUMMARY | 2025-01-15 13:09 | XMS_ITS | Clinical Summary ---
Author Organization [facility] Address [address] [place] [address] Care Team Providers Care Shipfitter Helper Name Role Phone Phu Wadsworth MD Primary Care Provider [phone] Allergies Active Allergy Reactions Criticality Noted Date [...] Diabetes mellitus 01/21/2021 Persistent asthma without complication Encounters Date Type Department Care Team Description 11/11/2024 3:16 PM TALEND DEVELOPER - 11/11/2024 5:18 PM TALEND DEVELOPER Emergency [facility] Emergency Department [address] [place] [address] Allergic reaction, initial encounter (Primary Dx) Discharge Disposition: Discharge to home or self care from Last 3 Months Surgical History Surgery Date Site/Laterality Comments ABDOMINAL SURGERY LAPAROSCOPIC CHOLECYSTECTOMY 11/29/2018 - 11/28/2019 COLONOSCOPY 11/29/2018 - 11/28/2019 at [facility] Medical History Medical History Date Comments Asthma Morbid obesity (HCC) Type 2 diabetes mellitus (HCC) GERD (gastroesophageal reflux disease) LEAL (nonalcoholic steatohepatitis) Depression Anxiety H/O: hysterectomy Hx of cholecystectomy H/O right knee surgery Social History Tobacco Use Types Packs/Day Years [...] on file Legal Sex Female 8:55 PM TALEND DEVELOPER Gender Identity Not on file Sexual Orientation Not on file Obstetrics History Last Filed Vital Signs Vital Sign Reading Time Taken Comments Blood Pressure 110/85 11/11/2024 5:16 PM TALEND DEVELOPER Pulse 81 11/11/2024 5:16 PM TALEND DEVELOPER Temperature 36.6 C (97.9 F) 11/11/2024 3:11 PM TALEND DEVELOPER Respiratory Rate 16 11/11/2024 5:16 PM TALEND DEVELOPER Oxygen Saturation 98% 11/11/2024 5:16 PM TALEND DEVELOPER Inhaled Oxygen Concentration - - Weight 104.3 kg (230 lb) 11/11/2024 3:11 PM TALEND DEVELOPER Height 165.1 cm (5' 5 ) 11/11/2024 3:11 PM TALEND DEVELOPER Body Mass Index 38.27 11/11/2024 3:11 PM TALEND DEVELOPER Plan of Treatment Health Maintenance Due Date Last Done Comments Albumin Creatinine Ratio, Urine 1988 Depression Screening 1988 Hemoglobin A1C 1988 Hepatitis C Screening 1988 Dilated Eye Exam 1988 Foot Exam 1988 Lipid Panel 1988 Varicella Vaccines (1 of 2 - 13+ 2-dose series) 2001 Regular Well Visit/Exam 18-64 2006 Pneumococcal vaccine <65 (1 of 2 - PCV) 2007 eGFR 03/04/2024 03/04/2023, 02/0 11/2021, 10/21/2021, Additional history exists Influenza Vaccine (#1) 2024 08/10/2019 DTaP/Tdap/Td Vaccine (2 - Td or Tdap) 04/25/2027 04/25/2017, 08/24/2002 HPV Vaccines Aged Out No longer eligi ble based on patient's age to complete this topic Procedures Procedure Name Priority Date/Time Associated Diagnosis Comments ECG 12-LEAD STAT 11/11/2024 3:20 PM TALEND DEVELOPER EGFR Routine 03/04/2023 8:09 AM CDT from Last 3 Months or Most Recently Relevant to Health Maintenance Results * ECG 12 lead (11/11/2024 3:20 PM TALEND DEVELOPER) 11/11/2024 3:20 PM TALEND DEVELOPER Narrative [facility] - 11/13/2024 10:59 AM TALEND DEVELOPER Vent Rate: 78 bpm RR Interval: 762 msec [place] Interval: 166 msec QRS Duration: 86 msec QT Interval: 372 msec QTC Interval: 406 msec P-R-T [place]: 37 - 15 - 12 degrees IMPRESSION: SINUS RHYTHM POSSIBLE LEFT ATRIAL ENLARGEMENT [-0.1mV P WAVE IN V1/V2] POSSIBLE LEFT VENTRICULAR HYPERTROPHY [VOLTAGE CRITERIA PLUS LAE OR QRS WIDENING] NONSPECIFIC T-WAVE ABNORMALITY ABNORMAL ECG Electronically Signed By: Justo Olsen MD [facility] us Aroldo Marques MD ECG ORDERABLES Final Result [facility] * eGFR (03/04/2023 8:09 AM CDT) eGFR [...] of Race in Diagnosing Kidney Disease, JASN 202). The CKD-EPI equation should not be used for patients with unstable renal function and has not been validated in children and those over 70. Current interpretive data was last reviewed 2021. Blood 03/04/2023 8:09 AM CDT 03/04/2023 8:35 AM CDT us Ryland Ortiz MD LAB BLOOD ORDERABLES Final Resul t [facility]) 1 [facility] Department of Laboratories [place], [place] [id number] from Last 3 Months or Most Recently Relevant to Health Maintenance Insurance [facility] IDSD Advance Directives For more information, please contact: [phone] * Full Code (Latest Code Status on File) Date Activated Date Inactivated Comments 01/19/2022 12:48 PM 01/19/2022 6:31 PM * Full Code Date Activated Date Inactivated Comments 01/19/2022 12:48 PM 01/19/2022 12:48 PM Care Teams Shipfitter Helper Relationship Specialty Start Date End Date Phu Wadsworth MD PCP - General Emergency Medicine 06/11/21
--- OUTSIDE RECORDS SUMMARY | 2025-01-15 13:09 | XMS_ITS ---
Author Organization [facility] Address [address] [place] [address] Phone Care Team Providers Care Grocery Clerk Name Role Phone JAYDON BOSS, ZAC SABILLON Unavailable [phone] Problems Includes: Active, inactive, and resolved Problems All Visits Onset Date Resolved Date Provider Condition S tatus Migraine Headache 11/29/2022 Active Last Documented On 3 5:53PM ; [facility] Nonorganic Sleep Apnea Obstructive 11/29/2022 Active Last Documented On 3 5:53PM ; [facility] Restless Legs Syndrome 11/29/2022 Ac tive Last Documented On 3 5:53PM ; [facility] Adult Attention Deficit Hyperactivity Disorder 01/27/2022 Active Last Documented On 3 5:53PM ; [facility] Generalized Anxiety Disorder 05/29/2021 Active Last Documented On 3 5:53PM ; [facility] Psychophysiological Insomnia 05/29/2021 Active Last Documented On 3 5:53PM ; [facility] Major Depression 05/29/2021 Active Last Documented On 3 5:53PM ; [facility] Plan of Treatment Education and Decision Aids were provided during visit for: Discussed good sleep hygiene habits Last Documented On 4 1:54AM ; [facility] Calming techniques such as b reathing exercises/meditation and other relaxation techniques Last Documented On 4 1:54AM ; [facility] Calming techniques such as b reathing exercises/meditation and other relaxation techniques Last Documented On 3 7:19AM ; [facility] Assessments Includes: Assessments for all patient encounters Findings Encounter Date Adult attention deficit hype ractivity disorder PSYCH ADULT FOLLOW UP with ZAC INTERIANO MD 01/27/2024 Last Documented On 4 9:28AM ; [facility] Generalized anxiety disorder PSYCH ADULT FOLLOW UP with ZAC INTERIANO MD 01/27/2024 Last Documented On 4 9:28AM ; [facility] Major depressive disorder PSYCH ADULT FO LLOW UP with ZAC INTERIANO MD 01/27/2024 Last Documented On 4 9:28AM ; [facility] Migraine headache PSYCH ADULT FOLLOW UP with MET BENITO INTERIANO MD 01/27/2024 Last Documented On 4 9:28AM ; [facility] Obstructive sleep apnea PSYCH ADULT FOLLOW UP wi th ZAC INTERIANO MD 01/27/2024 Last Documented On 4 9:28AM ; [facility] Psychophysiological insomnia PSYCH ADULT FOLLOW UP with ZAC INTERIANO MD 01/27/2024 Last Documented On 4 9:28AM ; [facility] Restless legs syndrome PSYCH ADULT FOLLOW UP wit h ZAC INTERIANO MD 01/27/2024 Last Documented On 4 9:28AM ; [facility] Adult attention deficit hype ractivity disorder TELEHEALTH ADULT PSYCH ESTABLISHED with ZAC INTERIANO MD 12/10/2023 Last Documented On 4 1:59AM ; [facility] Generalized anxiety disorder TELEHEALTH ADULT PSYCH ESTABLISHED with ZAC INTERIANO MD 12/10/2023 Last Documented On 4 1:59AM ; [facility] Major depressive disorder TELEHEALTH SEKOU LT PSYCH ESTABLISHED with ZAC INTERIANO MD 12/10/2023 Last Documented On 4 1:59AM ; [facility] Migraine headache TELEHEALTH ADULT PSY CH ESTABLISHED with ZAC INTERIANO MD 12/10/2023 Last Documented On 4 1:59AM ; [facility] Obstructive sleep apnea TELEHEALTH ADULT PSYCH ESTABLISHED with ZAC INTERIANO MD 12/10/2023 Last Documented On 4 1:59AM ; [facility] Psychophysiological insomnia TELEHEALTH ADULT PSYCH ESTABLISHED with ZAC INTERIANO MD 12/10/2023 Last Documented On 4 1:59AM ; [facility] Restless legs syndrome TELEHEALTH ADULT PSYCH ESTABLISHED with ZAC INTERIANO MD 12/10/2023 Last Documented On 4 1:59AM ; [facility] Adult attention deficit hype ractivity disorder PSYCH ADULT FOLLOW UP with ZAC INTERIANO MD 07/29/2023 Last Documented On 3 7:26AM ; [facility] Generalized anxiety disorder PSYCH ADULT FOLLOW UP with ZAC INTERIANO MD 07/29/2023 Last Documented On 3 7:26AM ; [facility] Major depressive disorder PSYCH ADULT FO LLOW UP with ZAC INTERIANO MD 07/29/2023 Last Documented On 3 7:26AM ; [facility] Migraine headache PSYCH ADULT FOLLOW UP with MET BENITO INTERIANO MD 07/29/2023 Last Documented On 3 7:26AM ; [facility] Obstructive sleep apnea PSYCH ADULT FOLLOW UP wi th ZAC INTERIANO MD 07/29/2023 Last Documented On 3 7:26AM ; [facility] Psychophysiological insomnia PSYCH ADULT FOLLOW UP with ZAC INTERIANO MD 07/29/2023 Last Documented On 3 7:26AM ; [facility] Restless legs syndrome PSYCH ADULT FOLLOW UP wit h ZAC INTERIANO MD 07/29/2023 Last Documented On 3 7:26AM ; [facility] Adult attention deficit hype ractivity disorder TELEHEALTH ADULT PSYCH ESTABLISHED with ZAC INTERIANO MD 04/20/2023 Last Documented On 3 9:12AM ; [facility] Generalized anxiety disorder TELEHEALTH ADULT PSYCH ESTABLISHED with ZAC INTERIANO MD 04/20/2023 Last Documented On 3 9:12AM ; [facility] Major depressive disorder TELEHEALTH SEKOU LT PSYCH ESTABLISHED with ZAC INTERIANO MD 04/20/2023 Last Documented On 3 9:12AM ; [facility] Migraine headache TELEHEALTH ADULT PSY CH ESTABLISHED with ZAC INTERIANO MD 04/20/2023 Last Documented On 3 9:12AM ; [facility] Obstructive sleep apnea TELEHEALTH ADULT PSYCH ESTABLISHED with ZAC INTERIANO MD 04/20/2023 Last Documented On 3 9:12AM ; [facility] Psychophysiological insomnia TELEHEALTH ADULT PSYCH ESTABLISHED with ZAC INTERIANO MD 04/20/2023 Last Documented On 3 9:12AM ; [facility] Restless legs syndrome TELEHEALTH ADULT PSYCH ESTABLISHED with ZAC INTERIANO MD 04/20/2023 Last Documented On 3 9:12AM ; [facility] Cervicalgia THE PREDNISONE P RESCRIBED UNDERNEATH DEPRESSION IS FOR THE NECK PAIN MED CHECK with YAGRESHAM D.O. 05/06/2011 Last Documented On 1 2:55PM ; [facility] Depression F/U 6 MONTHS MED CHECK with YAGRESHAM D.O. 05/06/2011 Last Documented On 1 2:55PM ; [facility] Anxiety disorder NOS which i s inadequately controlled increased the zoloft.,f/u 1 monthj MED CHECK with YAGRESHAM D.O. 02/25/2011 Last Documented On 1 6:34PM ; [facility] Dentoalveolar abscess antibi otic prescribed MED CHECK with YAGRESHAM D.O. 02/25/2011 Last Documented On 1 6:34PM ; [facility] Dermatitis medrol dose pack MED CHECK with LESTE R A JOHNCER D.O. 02/25/2011 Last Documented On 1 6:34PM ; [facility] Headache syndromes PROBLEM VISIT with YAMADRID D.O. 06/25/2010 Last Documented On 0 7:28PM ; [facility] Depression which is well-con trolled CONTINUE MEDS MED CHECK with YAGRESHAM D.O. 06/12/2010 Last Documented On 0 4:51PM ; [facility] Headache syndromes which is inadequately controlled F/U 1 MONTH MED CHECK with YA A CRANCER D.O. 06/12/2010 Last Documented On 0 4:51PM ; [facility] Contraceptive management SURY L CONT ORTHO TRICYCLEN F/U 3 MONTHS 1 MONTH CHECK with YA A CRANCER D.O. 04/17/2010 Last Documented On 0 10:18AM ; [facility] Depression which is stable 1 MONTH CHECK with LE STER A CRANCER D.O. 04/17/2010 Last Documented On 0 10:18AM ; [facility] Dysmenorrhea HEAVY MENSTRUAL PERIODS SINCE STARTING BAN,WILL STOP THAT. THE ORTHOCYCLIN SCRIPT WAS GIVEN TO THE PT. F/U 4 WEEKS MED CHECK with YA A CRANCER D.O. 03/18/2010 Last Documented On 0 4:08PM ; [facility] Contraceptive management 2 WK CK-UP with YA A CRANCER D.O. 02/14/2010 Last Documented On 0 1:55PM ; [facility] Depression which is well-con trolled F/U 3 MONTHS 2 WK CK-UP with YA A CRANCER D.O. 02/14/2010 Last Documented On 0 1:55PM ; [facility] Acute sinusitis 3 WK CK-UP with YA A CRANCER D.O. 01/24/2010 Last Documented On 0 11:42AM ; [facility] Depression which is inadequa tely controlled CELEXA MAKES HER EDGY 3 WK CK-UP with YA A CRANCER D.O. 01/24/2010 Last Documented On 0 11:42AM ; [facility] Depression which is inadequa tely controlled SNF NEW PATIENT VISIT with YA A CRANCER D.O. 01/03/2010 Last Documented On 0 2:53PM ; [facility] LEFT KNEE PAIN NEW PATIENT VISIT with YA A CRANCER D.O. 01/03/2010 Last Documented On 0 2:53PM ; [facility] Pain in limb B/L HIP PAIN ON/OFF NEW PAT IENT VISIT with YA A CRANCER D.O. 01/03/2010 Last Documented On 0 2:53PM ; [facility] RIGHT KNEE PAIN NEW PATIENT VISIT with YA SCHNEIDER D.O. 01/03/2010 Last Documented On 0 2:53PM ; [facility] Instructions Includes: Instructions for all patient encounters Education and Decision Aids were provided during visit for: Discussed good sleep hygiene habits Last Documented On 4 1:54AM ; [facility] Calming techniques such as b reathing exercises/meditation and other relaxation techniques Last Documented On 4 1:54AM ; [facility] Calming techniques such as b reathing exercises/meditation and other relaxation techniques Last Documented On 3 7:19AM ; [facility] Medical Equipment - Implanted Devices Includes: Current and historical Devices No Medical Equipment Recorded Medications Includes: Current and historical Medications Current Medications (continue as prescribed) Azstarys 52.3-10.4 MG Oral Capsule 03/28/2024 Provider: ZAC INTERIANO MD Diagnosis: Attn-defct hyper activity disorder, predom inattentive type as directed - 1 cap in am Last Documented On 03/28/2024 2:09PM By Marta Interiano MD ; [facility] traZODone HCl 50 MG Oral Tablet 02/29/2024 Provider: ZAC INTERIANO MD Diagnosis: Psychophysiologi c insomnia TAKE 3 TABLETS BY MOUTH AT B EDTIME NEEDED FOR SLEEP Last Documented On 02/29/2024 12:32PM By Marta Interiano MD ; [facility] rOPINIRole HCl 1 MG Oral Tablet 01/27/2024 Provider: ZAC INTERIANO MD Diagnosis: Restless legs sy ndrome as directed -1/2 tab in the evening for 1 week then 1 tab in the evening thereafter Last Documented On 01/27/2024 10:15AM By Marta Interiano MD ; [facility] Nurtec 75 MG Oral Tablet Disintegrating 01/27/2024 Provider: ZAC INTERIANO MD Diagnosis: Migraine w/o aur a, not intractable, w/o status migrainosus as directed - 1 tab a day as needed at the onset of migraine headaches Last Documented On 01/27/2024 9:42AM By Marta Interiano MD ; [facility] Aimovig 70 MG/ML Subcutaneous Solution Auto-injector 01/27/2024 Provider: ZAC INTERIANO MD Diagnosis: Migraine w/o aur a, not intractable, w/o status migrainosus as directed - inject 70 mg ( 1 ml) SQ once a month to upper thigh, please rotate sites Last Documented On 01/27/2024 9:42AM By Marta Interiano MD ; [facility] Vyvanse 30 MG Oral Capsule 12/13/2023 Provider: ZAC INTERIANO MD Diagnosis: Attn-defct hyper activity disorder, predom inattentive type 1 Capsule every morning Last Documented On 12/13/2023 1:47AM By Marta Interiano MD ; [facility] Gabapentin 300 MG Oral Capsule 07/29/2023 Provider: ZAC INTERIANO MD Diagnosis: Restless legs sy ndrome as directed -- 1 cap in even ing for restless legs Last Documented On 03/28/2024 10:27AM By ALEXIS ELI ; [facility] DULoxetine HCl 60 MG Oral Capsule Delayed Release Particles 07/29/2023 Provider: ZAC INTERIANO MD Diagnosis: Major depressive disorder, recurrent, moderate TAKE 1 CAPSULE BY MOUTH EVER Y DAY IN THE MORNING Last Documented On 03/28/2024 10:26AM By ALEXIS ELI ; [facility] DULoxetine HCl 30 MG Oral Capsule Delayed Release Particles 07/29/2023 Provider: ZAC INTERIANO MD Diagnosis: Generalized anxi ety disorder TAKE 1 CAPSULE BY MOUTH EVER Y DAY (TAKE WITH 60MG CAPSULE) Last Documented On 03/28/2024 10:26AM By ALEXIS ELI ; [facility] Topiramate 50 MG Oral Tablet 04/20/2023 Provider: ZAC INTERIANO MD Diagnosis: Chronic migraine w/o aura, not intractable, w/o stat migr One tablet twice a day Last Documented On 03/28/2024 10:29AM By ALEXIS ELI ; [facility] Meclizine HCl 25 MG OR TABS 11/24/2022 Provider: Diagnosis: 1 TAB BID PRN Last Documented On 03/27/2023 5:34PM By DOMINGA COON ; [facility] Ondansetron HCl 4 MG OR TABS 03/26/2022 Provider: Diagnosis: as directed Last Documented On 03/27/2023 5:34PM By DOMINGA COON ; [facility] Senexon-S 8.6-50 MG OR TABS 02/04/2022 Provider: Diagnosis: 1 daily prn Last Documented On 03/27/2023 5:34PM By DOMINGA COON ; [facility] Metoclopramide HCl 10 MG OR TABS 01/27/2022 Provider : Diagnosis: 1 ac tid Last Documented On 03/27/2023 5:34PM By DOMINGA COON ; [facility] Fluticasone Propionate 50 MCG/ACT NA SUSP 12/03/2021 Provider: Diagnosis: Last Documented On 03/27/2023 5:34PM By ALEXIS ELI ; [facility] Pantoprazole Sodium 40 MG OR TBEC 11/23/2021 Provide r: Diagnosis: 1 tab daily Last Documented On 03/27/2023 5:34PM By ALEXIS ELI ; [facility] Blank Allergy 180 MG OR TABS 05/29/2021 Provider: Diagnosis: 1 tab daily otc Last Documented On 03/27/2023 5:34PM By DOMINGA COON ; [facility] Albuterol Sulfate 108 (90 Base) MCG/ACT IN AEPB 2020 Provider: Diagnosis: 1-2 puffs q 4-6 hours prn Last Documented On 03/27/2023 5:34PM By DOMINGA COON ; [facility] Spironolactone 100 MG OR TABS 04/21/2021 Provider: Diagnosis: 1 tab daily Last Documented On 03/27/2023 5:34PM By DOMINGA COON ; [facility] Symbicort 160-4.5 MCG/ACT IN AERO 12/05/2020 Provide r: Diagnosis: 1 puff twice daily Last Documented On 03/27/2023 5:34PM By DOMINGA COON ; [facility] Spiriva HandiHaler 18 MCG IN CAPS 10/15/2020 Provide r: Diagnosis: 1 inhalation daily Last Documented On 03/27/2023 5:34PM By DOMINGA COON ; [facility] Past Medications on file traZODone HCl 50 MG Oral Tablet 01/27/2024 - 02/29/2024 Provider: ZAC INTERIANO MD Diagnosis: Psychophysiologi c insomnia TAKE 3 TABLETS AT BEDTIME NEEDED FOR SLEEP Last Documented On 02/29/2024 12:26PM By Marta Interiano MD ; [facility] Azstarys 52.3-10.4 MG Oral Capsule 01/27/2024 - 03/28/2024 Provider: ZAC INTERIANO MD Diagnosis: Attn-defct hyper activity disorder, predom inattentive type as directed - 1 cap in am Last Documented On 03/28/2024 2:02PM By Marta Interiano MD ; [facility] Azstarys 39.2-7.8 MG Oral Capsule 12/13/2023 - 03/28/2024 Provider: ZAC INTERIANO MD Diagnosis: Attn-defct hyper activity disorder, predom inattentive type as directed - 1 capsule at noon Last Documented On 03/28/2024 10:25AM By ALEXIS ELI ; [facility] Vyvanse 30 MG Oral Capsule 11/05/2023 - 12/10/2023 Provider: ZAC INTERIANO MD Diagnosis: Attn-defct hyper activity disorder, predom inattentive type 1 Capsule every morning Last Documented On 12/13/2023 1:40AM By Marta Interiano MD ; [facility] Nurtec 75 MG Oral Tablet Disintegrating 08/12/2023 - 01/27/2024 Provider: ZAC INTERIANO MD Diagnosis: Migraine w/o aur a, not intractable, w/o status migrainosus as directed - 1 tab a day as needed only at the onset of migraine headache Last Documented On 03/28/2024 10:27AM By ALEXIS ELI ; [facility] Nurtec 75 MG Oral Tablet Disintegrating 08/12/2023 - 01/27/2024 Provider: ZAC INTERIANO MD Diagnosis: Migraine w/o aur a, not intractable, w/o status migrainosus as directed - 1 tab a day as needed at the onset of migraine headaches Last Documented On 01/27/2024 9:35AM By Marta Interiano MD ; [facility] Vyvanse 30 MG Oral Capsule 07/29/2023 - 11/05/2023 Provider: ZAC INTERIANO MD Diagnosis: Attn-defct hyper activity disorder, predom inattentive type 1 Capsule every morning Last Documented On 11/05/2023 3:10PM By Marta Interiano MD ; [facility] traZODone HCl 50 MG Oral Tablet 07/29/2023 - 01/27/2024 Provider: ZAC INTERIANO MD Diagnosis: Psychophysiologi c insomnia TAKE 4 TABLETS (200MG) AT BE DTIME NEEDED FOR SLEEP Last Documented On 01/27/2024 9:54AM By Marta Interiano MD ; [facility] Aimovig 70 MG/ML Subcutaneous Solution Auto-injector 04/20/2023 - 01/27/2024 Provider: ZAC INTERIANO MD Diagnosis: Migraine w/o aur a, not intractable, w/o status migrainosus as directed - inject 70 mg ( 1 ml) SQ once a month to upper thigh, please rotate sites Last Documented On 01/27/2024 9:35AM By Marta Interiano MD ; [facility] traZODone HCl 50 MG Oral Tablet 04/20/2023 - 07/29/2023 Provider: ZAC INTERIANO MD Diagnosis: Psychophysiologi c insomnia TAKE 4 TABLETS (200MG) AT BE DTIME NEEDED FOR SLEEP Last Documented On 07/29/2023 10:58AM By Marta Interiano MD ; [facility] DULoxetine HCl 30 MG Oral Capsule Delayed Release Particles 04/20/2023 - 07/29/2023 Provider: ZAC INTERIANO MD Diagnosis: Generalized anxi ety disorder TAKE 1 CAPSULE BY MOUTH EVER Y DAY (TAKE WITH 60MG CAPSULE) Last Documented On 07/29/2023 10:53AM By Marta Interiano MD ; [facility] DULoxetine HCl 60 MG Oral Capsule Delayed Release Particles 04/20/2023 - 07/29/2023 Provider: ZAC INTERIANO MD Diagnosis: Major depressive disorder, recurrent, moderate TAKE 1 CAPSULE BY MOUTH EVER Y DAY IN THE MORNING Last Documented On 07/29/2023 10:52AM By Marta Interiano MD ; [facility] Vyvanse 30 MG Oral Capsule 04/20/2023 - 12/13/2023 Provider: ZAC INTERIANO MD Diagnosis: Attn-defct hyper activity disorder, predom inattentive type 1 Capsule every morning Last Documented On 03/28/2024 10:30AM By ALEXIS ELI ; [facility] DULoxetine HCl 60 MG OR CPEP 03/22/2023 - 04/20/2023 Provider: ZAC INTERIANO MD Diagnosis: Major depressive disorder, recurrent, moderate TAKE 1 CAPSULE BY MOUTH EVER Y DAY IN THE MORNING Last Documented On 04/20/2023 10:01AM By Marta Interiano MD ; [facility] Aimovig 70 MG/ML SC SOAJ 02/24/2023 - 02/23/2023 Provider: ZAC INTERIANO MD Diagnosis: Migraine w/o aur a, not intractable, w/o status migrainosus as directed - once a month SQ Last Documented On 03/27/2023 5:34PM By Marta Interiano MD ; [facility] Aimovig 70 MG/ML SC SOAJ 02/24/2023 - 04/20/2023 Provider: ZAC INTERIANO MD Diagnosis: Migraine w/o aur a, not intractable, w/o status migrainosus as directed - inject 70 mg ( 1 ml) SQ once a month to upper thigh, please rotate sites Last Documented On 04/20/2023 10:06AM By Marta Interiano MD ; [facility] Aimovig 70 MG/ML SC SOAJ 02/24/2023 - 04/20/2023 Provider: ZAC INTERIANO MD Diagnosis: Chronic migraine w/o aura, not intractable, w/o stat migr as directed - inject 1 ml (7 0 mg) subcutaneously to upper thigh once a month, please rotate sites Last Documented On 04/20/2023 9:13AM By ALEXIS ELI ; [facility] Sunosi 150 MG OR TABS 02/24/2023 - 03/26/2023 Provider: ZAC BLACK MD Diagnosis: Obstructive slee p apnea (adult) (pediatric) 1 tablet every morning Last Documented On 03/27/2023 5:34PM By Marta Interiano MD ; [facility] traZODone HCl 50 MG OR TABS 02/22/2023 - 04/20/2023 Provider: ZAC INTERIANO MD Diagnosis: Psychophysiologi c insomnia TAKE 4 TABLETS (200MG) AT BE DTIME NEEDED FOR SLEEP Last Documented On 04/20/2023 10:03AM By Marta Interiano MD ; [facility] Topiramate 50 MG OR TABS 02/02/2023 - 04/20/2023 Provider: ZAC INTERIANO MD Diagnosis: Chronic migraine w/o aura, not intractable, w/o stat migr One tablet twice a day Last Documented On 04/20/2023 9:44AM By Marta Interiano MD ; [facility] Focalin 10 MG OR TABS 02/01/2023 - 04/20/2023 Provider: ZAC INTERIANO MD Diagnosis: Attn-defct hyper activity disorder, predom inattentive type as directed -- 1 tab in am a nd 1 tab at noon Last Documented On 04/20/2023 9:44AM By Marta Interiano MD ; [facility] Gabapentin 300 MG OR CAPS 01/26/2023 - 07/29/2023 Provider: ZAC INTERIANO MD Diagnosis: Restless legs syndrome as directed -- 1 cap in even ing for restless legs Last Documented On 07/29/2023 10:50AM By Marta Interiano MD ; [facility] traZODone HCl 50 MG OR TABS 01/22/2023 - 02/22/2023 Provider: ZAC INTERIANO MD Diagnosis: Psychophysiologi c insomnia as directed -- 4 tabs at bed time as needed for sleep Last Documented On 03/27/2023 5:34PM By Marta Interiano MD ; [facility] Focalin 10 MG OR TABS 11/26/2022 - 01/26/2023 Provider: ZAC INTERIANO MD Diagnosis: Attn-defct hyper activity disorder, predom inattentive type as directed -- 1 tab in am a nd 1 tab at noon Last Documented On 03/27/2023 5:34PM By Marta Interiano MD ; [facility] Topiramate 50 MG OR TABS 09/03/2022 - 02/02/2023 Provider: ZAC INTERIANO MD Diagnosis: Chronic migraine w/o aura, not intractable, w/o stat migr One tablet twice a day Last Documented On 03/27/2023 5:34PM By Marta Interiano MD ; [facility] Cymbalta 60 MG OR CPEP 09/03/2022 - 03/22/2023 Provider: ZAC BLACK MD Diagnosis: Major depressive disorder, recurrent, moderate 1 Capsule every morning Last Documented On 03/27/2023 5:34PM By Marta Interiano MD ; [facility] Focalin 10 MG OR TABS 09/03/2022 - 11/26/2022 Provider: ZAC INTERIANO MD Diagnosis: Attn-defct hyper activity disorder, predom inattentive type as directed -- 1 tab in am a nd 1 tab at noon Last Documented On 03/27/2023 5:34PM By Marta Interiano MD ; [facility] Meclizine HCl 25 MG OR TABS 09/03/2022 - 11/24/2022 Pr ovider: Diagnosis: 1 tab twice daily prn Dr. Ember Santos Last Documented On 03/28/2024 10:27AM By ALEXIS ELI ; [facility] DULoxetine HCl 30 MG OR CPEP 08/20/2022 - 04/20/2023 Provider: ZAC INTERIANO MD Diagnosis: Generalized anxi ety disorder TAKE 1 CAPSULE BY MOUTH EVER Y DAY (TAKE WITH 60MG CAPSULE) Last Documented On 04/20/2023 10:02AM By Marta Interiano MD ; [facility] Aimovig 70 MG/ML SC SOAJ 07/24/2022 - 02/23/2023 Provider: ZAC INTERIANO MD Diagnosis: Chronic migraine w/o aura, not intractable, w/o stat migr as directed - inject 1 ml (7 0 mg) subcutaneously to upper thigh once a month, please rotate sites Last Documented On 03/27/2023 5:34PM By Marta Interiano MD ; [facility] Topiramate 50 MG OR TABS 06/18/2022 - 09/03/2022 Provider: ZAC INTERIANO MD Diagnosis: Chronic migraine w/o aura, not intractable, w/o stat migr One tablet twice a day Last Documented On 03/27/2023 5:34PM By Marta Interiano MD ; [facility] Focalin 10 MG OR TABS 06/18/2022 - 03/28/2024 Provider: ZAC INTERIANO MD Diagnosis: Attn-defct hyper activity disorder, predom inattentive type as directed -- 1 tab in am, 1 tab at noon Last Documented On 03/28/2024 10:26AM By ALEXIS ELI ; [facility] busPIRone HCl 10 MG OR TABS 06/18/2022 - 09/23/2022 Provider: ZAC INTERIANO MD Diagnosis: Generalized anxi ety disorder One tablet twice a day Last Documented On 03/27/2023 5:34PM By Marta Interiano MD ; [facility] traZODone HCl 50 MG OR TABS 06/03/2022 - 01/22/2023 Provider: ZAC INTERIANO MD Diagnosis: Psychophysiologi c insomnia as directed -- 4 tabs at bed time as needed for sleep Last Documented On 03/27/2023 5:34PM By Marta Interiano MD ; [facility] Focalin 10 MG OR TABS 04/21/2022 - 05/21/2022 Provider: ZAC INTERIANO MD Diagnosis: Attn-defct hyper activity disorder, predom inattentive type as directed -- 1 tab in am Last Documented On 03/28/2024 10:27AM By ALEXIS ELI ; [facility] Cymbalta 30 MG OR CPEP 04/21/2022 - 08/20/2022 Provider: ZAC INTERIANO MD Diagnosis: Generalized anxi ety disorder 1 capsule daily Last Documented On 03/27/2023 5:34PM By Marta Interiano MD ; [facility] SUMAtriptan Succinate 100 MG OR TABS 03/26/2022 - 06/18/2022 Provider: ZAC INTERIANO MD Diagnosis: Chronic migraine w/o aura, not intractable, w/o stat migr TAKE 1/2 - 1 TABLET A DAY AT THE ONSET OF MIGRAINE HEADACHE Last Documented On 03/27/2023 5:34PM By Marta Interiano MD ; [facility] busPIRone HCl 10 MG OR TABS 02/26/2022 - 06/03/2022 Provider: ZAC INTERIANO MD Diagnosis: Generalized anxi ety disorder as directed -- 1 tab 2 x a day Last Documented On 03/27/2023 5:34PM By Marta Interiano MD ; [facility] SUMAtriptan Succinate 100 MG OR TABS 12/25/2021 - 03/26/2022 Provider: ZAC INTERIANO MD Diagnosis: Chronic migraine w/o aura, not intractable, w/o stat migr DIRECTED - 1/2 - 1 TAB A DAY AT THE ONSET OF MIGRAINE HEADACHE Last Documented On 03/27/2023 5:34PM By Marta Interiano MD ; [facility] traZODone HCl 50 MG OR TABS 12/17/2021 - 06/03/2022 Provider: ZAC INTERIANO MD Diagnosis: Psychophysiologi c insomnia as directed -- 4 tabs at bed time as needed for sleep Last Documented On 03/27/2023 5:34PM By Marta Interiano MD ; [facility] Cymbalta 60 MG OR CPEP 12/17/2021 - 09/03/2022 Provider: ZAC BLACK MD Diagnosis: Major depressive disorder, recurrent, moderate 1 Capsule every morning Last Documented On 03/27/2023 5:34PM By Marta Interiano MD ; [facility] Topiramate 50 MG OR TABS 12/17/2021 - 06/18/2022 Provider: ZAC INTERIANO MD Diagnosis: Chronic migraine w/o aura, not intractable, w/o stat migr One tablet twice a day Last Documented On 03/27/2023 5:34PM By Marta Interiano MD ; [facility] Topiramate 25 MG OR TABS 11/19/2021 - 03/19/2022 Provider: ZAC INTERIANO MD Diagnosis: Chronic migraine w/o aura, not intractable, w/o stat migr as directed -- 1 tab 2 x a day Last Documented On 03/27/2023 5:34PM By Marta Interiano MD ; [facility] SUMAtriptan Succinate 100 MG OR TABS 10/22/2021 - 12/25/2021 Provider: ZAC INTERIANO MD Diagnosis: Chronic migraine w/o aura, not intractable, w/o stat migr DIRECTED - 1/2 - 1 TAB A DAY AT THE ONSET OF MIGRAINE HEADACHE Last Documented On 03/27/2023 5:34PM By Marta Interiano MD ; [facility] Cymbalta 30 MG OR CPEP 08/25/2021 - 03/19/2022 Provider: ZAC INTERIANO MD Diagnosis: Generalized anxi ety disorder 1 Capsule every morning Last Documented On 03/27/2023 5:34PM By Marta Interiano MD ; [facility] traZODone HCl 50 MG OR TABS 08/25/2021 - 09/23/2022 Provider: ZAC INTERIANO MD Diagnosis: Psychophysiologi c insomnia as directed -3 tabs at bedti me as needed for sleep Last Documented On 03/27/2023 5:34PM By Marta Interiano MD ; [facility] Gabapentin 100 MG OR CAPS 08/20/2021 - 04/20/2023 Prov ider: Diagnosis: [address] Ember Santos Last Documented On 04/20/2023 9:37AM By ALEXIS ELI ; [facility] Meclizine HCl 25 MG OR TABS 08/20/2021 - 09/03/2022 Pr ovider: Diagnosis: [address] Ember Santos Last Documented On 03/27/2023 5:34PM By DOMINGA COON ; [facility] Viibryd 40 MG OR TABS 07/15/2021 - 09/23/2022 Provider : ZAC INTERIANO MD Diagnosis: Major depressive disorder, recurrent, moderate as directed -- 1 tab in am with food Last Documented On 03/27/2023 5:34PM By Marta Interiano MD ; [facility] Imitrex 100 MG OR TABS 07/15/2021 - 10/22/2021 Provider: ZAC BLACK MD Diagnosis: Chronic migraine w/o aura, not intractable, w/o stat migr as directed - 1/2 - 1 tab a day at the onset of migraine headache Last Documented On 03/27/2023 5:34PM By Marta Interiano MD ; [facility] Topiramate 25 MG OR TABS 07/15/2021 - 11/19/2021 Provider: ZAC INTERIANO MD Diagnosis: Chronic migraine w/o aura, not intractable, w/o stat migr as directed -- 1 tab 2 x a day Last Documented On 03/27/2023 5:34PM By Marta Interiano MD ; [facility] traZODone HCl 50 MG OR TABS 07/15/2021 - 08/25/2021 Provider: ZAC INTERIANO MD Diagnosis: Psychophysiologi c insomnia as directed - 2 tabs at bedt rand as needed for sleep Last Documented On 03/27/2023 5:34PM By Marta Interiano MD ; [facility] traZODone HCl 50 MG OR TABS 05/29/2021 - 07/15/2021 Provider: ZAC INTERIANO MD Diagnosis: Psychophysiologi c insomnia as directed - 1 tab at bedti me as needed for sleep Last Documented On 03/27/2023 5:34PM By Marta Interiano MD ; [facility] Viibryd Starter Pack 10 & 20 MG OR KIT 05/29/2021 - 06/28/2021 Provider: ZAC INTERIANO MD Diagnosis: Major depressive disorder, recurrent, moderate as directed -- 10 mg in am w / food for 2 weeks then 20 mg 1 tab in am w/ food thereafter Last Documented On 03/28/2024 10:29AM By ALEXIS ELI ; [facility] Magnesium Oxide 250 MG OR TABS 05/29/2021 - 2022 Provider: Diagnosis: 1 tab daily otc Last Documented On 03/27/2023 5:34PM By DOMINGA COON ; [facility] Racheal 0.35 MG OR TABS 05/29/2021 - 07/15/2021 Provide r: Diagnosis: 1 tab daily Last Documented On 03/27/2023 5:34PM By DOMINGA COON ; [facility] Citalopram Hydrobromide 20 MG OR TABS 05/05/2021 - Provider: Diagnosis: 1 tab daily Last Documented On 03/27/2023 5:34PM By DOMINGA COON ; [facility] Zoloft 100 MG OR TABS 05/06/2011 - 11/02/2011 Provider: YA SCHNEIDER D.O. Diagnosis: DEPRESSIVE DISOR EMMA NEC Last Documented On 05/06/2011 2:19PM By LEIGH FALCON MA ; [facility] predniSONE 10 MG OR TABS 05/06/2011 - 06/05/2011 Provider: YA SCHNEIDER D.O. Diagnosis: DEPRESSIVE DISOR EMMA NEC 4 tabs qd x2days, 3 tabs qd x2days, 2 tabs qd x2days, 1 tab qd x2days Last Documented On 03/28/2024 10:29AM By ALEXIS ELI ; [facility] Zoloft 100 MG OR TABS 04/13/2011 - 05/06/2011 Provider: YA SCHNEIDER D.O. Diagnosis: DEPRESSIVE DISOR EMMA NEC TAKE 1 1/2 TABLET BY MOUTH E VERY DAY FOR 7 DAYS . THEN 2 TABLETS BY MOUTH EVERY DAY . Last Documented On 05/06/2011 2:19PM By LEIGH FALCON MA ; [facility] Ortho-Cyclen (28) 0.25-35 MG-MCG OR TABS 02/25/2011 - 01/27/2012 Provider: YA SCHNEIDER D.O. Diagnosis: DYSMENORRHEA Last Documented On 03/28/2024 10:28AM By ALEXIS ELI ; [facility] Amoxicillin 500 MG OR TABS 02/25/2011 - 03/28/2024 Provider: YA SCHNEIDER D.O. Diagnosis: ACUTE SINUSITIS NOS Last Documented On 03/28/2024 10:26AM By ALEXIS ELI ; [facility] Zoloft 100 MG OR TABS 02/25/2011 - 06/25/2011 Provider: YA SCHNEIDER D.O. Diagnosis: DEPRESSIVE DISOR EMMA NEC 1 1/2 pills qd x7d, then 2 pills qd Last Documented On 02/25/2011 6:16PM By YA SCHNEIDER DO ; [facility] Propranolol HCl 20 MG OR TABS 07/06/2010 - 08/05/2010 Provider: YA SCHNEIDER D.O. Diagnosis: HEADACHE SYNDROM E NEC Last Documented On 03/28/2024 10:31AM By ALEXIS ELI ; [facility] Midrin 325-65-100 MG OR CAPS 06/15/2010 - 07/15/2010 Provider: YA SCHNEIDER D.O. Diagnosis: HEADACHE SYNDROM E NEC 2 PILLS INITIALLY THEN 1 PO Q1 HR MAX 5 PILLSA DAY Last Documented On 03/28/2024 10:27AM By ALEXIS ELI ; [facility] Propranolol HCl 40 MG OR TABS 06/15/2010 - 07/15/2010 Provider: YA SCHNEIDER D.O. Diagnosis: HEADACHE SYNDROM E NEC Last Documented On 03/28/2024 10:31AM By ALEXIS ELI ; [facility] Ortho-Cyclen (28) 0.25-35 MG-MCG OR TABS 04/17/2010 - 02/25/2011 Provider: YA SCHNEIDER D.O. Diagnosis: DYSMENORRHEA Last Documented On 02/25/2011 6:17PM By YA BLACKMAN [facility] Ortho-Cyclen (28) 0.25-35 MG-MCG OR TABS 03/18/2010 - 04/17/2010 Provider: YA SCHNEIDER D.O. Diagnosis: DYSMENORRHEA Last Documented On 04/17/2010 10:12AM By YA SCHNEIDER DO ; [facility] BAN 3-0.02 MG OR TABS 02/16/2010 - 03/16/2010 Provider: YA SCHNEIDER D.O. Diagnosis: OTHER FAMILY MAGALI NNING ADVICE NEC Last Documented On 03/28/2024 10:30AM By ALEXIS Rojas [facility] Zoloft 100 MG OR TABS 02/16/2010 - 02/25/2011 Provider: YA SCHNEIDER D.O. Diagnosis: DEPRESSIVE DISOR EMMA NEC Last Documented On 02/25/2011 6:16PM By YA BLACKMAN [facility] Zoloft 100 MG OR TABS 01/26/2010 - 04/13/2011 Provider: YA SCHNEIDER D.O. Diagnosis: DEPRESSIVE DISOR EMMA NEC 1/2 PILL A DAY FOR 1 WEEK,TH EN 1 PILL A DAY Last Documented On 04/13/2011 1:56PM By YA BLACKMAN [facility] Amoxicillin 500 MG OR TABS 01/26/2010 - 02/25/2011 Provider: YA SCHNEIDER D.O. Diagnosis: ACUTE SINUSITIS NOS Last Documented On 02/25/2011 6:15PM By YA BLACKMAN [facility] CeleXA 20 MG OR TABS 01/05/2010 - 03/28/2024 Provider: YA SCNHEIDER D.O. Diagnosis: DEPRESSIVE DISOR EMMA NEC Last Documented On 03/28/2024 10:26AM By ALEXIS ELI ; [facility] Medications Administered Includes: Administered Medications in patient's chart No Administered Medications Recorded Vital Signs Includes: Vital Signs from 01/15/2024 through 01/15/2025 Vital Name 01/27/2024 09:18A Blood Pressure Sitting L 128/80 BP Cuff Size Regular Pulse Rate-Sitting (bpm) 75 Pulse Rhythm Regular Height (in) 66 Weight (lb) 233 Body Mass Index 37.6 Body Surface Area 2.1 Last Documented: On 01/27/2024 9:18AM ; [facility] Results Includes: Results from 01/15/2024 through 01/15/2025 No Results Recorded For Specified Dates History of Present Illness History of Present Illness not supported for this document type No History of Present Illness Recorded Social History Description Last Updated Tobacco non-user 01/27/2024 Last Documented On 4 9:28AM ; [facility] Not smoking 05/06/2011 Last Documented On 1 2:55PM ; [facility] Chronic emotional stress which is inadeq uately controlled 02/25/2011 Last Documented On 1 6:34PM ; [facility] Recent emotional stress she feels she is in a stressful academic environment 02/25/2011 Last Documented On 1 6:34PM ; [facility] Smoking Status Unknown Procedures and Surgical History Includes: Procedures from 01/15/2024 through 01/15/2025 Procedures Code Diagnosis Performing Provider Service Location Service Date PSYCHOTHERAPY 45 MIN W/ PT-WHEN PERFMD WITH E/ 94002 Major depressive disorder, recurrent, unspecified, Attn-defct hyperactivity disorder, predom inattentive type, Generalized anxiety disorder, Restless legs syndrome ZAC INTERIANO MD [facility]PSY 01/27/2024 Last Documented On 4 4:08PM ; [facility] Medical History Includes: Medical History in patient's chart Description Last Updated DEPRESSION,B/L KNEE PAIN 01/05/2010 Last Documented On 0 2:53PM ; [facility] Family History Includes: Family History in patient's chart No Family History Recorded Review of Systems Review of Systems not supported for this document type No Review of Systems Recorded Mental Status Description Major depressive disorder Functional Status No Functional Status Recorded Physical Exam Physical Exam not supported for this document type No Physical Exam Recorded Allergies Includes: Active, inactive, and resolved Allergies Substance Type Reaction Onset Date Resolved Date Statu s traMADol HCl Allergy Hives / Urticaria 05/29/2021 Active Last Documented On 01/27/2024 9:10AM ; [facility] Note: Imported from external source. TORADOL Allergy Hives / Urticaria 05/29/2021 A ctive Last Documented On 01/27/2024 9:10AM ; [facility] Note: Imported from external source. Pineapple Allergy 01/26/2023 Active Last Documented On 01/27/2024 9:10AM ; [facility] Note: Imported from external source. Latex Allergy Hives / Urticaria 05/29/2021 A ctive Last Documented On 01/27/2024 9:10AM ; [facility] Note: Imported from external source. Encounters Includes: Encounters from 01/15/2024 through 01/15/2025 Encounter Provider Location Date Check-In Time Check-Out Time Diagnosis PSYCH ADULT FOLLOW UP ZAC INTERIANO MD [facility]PS[facility] 01/27/20 24 8:59AM 10:03AM Migraine Headache,General ized Anxiety Disorder,Restles s Legs Syndrome,Nonorga gaye Sleep Apnea Obstructive,Psyc hophysiological Insomnia,Major Depression,Adult Attention Deficit Hyperactivity Disorder Insurance Includes: Active Insurance Policies Plan Name Member ID Group # Subscriber Relationship Effect bea Dates 1 - [facility] [id number] EDILIA SOLANO Self Clinical Notes Includes: Signed Clinical Notes starting from 12/18/2022 * Progress note Date Encounter Last Documented by 01/27/2024 PSYCH ADULT FOLLOW UP Last docum ented on 02/10/2024; 9:28 AM, ZAC INTERIANO MD; [facility] Top of Document Medication psychotherapy 45 minutes [...] more work related. 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 Phu Walker -- Carbon Capture Power Plant Engineer Dr. Oscar Flores -- ENT at [facility] Dr. Ember Santos -- Neurologist Hatchery Laborer at [facility] Moshe Quintero NP/Dr. Mooney -- Retail Business Manager Invoice Control Clerk at [employer] Other: Endoscopic / fiberoptic examination - for Dysphagia -- 11/2021 -- normal per patient. Sleep testing was performed - in 2019 by [facility] -- inconclusive Diagnoses: URI -- given [...] - was hospitalized for 4 days -- 2018 -- should not be using anymore NSAIDS [...] given Hydrocodone 5325 #25 -- still has ovaries Endometriosis - [...] normal per patient Surgical: - Cholecystectomy - 2018 - Abdominal surgery Left fallopian tube tumors removed-- 2018 - Hysterectomy - 08/05/21 - Knee surgery [...] [age] having stopped in 2005. 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 She was born in [place], [place] and raised outside of [facility]. 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 Her sexual orientation is pansexual or aromantic. She has no past or pending legal history. She enjoys reading, sewing, knitting and gardening. Her mandaen background as a child was [employer] and currently is [place]. Allergies - Latex [...] Clinical summary provided to patient. * Call [phone] and /or go to the nearest emergency [...]
--- OUTSIDE RECORDS SUMMARY | 2025-01-15 13:09 | XMS_ITS | Data Portability ---
Author Organization [facility] [place] Address [address] [place] [address] [place] [address] Care Team Providers Care Litigation Attorney Associate Name Role Phone CARLO JAQUEZ Primary Care Provider [phone] Assessment No assessment recorded. Plan of Treatment Reminders Order Date Submit Date Provider Last Modified By Organization Details Last Modified Time Details Appointments None recorded. Lab None recorded. Referral None recorded. Procedures None recorded. Surgeries None recorded. Imaging US, transvagina l 2021 022 [address], [address], [place], [address], 22:05:09 US, pelvis 2021 022 [address], [address], [place], [address], 19:45:54 US, transvagina l 2021 022 [address], [address], [place], [address], 19:45:54 Medication Orders None recorded. Patient TargetsNo targets recorded. Patient InstructionsNo instructions recorded. Reason for Referral None Reported. Results Created Date Observation Date Name Description Value Unit Range Abnormal Flag Note LastModifiedBy Organization Detail LastModifiedTime 02/17/2002/16/2022 US, pelvi s No observ ation record ed. [email or web address] [place] [address], [place], [address], 02/16/2022 15:20:32 02/17/20 22 02/16/2022 US, trans vagin al No observ ation record ed. [email or web address] [place] [address], [place], [address], 02/16/2022 15:20:41 02/17/20 22 02/16/2022 US, pelvi s No observ ation record ed. [email or web address] [address], [place], [address], 05/18/2023 17:54:31 04/20/20 22 04/20/2022 US, trans vagin al No observ ation record ed. [email or web address] [place] [address], [place], [address], 04/20/2022 18:33:54 04/20/20 22 04/20/2022 US, trans vagin al No observ ation record ed. [email or web address] [address], [place], [address], 04/20/2022 21:18:24 Result Notes None recorded. Problems Name Problem SNOMED Code Status Onset Date Resolution Date Notes Provider Name and Address Organization Details Recorded Time Dysmenor glynn [id number] Completed 201401/21/2021 Dysmenor glynn;Rec orded Elsewher e: No [facility]at [facility] S ource: EHR Waste Treatment Operator gaye: N Tristan ce ID: [email or web address] Silverio lable Time: 11:15:00 AM YOHAN Foy - [facility] 12:45:[address] Concept Completed 201601/21/2021 Encntr for general adult medical exam w/o abnormal findings ;Recorde d Elsewher e: No Locat ion: [facility] S ource: EHR Waste Treatment Operator gaye: N Almitati ce ID: [email or web address] Silverio lable Time: 10:30:00 AM Marie pablo [facility] 12:45:32 Pain in female genitali a Completed 201401/21/2021 Dysmenor glynn;Rec orded Elsewher e: No Locat ion: [facility] S ource: EHR Waste Treatment Operator gaye: N Practi ce ID: [email or web address] Silverio lable Time: 09:30:00 AM Marie pablo [facility] 12:45:[address] Concept Completed 201801/21/2021 Encntr for lcpc exam (general ) (routine ) w/o abn findings ;Recorde d Elsewher e: No Locat ion: [facility] S ource: EHR Waste Treatment Operator gaye: N Almitati ce ID: [email or web address] Silverio lable Time: 01:00:00 PM Marie pablo [facility] 12:45:33 Pelvic and perineal pain [id number] Completed 201801/21/2021 Pelvic and perineal pain;Rec orded Elsewher e: No Locat ion: [facility] S ource: EHR Waste Treatment Operator gaye: N Practi ce ID: [email or web address] Silverio lable Time: 04:15:00 PM Marie pablo [facility] 12:45:27 Speciali zed medical examinat ion Completed 201401/21/2021 Gynecolo gical Examinat ion;Sachin rded Elsewher e: No Locat ion: [facility] S ource: EHR Waste Treatment Operator gaye: N Practi ce ID: [email or web address] Silverio lable Time: 11:15:00 AM Marie pablo [facility] 12:45:35 Screenin g for malignan t neoplasm of rectum Completed 201701/21/2021 Encounte r for screenin g for malignan t neoplasm of rectum;R ecorded Elsewher e: No Locat ion: [facility] S ource: EHR Waste Treatment Operator gaye: N Almitati ce ID: [email or web address] Silverio lable Time: 02:30:00 PM Marie pablo [facility] 1 12:45:30 Pregnanc y test negative [id number] Completed 201401/21/2021 Encounte r for pregnanc y test, result negative ;Recorde d Elsewher e: No Locat ion: [facility] S ource: EHR Waste Treatment Operator gaye: N Almitati ce ID: [email or web address] Silverio lable Time: 09:30:00 AM Marie pablo [facility] 12:45:29 Adult health examinat ion Completed 201401/21/2021 ROUTINE MEDICAL EXAM;Rec orded Elsewher e: No Locat ion: [facility] S ource: EHR Waste Treatment Operator gaye: N Almitati ce ID: [email or web address] Silverio lable Time: 11:15:00 AM Marie pablo [facility] 12:45:20 Surveill ance of contrace ption Completed 201501/21/2021 Encounte r for surveill ance of contrace ptives, unspecif ied;Sachin rded Elsewher e: No Locat ion: [facility] S ource: EHR Waste Treatment Operator gaye: N Almitati ce ID: [email or web address] Silverio lable Time: 01:00:00 PM Marie pablo [facility] 1 12:45:36 Endometr iosis (clinica l) [id number] Completed 201801/21/2021 Endometr iosis;Re corded Elsewher e: No Locat ion: [facility] S ource: EHR Waste Treatment Operator gaye: N Almitati ce ID: [email or web address] Silverio lable Time: 04:30:00 PM Marie pablo [facility] 12:45:24 Endometr itis 88156837 Active 2020 Marie Dudley [facility], [facility] 14:03:19 Asthma 958250791 Active 2020 Marie pablo, [facility] 14:05:44 Diabetes mellitus 71481862 Active 2020 Marie Dudley [facility], [facility] 14:05:49 Non-alco holic fatty liver 803790488 Active 2020 Mariestacy Dudley [facility], [facility] 14:06:19 Mental disorder 77010050 Active 2020 Marie Doran [facility] 14:06:26 Problem Notes None recorded. Procedures Surgical History Date Name Laterality Status Provider Name and Address Organization Details Recorded Time 08/01/20 21 TOTAL HYSTERECTOMY, LAPAROSCOPIC, WITH BILATERAL SALPINGECTOMY (SURG) completed Brigitte Aranda [facility] 08/05/2021 11:15:44 01/22/20 21 Date of Last Pap Smear completed Marie Luis Enrique [facility] 01/21/2021 14:04:24 10/31/20 19 left salpingectomy completed [facility] 02/12/2021 15:09:08 10/31/20 19 Endometrial Biopsy completed [facility] 02/12/2021 15:10:12 08/29/20 19 cholecystectomy completed [facility] 05/29/2020 15:55:01 Endometrial Biopsy completed [facility] 06/09/2021 14:30:41 Total Hysterectomy completed [facility] 01/05/2022 10:05:54 reconstruction of anterior cruciate ligament of knee joint completed Imelda Laura [facility] 05/29/2020 15:54:29 Imaging Results Imaging Date Name Status LastModified by Organization Details LastModified Time 02/16/2022 US, pelvis completed [email or web address] [place] [address], [place], [address], 02/16/2022 15:20:32 02/16/2022 US, transvaginal completed [email or web address] [place] [address], [place], [address], 02/16/2022 15:20:41 02/16/2022 US, pelvis completed [email or web address] [address], [place], [address], 05/18/2023 17:54:31 04/20/2022 US, transvaginal completed [email or web address] [place] [address], [place], [address], 04/20/2022 18:33:54 04/20/2022 US, transvaginal completed [email or web address] [place], [place], [address], 04/20/2022 21:18:24 Procedure Notes None recorded. Medical Equipment None Reported. Allergies Allergen ID Allergen Name Allergen Category Reaction Reaction Severity Criticality Documentation Date Start Date Code Code System Note Provider Name and Address Organization Details Recorded Time 1175 ketorolac medicatio n Not available Not available Not available 05/29/2020 81411 RxNorm Imelda Sanchez samy [facility] 0 15:44:58 1176 pineapple extract food Not available Not available Not available 05/29/2020 62523 74 RxNorm Imelda Sanchez samy [facility] 0 15:45:24 Medications Name Sig Start Date Stop Date Status Note LastModified by Organization Details LastModified Time Prescript ion - Prior Authoriza tion Request 01/21 completed Not Available Not Available Not Available amoxicill in 500 mg capsule TAKE 1 CAPSULE BY MOUTH EVERY 8 HOURS FOR 7 DAYS 06/09 completed Not Available Not Available Not Available prednison e 10 mg tablet 01/21 completed Not Available Not Available Not Available clindamyc in HCl 300 mg capsule 01/21 completed Not Available Not Available Not Available trazodone 50 mg tablet TAKE 4 TABLETS BY MOUTH AT BEDTIME NEEDED FOR SLEEP active Not Available Not Available No t Available citalopra m 10 mg tablet Take 1 tablet every day by oral route. 06/09 completed Not Available Not Available Not Available sumatript an 100 mg tablet TAKE 1/2 - 1 TABLET A DAY AT THE ONSET OF MIGRAINE HEADACHE active Not Available Not Available No t Available hydrocodo ne 5 mg-acetam inophen 325 mg tablet TAKE ONE OR TWO TABLETS BY MOUTH EVERY FOUR HOURS NEEDED FOR PAIN active Not Available Not Available No t Available ondansetr on HCl 4 mg tablet TAKE 1 TABLET BY MOUTH EVERY 6 HOURS. active Not Available Not Available No t Available prednison e 20 mg tablet 01/21 completed Not Available Not Available Not Available spironola ctone 100 mg tablet TAKE 1 TABLET BY MOUTH EVERY DAY 2020 active Not Available Not Available Not Avai lable topiramat e 25 mg tablet TAKE ONE TABLET BY MOUTH TWICE DAILY active Not Available Not Available No t Available metronida zole 500 mg tablet TAKE 1 TABLET BY MOUTH TWICE A DAY FOR 10 DAYS active Not Available Not Available No t Available dexmethyl phenidate 10 mg tablet active Not Available Not Available Not Available amoxicill in 875 mg tablet 06/09 completed Not Available Not Available Not Available citalopra m 20 mg tablet TAKE 1 TABLET BY MOUTH EVERY DAY 06/09 completed Not Available Not Available Not Available Depo-Prov era 150 mg/mL intramusc ular suspensio n inject 1 millilit er by intramus cular route every 3 months 11/20 completed Prescrib ed Deandre e: No Locat ion: [facility] M odify By: sri vidal DateTime : 11/20/20 15 09:30:00 AM Not Available Not Available Not Available Ear Wax Removal Drops 6.5 % 01/21 completed Not Available Not Available Not Available meclizine 25 mg tablet TAKE 1 (ONE) TABLET BY MOUTH 2 TIMES DAILY active Not Available Not Available No t Available hydrocodo ne 7.5 mg-acetam inophen 325 mg tablet 01/21 completed Not Available Not Available Not Available pantopraz ole 40 mg tablet,de layed release TAKE 1 TABLET BY MOUTH EVERY DAY active Not Available Not Available No t Available Prednison e Intensol 5 mg/mL oral concentra te take 1 millilit er by oral route every day 01/21 completed Prescrib ed Elsewher e: Yes [facility] By: sawyer acevedo DateTime : 09/20/20 19 04:15:00 PM Not Available Not Available Not Available Qvar 40 mcg/actua tion Metered Aerosol oral inhaler inhale 2 puff by inhalati on route 2 times every day 01/21 completed Prescrib ed Elsewher e: Yes [facility] By: poly Bacon ncounter DateTime : 08/27/20 15 11:15:00 AM Not Available Not Available Not Available gabapenti n 100 mg capsule TAKE 1 (ONE) CAPSULE BY MOUTH AT BEDTIME active Not Available Not Available No t Available polyethyl jaymie glycol 3350 17 gram/dose oral powder TAKE 17G (1 CAPFUL) NIGHTLY NEEDED FOR CONSTIPA TION MANAGEME NT. active Not Available Not Available No t Available Vitamin D2 1,250 mcg (50,000 unit) capsule take 1 capsule by oral route every week 09/20 completed Prescrib ed Elsewher e: No [facility] By: sawyer acevedo DateTime : 11/01/20 15 12:58:28 PM Not Available Not Available Not Available cefdinir 300 mg capsule 01/21 completed Not Available Not Available Not Available fluticaso ne propionat e 50 mcg/actua tion nasal spray,darren pension USE TWO SPRAYS IN EACH NOSTRIL ONCE A DAY active Not Available Not Available No t Available metoclopr amide 10 mg tablet PLEASE SEE ATTACHED FOR DETAILED DIRECTIO NS active Not Available Not Available No t Available amoxicill in 875 mg-potass ium clavulana te 125 mg tablet TAKE 1 TABLET BY MOUTH EVERY 12 HOURS FOR 10 DAYS active Not Available Not Available No t Available amoxicill in 500 mg-potass ium clavulana te 125 mg tablet 01/21 completed Not Available Not Available Not Available Benadryl 25 mg capsule take 2 capsule by oral route every 4 - 6 hours as needed 01/21 completed Prescrib ed Elsewher e: Yes [facility]oca [facility]ion[facility] odify By: poly Bacon ncounter DateTime : 08/27/20 15 11:15:00 AM Not Available Not Available Not Available neomycin- polymyxin -hydrocor t 3.5 mg-10,000 unit/mL-1 % ear drops,darren p 01/21 completed Not Available Not Available Not Available Racheal 0.35 mg tablet TAKE 1 TABLET BY MOUTH EVERY DAY active Not Available Not Available No t Available iron 325 mg (65 mg iron) tablet take 1 tablet by oral route every day 01/21 completed Prescrib ed Elsewher e: Yes Loca tion: [facility] odify By: sawyer acevedo DateTime : 09/20/20 19 04:15:00 PM Not Available Not Available Not Available topiramat e 50 mg tablet TAKE 1 TABLET BY MOUTH TWICE A DAY active Not Available Not Available No t Available Ortho-Cyc norman (28) 0.25 mg-35 mcg tablet take 1 tablet by oral route every day 11/20 completed Prescrib ed Elsewher e: No [facility] By: pierre tz Encou nter DateTime : 09/09/20 15 02:33:30 PM Not Available Not Available Not Available Spiriva with HandiHale r 18 mcg and inhalatio n capsules USE 1 CAP DAILY WITH DEVICE, HOLD BREATH FOR 5 TO 10 SECONDS WITH EACH INHALATI ON active Not Available Not Available No t Available nitrofura ntoin monohydra te/macroc rystals 100 mg capsule TAKE 1 CAPSULE BY MOUTH EVERY 12 HOURS FOR 5 DAYS WITH FOOD active Not Available Not Available No t Available duloxetin e 30 mg capsule,d elayed release TAKE 1 CAPSULE BY MOUTH EVERY DAY IN THE MORNING active Not Available Not Available No t Available duloxetin e 60 mg capsule,d elayed release TAKE 1 CAPSULE BY MOUTH EVERY DAY IN THE MORNING active Not Available Not Available No t Available Benadryl 01/21 completed Not Available Not Available Not Available prednison e 01/21 completed Not Available Not Available Not Available spironola ctone 01/21 completed Not Available Not Available Not Available Blank active Not Available Not Avail able Not Available Qvar 01/21 completed Not Available Not Available Not Available ProAir HFA 90 mcg/actua tion aerosol inhaler inhale 2 puff by inhalati on route every 4 - 6 hours as needed 01/21 completed Prescrib ed Elsewher e: Yes Loca tion: Gamal bacon [facility] odify By: poly vidal DateTime : 08/27/20 15 11:15:00 AM Not Available Not Available Not Available ProAir HFA active Not Available Not Available Not Available Symbicort 160 mcg-4.5 mcg/actua tion HFA aerosol inhaler USE 1 PUFF BY MOUTH TWICE DAILY active Not Available Not Available No t Available Symbicort active Not Available Not Ellen ilable Not Available Senexon-S 8.6 mg-50 mg tablet TAKE 2 TABLETS BY MOUTH EVERY DAY AT NIGHT active Not Available Not Available No t Available Zyrtec [address] by Topical route every USE ASS NEEDED WITH INTERCOU RSE 01/21 completed Prescrib ed Elsewher e: Yes Loca tion: Jana arleen [facility] odify By: poly vidal DateTime : 08/27/20 15 11:15:00 AM Not Available Not Available Not Available Aleve 220 mg capsule 08/24 completed Prescrib ed Elsewher e: Yes Loca [facility]ion: [facility] odify By: bambi augustin DateTime : 08/27/20 15 11:15:00 AM Not Available Not Available Not Available Viibryd active Not Available Not Avail able Not Available Qvar RediHaler 80 mcg/actua tion HFA breath activated aerosol 01/21 completed Not Available Not Available Not Available Orilissa 150 mg tablet Take 1 tablet every day by oral route. 01/21 completed Not Available Not Available Not Available Orilissa 200 mg tablet Take 1 tablet every day by oral route for 28 days. active Not Available Not Available No t Available COVID-19 test specimen collectio n TEST DIRECTED TODAY active Not Available Not Available No t Available Vitals Date Recorded Body height Body mass index (BMI) Body weight Systolic blood pressure Diastolic blood pressure Provider Name and Address Organization Details Last Updated DateTime 01/05/2022 168.91 cm 38.6 kg/m2 757444.9 5 g 111 mm[Hg] 79 mm[Hg] [facility] 2 10:05:50 Date Recorded Body height Body mass index (BMI) Body weight Systolic blood pressure Diastolic blood pressure Provider Name and Address Organization Details Last Updated DateTime 02/18/2022 168.91 cm 38.3 kg/m2 083394.7 6 g 119 mm[Hg] 82 mm[Hg] [facility] 2 18:13:30 Date Recorded Body height Body mass index (BMI) Body weight Systolic blood pressure Diastolic blood pressure Provider Name and Address Organization Details Last Updated DateTime 04/23/2022 168.91 cm 36.7 kg/m2 424614.8 4 g 107 mm[Hg] 74 mm[Hg] [facility] 2 17:13:49 Social History Question Answer Notes LastModified by Organizat ion Details LastModified Time Tobacco Smoking Status [facility] 04/23/2022 16:49:04 Do You Have An Advance Directive? Yes Information not available 06/09/2021 What Is Your Level Of Alcohol Consumption? Occasional Information not available 06/09/2021 How Many Years Have You Consumed Alcohol? 15 Information not available 06/09/2021 Are You Blind Or Do You Have Difficulty Seeing? No Information not available 06/09/2021 What Is Your Level Of Caffeine Consumption? Moderate Information not available 06/09/2021 How Much Tobacco Do You Chew? None Information not available 06/09/2021 In The 14 Days Before Symptom Onset, Have You Had Close Contact With A Laboratory-confir med COVID-19 While That Case Was Ill? No Information not available 06/09/2021 In The 14 Days Before Symptom Onset, Have You Had Close Contact With A Person Who Is Under Investigation For COVID-19 While That Person Was Ill? No Information not available 06/09/2021 Have You Been To An Area Known To Be High Risk For COVID-19? No Information not available 06/09/2021 Are You Deaf Or Do You Have Serious Difficulty Hearing? No Information not available 06/09/2021 What Type Of Diet Are You Following? REGULAR Information not available 06/09/2021 What Is The Highest Grade Or Level Of School You Have Completed Or The Highest Degree You Have Received? 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 No Information not available 06/09/2021 Do You Use Protection During Sex? Always Information not available 06/09/2021 Do You Use Your Seat Belt Or Car Seat Routinely? Yes Information not available 06/09/2021 Do You Have Smoke And Carbon Monoxide Detectors In Your Home? Yes Information not available 06/09/2021 How Much Tobacco Do You Smoke? No Information not available 06/09/2021 Do You Feel Stressed (tense, Restless, Nervous, Or Anxious, Or Unable To Sleep At Night)? [id number] Information not available 06/09/2021 Do You Use Any Illicit Or Recreational Drugs? No Information not available 06/09/2021 Do You Use Sunscreen Routinely? No Information not available 06/09/2021 Have You Used IV Drugs? No Information not available 06/09/2021 Sex: Unknown Functional Status Question Answer Note LastModified by Organization D etails LastModified Time Are you able to walk? YESWOREST Information not available 06/09/2021 What is your exercise level? Moderate Information not available 06/09/2021 Mental Status None recorded. Family History Relationship Description Onset Age of this Age Resolved Age Notes LastModified by Organization Details LastModified Time Brother Mental disorder Not available 2020 09:51:23 Paternal Grandmother Seizure disorder [email or web address] Not available 2021 16:49:03 Paternal Grandmother Blood coagulation disorder Not available 2020 09:51:23 Paternal Grandmother Hypertensive disorder Not available 2020 09:51:23 Maternal Aunt Mental disorder Not available 2020 09:51:23 Paternal Grandfather Diabetes mellitus Not available 2020 09:51:23 Paternal Grandfather Hypertensive disorder Not available 2020 09:51:23 Father Mental disorder Not available 2020 09:51:23 Mother Mental disorder Not available 2020 09:51:23 Mother Diabetes mellitus Not available 2020 09:51:23 Sister Mental disorder Not available 2020 09:51:23 Sister Anemia Not available 08/08/2021 09:51:23 Medical History Condition Response Diabetes Y Allergies (Food, seasonal, environmental ) Y Endometriosis Y Asthma Y Psychiatric Illness Y Gynecological History Statement/Question Response Abnormal Pap N Date of LMP 07/07/2021 On BCP's at [facility]? N N Was last menstrual period normal Y STIs/STDs N HPV Vaccine N Duration of Flow (days) 5 Current Control Method Hysterectom y Sexually Active? N BCPs Age of first menstrual cycle 11 Date of Last Pap Smear 01/22/2021 Sexual Problems? N LMP Approximate N Obstetrics History GPAL:G 0 P 0 0 0 0 Past Encounters Encounter ID Performer Location Encounter Start Date Encounter Closed Date Diagnosis/Indication Diagnosis SNOMED-CT Code Diagnosis ICD10 Code Diagnosis Note [id number] Yaniv Walker MD [place] [address] [address] 05/29/2020 15:28:51 05/29/2020 17:00:35 Pain in pelvis 86346889 R10.2 This patient is a 29-year-ol d female with longstandi ng pelvic pain. She is known to have endometrio sis. She initially was treated with 200 mg of Orilissa. She had a pretty good response to the 200 mg twice daily. Her insurance would only cover 150s of orlissa. She noticed an increase in her pain after taking 150s for 3 months. Her pain is described here in the nodes. We would like to return to the 200s. We talked about side effects. We talked about the limited treatment duration. She is willing to accept that for the benefit she received and pain reduction. The current pain is affecting her quality of life and activities of daily living. [id number] Jessy Melchor [place] [address] [place] [address] 01/22/2021 10:13:43 01/22/2021 10:51:12 Gynecologic examination [id number] Z01.419 Take Calcium with Vitamin D 1200mg daily if not receiving in daily diet. It is strongly advised to have an annual flu shot and up can obtain at most pharmacies . If you have not had a TDap shot in the last 10 years you should obtain one as well. Discussed with patient & provided with informatio n regarding Gardisil vaccine to prevent the 4 strains for HPV that cause cervical cancer if under age 26. Encourage safe sexual practices, to use condoms and limit partners if not already in a monogamous relationsh ip. Do monthly self breast exams. Have mammogram yearly or every other year depending on family history. BRCA testing is now available for patients with strong genetic history of female cancer. If interested contact the office. Engage in daily exercise of low impact aerobic exercise 45-60 minutes 4-5 times weekly. Avoid tobacco and illicit drugs as well as using moderation with alcohol intake less than 1-2 8 oz beverages daily. This lifestyle behavior pattern will lead to less health conditions and longer life span. If BMI greater than 25 weight watchers or dietary consult advised. Patient received above instructio ns, and questions have been answered. If you have any questions please call or respond to this email. Patient was made aware of the patient portal and may obtain a paper copy of today's plan if desired. [id number] Yaniv Walker MD [facility] [address] [address] 06/09/2021 13:43:38 06/09/2021 15:37:58 Menorrhagia [id number] N92.0 Dysmenorrhea [id number] N 94.6 Pain in pelvis [id number] R10.2 This patient is a 30-year-ol d female presents for heavy vaginal bleeding. She has longstandi ng very heavy bleeding. Her menses are regular. However, they require double protection . Patient has accidents, getting blood on her bedding and clothing. Is affected work. She changes a pad or tampon every hour. She leaks blood around the pad and tampon. This bleeding has a profound impact on her quality of life and her activities of daily living. patient also has severe dysmenorrh ea. This is a problem that is been well described in her note. She has had previous laparoscop y where endometrio sis was removed. Her pain has caused her to leave work on numerous occasions. This severely affects her quality of life and activities of daily living. She has taken elagolix with relief for the recommende d amount of time. She can no longer take this medication . We discussed treatment options. She would like definitive therapy. She has had laparoscop y for her endometrio sis and pelvic pain. She has severe bleeding at the time of her menses. There is also severe pain at that time. She would like to proceed with hysterecto my. We agreed to move forward with total laparoscop ic hysterecto my bilateral salpingo-o ophorectom y. [id number] Yaniv Walker MD [facility] [address] [address] 07/24/2021 14:54:21 07/25/2021 09:33:48 Menorrhagia [id number] N92.0 this patient is a 31-year-ol d female who presents for preoperati ve care. She has severe menorrhagi a and we have agreed to perform total laparoscop ic hysterecto my and bilateral salpingect gurpreet. She understand s the risks, benefits, and alternativ es. She has completed the informed consent process and is ready to proceed. [id number] Yaniv Walker MD [facility] [address],[place] [address] 08/07/2021 09:15:33 08/07/2021 09:17:08 [id number] Yaniv Walker MD [facility] [address],[place] [address] 08/08/2021 09:37:37 08/08/2021 10:24:53 Postoperative care [id number] Z48.89 This patient is a 31-year-ol d female presents for postop follow-up. She is 1 week postop from a [facility]. She is recovering normally. She has had some nausea and that is resolving. Her incisions are clean dry and intact. She has no foul-smell ing vaginal discharge. She denies any vomiting, fever, chills. To follow-up as needed. [id number] Yaniv Walker MD [facility] [address],[place] [address] 09/11/2021 12:41:56 09/12/2021 14:05:22 Postoperative care [id number] Z48.89 this patient is a 31-year-ol d female presents for postop follow-up. She is recovering from a total laparoscop ic hysterecto my bilateral salpingect gurpreet. She is recovering normally. Her incisions are clean dry and intact. She has no complaints . She feels well. She denies any vaginal bleeding. She will follow up as needed. [id number] Yaniv Walker MD [facility] [address],[place] [address] 01/05/2022 09:49:19 01/05/2022 11:10:33 Cyst of ovary [id number] N83.209 this patient is a 31-year-ol d female who presents for follow-up on ER visit. She was found have a 5.6 cm ovarian cyst on CT. She had abdominal pain but it was upper abdominal. She has a kidney mass. She also has some stomach issues. She has doctors helping her with those 2 things. We talked about treatment, observatio n, etiology, natural history of ovarian cyst. We agreed to observe and have her repeat ultrasound 6 weeks. She will see me afterwards [id number] [facility] [address],[place] [address] 02/16/2022 14:50:19 02/16/2022 15:25:44 Imaging finding [id number] R93.5 N83.291 [id number] Yaniv Walker MD [facility] [address],[place] [address] 02/18/2022 17:20:31 02/19/2022 15:18:38 Cyst of ovary [id number] N83.209 This patient is a 31-year-ol d female presents for follow-up on ovarian cyst. Ultrasound was repeated and showed her to have a stable 4-5 cm ovarian cyst. We discussed these findings. We discussed treatment options. We discussed risk. We spent more than 15 minutes face-to-fa ce and agreed to observe the problem. She does not want any surgical treatment at this time and we agreed to observe. We repeat ultrasound in 3 months. [id number] [facility] [address],[place] [address] 04/20/2022 17:16:47 04/20/2022 18:29:44 Cyst of right ovary [id number] N83.291 [id number] Yaniv Walker MD [facility] [address],[place] [address] 04/23/2022 16:48:45 04/23/2022 17:43:26 Cyst of ovary [id number] N83.209 This patient is a 31-year-ol d female who presents for follow-up on ovarian cyst. The cyst has resolved. We reviewed the ultrasound results. She has a contralate ral corpus luteum cyst. She said that she had some pain associated with that but that resolved. We agreed to observe for symptoms and evaluate if that was indicated. Health Concerns Section Related Observation LastModified by Organization Detai ls LastModified Time None Recorded Concern Status LastModified by Organization Details LastModified Time None Recorded Advance Directives Directive Y: Payers Encounter Date Sequence Insurance Name Policy Number Policy [place] Covered Member ID [place] Member ID Guarantor Name 01/05/2022 1 [facility] ON OR AFTER 05/29/21 (MEDICAID REPLACEMENT - HMO) Edilia Modene [id number] Edilia Modene 02/16/2022 1 [facility] ON OR AFTER 05/29/21 (MEDICAID REPLACEMENT - HMO) Edilia Modene [id number] Edilia Modene 02/18/2022 1 [facility] ON OR AFTER 05/29/21 (MEDICAID REPLACEMENT - HMO) Edilia Modene [id number] Edilia Modene 04/20/2022 1 [facility] ON OR AFTER 05/29/21 (MEDICAID REPLACEMENT - HMO) Edilia Modene [id number] Edilia Modene 04/23/2022 1 [facility] ON OR AFTER 05/29/21 (MEDICAID REPLACEMENT - HMO) Edilia Modene [id number] Edilia Modene Notes Date Note Type Note Provider Name and Address Organization Details Recorded Time 01/05/2022 text/html this patient is a 31-year-old female who presents for follow-up on ER visit. She was found have a 5.6 cm ovarian cyst on CT. She had abdominal pain but it was upper abdominal. She has a kidney mass. She also has some stomach issues. She has doctors helping her with those 2 things. We talked about treatment, observation, etiology, natural history of ovarian cyst. We agreed to observe and have her repeat ultrasound 6 weeks. She will see me afterwards Yaniv Walker MD [address], [place], [address], [facility] 01/05/2022 10:51:46 02/18/2022 text/html This patient is a 31-year-old female presents for follow-up on ovarian cyst. Ultrasound was repeated and showed her to have a stable 4-5 cm ovarian cyst. We discussed these findings. We discussed treatment options. We discussed risk. We spent more than 15 minutes [id number] and agreed to observe the problem. She does not want any surgical treatment at this time and we agreed to observe. We repeat ultrasound in 3 months. Yaniv Walker MD [address], [place], [address], [facility] 02/18/2022 23:10:21 04/23/2022 text/html This patient is a 31-year-old female who presents for follow-up on ovarian cyst. The cyst has resolved. We reviewed the ultrasound results. She has a contralateral corpus luteum cyst. She said that she had some pain associated with that but that resolved. We agreed to observe for symptoms and evaluate if that was indicated. Yaniv Walker MD [address], [place], [address], [facility] 04/23/2022 17:42:54 OBGyn Episode No OBEpisode recorded.
--- OUTSIDE RECORDS SUMMARY | 2025-01-15 13:09 | XMS_ITS | Clinical Summary ---
Author Organization [facility] Address [address] [place] [address] Phone Care Team Providers Care Automatic Screwmaker Name Role Phone JAYDON BOSS, ZAC SABILLON Unavailable [phone] Reason for Visit and Chief Complaint The Chief Complaint is: Follow up for depression, anxiety, thoughts of self harm Problems Includes: Problems addressed during this encounter and other active Problems Current Visit Onset Date Resolved Date Provider Conditio n Status Migraine Headache 11/29/2022 Active Last Documented On 3 5:53PM ; [facility] Nonorganic Sleep Apnea Obstructive 11/29/2022 Active Last Documented On 3 5:53PM ; [facility] Restless Legs Syndrome 11/29/2022 Ac tive Last Documented On 3 5:53PM ; [facility] Adult Attention Deficit Hyperactivity Disorder 01/27/2022 Active Last Documented On 3 5:53PM ; [facility] Generalized Anxiety Disorder 05/29/2021 Active Last Documented On 3 5:53PM ; [facility] Psychophysiological Insomnia 05/29/2021 Active Last Documented On 3 5:53PM ; [facility] Major Depression 05/29/2021 Active Last Documented On 3 5:53PM ; [facility] Plan of Treatment Generalized Anxiety Disorder - Cymbalta to 90 mg a day for anxiety and mood (04/21/22) Major Depressive Disorder - Cymbalta to 90 mg a day (04/21/22) Attention Deficit Disorder - Vyvanse 30 mg in am, add Azstarys 39.2 mg at noon as a back up Migraine Headaches - Topamax 50 mg 2 x a day, Aimovig 70 mg SQ once a month, Nurtec ODT 75 mg 1 tab a day as needed only at the onset of migraine headache Psychophysiological Insomnia - Trazodone 50 mg 2 tabs at bedtime as needed for sleep, encouraged good sleep hygiene habits - Last Documented On 12/13/2023 1:59AM ; [facility] Education and Decision Aids were provided during visit for: Discussed good sleep hygiene habits Last Documented On 4 1:54AM ; [facility] Calming techniques such as b reathing exercises/meditation and other relaxation techniques Last Documented On 4 1:54AM ; [facility] Assessments Includes: Assessments from this encounter Findings - Obstructive sleep apnea - Last Documented On 12/13/2023 1:59AM ; [facility] - Migraine headache - Last Documented On 12/13/2023 1:59AM ; [facility] - Restless legs syndrome - Last Documented On 12/13/2023 1:59AM ; [facility] - Major depressive disorder - Last Documented On 12/13/2023 1:59AM ; [facility] - Psychophysiological insomnia - Last Documented On 12/13/2023 1:59AM ; [facility] - Generalized anxiety disorder - Last Documented On 12/13/2023 1:59AM ; [facility] - Adult attention deficit hyperactivity disorder - Last Documented On 12/13/2023 1:59AM ; [facility] Instructions Includes: Instructions from this encounter Education and Decision Aids were provided during visit for: Discussed good sleep hygiene habits Last Documented On 4 1:54AM ; [facility] Calming techniques such as b reathing exercises/meditation and other relaxation techniques Last Documented On 4 1:54AM ; [facility] Medical Equipment - Implanted Devices Includes: Current Devices No Medical Equipment Recorded Medications Includes: Medications discussed during this encounter and other current Medications Discontinued / Stopped on this date ZAC INTERIANO MD on 11/05/2023 Vyvanse 30 MG Oral Capsule Provider: ZAC INTERIANO MD Diagnosis: Attn-defct hyper activity disorder, predom inattentive type Last Documented On 12/13/2023 1:40AM By Marta Interiano MD ; [facility] Current Medications (continue as prescribed) Azstarys 52.3-10.4 MG Oral Capsule 03/28/2024 Provider: ZAC INTERIANO MD Diagnosis: Attn-defct hyper activity disorder, predom inattentive type as directed - 1 cap in am Last Documented On 03/28/2024 2:09PM By Marta Interiano MD ; [facility] traZODone HCl 50 MG Oral Tablet 02/29/2024 Provider: ZAC INTERIANO MD Diagnosis: Psychophysiologi c insomnia TAKE 3 TABLETS BY MOUTH AT B EDTIME NEEDED FOR SLEEP Last Documented On 02/29/2024 12:32PM By Marta Interiano MD ; [facility] rOPINIRole HCl 1 MG Oral Tablet 01/27/2024 Provider: ZAC INTERIANO MD Diagnosis: Restless legs sy ndrome as directed -1/2 tab in the evening for 1 week then 1 tab in the evening thereafter Last Documented On 01/27/2024 10:15AM By Marta Interiano MD ; [facility] Nurtec 75 MG Oral Tablet Disintegrating 01/27/2024 Provider: ZAC INTERIANO MD Diagnosis: Migraine w/o aur a, not intractable, w/o status migrainosus as directed - 1 tab a day as needed at the onset of migraine headaches Last Documented On 01/27/2024 9:42AM By Marta Interiano MD ; [facility] Aimovig 70 MG/ML Subcutaneous Solution Auto-injector 01/27/2024 Provider: ZAC INTERIANO MD Diagnosis: Migraine w/o aur a, not intractable, w/o status migrainosus as directed - inject 70 mg ( 1 ml) SQ once a month to upper thigh, please rotate sites Last Documented On 01/27/2024 9:42AM By Marta Interiano MD ; [facility] Vyvanse 30 MG Oral Capsule 12/13/2023 Provider: ZAC INTERIANO MD Diagnosis: Attn-defct hyper activity disorder, predom inattentive type 1 Capsule every morning Last Documented On 12/13/2023 1:47AM By Marta Interiano MD ; [facility] Gabapentin 300 MG Oral Capsule 07/29/2023 Provider: ZAC INTERIANO MD Diagnosis: Restless legs sy ndrome as directed -- 1 cap in even ing for restless legs Last Documented On 03/28/2024 10:27AM By ALEXIS ELI ; [facility] DULoxetine HCl 60 MG Oral Capsule Delayed Release Particles 07/29/2023 Provider: ZAC INTERIANO MD Diagnosis: Major depressive disorder, recurrent, moderate TAKE 1 CAPSULE BY MOUTH EVER Y DAY IN THE MORNING Last Documented On 03/28/2024 10:26AM By ALEXIS ELI ; [facility] DULoxetine HCl 30 MG Oral Capsule Delayed Release Particles 07/29/2023 Provider: ZAC INTERIANO MD Diagnosis: Generalized anxi ety disorder TAKE 1 CAPSULE BY MOUTH EVER Y DAY (TAKE WITH 60MG CAPSULE) Last Documented On 03/28/2024 10:26AM By ALEXIS ELI ; [facility] Topiramate 50 MG Oral Tablet 04/20/2023 Provider: ZAC INTERIANO MD Diagnosis: Chronic migraine w/o aura, not intractable, w/o stat migr One tablet twice a day Last Documented On 03/28/2024 10:29AM By ALEXIS ELI ; [facility] Meclizine HCl 25 MG OR TABS 11/24/2022 Provider: Diagnosis: 1 TAB BID PRN Last Documented On 03/27/2023 5:34PM By DOMINGA COON ; [facility] Ondansetron HCl 4 MG OR TABS 03/26/2022 Provider: Diagnosis: as directed Last Documented On 03/27/2023 5:34PM By DOMINGA COON ; [facility] Senexon-S 8.6-50 MG OR TABS 02/04/2022 Provider: Diagnosis: 1 daily prn Last Documented On 03/27/2023 5:34PM By DOMINGA COON ; [facility] Metoclopramide HCl 10 MG OR TABS 01/27/2022 Provider : Diagnosis: 1 ac tid Last Documented On 03/27/2023 5:34PM By DOMINGA COON ; [facility] Fluticasone Propionate 50 MCG/ACT NA SUSP 12/03/2021 Provider: Diagnosis: Last Documented On 03/27/2023 5:34PM By ALEXIS ELI ; [facility] Pantoprazole Sodium 40 MG OR TBEC 11/23/2021 Provide r: Diagnosis: 1 tab daily Last Documented On 03/27/2023 5:34PM By ALEXIS ELI ; [facility] Blank Allergy 180 MG OR TABS 05/29/2021 Provider: Diagnosis: 1 tab daily otc Last Documented On 03/27/2023 5:34PM By DOMINGA COON ; [facility] Albuterol Sulfate 108 (90 Base) MCG/ACT IN AEPB 2020 Provider: Diagnosis: 1-2 puffs q 4-6 hours prn Last Documented On 03/27/2023 5:34PM By DOMINGA COON ; [facility] Spironolactone 100 MG OR TABS 04/21/2021 Provider: Diagnosis: 1 tab daily Last Documented On 03/27/2023 5:34PM By DOMINGA COON ; [facility] Symbicort 160-4.5 MCG/ACT IN AERO 12/05/2020 Provide r: Diagnosis: 1 puff twice daily Last Documented On 03/27/2023 5:34PM By DOMINGA COON ; [facility] Spiriva HandiHaler 18 MCG IN CAPS 10/15/2020 Provide r: Diagnosis: 1 inhalation daily Last Documented On 03/27/2023 5:34PM By DOMINGA COON ; [facility] Past Medications on file Sunosi 150 MG OR TABS 02/24/2023 - 03/26/2023 Provider: ZAC BLACK MD Diagnosis: Obstructive slee p apnea (adult) (pediatric) 1 tablet every morning Last Documented On 03/27/2023 5:34PM By Marta Interiano MD ; [facility] Zoloft 100 MG OR TABS 05/06/2011 - 11/02/2011 Provider: YA SCHNEIDER D.O. Diagnosis: DEPRESSIVE DISOR EMMA NEC Last Documented On 05/06/2011 2:19PM By LEIGH FALCON MA ; [facility] Zoloft 100 MG OR TABS 02/25/2011 - 06/25/2011 Provider: YA SCHNEIDER D.O. Diagnosis: DEPRESSIVE DISOR EMMA NEC 1 1/2 pills qd x7d, then 2 pills qd Last Documented On 02/25/2011 6:16PM By YA SCHNEIDER DO ; [facility] Medications Administered Includes: Administered Medications from this encounter No Administered Medications Recorded Vital Signs Includes: Vital Signs from this encounter Vital Name 12/10/2023 05:29P Blood Pressure Sitting L 138/80 BP Cuff Size Regular Pulse Rate-Sitting (bpm) 86 Pulse Rhythm Regular Height (in) 66 Weight (lb) 203 Body Mass Index 32.8 Body Surface Area 2 Note: self reported vitals Last Documented: On 12/10/2023 5:30PM ; [facility] Results Includes: Results discussed during this encounter No Results Recorded For Specified Dates History of Present Illness Includes: History of Present Illness from this encounter HPI TONY SOLANO is a 33 year old female. - Allergy list reviewed - Past medical history reviewed - Medication list reviewed Pt reported feeling down lately. She is grieving towards the loss of her grandmother. She said that she had to miss her last appointment since she had to attend her grandmother's which as been difficult for her since she was close to her grandmother. Pt has been stressed/anxious due to her job situation. 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 She said that besides writing the curriculum and delivering them, she is also in charge of cooking, housekeeping, cleaning and participating on committee meetings and her hands are tied up since she is responsible for quite a few tasks that she cannot keep up with. She gets paid $17 per hour but she is overwhelmed with the tasks and so she may be looking for another job if things do not improve. Pt denied having any mood swings but gets irritable. Pt has not been as motivated in general in doing daily tasks. Sleep has been difficult. Pt has not been napping/sleeping too much during the daytime. Pt gets occ tired. Appetite is decreased. Pt feels bad about self. Pt is not able to focus and concentrate emlanie when she is out of [employer] due to supply shortage. She gets easily distracted and inattentive. Pt denied having any psychomotor restlessness. Pt denied suicidal thoughts. Pt denied having any delusions/hallucinations. The Nurtec ODT helps with her migraine but it is more stress headaches that she has been having lately. The Aimovig and Topamax are helping to prevent her migraine headaches. She takes Trazodone 100 mg 2 at hs which helps some but is hesitant to take 3 at hs since this may cause daytime sedation. She takes Duloxetine which may not be as helpful right now because she is overwhelmed but she might be worse if she stops the Duloxetine so will continue to observe. I also discussed about possible ise of Azstarys in case she is not able to get Vyvanse. MENTAL STATUS EXAM: Sensorium - alert, oriented to name, place, and time Attitude - cooperative Gait - ambulatory Sleep - good - difficulty falling and staying asleep Interest/Energy/Motivation - not as motivated Guilt/Worthlessness - absent Concentration/Attention Span - at times hard to focus and concentrate Memory Recall - fairly good Appetite - decreased - on 07/29/23 pt weighed 228 lbs and on 12/10/23 she weighed 203 lbs so she lost 25 lbs Suicidal Thoughts - absent Homicidal Thoughts - absent Delusions - absent Hallucinations - absent Appearance - casually groomed Motor Behavior - calm Eye Contact - intermittent Speech - fluent Mood - grieving, depressed Affect - anxious Thought Process - coherent Insight and [...] age [age] having stopped in 2005.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 Her sexual orientation is pansexual or aromantic. She has no past or pending legal history. She enjoys reading, sewing, knitting and gardening. Her taoist background as a child was [employer] and currently is [place]. 12/10/2023 Last Documented On 4 5:18PM ; [facility] Tobacco non-user 12/10/2023 Last Documented On 4 1:59AM ; [facility] Smoking Status Unknown Procedures and Surgical History Includes: Procedures from this encounter Procedures Code Diagnosis Performing Provider Service L ocation Service Date education and instructions Last Documented On 4 5:18PM ; [facility] supportive care and encourag ement--given positive reinforcement to keep patient motivated and active, supportive listening provided, grief supportive therapy Last Documented On 4 1:55AM ; [facility] ~* Call 911/[phone] and /or go t o the nearest emergency room or call me if suicidal/homicidal ideation or other serious concerns arise. ~ ~* I gave instructions to call me should there be any questions or concerns. ~ ~* Patient voiced understanding and agreed to treatment plan Last Documented On 4 5:27PM ; [facility] dangerousness assessment: no suicide risk 3085F Last Documented On 4 5:18PM ; [facility] use of tobacco assessment performed 1000F Last Documented On 4 5:28PM ; [facility] patient screened for future fall risk: documentation of any fall with injury in past year - no recent falls 1100F Last Documented On 4 5:27PM ; [facility] review of medications documented 1160F Last Documented On 4 5:27PM ; [facility] assessment of suicide risk performed - n ot suicidal Last Documented On 4 5:28PM ; [facility] screening for adult depressi on: impression and score - please see above for treatment and PHQ score Last Documented On 4 5:28PM ; [facility] standardized depression screening: posit bea for symptoms Last Documented On 4 5:28PM ; [facility] encouragement to exercise - balanced nithya l plan, low fat low carb diet Last Documented On 4 5:27PM ; [facility] Counseling on new medication : I discussed the risks, benefits and side effects of Azstarys . Patient verbalized understanding and agreed to treatment Last Documented On 4 1:54AM ; [facility] Clinical summary provided to patient Last Documented On 4 5:18PM ; [facility] PHQ-9: total score 19 Last Documented On 4 1:54AM ; [facility] Medical History Includes: Medical History addressed during this encounter Description Last Updated Primary Care Provider: Dr. Iman Walker -- [employer] Grade Teacher Dr. Oscar Flores -- ENT at [facility] Dr. Ember Santos -- Neurologist Team Leader/Research Psychologist at [facility] Moshe Quintero NP/Dr. Mooney -- Product Lead Public Space Attendant [facility] / fiberoptic examination - for Dysphagia -- 11/2021 -- normal per patient. Sleep testing was performed - in 2019 by [facility] -- inconclusiveDiagnoses: URI -- given Zpak [...] Laxative -- from [facility] under Dr. Ham[place]ontipation - given Miralax 03/26/22; [...] given Hydrocodone 5/325 #25 -- still has ovariesEndometriosis - age [...] 08/05/21 Knee surgery - right knee reconstruction 201412/10/2023 Last Documented On 4 5:34PM ; [facility] Family History Includes: Family History addressed during this encounter Description Last Updated Paternal: Combined drug and alcohol abuse - FatherMaternal: Alcoholism - Mother Bipolar disorder NOS - MotherPaternal grandmother's: Dementia DepressionFraternal: Depression - BrotherSororal: Depression and Anxiety - Sister 12/10/2023 Last Documented On 4 5:18PM ; [facility] Review of Systems Includes: Review of Systems from this encounter Systemic: Feeling poorly (malaise) - occasionally tired. No fever, no chills, and no night sweats. Head: No headache. Sinus pain. Neck: No neck pain. Neck stiffness. Eyes: No vision problems, no itching of the eyes, and no eye pain. Otolaryngeal: No hearing loss, no earache, no nasal discharge, no hoarseness, and no sore throat. Cardiovascular: No chest pain or discomfort, no palpitations, and the heart rate was not fast. Pulmonary: No dyspnea, no cough, and no wheezing. Gastrointestinal: No heartburn. No nausea and no vomiting. Diarrhea. No constipation. Genitourinary: No increase in urinary frequency. No dysuria. Endocrine: No polydipsia and no excessive sweating. Musculoskeletal: No muscle aches, no localized joint pain, and no localized joint stiffness. Neurological: No dizziness, no vertigo, no fainting, [...] Active Last Documented On 01/27/2024 9:10AM ; [facility] Note: Imported from external source. TORADOL Allergy Hives / Urticaria 05/29/2021 A ctive Last Documented On 01/27/2024 9:10AM ; [facility] Note: Imported from external source. Pineapple Allergy 01/26/2023 Active Last Documented On 01/27/2024 9:10AM ; [facility] Note: Imported from external source. Latex Allergy Hives / Urticaria 05/29/2021 A ctive Last Documented On 01/27/2024 9:10AM ; [facility] Note: Imported from external source. Encounters Encounter Provider Location Date Check-In Time Check-Out Time Diagnosis TELEHEALTH ADULT PSYCH ESTABLISHED ZAC INTERIANO MD [facility]-PSY 024 5:16PM 11:59PM Migraine Headache,General ized Anxiety Disorder,Restles s Legs Syndrome,Nonorga gaye Sleep Apnea Obstructive,Psyc hophysiological Insomnia,Major Depression,Adult Attention Deficit Hyperactivity Disorder Insurance Includes: Active Insurance Policies Plan Name Member ID Group # Subscriber Relationship Effect bea Dates 1 - [facility] [id number] TONY SOLANO Self Clinical Notes Includes: Clinical Notes from this encounter * Progress note Date Encounter Last Documented by 12/10/2023 TELEHEALTH ADULT PSYCH ESTABLISH ED Last documented on 12/13/2023; 1:59 AM, ZAC INTERIANO MD; [facility] Top of Document Medication psychotherapy 30 minutes Patient gave verbal consent for Telehealth 12/10/23. Location of patient: patient's home Location of provider: provider's office Patient was alone for the session. This visit was conducted with use of interactive audio and video telecommunication system with real time communication between the patient and the provider. Patient consent for virtual visit obtained today. Total time spent with patient via audio and video telecommunication 30 minutes. Active Problems & Conditions - Adult Attention Deficit Hyperactivity Disorder - Generalized Anxiety Disorder - Major Depression - Migraine Headache - Nonorganic Sleep Apnea Obstructive - Psychophysiological Insomnia - Restless Legs Syndrome Chief Complaint The Chief Complaint is: Follow up for depression, anxiety, thoughts of self harm. History of Present Illness TONY SOLANO is a 33 year old female. - Allergy list reviewed - Past medical history reviewed - Medication list reviewed Pt reported feeling down lately. She is grieving towards the loss of her grandmother. She said that she had to miss her last appointment since she had to attend her grandmother's which as been difficult for her since she was close to her grandmother. Pt has been stressed/anxious due to her job situation. 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 She said that besides writing the curriculum and delivering them, she is also in charge of cooking, housekeeping, cleaning and participating on committee meetings and her hands are tied up since she is responsible for quite a few tasks that she cannot keep up with. She gets paid $17 per hour but she is overwhelmed with the tasks and so she may be looking for another job if things do not improve. Pt denied having any mood swings but gets irritable. Pt has not been as motivated in general in doing daily tasks. Sleep has been difficult. Pt has not been napping/sleeping too much during the daytime. Pt gets occ tired. Appetite is decreased. Pt feels bad about self. Pt is not able to focus and concentrate melanie when she is out of [facility] due to supply shortage. She gets easily distracted and inattentive. Pt denied having any psychomotor restlessness. Pt denied suicidal thoughts. Pt denied having any delusions/hallucinations. The Nurtec ODT helps with her migraine but it is more stress headaches that she has been having lately. The Aimovig and Topamax are helping to prevent her migraine headaches. She takes Trazodone 100 mg 2 at hs which helps some but is hesitant to take 3 at hs since this may cause daytime sedation. She takes Duloxetine which may not be as helpful right now because she is overwhelmed but she might be worse if she stops the Duloxetine so will continue to observe. I also discussed about possible ise of Azstarys in case she is not able to get Vyvanse. MENTAL STATUS EXAM: Sensorium - alert, oriented to name, place, and time Attitude - cooperative Gait - ambulatory Sleep - good - difficulty falling and staying asleep Interest/Energy/Motivation - not as motivated Guilt/Worthlessness - absent Concentration/Attention Span - at times hard to focus and concentrate Memory Recall - fairly good Appetite - decreased - on 07/29/23 pt weighed 228 lbs and on 12/10/23 she weighed 203 lbs so she lost 25 lbs Suicidal Thoughts - absent Homicidal Thoughts - absent Delusions - absent Hallucinations - absent Appearance - casually groomed Motor Behavior - calm Eye Contact - intermittent Speech - fluent Mood - grieving, depressed Affect - anxious Thought Process - coherent Insight and [...] daily otc, 0 days, 0 refills - DULoxetine HCl 30 MG Oral Capsule Delayed Release Particles TAKE 1 CAPSULE BY MOUTH EVERY DAY (TAKE WITH 60MG CAPSULE), 90 days, 1 refills - DULoxetine HCl 60 MG Oral Capsule Delayed Release Particles TAKE 1 CAPSULE BY MOUTH EVERY DAY IN THE MORNING, 90 days, 1 refills - Fluticasone Propionate 50 MCG/ACT Suspension as directed 90 days, 0 refills - Gabapentin 300 MG Oral Capsule as directed -- 1 cap in evening for restless legs, 90 days, 1 refills - Meclizine HCl 25 MG Tablet [...] twice daily, 30 days, 0 refills - - No side effects reported Past Medical/Surgical History Primary Care Provider: Dr. Phu Walker -- [employer] Grade Teacher Dr. Oscar Flores -- ENT at [facility] Dr. Ember Santos -- Neurologist Team Leader/Research Psychologist at [facility] Moshe Quintero NP/Dr. Mooney -- Product Lead Public Space Attendant at [facility] Other: Endoscopic / fiberoptic examination - for Dysphagia -- 11/2021 -- normal per patient. Sleep testing was performed - in 2019 by [facility] -- inconclusive Diagnoses: URI -- given [...] -- complete hysterectomy 08/05/21 -- given Hydrocodone 5 #25 -- still has ovaries Endometriosis - [...] 15-17 having stopped in 2005. 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 She was born in [place], [place] and raised outside of [facility]. 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 Her sexual orientation is pansexual or aromantic. She has no past or pending legal history. She enjoys reading, sewing, knitting and gardening. Her taoist background as a child was [employer] and [...] Anxiety - Sister Review Of Systems Systemic: Feeling poorly (malaise) - occasionally tired. No fever, no chills, and no night sweats. Head: No headache. Sinus pain. Neck: No neck pain. Neck stiffness. Eyes: No vision problems, no itching of the eyes, and no eye pain. Otolaryngeal: No hearing loss, no earache, no nasal discharge, no hoarseness, and no sore throat. Cardiovascular: No chest pain or discomfort, no palpitations, and the heart rate was not fast. Pulmonary: No dyspnea, no cough, and no wheezing. Gastrointestinal: No heartburn. No nausea and no vomiting. Diarrhea. No constipation. Genitourinary: No increase in urinary frequency. No dysuria. Endocrine: No polydipsia and no excessive sweating. Musculoskeletal: No muscle aches, no localized joint pain, and no localized joint stiffness. Neurological: No dizziness, no vertigo, no fainting, and no motor disturbances. Skin: No pruritus. No skin lesions and no rash. Physical Findings - Vitals taken 12/10/2023 05:29 pm self reported vitals BP-Sitting L 138/80 mmHg BP Cuff Size Regular Pulse Rate-Sitting 86 bpm Pulse Rhythm Regular Height 66 in Weight 203 lbs Body Mass Index 32.8 kg/m2 Body Surface Area 2 m2 Tests Educational Testing: Questionnaires PHQ-9: Value PHQ-9: total score 19 Assessment - Obstructive sleep apnea - Migraine headache - Restless legs syndrome - Major depressive disorder - Psychophysiological insomnia - Generalized anxiety disorder - Adult attention deficit hyperactivity disorder Therapy - Dangerousness assessment: no suicide risk. - Counseling on new medication: I discussed the risks, benefits and side effects of Azstarys . Patient verbalized understanding and agreed to treatment. - Supportive care and encouragement--given positive reinforcement to keep patient motivated and active, supportive listening provided, grief supportive therapy. - Encouragement to exercise - balanced meal plan, low fat low carb diet. - Education and instructions. - Assessment of suicide risk performed - not suicidal - Clinical summary provided to patient. * Call [phone] and /or go to the nearest emergency room or call me if suicidal/homicidal ideation or other serious concerns arise. * I gave instructions to call me should there be any questions or concerns. * Patient voiced understanding and agreed to treatment plan. Counseling/Education - Discussed good sleep hygiene habits - Calming techniques such as breathing exercises/meditation and other relaxation techniques Plan StartCited - Attn-defct hyperactivity disorder, predom inattentive type Vyvanse 30 MG capsule 1 Capsule every morning, 30 days, 0 refills Azstarys 39.2-7.8 MG capsule as directed - 1 capsule at noon, 30 days, 0 refills EndCited StartCited - Other Follow-up 01/27/24 EndCited Generalized Anxiety Disorder - Cymbalta to 90 mg a day for anxiety and mood (04/21/22) Major Depressive Disorder - Cymbalta to 90 mg a day (04/21/22) Attention Deficit Disorder - Vyvanse 30 mg in am, add Azstarys 39.2 mg at noon as a back up Migraine Headaches - Topamax 50 mg 2 x a day, Aimovig 70 mg SQ once a month, Nurtec ODT 75 mg 1 tab a day as needed only at the onset of migraine headache Psychophysiological Insomnia - Trazodone 50 mg 2 tabs at bedtime as needed for sleep, encouraged good sleep hygiene habits Practice Management Use of tobacco assessment performed and patient screened for future fall risk documentation of any fall with injury in past year - no recent falls Review of medications documented; Standardized depression screening: positive for symptoms and for adult impression and score - please see above for treatment and PHQ score.
--- OUTSIDE RECORDS SUMMARY | 2025-01-15 13:09 | XMS_ITS ---
Author Organization [facility] Address [address] [place] [address] Phone Care Team Providers Care Play Therapist Name Role Phone JAYDON BOSS, ZAC SABILLON Unavailable [phone] Problems Includes: Active, inactive, and resolved Problems All Visits Onset Date Resolved Date Provider Condition S tatus Migraine Headache 11/29/2022 ZAC Valerio MD Active Last Documented On 3 8:31AM ; [facility] Nonorganic Sleep Apnea Obstructive 11/29/2022 M GISSELLE INTERIANO MD Active Last Documented On 3 8:31AM ; [facility] Restless Legs Syndrome 11/29/2022 ZAC KERN MD Active Last Documented On 3 8:31AM ; [facility] Adult Attention Deficit Hype ractivity Disorder 01/27/2022 ZAC INTERIANO MD Active Last Documented On 2 8:44AM ; [facility] Generalized Anxiety Disorder 05/29/2021 ZAC INTERIANO MD Active Last Documented On 1 3:14PM ; [facility] Psychophysiological Insomnia 05/29/2021 ZAC INTERIANO MD Active Last Documented On 1 3:14PM ; [facility] Major Depression 05/29/2021 ZAC INTERIANO MD Active Last Documented On 1 3:14PM ; [facility] Plan of Treatment Findings Encounter Date Clinical summary transmitted to referring provider electronically with reasonable certainty of receipt TELEHEALTH with ZAC INTERIANO MD 02/23/2023 Last Documented On 3 9:28AM ; [facility] Or[facility] in care, clinical summary provided TELEHEALTH with ZAC INTERIANO MD 02/23/2023 Last Documented On 3 9:28AM ; [facility] -- Home Sleep Study to r/o EFRA -- 02/23/23 TELEHEALTH with ZAC INTERIANO MD 02/23/2023 Last Documented On 3 9:28AM ; [facility] Referrals To Diagnosis Sleep Study at [facility] ADRIAN RHODES MD - ALT ON [address] [address] - Obstructive sleep apnea (adult) (pediatric) Note: Refer to sleep special ist Dr. Rhodes Last Documented On 3 9:44AM ; [facility] Instructions to patient Lose weight -- portion contr ol Last Documented On 3 8:27AM ; [facility] Lose weight -- lost 10 lbs s rina last visit Last Documented On 3 4:27AM ; [facility] Lose weight - gained 5 lbs s rina last visit Last Documented On 2 11:32AM ; [facility] Lose weight - lost 10 lbs si nce last visit Last Documented On 2 8:42AM ; [facility] Lose weight - portion contro l, balanced diet Last Documented On 2 8:49AM ; [facility] Lose weight Last Documented On 2 4:18PM ; [facility] Lose weight Last Documented On 1 2:02PM ; [facility] Lose weight Last Documented On 1 5:27PM ; [facility] Education and Decision Aids were provided during visit for: Discussed calming techniques such as breathing exercises and other relaxation techniques Last Documented On 3 9:50AM ; [facility] Patient education about medi cation ---Education was given on medication(s) and diagnosis. I reviewed the risks, benefits and side effects of patient's medications Last Documented On 3 9:11AM ; [facility] Discussed calming techniques such as breathing exercises and other relaxation techniques Last Documented On 3 9:11AM ; [facility] Discussed good sleep hygiene habits Last Documented On 3 9:27AM ; [facility] Patient education about medi cation ---Education was given on medication(s) and diagnosis. I reviewed the risks, benefits and side effects of patient's medications Last Documented On 2 10:10AM ; [facility] Discussed calming techniques such as breathing exercises and other relaxation techniques Last Documented On 2 10:10AM ; [facility] Discussed good sleep hygiene habits Last Documented On 2 10:22AM ; [facility] Patient education about medi cation --- I educated patient on medication(s) and diagnosis. I reviewed the risks, benefits and side effects of patient's medications Last Documented On 2 4:43PM ; [facility] Discussed calming techniques such as breathing exercises and other relaxation techniques Last Documented On 2 4:43PM ; [facility] Counseling for nutrition/zeinab ght management provided Last Documented On 2 4:54PM ; [facility] Discussed good sleep hygiene habits Last Documented On 2 4:54PM ; [facility] Patient education about medi cation --- I educated patient on medication(s) and diagnosis. I reviewed the risks, benefits and side effects of patient's medications Last Documented On 2 3:53PM ; [facility] Discussed calming techniques such as breathing exercises and other relaxation techniques Last Documented On 2 3:53PM ; [facility] Counseling for nutrition/zeinab ght management provided Last Documented On 2 4:15PM ; [facility] Discussed good sleep hygiene habits Last Documented On 2 4:15PM ; [facility] Patient education about medi cation --- I educated patient on medication(s) and diagnosis. I reviewed the risks, benefits and side effects of patient's medications Last Documented On 2 4:03PM ; [facility] Discussed calming techniques such as breathing exercises and other relaxation techniques Last Documented On 2 4:03PM ; [facility] Patient education about medi cation --- I educated patient on medication(s) and diagnosis. I reviewed the risks, benefits and side effects of patient's medications Last Documented On 2 3:49PM ; [facility] Discussed calming techniques such as breathing exercises and other relaxation techniques Last Documented On 2 3:49PM ; [facility] Counseling for nutrition/zeinab ght management provided Last Documented On 2 4:18PM ; [facility] Discussed good sleep hygiene habits Last Documented On 2 4:18PM ; [facility] Patient education about medi cation --- I educated patient on medication(s) and diagnosis. I reviewed the risks, benefits and side effects of patient's medications Last Documented On 1 1:41PM ; [facility] Discussed calming techniques such as breathing exercises and other relaxation techniques Last Documented On 1 1:41PM ; [facility] Counseling for nutrition/zeinab ght management provided Last Documented On 1 2:02PM ; [facility] Discussed good sleep hygiene habits Last Documented On 1 2:02PM ; [facility] Patient education about medi cation --- I educated patient on medication(s) and diagnosis. I reviewed the risks, benefits and side effects of patient's medications Last Documented On 1 5:17PM ; [facility] Discussed calming techniques such as breathing exercises and other relaxation techniques Last Documented On 1 5:17PM ; [facility] Counseling for nutrition/zeinab ght management provided Last Documented On 1 5:27PM ; [facility] Discussed good sleep hygiene habits Last Documented On 1 5:27PM ; [facility] Patient education about medi cation --- I educated patient on medication(s) and diagnosis. I reviewed the risks, benefits and side effects of patient's medications Last Documented On 1 2:59PM ; [facility] Discussed calming techniques such as breathing exercises and other relaxation techniques Last Documented On 1 2:59PM ; [facility] Counseling for nutrition/zeinab ght management provided Last Documented On 1 7:43AM ; [facility] Discussed good sleep hygiene habits Last Documented On 1 3:27PM ; [facility] Assessments Includes: Assessments for all patient encounters Findings Encounter Date Adult attention deficit hype ractivity disorder TELEHEALTH with ZAC INTERIANO MD 02/23/2023 Last Documented On 3 9:28AM ; [facility] Generalized anxiety disorder TELEHEALTH with MET BENITO INTERIANO MD 02/23/2023 Last Documented On 3 9:28AM ; [facility] Major depressive disorder TELEHEALTH with PEDRO INTERIANO MD 02/23/2023 Last Documented On 3 9:28AM ; [facility] Migraine headache TELEHEALTH with ZAC TORRES MD 02/23/2023 Last Documented On 3 9:28AM ; [facility] Obstructive sleep apnea TELEHEALTH with ZAC INTERIANO MD 02/23/2023 Last Documented On 3 9:28AM ; [facility] Psychophysiological insomnia TELEHEALTH with MET BENITO INTERIANO MD 02/23/2023 Last Documented On 3 9:28AM ; [facility] Restless legs syndrome TELEHEALTH with ZAC INTERIANO MD 02/23/2023 Last Documented On 3 9:28AM ; [facility] Adult attention deficit hype ractivity disorder TELEHEALTH with ZAC INTERIANO MD 01/26/2023 Last Documented On 3 4:31AM ; [facility] Generalized anxiety disorder TELEHEALTH with MET BENITO INTERIANO MD 01/26/2023 Last Documented On 3 4:31AM ; [facility] Major depressive disorder TELEHEALTH with PEDRO INTERIANO MD 01/26/2023 Last Documented On 3 4:31AM ; [facility] Psychophysiological insomnia TELEHEALTH with MET BENITO INTERIANO MD 01/26/2023 Last Documented On 3 4:31AM ; [facility] Adult attention deficit hype ractivity disorder TELEHEALTH with ZAC INTERIANO MD 09/03/2022 Last Documented On 2 4:23AM ; [facility] Generalized anxiety disorder TELEHEALTH with MET BENITO INTERIANO MD 09/03/2022 Last Documented On 2 4:23AM ; [facility] Major depressive disorder TELEHEALTH with PEDRO INTERIANO MD 09/03/2022 Last Documented On 2 4:23AM ; [facility] Psychophysiological insomnia TELEHEALTH with MET BENITO INTERIANO MD 09/03/2022 Last Documented On 2 4:23AM ; [facility] Adult attention deficit hype ractivity disorder TELEHEALTH with ZAC INTERIANO MD 06/18/2022 Last Documented On 2 8:44AM ; [facility] Generalized anxiety disorder TELEHEALTH with MET BENITO INTERIANO MD 06/18/2022 Last Documented On 2 8:44AM ; [facility] Major depressive disorder TELEHEALTH with PEDRO INTERIANO MD 06/18/2022 Last Documented On 2 8:44AM ; [facility] Psychophysiological insomnia TELEHEALTH with MET BENITO INTERIANO MD 06/18/2022 Last Documented On 2 8:44AM ; [facility] Adult attention deficit hype ractivity disorder TELEHEALTH with ZAC INTERIANO MD 04/21/2022 Last Documented On 2 8:55AM ; [facility] Generalized anxiety disorder TELEHEALTH with MET BENITO INTERIANO MD 04/21/2022 Last Documented On 2 8:55AM ; [facility] Major depressive disorder TELEHEALTH with PEDRO INTERIANO MD 04/21/2022 Last Documented On 2 8:55AM ; [facility] Psychophysiological insomnia TELEHEALTH with MET BENITO INTERIANO MD 04/21/2022 Last Documented On 2 8:55AM ; [facility] Adult attention deficit hype ractivity disorder TELEHEALTH with ZAC INTERIANO MD 02/26/2022 Last Documented On 2 8:52AM ; [facility] Generalized anxiety disorder TELEHEALTH with MET BENITO INTERIANO MD 02/26/2022 Last Documented On 2 8:52AM ; [facility] Major depressive disorder TELEHEALTH with PEDRO INTERIANO MD 02/26/2022 Last Documented On 2 8:52AM ; [facility] Psychophysiological insomnia TELEHEALTH with MET BENITO INTERIANO MD 02/26/2022 Last Documented On 2 8:52AM ; [facility] Generalized anxiety disorder TELEHEALTH with MET BENITO INTERIANO MD 12/17/2021 Last Documented On 2 9:06AM ; [facility] Major depressive disorder TELEHEALTH with PEDRO INTERIANO MD 12/17/2021 Last Documented On 2 9:06AM ; [facility] Psychophysiological insomnia TELEHEALTH with MET BENITO INTERIANO MD 12/17/2021 Last Documented On 2 9:06AM ; [facility] Generalized anxiety disorder FOLLOW UP with PITER INTERIANO MD 08/25/2021 Last Documented On 1 11:01AM ; [facility] Major depressive disorder FOLLOW UP with ZAC INTERIANO MD 08/25/2021 Last Documented On 1 11:01AM ; [facility] Psychophysiological insomnia FOLLOW UP with PITER INTERIANO MD 08/25/2021 Last Documented On 1 11:01AM ; [facility] Generalized anxiety disorder FOLLOW UP with PITER INTERIANO MD 07/15/2021 Last Documented On 1 4:24PM ; [facility] Major depressive disorder FOLLOW UP with ZAC INTERIANO MD 07/15/2021 Last Documented On 1 4:24PM ; [facility] Psychophysiological insomnia FOLLOW UP with PITER INTERIANO MD 07/15/2021 Last Documented On 1 4:24PM ; [facility] Generalized anxiety disorder PSYCH NEW P ATIENT EXAM- ADULT with ZAC INTERIANO MD 05/29/2021 Last Documented On 1 7:48AM ; [facility] Major depressive disorder PSYCH NEW MARKY ENT EXAM- ADULT with ZAC INTERIANO MD 05/29/2021 Last Documented On 1 7:48AM ; [facility] Psychophysiological insomnia PSYCH NEW P ATIENT EXAM- ADULT with ZAC INTERIANO MD 05/29/2021 Last Documented On 1 7:48AM ; [facility] Instructions Includes: Instructions for all patient encounters Instructions to patient Lose weight -- portion contr ol Last Documented On 3 8:27AM ; [facility] Lose weight -- lost 10 lbs s rina last visit Last Documented On 3 4:27AM ; [facility] Lose weight - gained 5 lbs s rina last visit Last Documented On 2 11:32AM ; [facility] Lose weight - lost 10 lbs si nce last visit Last Documented On 2 8:42AM ; [facility] Lose weight - portion contro l, balanced diet Last Documented On 2 8:49AM ; [facility] Lose weight Last Documented On 2 4:18PM ; [facility] Lose weight Last Documented On 1 2:02PM ; [facility] Lose weight Last Documented On 1 5:27PM ; [facility] Education and Decision Aids were provided during visit for: Discussed calming techniques such as breathing exercises and other relaxation techniques Last Documented On 3 9:50AM ; [facility] Patient education about medi cation ---Education was given on medication(s) and diagnosis. I reviewed the risks, benefits and side effects of patient's medications Last Documented On 3 9:11AM ; [facility] Discussed calming techniques such as breathing exercises and other relaxation techniques Last Documented On 3 9:11AM ; [facility] Discussed good sleep hygiene habits Last Documented On 3 9:27AM ; [facility] Patient education about medi cation ---Education was given on medication(s) and diagnosis. I reviewed the risks, benefits and side effects of patient's medications Last Documented On 2 10:10AM ; [facility] Discussed calming techniques such as breathing exercises and other relaxation techniques Last Documented On 2 10:10AM ; [facility] Discussed good sleep hygiene habits Last Documented On 2 10:22AM ; [facility] Patient education about medi cation --- I educated patient on medication(s) and diagnosis. I reviewed the risks, benefits and side effects of patient's medications Last Documented On 2 4:43PM ; [facility] Discussed calming techniques such as breathing exercises and other relaxation techniques Last Documented On 2 4:43PM ; [facility] Counseling for nutrition/zeinab ght management provided Last Documented On 2 4:54PM ; [facility] Discussed good sleep hygiene habits Last Documented On 2 4:54PM ; [facility] Patient education about medi cation --- I educated patient on medication(s) and diagnosis. I reviewed the risks, benefits and side effects of patient's medications Last Documented On 2 3:53PM ; [facility] Discussed calming techniques such as breathing exercises and other relaxation techniques Last Documented On 2 3:53PM ; [facility] Counseling for nutrition/zeinab ght management provided Last Documented On 2 4:15PM ; [facility] Discussed good sleep hygiene habits Last Documented On 2 4:15PM ; [facility] Patient education about medi cation --- I educated patient on medication(s) and diagnosis. I reviewed the risks, benefits and side effects of patient's medications Last Documented On 2 4:03PM ; [facility] Discussed calming techniques such as breathing exercises and other relaxation techniques Last Documented On 2 4:03PM ; [facility] Patient education about medi cation --- I educated patient on medication(s) and diagnosis. I reviewed the risks, benefits and side effects of patient's medications Last Documented On 2 3:49PM ; [facility] Discussed calming techniques such as breathing exercises and other relaxation techniques Last Documented On 2 3:49PM ; [facility] Counseling for nutrition/zeinab ght management provided Last Documented On 2 4:18PM ; [facility] Discussed good sleep hygiene habits Last Documented On 2 4:18PM ; [facility] Patient education about medi cation --- I educated patient on medication(s) and diagnosis. I reviewed the risks, benefits and side effects of patient's medications Last Documented On 1 1:41PM ; [facility] Discussed calming techniques such as breathing exercises and other relaxation techniques Last Documented On 1 1:41PM ; [facility] Counseling for nutrition/zeinab ght management provided Last Documented On 1 2:02PM ; [facility] Discussed good sleep hygiene habits Last Documented On 1 2:02PM ; [facility] Patient education about medi cation --- I educated patient on medication(s) and diagnosis. I reviewed the risks, benefits and side effects of patient's medications Last Documented On 1 5:17PM ; [facility] Discussed calming techniques such as breathing exercises and other relaxation techniques Last Documented On 1 5:17PM ; [facility] Counseling for nutrition/zeinab ght management provided Last Documented On 1 5:27PM ; [facility] Discussed good sleep hygiene habits Last Documented On 1 5:27PM ; [facility] Patient education about [facility] cation --- I educated patient on medication(s) and diagnosis. I reviewed the risks, benefits and side effects of patient's medications Last Documented On 1 2:59PM ; [facility] Discussed calming techniques such as breathing exercises and other relaxation techniques Last Documented On 1 2:59PM ; [facility] Counseling for nutrition/zeinab ght management provided Last Documented On 1 7:43AM ; [facility] Discussed good sleep hygiene habits Last Documented On 1 3:27PM ; [facility] Medical Equipment - Implanted Devices Includes: Current and historical Devices No Medical Equipment Recorded Medications Includes: Current and historical Medications Current Medications (continue as prescribed) DULoxetine HCl 60 MG Oral Capsule Delayed Release Particles 03/22/2023 Provider: ZAC INTERIANO MD Diagnosis: Major depressive disorder, recurrent, moderate TAKE 1 CAPSULE BY MOUTH EVER Y DAY IN THE MORNING Last Documented On 03/22/2023 5:25AM By Marta Inteirano MD ; [facility] Aimovig 70 MG/ML Subcutaneous Solution Auto-injector 02/24/2023 Provider: ZAC INTERIANO MD Diagnosis: Migraine w/o aur a, not intractable, w/o status migrainosus as directed - inject 70 mg ( 1 ml) SQ once a month to upper thigh, please rotate sites Last Documented On 02/24/2023 8:48AM By Marta Interiano MD ; [facility] Aimovig 70 MG/ML Subcutaneou s Solution Auto-injector 02/24/2023 Provider: ZAC TEMPLETON MD Diagnosis: Chronic migraine w/o aura, not intractable, w/o stat migr as directed - inject 1 ml (7 0 mg) subcutaneously to upper thigh once a month, please rotate sites Last Documented On 02/24/2023 8:48AM By Marta Interiano MD ; [facility] traZODone HCl 50 MG Oral Tablet 02/22/2023 Provider: ZAC INTERIANO MD Diagnosis: Psychophysiologi c insomnia TAKE 4 TABLETS (200MG) AT BE DTIME NEEDED FOR SLEEP Last Documented On 02/22/2023 7:21AM By Marta Interiano MD ; [facility] Topiramate 50 MG Oral Tablet 02/02/2023 Provider: ZAC INTERIANO MD Diagnosis: Chronic migraine w/o aura, not intractable, w/o stat migr One tablet twice a day Last Documented On 02/02/2023 9:45AM By Marta Interiano MD ; [facility] Focalin 10 MG Oral Tablet 02/01/2023 Provider: ZAC INTERIANO MD Diagnosis: Attn-defct hyper activity disorder, predom inattentive type as directed -- 1 tab in am a nd 1 tab at noon Last Documented On 02/01/2023 4:41AM By Marta Interiano MD ; [facility] Gabapentin 300 MG Oral Capsule 01/26/2023 Provider: ZAC INTERIANO MD Diagnosis: Restless legs sy ndrome as directed -- 1 cap in even ing for restless legs Last Documented On 10:27AM By Marta Interiano MD ; [facility] Meclizine HCl 25 MG Oral Tablet 11/24/2022 Provider: Diagnosis: 1 TAB BID PRN Last Documented On 01/26/2023 9:26AM By DOMINGA COON ; [facility] DULoxetine HCl 30 MG Oral Capsule Delayed Release Particles 08/20/2022 Provider: ZAC INTERIANO MD Diagnosis: Generalized anxi ety disorder TAKE 1 CAPSULE BY MOUTH EVER Y DAY (TAKE WITH 60MG CAPSULE) Last Documented On 11:28AM By Marta Interiano MD ; [facility] Ondansetron HCl 4 MG Oral Tablet 03/26/2022 Provider : MOSHE GUTIERREZ [employer] INSPECTOR Diagnosis: as directed Last Documented On 04/21/2022 4:14PM By DOMINGA COON ; [facility] Senexon-S 8.6-50 MG Oral Tablet 02/04/2022 Provider: MOSHE GUTIERREZ [employer]OV[employer] ASSEMBLY FINAL INSPECTOR Diagnosis: 1 daily prn Last Documented On 02/26/2022 4:13PM By DOMINGA COON ; [facility] Metoclopramide HCl 10 MG Oral Tablet 01/27/2022 Prov ider: MOSHE GUTIERREZ [employer] ASSEM[employer] FINAL INSPECTOR Diagnosis: 1 ac tid Last Documented On 02/26/2022 4:14PM By DOMINGA COON ; [facility] Fluticasone Propionate 50 MCG/ACT Nasal Suspension 03/2022 Provider: Diagnosis: Last Documented On 12/17/2021 4:21PM By ALEXIS ELI ; [facility] Pantoprazole Sodium 40 MG Oral Tablet Delayed Release 11/23/2021 Provider: Diagnosis: 1 tab daily Last Documented On 12/17/2021 4:21PM By ALEXIS ELI ; [facility] Gabapentin 100 MG Oral Capsule 08/20/2021 Provider: Diagnosis: [address] Ember Santos Last Documented On 08/25/2021 2:01PM By DOMINGA COON ; [facility] Albuterol Sulfate 108 (90 Ba se) MCG/ACT Inhalation Aerosol Powder Breath Activated 05/29/2021 Provider: Diagnosis: 1-2 puffs q 4-6 hours prn Last Documented On 05/29/2021 3:25PM By DOMINGA COON ; [facility] Blank Allergy 180 MG Oral Tablet 05/29/2021 Provid er: Diagnosis: 1 tab daily otc Last Documented On 05/29/2021 3:24PM By DOMINGA COON ; [facility] Spironolactone 100 MG Oral Tablet 04/21/2021 Provide r: JASON BENITO APN Diagnosis: 1 tab daily Last Documented On 05/29/2021 3:20PM By DOMINGA COON ; [facility] Symbicort 160-4.5 MCG/ACT Inhalation Aerosol 1 Provider: CARLO JAQUEZ MD Diagnosis: 1 puff twice daily Last Documented On 05/29/2021 3:21PM By DOMINGA COON ; [facility] Spiriva HandiHaler 18 MCG Inhalation Capsule 0 Provider: Diagnosis: 1 inhalation daily Last Documented On 05/29/2021 3:22PM By DOMINGA COON ; [facility] Past Medications on file Aimovig 70 MG/ML Subcutaneous Solution Auto-injector 02/24/2023 - 02/23/2023 Provider: ZAC INTERIANO MD Diagnosis: Migraine w/o aur a, not intractable, w/o status migrainosus as directed - once a month SQ Last Documented On 02/24/2023 8:38AM By Marta Interiano MD ; [facility] Sunosi 150 MG Oral Tablet 02/24/2023 - 03/26/2023 Provider: ZAC BLACK MD Diagnosis: Obstructive slee p apnea (adult) (pediatric) 1 tablet every morning Last Documented On 02/24/2023 8:41AM By Marta Interiano MD ; [facility] traZODone HCl 50 MG Oral Tablet 01/22/2023 - 02/22/2023 Provider: ZAC INTERIANO MD Diagnosis: Psychophysiologi c insomnia as directed -- 4 tabs at bed time as needed for sleep Last Documented On 02/22/2023 7:16AM By Marta Interiano MD ; [facility] Focalin 10 MG Oral Tablet 11/26/2022 - 01/26/2023 Provider: ZAC INTERIANO MD Diagnosis: Attn-defct hyper activity disorder, predom inattentive type as directed -- 1 tab in am a nd 1 tab at noon Last Documented On 02/01/2023 4:30AM By Marta Interiano MD ; [facility] Focalin 10 MG Oral Tablet 09/03/2022 - 11/26/2022 Provider: ZAC INTERIANO MD Diagnosis: Attn-defct hyper activity disorder, predom inattentive type as directed -- 1 tab in am a nd 1 tab at noon Last Documented On 11/26/2022 3:40PM By Marta Interiano MD ; [facility] Topiramate 50 MG Oral Tablet 09/03/2022 - 02/02/2023 Provider: ZAC INTERIANO MD Diagnosis: Chronic migraine w/o aura, not intractable, w/o stat migr One tablet twice a day Last Documented On 02/02/2023 9:32AM By Marta Interiano MD ; [facility] Meclizine HCl 25 MG Oral Tablet 09/03/2022 - Provider: Diagnosis: 1 tab twice daily prn Dr. Ember Santos Last Documented On 09/03/2022 3:07PM By DOMINGA COON ; [facility] Cymbalta 60 MG Oral Capsule Delayed Release Particles 09/03/2022 - 03/22/2023 Provider: ZAC INTERIANO MD Diagnosis: Major depressive disorder, recurrent, moderate 1 Capsule every morning Last Documented On 03/22/2023 5:23AM By Marta Interiano MD ; [facility] Aimovig 70 MG/ML Subcutaneous Solution Auto-injector 07/24/2022 - 02/23/2023 Provider: ZAC INTERIANO MD Diagnosis: Chronic migraine w/o aura, not intractable, w/o stat migr as directed - inject 1 ml (7 0 mg) subcutaneously to upper thigh once a month, please rotate sites Last Documented On 02/24/2023 8:38AM By Marta Interiano MD ; [facility] busPIRone HCl 10 MG Oral Tablet 06/18/2022 - 09/23/2022 Provider: ZAC INTERIANO MD Diagnosis: Generalized anxi ety disorder One tablet twice a day Last Documented On 11:36AM By Marta Interiano MD ; [facility] Topiramate 50 MG Oral Tablet 06/18/2022 - 09/03/2022 Provider: ZAC INTERIANO MD Diagnosis: Chronic migraine w/o aura, not intractable, w/o stat migr One tablet twice a day Last Documented On 2 10:53AM By Marta Interiano MD ; [facility] Focalin 10 MG Oral Tablet 06/18/2022 - 07/18/2022 Provider: ZAC INTERIANO MD Diagnosis: Attn-defct hyper activity disorder, predom inattentive type as directed -- 1 tab in am, 1 tab at noon Last Documented On 06/18/2022 5:28PM By Marta Interiano MD ; [facility] traZODone HCl 50 MG Oral Tablet 06/03/2022 - 01/22/2023 Provider: ZAC INTERIANO MD Diagnosis: Psychophysiologi c insomnia as directed -- 4 tabs at bed time as needed for sleep Last Documented On 01/22/2023 9:01AM By Marta Interiano MD ; [facility] Cymbalta 30 MG Oral Capsule Delayed Release Particles 04/21/2022 - 08/20/2022 Provider: ZAC INTERIANO MD Diagnosis: Generalized anxi ety disorder 1 capsule daily Last Documented On 2 11:13AM By Marta Interiano MD ; [facility] Focalin 10 MG Oral Tablet 04/21/2022 - 05/21/2022 Provider: ZAC INTERIANO MD Diagnosis: Attn-defct hyper activity disorder, predom inattentive type as directed -- 1 tab in am Last Documented On 04/21/2022 4:54PM By Marta Interiano MD ; [facility] SUMAtriptan Succinate 100 MG Oral Tablet 03/26/2022 - 06/18/2022 Provider: ZAC INTERIANO MD Diagnosis: Chronic migraine w/o aura, not intractable, w/o stat migr TAKE 1/2 - 1 TABLET A DAY AT THE ONSET OF MIGRAINE HEADACHE Last Documented On 06/18/2022 5:08PM By Marta Interiano MD ; [facility] busPIRone HCl 10 MG Oral Tablet 02/26/2022 - 06/03/2022 Provider: ZAC INTERIANO MD Diagnosis: Generalized anxi ety disorder as directed -- 1 tab 2 x a day Last Documented On 06/03/2022 8:38AM By Marta Interiano MD ; [facility] SUMAtriptan Succinate 100 MG Oral Tablet 12/25/2021 - 03/26/2022 Provider: ZAC INTERIANO MD Diagnosis: Chronic migraine w/o aura, not intractable, w/o stat migr DIRECTED - 1/2 - 1 TAB A DAY AT THE ONSET OF MIGRAINE HEADACHE Last Documented On 2 10:06AM By Marta Interiano MD ; [facility] Cymbalta 60 MG Oral Capsule Delayed Release Particles 12/17/2021 - 09/03/2022 Provider: ZAC INTERIANO MD Diagnosis: Major depressive disorder, recurrent, moderate 1 Capsule every morning Last Documented On 2 10:51AM By Marta Interiano MD ; [facility] Topiramate 50 MG Oral Tablet 12/17/2021 - 06/18/2022 Provider: ZAC INTERIANO MD Diagnosis: Chronic migraine w/o aura, not intractable, w/o stat migr One tablet twice a day Last Documented On 06/18/2022 5:14PM By Marta Interiano MD ; [facility] traZODone HCl 50 MG Oral Tablet 12/17/2021 - 06/03/2022 Provider: ZAC INTERIANO MD Diagnosis: Psychophysiologi c insomnia as directed -- 4 tabs at bed time as needed for sleep Last Documented On 06/03/2022 9:13AM By Marta Interiano MD ; [facility] Topiramate 25 MG Oral Tablet 11/19/2021 - 03/19/2022 Provider: ZAC INTERIANO MD Diagnosis: Chronic migraine w/o aura, not intractable, w/o stat migr as directed -- 1 tab 2 x a day Last Documented On 03/19/2022 8:48AM By Marta Interiano MD ; [facility] SUMAtriptan Succinate 100 MG Oral Tablet 10/22/2021 - 12/25/2021 Provider: ZAC INTERIANO MD Diagnosis: Chronic migraine w/o aura, not intractable, w/o stat migr DIRECTED - 1/2 - 1 TAB A DAY AT THE ONSET OF MIGRAINE HEADACHE Last Documented On 12/25/2021 7:43AM By Marta Interiano MD ; [facility] traZODone HCl 50 MG Oral Tablet 08/25/2021 - 09/23/2022 Provider: ZAC INTERIANO MD Diagnosis: Psychophysiologi c insomnia as directed -3 tabs at bedti me as needed for sleep Last Documented On 11:36AM By Marta Interiano MD ; [facility] Cymbalta 30 MG Oral Capsule Delayed Release Particles 08/25/2021 - 03/19/2022 Provider: ZAC INTERIANO MD Diagnosis: Generalized anxi ety disorder 1 Capsule every morning Last Documented On 03/19/2022 8:48AM By Marta Interiano MD ; [facility] Meclizine HCl 25 MG Oral Tablet 08/20/2021 - Provider: Diagnosis: [address] Ember Santos Last Documented On 09/03/2022 3:07PM By DOMINGA COON ; [facility] Imitrex 100 MG Oral Tablet 07/15/2021 - 10/22/2021 Provider: ZAC BLACK MD Diagnosis: Chronic migraine w/o aura, not intractable, w/o stat migr as directed - 1/2 - 1 tab a day at the onset of migraine headache Last Documented On 10/22/2021 2:11PM By Marta Interiano MD ; [facility] traZODone HCl 50 MG Oral Tablet 07/15/2021 - 08/25/2021 Provider: ZAC INTERIANO MD Diagnosis: Psychophysiologi c insomnia as directed - 2 tabs at bedt rand as needed for sleep Last Documented On 08/25/2021 2:35PM By Marta Interiano MD ; [facility] Viibryd 40 MG Oral Tablet 07/15/2021 - 09/23/2022 Provider: ZAC BLACK MD Diagnosis: Major depressive disorder, recurrent, moderate as directed -- 1 tab in am with food Last Documented On 11:36AM By Marta Interiano MD ; [facility] Topiramate 25 MG Oral Tablet 07/15/2021 - 11/19/2021 Provider: ZAC INTERIANO MD Diagnosis: Chronic migraine w/o aura, not intractable, w/o stat migr as directed -- 1 tab 2 x a day Last Documented On 11/19/2021 8:56AM By Marta Interiano MD ; [facility] Viibryd Starter Pack 10 & 20 MG Oral Kit 05/29/2021 - 06/28/2021 Provider: ZAC INTERIANO MD Diagnosis: Major depressive disorder, recurrent, moderate as directed -- 10 mg in am w / food for 2 weeks then 20 mg 1 tab in am w/ food thereafter Last Documented On 05/29/2021 4:05PM By Marta Interiano MD ; [facility] traZODone HCl 50 MG Oral Tablet 05/29/2021 - 07/15/2021 Provider: ZAC INTERIANO MD Diagnosis: Psychophysiologi c insomnia as directed - 1 tab at bedti me as needed for sleep Last Documented On 07/15/2021 6:22PM By Marta Interiano MD ; [facility] Magnesium Oxide 250 MG Oral Tablet 05/29/2021 - Provider: Diagnosis: 1 tab daily otc Last Documented On 01/26/2023 9:20AM By DOMINGA COON ; [facility] Racheal 0.35 MG Oral Tablet 05/29/2021 - 07/15/2021 Pro vider: Diagnosis: 1 tab daily Last Documented On 07/15/2021 5:22PM By DOMINGA COON ; [facility] Citalopram Hydrobromide 20 M G Oral Tablet 05/05/2021 - 07/15/2021 Provider: CARLO JAQUEZ MD Diagnosis: 1 tab daily Last Documented On 07/15/2021 5:22PM By DOMINGA COON ; [facility] Medications Administered Includes: Administered Medications in patient's chart No Administered Medications Recorded Results Includes: Results from 01/15/2024 through 01/15/2025 No Results Recorded For Specified Dates History of Present Illness History of Present Illness not supported for this document type No History of Present Illness Recorded Social History Description Last Updated She was born in [place], [place] and raised outside of [facility]. She was taken in by a [...] grade level achieved is some college. 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 Her sexual orientation is pansexual or aromantic. She has no past or pending legal history. She enjoys reading, sewing, knitting and gardening. 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 02/01/2023 Last Documented On 3 4:31AM ; [facility] Non-smoker 09/03/2022 Last Documented On 2 4:23AM ; [facility] Daily coffee consumption - d rinks 1-2 cups of coffee a week, 1-2 cans of soda a week and 1-2 glasses of green tea with ginseng a week 06/18/2022 Last Documented On 2 8:44AM ; [facility] Not using alcohol - none, past history o f heavy drinking 08/25/2021 Last Documented On 1 11:01AM ; [facility] Work history 08/25/2021 Last Documented On 1 11:01AM ; [facility] No tobacco use 07/15/2021 Last Documented On 1 4:24PM ; [facility] Drug use - narcotics - 4 -7 pills daily from age [age] having stopped in 200505/29/2021 Last Documented On 1 7:48AM ; [facility] Alcohol 05/29/2021 Last Documented On 1 7:48AM ; [facility] Current nonsmoker 05/29/2021 Last Documented On 1 7:48AM ; [facility] Single 05/29/2021 Last Documented On 1 7:48AM ; [facility] Smoking Status Unknown Procedures and Surgical History Surgical History Last Updated History of hysterectomy - 08/05/21 022 Last Documented On 2 8:52AM ; [facility] History of abdominal surgery Left fallop jovany tube tumors removed-- 201806/16/2021 Last Documented On 1 7:48AM ; [facility] History of knee surgery - right knee rec onstruction 201405/29/2021 Last Documented On 1 7:48AM ; [facility] History of cholecystectomy - 2018 Last Documented On 1 7:48AM ; [facility] Medical History Includes: Medical History in patient's chart Description Last Updated History of gastroparesis - M etoclopromide and Stimulant Laxative -- from [facility] under Dr. Mooney 02/24/2023 Last Documented On 3 9:28AM ; [facility] Primary Care Provider: Dr. Iman Jaquez ~Dr. Yaniv Walker -- Operations Intern ~Dr. Oscar Flores -- [facility] ~Dr. Ember Santos -- Neurologist ~Revenue Agent at [facility] ~Moshe Gutierrez NP/Dr. Mooney -- Foundation Digger ~Track Maintainer at [facility] 02/24/2023 Last Documented On 3 9:28AM ; [facility] History of vertigo - takes Meclizine prn 01/26/2023 Last Documented On 3 4:31AM ; [facility] History of infection of tooth - given Am oxil 500 mg 07/27/22 09/03/2022 Last Documented On 2 4:23AM ; [facility] History of back strain - Deg enerative Disc Disease -- given Flexeril 10 mg and Ibuprofen 600 mg 07/20/22; with bulging discs -- given Prednisone 20 mg and Norflex 100 mg 04/24/22 09/03/2022 Last Documented On 2 4:23AM ; [facility] History of bronchitis - give n Cefdinir 300 mg and Albuterol HFA 90 mcg inhaler 09/03/2022 Last Documented On 2 4:23AM ; [facility] History of COVID-19 infection - tested p ositive/isolation 08/10/22-08/17/22 09/03/2022 Last Documented On 2 4:23AM ; [facility] History of migraine headache 06/19/2022 Last Documented On 2 8:44AM ; [facility] History of Nausea with vomiting - given Zofran 4 mg 03/26/22 04/21/2022 Last Documented On 2 8:55AM ; [facility] History of constipation - gi je[facility]erson Miralax 03/26/22; Senexon-S 8.6mg -50 mg -- started 02/04/22 04/21/2022 Last Documented On 2 8:55AM ; [facility] History of coronavirus 2019- nCoV vaccine - [employer] #1 03/10/21 #2 04/01/21 #3 02/202204/21/2022 Last Documented On 2 8:55AM ; [facility] History of an endoscopic / f iberoptic examination was performed - for Dysphagia -- 11/2021 -- normal per patient 02/26/2022 Last Documented On 2 8:52AM ; [facility] History of ovarian cyst - CT scan of abdomen/pelvis from 11/2021 showed a 5 cm mass/cyst on an ovary -- has ultrasound every 6-8 weeks to monitor 02/26/2022 Last Documented On 2 8:52AM ; [facility] History of colonoscopy - 11/2021 -- lisa l per patient 02/26/2022 Last Documented On 2 8:52AM ; [facility] of dysphagia - started Reglan 10 mg 01/05/22 02/26/2022 Last Documented On 2 8:52AM ; [facility] History of acute suppurative sinusitis - given Augmentin 875 mg 02/06/22 02/26/2022 Last Documented On 2 8:52AM ; [facility] History of sleep testing was performed - in 2019 by [facility] -- inconclusive 02/26/2022 Last Documented On 2 8:52AM ; [facility] History of GI bleed - via en doscopy - was hospitalized for 4 days -- 2019 -- should not be using anymore NSAIDS 12/17/2021 Last Documented On 2 9:06AM ; [facility] History of Polycystic Ovaria n Syndrome (PCOS) - age 23 - left fallopian tube removed in 2019 -- complete hysterectomy 08/05/21 -- given Hydrocodone 5/325 #25 -- still has ovaries 08/25/2021 Last Documented On 1 11:01AM ; [facility] History of hyperlipidemia 06/16/2021 Last Documented On 1 7:48AM ; [facility] History of endometriosis - age 23 2020 Last Documented On 1 7:48AM ; [facility] History of fatty liver - age 28 05/29/20 Last Documented On 1 7:48AM ; [facility] History of asthma - since childhood 11/2020 Last Documented On 1 7:48AM ; [facility] Family History Includes: Family History in patient's chart Description Last Updated Maternal history of alcoholism - Mother 06/16/2021 Last Documented On 1 7:48AM ; [facility] Maternal history of bipolar disorder NOS - Mother 06/16/2021 Last Documented On 1 7:48AM ; [facility] Paternal history of combined drug and al cohol abuse - Father 06/16/2021 Last Documented On 1 7:48AM ; [facility] Fraternal history of depression - Brothe r 06/16/2021 Last Documented On 1 7:48AM ; [facility] Paternal grandmother's history of depres edward 06/16/2021 Last Documented On 1 7:48AM ; [facility] Sororal history of depression and Anxiet y - Sister 06/16/2021 Last Documented On 1 7:48AM ; [facility] Paternal grandmother's history of lisy ia 05/29/2021 Last Documented On 7:48AM ; [facility] Review of Systems Review of Systems not [...] Active Last Documented On 01/27/2024 9:10AM ; [facility] Note: Imported from external source. TORADOL Allergy Hives / Urticaria 05/29/2021 A ctive Last Documented On 01/27/2024 9:10AM ; [facility] Note: Imported from external source. Pineapple Allergy 01/26/2023 Active Last Documented On 01/27/2024 9:10AM ; [facility] Note: Imported from external source. Latex Allergy Hives / Urticaria 05/29/2021 A ctive Last Documented On 01/27/2024 9:10AM ; [facility] Note: Imported from external source. Insurance Includes: Active Insurance Policies Plan Name Member ID Group # Subscriber Relationship Effect bea Dates 1 - [facility] [id number] TONY SOLANO Self Clinical Notes Includes: Signed Clinical Notes starting from 12/18/2022 No Clinical Notes Recorded
--- OUTSIDE RECORDS SUMMARY | 2025-01-15 13:10 | XMS_ITS ---
Care Plan - [facility] Created on: January 15, 2025 TONY SOLANO : 1990 Sex: Female Author Organization [facility] Address [address] [place] [address] Phone Care Team Providers Care Agriculture Internship Name Role Phone JAYDON BOSS, ZAC SABILLON Unavailable [phone]
--- OUTSIDE RECORDS SUMMARY | 2025-01-15 13:10 | XMS_ITS | Clinical Summary ---
Author Organization [facility] Address [address] [place] [address] Phone Care Team Providers Care Wellness Consultant Name Role Phone JAYDON BOSS, ZAC SABILLON Unavailable [phone] Reason for Visit and Chief Complaint The Chief Complaint is: follow up ADD, anxiety, depression and insomnia, The Chief Complaint is: Follow up for depression, anxiety, thoughts of self harm Problems Includes: Problems addressed during this encounter and other active Problems Current Visit Onset Date Resolved Date Provider Conditio n Status Migraine Headache 11/29/2022 Active Last Documented On 3 5:53PM ; [facility] Nonorganic Sleep Apnea Obstructive 11/29/2022 Active Last Documented On 3 5:53PM ; [facility] Restless Legs Syndrome 11/29/2022 Ac tive Last Documented On 3 5:53PM ; [facility] Adult Attention Deficit Hyperactivity Disorder 01/27/2022 Active Last Documented On 3 5:53PM ; [facility] Generalized Anxiety Disorder 05/29/2021 Active Last Documented On 3 5:53PM ; [facility] Psychophysiological Insomnia 05/29/2021 Active Last Documented On 3 5:53PM ; [facility] Major Depression 05/29/2021 Active Last Documented On 3 5:53PM ; [facility] Plan of Treatment Generalized Anxiety Disorder - Cymbalta to 90 mg a day for anxiety and mood (04/21/22) Major Depressive Disorder - Cymbalta to 90 mg a day (04/21/22) Attention Deficit Disorder - Vyvanse 30 mg in am Migraine Headaches - Topamax 50 mg 2 x a day, Aimovig 70 mg SQ once a month, Nurtec ODT 75 mg 1 tab a day as needed only at the onset of migraine headache Psychophysiological Insomnia - Trazodone 50 mg 4 tabs at bedtime as needed for sleep, encouraged good sleep hygiene habits - Last Documented On 08/12/2023 7:26AM ; [facility] Education and Decision Aids were provided during visit for: Calming techniques such as b reathing exercises/meditation and other relaxation techniques Last Documented On 7:19AM ; [facility] Assessments Includes: Assessments from this encounter Findings - Obstructive sleep apnea - Last Documented On 08/12/2023 7:26AM ; [facility] - Migraine headache - Last Documented On 08/12/2023 7:26AM ; [facility] - Restless legs syndrome - Last Documented On 08/12/2023 7:26AM ; [facility] - Major depressive disorder - Last Documented On 08/12/2023 7:26AM ; [facility] - Psychophysiological insomnia - Last Documented On 08/12/2023 7:26AM ; [facility] - Generalized anxiety disorder - Last Documented On 08/12/2023 7:26AM ; [facility] - Adult attention deficit hyperactivity disorder - Last Documented On 08/12/2023 7:26AM ; [facility] Instructions Includes: Instructions from this encounter Education and Decision Aids were provided during visit for: Calming techniques such as b reathing exercises/meditation and other relaxation techniques Last Documented On 7:19AM ; [facility] Medical Equipment - Implanted Devices Includes: Current Devices No Medical Equipment Recorded Medications Includes: Medications discussed during this encounter and other current Medications New / Renewed during this visit ZAC INTERIANO MD on 07/29/2023 Vyvanse 30 MG Oral Capsule Provider: ZAC INTERIANO MD 30 day supply: 30 capsule, 0 refills Diagnosis: Attn-defct hyperactivity disorder, predom inattentive type 1 Capsule every morning Pharmacy: [facility]) [address] [place] [address] [place], [id number] - Last Documented On 11/05/2023 3:10PM By Marta Interiano MD ; [facility] Gabapentin 300 MG Oral Capsule Provider: ZAC INTERIANO MD 90 day supply: 90 capsule, 1 refills Diagnosis: Restless legs syndrome as directed -- 1 cap in even ing for restless legs Pharmacy: [facility]) - [address] [facility], [id number] - Last Documented On 03/28/2024 10:27AM By ALEXIS ELI ; [facility] DULoxetine HCl 60 MG Oral Capsule Delayed Release Particles Provider: ZAC INTERIANO MD 90 day supply: 90 capsule, 1 refills Diagnosis: Major depressive disorder, recurrent, moderate TAKE 1 CAPSULE BY MOUTH EVER Y DAY IN THE MORNING [facility] - [address] [facility], [id number] - Last Documented On 03/28/2024 10:26AM By ALEXIS ELI ; [facility] DULoxetine HCl 30 MG Oral Capsule Delayed Release Particles Provider: ZAC INTERIANO MD 90 day supply: 90 capsule, 1 refills Diagnosis: Generalized anxiety disorder TAKE 1 CAPSULE BY MOUTH EVER Y DAY (TAKE WITH 60MG CAPSULE) [facility] - [address] [facility], [id number] - Last Documented On 03/28/2024 10:26AM By ALEXIS ELI ; [facility] traZODone HCl 50 MG Oral Tablet Provider: ZAC INTERIANO MD 30 day supply: 120 tablet, 0 refills Diagnosis: Psychophysiologic insomnia TAKE 4 TABLETS (200MG) AT BE DTIWV NEEDED FOR SLEEP [facility] - [address] [facility], [id number] - Last Documented On 01/27/2024 9:54AM By Marta Interiano MD ; [facility] Current Medications (continue as prescribed) Azstarys 52.3-10.4 MG Oral Capsule 03/28/2024 Provider: ZAC INTERIANO MD Diagnosis: Attn-defct hyper activity disorder, predom inattentive type as directed - 1 cap in am Last Documented On 03/28/2024 2:09PM By Marta Interiano MD ; [facility] traZODone HCl 50 MG Oral Tablet 02/29/2024 Provider: ZAC INTERIANO MD Diagnosis: Psychophysiologi c insomnia TAKE 3 TABLETS BY MOUTH AT B EDTIME NEEDED FOR SLEEP Last Documented On 02/29/2024 12:32PM By Marta Interiano MD ; [facility] rOPINIRole HCl 1 MG Oral Tablet 01/27/2024 Provider: ZAC INTERIANO MD Diagnosis: Restless legs sy ndrome as directed -1/2 tab in the evening for 1 week then 1 tab in the evening thereafter Last Documented On 01/27/2024 10:15AM By Marta Interiano MD ; [facility] Nurtec 75 MG Oral Tablet Disintegrating 01/27/2024 Provider: ZAC INTERIANO MD Diagnosis: Migraine w/o aur a, not intractable, w/o status migrainosus as directed - 1 tab a day as needed at the onset of migraine headaches Last Documented On 01/27/2024 9:42AM By Marta Interiano MD ; [facility] Aimovig 70 MG/ML Subcutaneous Solution Auto-injector 01/27/2024 Provider: ZAC INTERIANO MD Diagnosis: Migraine w/o aur a, not intractable, w/o status migrainosus as directed - inject 70 mg ( 1 ml) SQ once a month to upper thigh, please rotate sites Last Documented On 01/27/2024 9:42AM By Marta Interiano MD ; [facility] Vyvanse 30 MG Oral Capsule 12/13/2023 Provider: ZAC INTERIANO MD Diagnosis: Attn-defct hyper activity disorder, predom inattentive type 1 Capsule every morning Last Documented On 12/13/2023 1:47AM By Marta Interiano MD ; [facility] Topiramate 50 MG Oral Tablet 04/20/2023 Provider: ZAC INTERIANO MD Diagnosis: Chronic migraine w/o aura, not intractable, w/o stat migr One tablet twice a day Last Documented On 03/28/2024 10:29AM By ALEXIS ELI ; [facility] Meclizine HCl 25 MG OR TABS 11/24/2022 Provider: Diagnosis: 1 TAB BID PRN Last Documented On 03/27/2023 5:34PM By DOMINGA COON ; [facility] Ondansetron HCl 4 MG OR TABS 03/26/2022 Provider: Diagnosis: as directed Last Documented On 03/27/2023 5:34PM By DOMINGA COON ; [facility] Senexon-S 8.6-50 MG OR TABS 02/04/2022 Provider: Diagnosis: 1 daily prn Last Documented On 03/27/2023 5:34PM By DOMINGA COON ; [facility] Metoclopramide HCl 10 MG OR TABS 01/27/2022 Provider : Diagnosis: 1 ac tid Last Documented On 03/27/2023 5:34PM By DOMINGA COON ; [facility] Fluticasone Propionate 50 MCG/ACT NA SUSP 12/03/2021 Provider: Diagnosis: Last Documented On 03/27/2023 5:34PM By ALEXIS ELI ; [facility] Pantoprazole Sodium 40 MG OR TBEC 11/23/2021 Provide r: Diagnosis: 1 tab daily Last Documented On 03/27/2023 5:34PM By ALEXIS ELI ; [facility] Blank Allergy 180 MG OR TABS 05/29/2021 Provider: Diagnosis: 1 tab daily otc Last Documented On 03/27/2023 5:34PM By DOMINGA COON ; [facility] Albuterol Sulfate 108 (90 Base) MCG/ACT IN AEPB 2020 Provider: Diagnosis: 1-2 puffs q 4-6 hours prn Last Documented On 03/27/2023 5:34PM By DOMINGA COON ; [facility] Spironolactone 100 MG OR TABS 04/21/2021 Provider: Diagnosis: 1 tab daily Last Documented On 03/27/2023 5:34PM By DOMINGA COON ; [facility] Symbicort 160-4.5 MCG/ACT IN AERO 12/05/2020 Provide r: Diagnosis: 1 puff twice daily Last Documented On 03/27/2023 5:34PM By DOMINGA COON ; [facility] Spiriva HandiHaler 18 MCG IN CAPS 10/15/2020 Provide r: Diagnosis: 1 inhalation daily Last Documented On 03/27/2023 5:34PM By DOMINGA COON ; [facility] Past Medications on file Sunosi 150 MG OR TABS 02/24/2023 - 03/26/2023 Provider: ZAC BLACK MD Diagnosis: Obstructive slee p apnea (adult) (pediatric) 1 tablet every morning Last Documented On 03/27/2023 5:34PM By Marta Interiano MD ; [facility] Zoloft 100 MG OR TABS 05/06/2011 - 11/02/2011 Provider: YA SCHNEIDER D.O. Diagnosis: DEPRESSIVE DISOR EMMA NEC Last Documented On 05/06/2011 2:19PM By LEIGH FALCON MA ; [facility] Zoloft 100 MG OR TABS 02/25/2011 - 06/25/2011 Provider: YA SCHNEIDER D.O. Diagnosis: DEPRESSIVE DISOR EMMA NEC 1 1/2 pills qd x7d, then 2 pills qd Last Documented On 02/25/2011 6:16PM By YA SCHNEIDER DO ; [facility] Medications Administered Includes: Administered Medications from this encounter No Administered Medications Recorded Vital Signs Includes: Vital Signs from this encounter Vital Name 07/29/2023 10:11A Blood Pressure Sitting L 102/70 BP Cuff Size Regular Pulse Rate-Sitting (bpm) 70 Pulse Rhythm Regular Height (in) 66 Weight (lb) 228 Body Mass Index 36.8 Body Surface Area 2.1 Last Documented: On 07/29/2023 10:11A M ; [facility] Results Includes: Results discussed during this encounter No Results Recorded For Specified Dates History of Present Illness Includes: History of Present Illness from this encounter DEWEY SOLANO is a 33 year old female. - Allergy list reviewed - Past medical history reviewed - Medication list reviewed Pt has been feeling somewhat stressed and down lately due to some family/housing issues. Pt gets occ anxious. Pt denied having any mood swings but at times can get easily annoyed, irritable. Pt has been motivated in general in doing daily tasks. Sleep has been restless, at times has trouble falling asleep since she cannot shut off her brain. Pt has not been napping/sleeping too much during the day. Pt occ gets tired. Appetite is good. Pt has been feeling as bad about self. Pt is not able to focus and concentrate at times. Pt gets occ restless. Pt denied suicidal thoughts. Pt denied having any delusions/hallucinations. She said that for some reason her adopted sister/roommate kicked her out of her house. Her roommate instead allowed her brother and father to stay with her so Edilia was forced to find another place and ended up in an apt in [place]. She is still in the middle of unpacking and organizing. She thought that her roommate told her that they have religion differences and so she was kiccked out but that was never a problem before per Edilia. She is paying $200 more in rent. She is also busy with her job that she does not have time for errands and for herself. Overall she is trying to cope and the Duloxetine seemed to help with mood in general and that it is just situational that is why her mood got somewhat down. Gabapentin seemed to help with her RLA. Trazodone helps with sleep. Vyvanse seemed to help with her ADHD sx unless she is stressed out. Her migraine seemed to be less frequent with Aimovig. Pt was given samples of Nurtec ODT for prn migraine attacks. MENTAL STATUS EXAM: Sensorium - alert, oriented to name, place, and time Attitude - cooperative Gait - ambulatory Sleep - difficulty falling asleep at times Interest/Energy/Motivation - some days tired and not as motivated Guilt/Worthlessness - absent Concentration/Attention Span - able to focus and concentrate unless anxious/stressed Memory Recall - fairly good Appetite - good - on 04/20/23 pt weighed 230 lbs and on 07/29/23 she weighed 228 lbs so she lost 2 lbs Suicidal Thoughts - absent Homicidal Thoughts - absent Delusions - absent Hallucinations - absent Appearance - casually groomed Motor Behavior - calm Eye Contact - intermittent Speech - fluent Mood - somewhat down, stressed with the move Affect - at times anxious Thought Process - coherent Insight and [...] age 15-17 having stopped in 2005.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 Her sexual orientation is pansexual or aromantic. She has no past or pending legal history. She enjoys reading, sewing, knitting and gardening. Her religion background as a child was [employer]an and currently is [place]. 07/29/2023 Last Documented On 3 9:57AM ; [facility] Tobacco non-user 07/29/2023 Last Documented On 3 7:26AM ; [facility] Smoking Status Unknown Procedures and Surgical History Includes: Procedures from this encounter Procedures Code Diagnosis Performing Provider Service L ocation Service Date education and instructions Last Documented On 3 9:57AM ; [facility] supportive care and encourag ement--given positive reinforcement to keep patient motivated and active Last Documented On 3 10:14AM ; [facility] ~* Call [phone] and /or go t o the nearest emergency room or call me if suicidal/homicidal ideation or other serious concerns arise. ~ ~* I gave instructions to call me should there be any questions or concerns. ~ ~* Patient voiced understanding and agreed to treatment plan Last Documented On 3 10:09AM ; [facility] dangerousness assessment: no suicide risk 3085F Last Documented On 3 9:57AM ; [facility] use of tobacco assessment performed 1000F Last Documented On 3 9:57AM ; [facility] patient screened for future fall risk: documentation of any fall with injury in past year - no recent falls 1100F Last Documented On 3 9:57AM ; [facility] review of medications documented 1160F Last Documented On 3 9:57AM ; [facility] assessment of suicide risk performed - n ot suicidal Last Documented On 3 10:10AM ; [facility] screening for adult depressi on: impression and score - please see above treatment and PHQ score Last Documented On 3 9:57AM ; [facility] standardized depression screening: posit bea for symptoms Last Documented On 3 9:57AM ; [facility] encouragement to exercise - balanced nithya l plan, low fat low carb diet Last Documented On 3 10:09AM ; [facility] Counseling on new medication : I discussed the risks, benefits and side effects of Nurtec ODT . Patient verbalized understanding and agreed to treatment Last Documented On 3 7:19AM ; [facility] Clinical summary provided to patient Last Documented On 3 9:57AM ; [facility] PHQ-9: total score 11 Last Documented On 3 7:19AM ; [facility] Medical History Includes: Medical History addressed during this encounter Description Last Updated Primary Care Provider: Dr. Iman Walker -- [employer] A[employer] Dr. Oscar Flores -- ENT at [facility] Dr. Ember Santos -- Neurologist Local Hazmat Driver at [facility] Moshe Quintero NP/Dr. Mooney -- [employer] Sequestration Plant Operator [facility] / fiberoptic examination - for Dysphagia -- 11/2021 -- normal per patient. Sleep testing was performed - in 2019 by [facility] -- inconclusiveDiagnoses: Acute suppurative sinusitis - given Augmentin 875 [...] given Hydrocodone 5 #25 -- still has ovariesEndometriosis - age [...] 08/05/21 Knee surgery - right knee reconstruction 201407/29/2023 Last Documented On 3 9:57AM ; [facility] Family History Includes: Family History addressed during this encounter Description Last Updated Paternal: Combined drug and alcohol abuse - FatherMaternal: Alcoholism - Mother Bipolar disorder NOS - MotherPaternal grandmother's: Dementia DepressionFraternal: Depression - BrotherSororal: Depression and Anxiety - Sister 07/29/2023 Last Documented On 3 9:57AM ; [facility] Review of Systems Includes: Review of Systems from this encounter Systemic: Not feeling poorly (malaise). No fever, no chills, and no night sweats. Head: Headache. No sinus pain. Neck: No neck pain. Neck stiffness. Eyes: No vision problems. Itching of the eyes and eye pain. Otolaryngeal: No hearing loss, no earache, no nasal discharge, no hoarseness, and no sore throat. Cardiovascular: No chest pain or discomfort, no palpitations, and the heart rate was not fast. Pulmonary: No dyspnea. Cough. No wheezing. Gastrointestinal: No heartburn. No nausea, no vomiting, and no diarrhea. Constipation. Genitourinary: No increase in urinary frequency. No dysuria. Endocrine: No polydipsia, no excessive sweating, and libido has not changed. Musculoskeletal: No muscle aches and no localized joint pain. Stiffness localized to one [...] Active Last Documented On 01/27/2024 9:10AM ; [facility] Note: Imported from external source. TORADOL Allergy Hives / Urticaria 05/29/2021 A ctive Last Documented On 01/27/2024 9:10AM ; [facility] Note: Imported from external source. Pineapple Allergy 01/26/2023 Active Last Documented On 01/27/2024 9:10AM ; [facility] Note: Imported from external source. Latex Allergy Hives / Urticaria 05/29/2021 A ctive Last Documented On 01/27/2024 9:10AM ; [facility] Note: Imported from external source. Encounters Encounter Provider Location Date Check-In Time Check-Out Time Diagnosis PSYCH ADULT FOLLOW UP ZAC INTERIANO MD [facility] 07/29/20 23 9:55AM 10:59AM Migraine Headache,General ized Anxiety Disorder,Restles s Legs Syndrome,Nonorga gaye Sleep Apnea Obstructive,Psyc hophysiological Insomnia,Major Depression,Adult Attention Deficit Hyperactivity Disorder Insurance Includes: Active Insurance Policies Plan Name Member ID Group # Subscriber Relationship Effect bea Dates 1 - [facility] [id number] EDILIA SOLANO Self Clinical Notes Includes: Clinical Notes from this encounter * Progress note Date Encounter Last Documented by 07/29/2023 PSYCH ADULT FOLLOW UP Last docum ented on 08/12/2023; 7:26 AM, ZAC INTERIANO MD; [facility] Top of Document Medication psychotherapy 45 minutes Active Problems & Conditions - Adult Attention Deficit Hyperactivity Disorder - Generalized Anxiety Disorder - Major Depression - Migraine Headache - Nonorganic Sleep Apnea Obstructive - Psychophysiological Insomnia - Restless Legs Syndrome Chief Complaint The Chief Complaint is: Follow up for depression, anxiety, thoughts of self harmThe Chief Complaint is: Follow up ADD, anxiety, depression and insomnia. History of Present Illness EDILIA SOLANO is a 33 year old female. - Allergy list reviewed - Past medical history reviewed - Medication list reviewed Pt has been feeling somewhat stressed and down lately due to some family/housing issues. Pt gets occ anxious. Pt denied having any mood swings but at times can get easily annoyed, irritable. Pt has been motivated in general in doing daily tasks. Sleep has been restless, at times has trouble falling asleep since she cannot shut off her brain. Pt has not been napping/sleeping too much during the day. Pt occ gets tired. Appetite is good. Pt has been feeling as bad about self. Pt is not able to focus and concentrate at times. Pt gets occ restless. Pt denied suicidal thoughts. Pt denied having any delusions/hallucinations. She said that for some reason her adopted sister/roommate kicked her out of her house. Her roommate instead allowed her brother and father to stay with her so Edilia was forced to find another place and ended up in an apt in [place]. She is still in the middle of unpacking and organizing. She thought that her roommate told her that they have religion differences and so she was kiccked out but that was never a problem before per Edilia. She is paying $200 more in rent. She is also busy with her job that she does not have time for errands and for herself. Overall she is trying to cope and the Duloxetine seemed to help with mood in general and that it is just situational that is why her mood got somewhat down. Gabapentin seemed to help with her RLA. Trazodone helps with sleep. Vyvanse seemed to help with her ADHD sx unless she is stressed out. Her migraine seemed to be less frequent with Aimovig. Pt was given samples of Nurtec ODT for prn migraine attacks. MENTAL STATUS EXAM: Sensorium - alert, oriented to name, place, and time Attitude - cooperative Gait - ambulatory Sleep - difficulty falling asleep at times Interest/Energy/Motivation - some days tired and not as motivated Guilt/Worthlessness - absent Concentration/Attention Span - able to focus and concentrate unless anxious/stressed Memory Recall - fairly good Appetite - good - on 04/20/23 pt weighed 230 lbs and on 07/29/23 she weighed 228 lbs so she lost 2 lbs Suicidal Thoughts - absent Homicidal Thoughts - absent Delusions - absent Hallucinations - absent Appearance - casually groomed Motor Behavior - calm Eye Contact - intermittent Speech - fluent Mood - somewhat down, stressed with the move Affect - at times anxious Thought Process - coherent Insight and [...] days, 0 refills - Gabapentin 300 MG Capsule as directed as directed -- 1 cap in evening for restless legs, 30 days, 3 refills - Meclizine HCl 25 MG Tablet [...] twice daily, 30 days, 0 refills - Topiramate 50 MG Oral Tablet One tablet twice a day, 90 days, 1 refills - - No side effects reported Past Medical/Surgical History Primary Care Provider: Dr. Phu Walker -- [employer] A[employer] Dr. Oscar Flores -- ENT at [facility] Dr. Ember Santos -- Neurologist Local Hazmat Driver at [facility] Moshe Quintero NP/Dr. Mooney -- Carbon Sequestration Plant Operator Tapping Machine Operator Automatic [facility] Other: Endoscopic / fiberoptic examination - for Dysphagia -- 11/2021 -- normal per patient. Sleep testing was performed - in 2019 by [facility] -- inconclusive Diagnoses: Acute suppurative sinusitis - given Augmentin 875 [...] [age] having stopped in 2005. 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 She was born in [place], [place] and raised outside of [facility]. 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 Her sexual orientation is pansexual or aromantic. She has no past or pending legal history. She enjoys reading, sewing, knitting and gardening. Her religion background as a child was [employer] and [...] sweats. Head: Headache. No sinus pain. Neck: No neck pain. Neck stiffness. Eyes: No vision problems. Itching of the eyes and eye pain. Otolaryngeal: No hearing loss, no earache, no nasal discharge, no hoarseness, and no sore throat. Cardiovascular: No chest pain or discomfort, no palpitations, and the heart rate was not fast. Pulmonary: No dyspnea. Cough. No wheezing. Gastrointestinal: No heartburn. No nausea, no vomiting, and no diarrhea. Constipation. Genitourinary: No increase in urinary frequency. No dysuria. Endocrine: No polydipsia, no excessive sweating, and libido has not changed. Musculoskeletal: No muscle aches and no localized joint pain. Stiffness localized to one or more joints. Neurological: No dizziness, no vertigo, no fainting, and no motor disturbances. Skin: No pruritus. No skin lesions and no rash. Physical Findings - Vitals taken 07/29/2023 10:11 am BP-Sitting L 102/70 mmHg BP Cuff Size Regular Pulse Rate-Sitting 70 bpm Pulse Rhythm Regular Height 66 in Weight 228 lbs Body Mass Index 36.8 kg/m2 Body Surface Area 2.1 m2 Tests Educational Testing: Questionnaires PHQ-9: Value PHQ-9: total score 11 Assessment - Obstructive sleep apnea - Migraine headache - Restless legs syndrome - Major depressive disorder - Psychophysiological insomnia - Generalized anxiety disorder - Adult attention deficit hyperactivity disorder Therapy - Dangerousness assessment: no suicide risk. - Counseling on new medication: I discussed the risks, benefits and side effects of Nurtec ODT . Patient verbalized understanding and agreed to treatment. - Supportive care and encouragement--given positive reinforcement to keep patient motivated and active. - Encouragement to exercise - balanced meal plan, low fat low carb diet. - Education and instructions. - Assessment of suicide risk performed - not suicidal - Clinical summary provided to patient. * Call [phone] and /or go to the nearest emergency room or call me if suicidal/homicidal ideation or other serious concerns arise. * I gave instructions to call me should there be any questions or concerns. * Patient voiced understanding and agreed to treatment plan. Counseling/Education - Calming techniques such as breathing exercises/meditation and other relaxation techniques Plan StartCited - Attn-defct hyperactivity disorder, predom inattentive type Vyvanse 30 MG capsule 1 Capsule every morning, 30 days, 0 refills EndCited StartCited - Generalized anxiety disorder DULoxetine HCl 30 MG capsule TAKE 1 CAPSULE BY MOUTH EVERY DAY (TAKE WITH 60MG CAPSULE), 90 days, 1 refills EndCited StartCited - Major depressive disorder, recurrent, moderate DULoxetine HCl 60 MG capsule TAKE 1 CAPSULE BY MOUTH EVERY DAY IN THE MORNING, 90 days, 1 refills EndCited StartCited - Migraine w/o aura, not intractable, w/o status migrainosus Nurtec 75 MG tablet as directed - 1 tab a day as needed only at the onset of migraine headache, 30 days, 3 refills Nurtec 75 MG tablet as directed - 1 tab a day as needed at the onset of migraine headaches, 30 days, 0 refills EndCited StartCited - Other Follow-up 10/18/23 EndCited StartCited - Psychophysiologic insomnia traZODone HCl 50 MG tablet TAKE 4 TABLETS (200MG) AT BEDTIME NEEDED FOR SLEEP, 30 days, 0 refills EndCited StartCited - Restless legs syndrome Gabapentin 300 MG capsule as directed -- 1 cap in evening for restless legs, 90 days, 1 refills EndCited Generalized Anxiety Disorder - Cymbalta to 90 mg a day for anxiety and mood (04/21/22) Major Depressive Disorder - Cymbalta to 90 mg a day (04/21/22) Attention Deficit Disorder - Vyvanse 30 mg in am Migraine Headaches - Topamax 50 mg 2 x a day, Aimovig 70 mg SQ once a month, Nurtec ODT 75 mg 1 tab a day as needed only at the onset of migraine headache Psychophysiological Insomnia - Trazodone 50 mg 4 [...] - please see above treatment and PHQ score.
--- OUTSIDE RECORDS SUMMARY | 2025-01-15 13:10 | XMS_ITS | Continuity of Care Document ---
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 Phone Unavailable Unavailable Unavailable Allergies, Adverse Reactions, Alerts Substance Reaction Status Criticality latex Rash Active No Information tramadol Hives(moderate)Hives(moderate) Active No Information pineapple Anaphylaxis Active No Information Medications Medication Instructions Dosage Effective Dates (start - stop) Status Comments ProAir HFA 90 mcg/actuation aerosol inhaler inhale 1 - 2 puff by inhalation route every 4 hours as needed - Active spironolactone 25 mg tablet take 1 tablet by oral route every day 25 MG - Active citalopram 20 mg tablet take 1 tablet by oral route every day 20 MG - Active MULTI-SYMPTOM ALLERGY RELIEF (unknown strength) take 2 tablet by oral route every 4 hours as needed not to exceed 8 tablets per 24hrs Not Available - Active Aerospan 80 mcg/actuation HFA aerosol inhaler inhale 2 puff by inhalation route 2 times every day - Active norethindrone (contraceptive) 0.35 mg tablet take 1 tablet by oral route every day 1.00 tablet - Active Procedures Procedure Date OFFICE/OUTPATIENT VISIT, EST OFFICE/OUTPATIENT VISIT, EST OFFICE/OUTPATIENT VISIT, EST OFFICE/OUTPATIENT VISIT, EST OFFICE/OUTPATIENT VISIT, EST REMOVE IMPACTED EAR WAX OFFICE/OUTPATIENT VISIT, EST OFFICE/OUTPATIENT VISIT, EST REMOVE IMPACTED EAR WAX OFFICE/OUTPATIENT VISIT, NEW Advance Directives Directive Yes / No Effective Date File Name No Information Encounters Encounter Description Practice Location Reason(s) For Visit Diagnoses Date Provider Providers Copied on Encounter [facility], [address] [place] [address], [facility], tel:[phone] [place] No Information Jan-2 2 No Information OFFICE/OUTPA TIENT VISIT, [facility], [address] [place] [address], [facility], tel: [phone] [place] cough (chief complaint) sore throat (chief complaint) body aches/pain (chief complaint) BronchitisOthe r asthmaLaryngit is 0- 0 Fred Lakesha. [address] [place] [address], [facility], . tel:[phone] OFFICE/OUTPA TIENT VISIT, [facility], [address] [place] [address], [facility], tel: [phone] [place] TOOTH PAIN (chief complaint) Dental infectionPain, dental Reza- 2 9 Cecilio Delvalle. [address] [place] [address]. tel:[phone] OFFICE/OUTPA TIENT VISIT, [facility], [address] [place] [address], [facility], tel: [phone] [place] Sore throat (chief complaint) BronchitisAcut e non-recurrent frontal sinusitis Jan- 9 Fred Lakesha. [address] [place] [address], [facility], . tel:[phone] OFFICE/OUTPA TIENT VISIT, [facility], [address] [place] [address], [facility], tel: [phone] [place] CHEST COLD (chief complaint) Acute upper respiratory infection, unspecified Sep- 0-201 8 Bar Gulam. [address] [place] [address], [facility], . tel:[phone] OFFICE/OUTPA TIENT VISIT, [facility], [address] [place] [address], [facility], tel:[phone] [place] URI (chief complaint) Acute upper respiratory infection, unspecified 8 No Information OFFICE/OUTPA TIENT VISIT, [facility], [address] [place] [address], [facility], [phone] [place] DIZZY (chief complaint) Seasonal allergic rhinitis, unspecified triggerExcessi ve cerumen in both ear canalsLeft serous otitis media, unspecified chronicity 8 Fred Lakesha. [address] [place] [address], [facility], . [phone] OFFICE/OUTPA TIENT VISIT, [facility], [address] [place] [address], [facility], tel:[phone] Ad[place] Chills. (chief complaint) Vomiting (chief complaint) Acute non-recurrent frontal sinusitis 7 Kvng Ornelas. [address], [place], [facility] [place], . tel:[phone] OFFICE/OUTPA TIENT VISIT, [facility], [address] [place] [address], [facility], tel:[phone] Adal both ear pain (chief complaint) Cold symptoms (chief complaint) Impacted cerumen, bilateralOtiti s externaOtitis media, unspecified, left ear 7 Fred Lakesha. [address] [place] [address], [facility], . tel:[phone] Family History Family Member Type Diagnosis Age At Onset Brother Problem (finding) hypertension Mother Problem (finding) Mental illness Mother Problem (finding) Diabetes mellitus Mother Problem (finding) hypertension Brother Problem (finding) Mental illness Payers Payer name Insurance type Covered constitution party ID Authoriza tion(s) No Information Social History Type Description Quantity Date Captured Comments Sex Female Smoking Status No Information Chief Complaint And Reason For Visit No Information Reason For Referral Reason For Referral No Information Plan Of Treatment Date Type Action Status Goal Influenza vaccine. Due on due Goal Td vaccine. Due on 20 due Goal Pap/HPV testing. Due on due Goal Depression screening. Due on due Goal Tdap. Due on due Patient Education Laryngitis: After Your Visit completed Patient Education Bronchitis: After Your Visit completed History Of Present Illness Encounter Date Complaint History Of Prese nt Illness cough Onset: 1 week ag o. The patient describes the cough as hacking and non-productive. It occurs persistently. The problem has become gradually worse. Context: exposure to strep, known asthmatic and smoke exposure. Symptoms are aggravated by lying down. Relieving factors include OTC cough syrup, MUCINEX and THERA FLU. Associated symptoms include chills, cough, fatigue, hoarseness, nasal congestion and post-nasal drainage. The patient has a history of allergies and asthma. sore throat Onset: 4 Days. The severity of the problem is moderate. The problem has worsened. Symptoms are associated with exposure to strep. Symptoms are not associated with sick family member and smoker. Aggravating factors include cold air. Associated symptoms include cough, fatigue, nasal congestion and postnasal drainage. body aches/pain The symptoms beg an 1 week ago. BODY ACHES ASSOCIATED WITH COUGH AND SORE THROAT. TOOTH PAIN (comments) Tony sanabria presents with complaints of left upper mouth pain for the past 30 minutes. She states that she was eating a Bundt cake approximately 30 minutes ago and 1 of her left upper teeth broke off. She states that this is happened to her in the past with a different tooth. She has scheduled an appointment with a dentist at [facility] on 05/12/2019. She denies fever, chills, dysphagia. TOOTH PAIN The symptoms beg an 30 minutes ago. Pt states on the upper left side one of her teeth broke off while eating. Pt states it is painful. Pt states she thought it was infected. Pt goes to the dentist Wednesday. Sore throat (comments) Some dysp deirdre and wheezing with exertion but well controlled with her rescue inhaler. Sore throat Onset: 1 Week. T he severity of the problem is moderate. The problem has worsened. The symptoms are persistent. Symptoms are associated with history of allergies, history of asthma and recent cold. Aggravating factors include lying down. Associated symptoms include chills/rigors, cough, dyspnea, fatigue, fever, headache, myalgia, nasal congestion, postnasal drainage, sinus pressure and tooth pain. Pertinent negatives include facial pain, hemoptysis, otalgia or rash. Additional information: max temp 100 yesterday. CHEST COLD The symptoms beg an 2 weeks ago. Pt states she caught a cold two weeks ago and it is getting worse. Pt states she is coughing and he chest zimmerman. Pt states she is a little congested. Pt states she has been taking Mucinex. URI The symptoms beg an 1 week ago. The symptoms have worsened. The symptoms occur constantly. The patient presents with chills, cough, earache, fatigue, fever, generalized weakness, headache and pharyngitis. The symptoms are aggravated by exertion. Interventions that have been tried have not provided any relief. The illness is associated with dyspnea, hoarseness and lightheadedness. DIZZY PT COMPLAINS OF BEING DIZZY ALONG WITH BIALT EAR, JAW, AND NECK PAIN X 5 DAYS. PT DENIES FEVER Vomiting Chills. Patient complain s of a headache for about a week and today she has vomiting and diarrhia. She has been achy and nauseated for quite a while now Cold symptoms Onset: 2 weeks a go. Severity: mild-moderate. The patient describes the cough as non-productive. The problem has become gradually worse. There are no aggravating factors. There are no relieving factors. Associated symptoms include cough, fatigue, hoarseness, nasal congestion, post-nasal drainage, rhinitis, sinus pressure and sore throat. Pertinent negatives include chills, dyspnea, fever, pleuritic pain and wheezing. The patient does not have a history of allergies or asthma. both ear pain PT STATES THAT S HE HAS HAD SEVERE PAIN IN BILAT EARS X 2 WEEKS THAT SEEMS TO BE GETTING WORSE. PT STATES THAT SHE IS UNABLE TO BEND OVER DUE TO PAIN Functional Status Date Functional Assessmen t No Information Instructions Date Instruction Additional Infor dixon Tylenol or Ibuprofen for discomf ort. Related to Laryngitis Warm fluids, warm te a with honey may help, throat lozenges Related to Laryngitis Follow up with primary Related t o Other asthma Continue maintenance medications Related to Other asthma Increase fluids and rest Related to Bronchitis Continue over the co unter cough and cold medicine Related to Bronchitis Education given that antibiotics are not needed for viral infections Related to Bronchitis Warm salt water rins es. Antibiotics as prescribed. Related to Dental infection Follow-up with denti st as scheduled 05/12/2019. Related to Dental infection Finish all antibiotics as prescr ibed. Related to Acute non-recurrent frontal sinusitis Increase fluids, rest Related to Bronchitis Mucinex DM + Sudafed for sinus relief, mucous, and cough Related to Acute non-recurrent frontal sinusitis FINISH [employer]TIBIOTICS Related to Ac edy upper respiratory infection, unspecified Sinusitis/bronchitis . Empiric treatment, f.u in one to two weeks if not better. Discussed red flags and advised to f.u sooner. Related to Acute upper respiratory infection, unspecified Keep air filters in home changed regularly Related to Seasonal allergic rhinitis, unspecified trigger Do not sleep with windows open R elated to Seasonal allergic rhinitis, unspecified trigger restart your Zyrtec and FLonase Related to Left serous otitis media, unspecified chronicity Avoid triggers Related to Seaso nal allergic rhinitis, unspecified trigger do not drive if feeling dizzy Re lated to Left serous otitis media, unspecified chronicity change positions slowly Related to Left serous otitis media, unspecified chronicity Dramamine over the c ounter for vertigo if needed Related to Left serous otitis media, unspecified chronicity Rest,increase intake of clear fl uids. Related to Acute non-recurrent frontal sinusitis Observe for worsening s/s. Relat ed to Acute non-recurrent frontal sinusitis Take medication as directed Rela fatemeh to Acute non-recurrent frontal sinusitis Finish all antibiotics as prescr ibed. Related to Otitis media, unspecified, left ear Avoid q-tip use Related to Impac fatemeh cerumen, bilateral over the counter Allie brennen and gentle flushing once a month may prevent this Related to Impacted cerumen, bilateral Warm heating pad or rice pack may help with discomfort Related to Otitis externa Tylenol or Ibuprofen for discomf ort Related to Otitis externa Assessments Type Assessment Date No Information Patient Care Teams Name Effective Dates (start - stop) Status Members No Information
--- OUTSIDE RECORDS SUMMARY | 2025-01-15 13:10 | XMS_ITS | Clinical Summary ---
Author Organization [facility] Address [address] [place] [address] Phone Care Team Providers Care Outside Sales Account Executive Name Role Phone JAYDON BOSS, ZAC SABILLON Unavailable [phone] Reason for Visit and Chief Complaint The Chief Complaint is: follow up for depression, anxiety, thoughts of self harm Problems Includes: Problems addressed during this encounter and other active Problems Current Visit Onset Date Resolved Date Provider Conditio n Status Adult Attention Deficit Hyperactivity Disorder 01/27/2022 ZAC TEMPLETON MD Active Last Documented On 2 8:44AM ; [facility] Generalized Anxiety Disorder 05/29/2021 ZAC INTERIANO MD Active Last Documented On 1 3:14PM ; [facility] Psychophysiological Insomnia 05/29/2021 ZAC INTERIANO MD Active Last Documented On 1 3:14PM ; [facility] Major Depression 05/29/2021 ZAC INTERIANO MD Active Last Documented On 1 3:14PM ; [facility] Past Visits Onset Date Resolved Date Provider Condition Status Migraine Headache 11/29/2022 ZAC Valerio MD Active Last Documented On 3 8:31AM ; [facility] Nonorganic Sleep Apnea Obstructive 11/29/2022 Jason INTERIANO MD Active Last Documented On 3 8:31AM ; [facility] Restless Legs Syndrome 11/29/2022 ZAC KERN MD Active Last Documented On 3 8:31AM ; [facility] Plan of Treatment Generalized Anxiety Disorder - Cymbalta to 90 mg a day for anxiety and mood (04/21/22) Major Depressive Disorder - Cymbalta to 90 mg a day (04/21/22) Attention Deficit Disorder - Focalin 10 mg in am, 1 tab at noon Migraine Headaches - Topamax 50 mg 2 x a day, Aimovig 70 mg SQ once a month Psychophysiological Insomnia - Trazodone 50 mg 4 tabs at bedtime as needed for sleep, encouraged good sleep hygiene habits Restless Legs Syndrome - Gabapentin 300 mg in the evening - Last Documented On 02/01/2023 4:31AM ; [facility] Instructions to patient Lose weight -- lost 10 lbs s rina last visit Last Documented On 3 4:27AM ; [facility] Education and Decision Aids were provided during visit for: Patient education about medi cation ---Education was given on medication(s) and diagnosis. I reviewed the risks, benefits and side effects of patient's medications Last Documented On 3 9:11AM ; [facility] Discussed calming techniques such as breathing exercises and other relaxation techniques Last Documented On 3 9:11AM ; [facility] Discussed good sleep hygiene habits Last Documented On 3 9:27AM ; [facility] Assessments Includes: Assessments from this encounter Findings - Major depressive disorder - Last Documented On 02/01/2023 4:31AM ; [facility] - Psychophysiological insomnia - Last Documented On 02/01/2023 4:31AM ; [facility] - Generalized anxiety disorder - Last Documented On 02/01/2023 4:31AM ; [facility] - Adult attention deficit hyperactivity disorder - Last Documented On 02/01/2023 4:31AM ; [facility] Instructions Includes: Instructions from this encounter Instructions to patient Lose weight -- lost 10 lbs s rina last visit Last Documented On 3 4:27AM ; [facility] Education and Decision Aids were provided during visit for: Patient education about medi cation ---Education was given on medication(s) and diagnosis. I reviewed the risks, benefits and side effects of patient's medications Last Documented On 3 9:11AM ; [facility] Discussed calming techniques such as breathing exercises and other relaxation techniques Last Documented On 3 9:11AM ; [facility] Discussed good sleep hygiene habits Last Documented On 3 9:27AM ; [facility] Medical Equipment - Implanted Devices Includes: Current Devices No Medical Equipment Recorded Medications Includes: Medications discussed during this encounter and other current Medications Discontinued / Stopped on this date ZAC INTERIANO MD on 11/26/2022 Focalin 10 MG Oral Tablet Provider: ZAC INTERIANO MD Diagnosis: Attn-defct hyper activity disorder, predom inattentive type Last Documented On 02/01/2023 4:30AM By Marta Interiano MD ; [facility] Magnesium Oxide 250 MG Oral Tablet Pr ovider: Diagnosis: Last Documented On 01/26/2023 9:20AM By DOMINGA COON ; [facility] New / Renewed during this visit ZAC INTERIANO MD on 01/26/2023 Gabapentin 300 MG Oral Capsule Provider: ZAC INTERIANO MD 30 day supply: 30 capsule, 3 refills Diagnosis: Restless legs syndrome as directed -- 1 cap in even ing for restless legs Pharmacy: [facility], [address] Last Documented On 3 10:27AM By Marta Interiano MD ; [facility] Current Medications (continue as prescribed) DULoxetine HCl 60 MG Oral Capsule Delayed Release Particles 03/22/2023 Provider: ZAC INTERIANO MD Diagnosis: Major depressive disorder, recurrent, moderate TAKE 1 CAPSULE BY MOUTH EVER Y DAY IN THE MORNING Last Documented On 03/22/2023 5:25AM By Marta Interiano MD ; [facility] Aimovig 70 MG/ML Subcutaneous Solution Auto-injector 02/24/2023 Provider: ZAC INTERIANO MD Diagnosis: Migraine w/o aur a, not intractable, w/o status migrainosus as directed - inject 70 mg ( 1 ml) SQ once a month to upper thigh, please rotate sites Last Documented On 02/24/2023 8:48AM By Marta Interiano MD ; [facility] Aimovig 70 MG/ML Subcutaneou s Solution Auto-injector 02/24/2023 Provider: ZAC TEMPLETON MD Diagnosis: Chronic migraine w/o aura, not intractable, w/o stat migr as directed - inject 1 ml (7 0 mg) subcutaneously to upper thigh once a month, please rotate sites Last Documented On 02/24/2023 8:48AM By Marta Interiano MD ; [facility] traZODone HCl 50 MG Oral Tablet 02/22/2023 Provider: ZAC INTERIANO MD Diagnosis: Psychophysiologi c insomnia TAKE 4 TABLETS (200MG) AT BE DTIME NEEDED FOR SLEEP Last Documented On 02/22/2023 7:21AM By Marta Interiano MD ; [facility] Topiramate 50 MG Oral Tablet 02/02/2023 Provider: ZAC INTERIANO MD Diagnosis: Chronic migraine w/o aura, not intractable, w/o stat migr One tablet twice a day Last Documented On 02/02/2023 9:45AM By Marta Interiano MD ; [facility] Focalin 10 MG Oral Tablet 02/01/2023 Provider: ZAC INTERIANO MD Diagnosis: Attn-defct hyper activity disorder, predom inattentive type as directed -- 1 tab in am a nd 1 tab at noon Last Documented On 02/01/2023 4:41AM By Marta Interiano MD ; [facility] Meclizine HCl 25 MG Oral Tablet 11/24/2022 Provider: Diagnosis: 1 TAB BID PRN Last Documented On 01/26/2023 9:26AM By DOMINGA COON ; [facility] DULoxetine HCl 30 MG Oral Capsule Delayed Release Particles 08/20/2022 Provider: ZAC INTERIANO MD Diagnosis: Generalized anxi ety disorder TAKE 1 CAPSULE BY MOUTH EVER Y DAY (TAKE WITH 60MG CAPSULE) Last Documented On 11:28AM By Marta Interiano MD ; [facility] Ondansetron HCl 4 MG Oral Tablet 03/26/2022 Provider : MOSHE GUTIERREZ NP Diagnosis: as directed Last Documented On 04/21/2022 4:14PM By DOMINGA COON ; [facility] Senexon-S 8.6-50 MG Oral Tablet 02/04/2022 Provider: MOSHE GUTIERREZ NP Diagnosis: 1 daily prn Last Documented On 02/26/2022 4:13PM By DOMINGA COON ; [facility] Metoclopramide HCl 10 MG Oral Tablet 01/27/2022 Prov ider: MOSHE GUTIERREZ AIR DEODORIZER SERVICER Diagnosis: 1 ac tid Last Documented On 02/26/2022 4:14PM By DOMINGA COON ; [facility] Fluticasone Propionate 50 MCG/ACT Nasal Suspension 03/2022 Provider: Diagnosis: Last Documented On 12/17/2021 4:21PM By ALEXIS ELI ; [facility] Pantoprazole Sodium 40 MG Oral Tablet Delayed Release 11/23/2021 Provider: Diagnosis: 1 tab daily Last Documented On 12/17/2021 4:21PM By ALEXIS ELI ; [facility] Gabapentin 100 MG Oral Capsule 08/20/2021 Provider: Diagnosis: [address] Ember Santos Last Documented On 08/25/2021 2:01PM By DOMINGA COON ; [facility] Albuterol Sulfate 108 (90 Ba se) MCG/ACT Inhalation Aerosol Powder Breath Activated 05/29/2021 Provider: Diagnosis: 1-2 puffs q 4-6 hours prn Last Documented On 05/29/2021 3:25PM By DOMINGA COON ; [facility] Blank Allergy 180 MG Oral Tablet 05/29/2021 Provid er: Diagnosis: 1 tab daily otc Last Documented On 05/29/2021 3:24PM By DOMINGA COON ; [facility] Spironolactone 100 MG Oral Tablet 04/21/2021 Provide r: JASON BENITO APN Diagnosis: 1 tab daily Last Documented On 05/29/2021 3:20PM By DOMINGA COON ; [facility] Symbicort 160-4.5 MCG/ACT Inhalation Aerosol Provider: CARLO JAQUEZ MD Diagnosis: 1 puff twice daily Last Documented On 05/29/2021 3:21PM By DOMINGA COON ; [facility] Spiriva HandiHaler 18 MCG Inhalation Capsule 0 Provider: Diagnosis: 1 inhalation daily Last Documented On 05/29/2021 3:22PM By DOMINGA COON ; [facility] Past Medications on file Sunosi 150 MG Oral Tablet 02/24/2023 - 03/26/2023 Provider: ZAC BLACK MD Diagnosis: Obstructive slee p apnea (adult) (pediatric) 1 tablet every morning Last Documented On 02/24/2023 8:41AM By Marta Interiano MD ; [facility] Meclizine HCl 25 MG Oral Tablet 09/03/2022 - Provider: Diagnosis: 1 tab twice daily prn Dr. Ember Santos Last Documented On 09/03/2022 3:07PM By DOMINGA COON ; [facility] Focalin 10 MG Oral Tablet 06/18/2022 - 07/18/2022 Provider: ZAC INTERIANO MD Diagnosis: Attn-defct hyper activity disorder, predom inattentive type as directed -- 1 tab in am, 1 tab at noon Last Documented On 06/18/2022 5:28PM By Marta Interiano MD ; [facility] Focalin 10 MG Oral Tablet 04/21/2022 - 05/21/2022 Provider: ZAC INTERIANO MD Diagnosis: Attn-defct hyper activity disorder, predom inattentive type as directed -- 1 tab in am Last Documented On 04/21/2022 4:54PM By Marta Interiano MD ; [facility] Viibryd Starter Pack 10 & 20 MG Oral Kit 05/29/2021 - 06/28/2021 Provider: ZAC INTERIANO MD Diagnosis: Major depressive disorder, recurrent, moderate as directed -- 10 mg in am w / food for 2 weeks then 20 mg 1 tab in am w/ food thereafter Last Documented On 05/29/2021 4:05PM By Marta Interiano MD ; [facility] Medications Administered Includes: Administered Medications from this encounter No Administered Medications Recorded Vital Signs Includes: Vital Signs from this encounter Vital Name 01/26/2023 09:30A Blood Pressure Sitting L 111/73 BP Cuff Size Regular Pulse Rate-Sitting (bpm) 110 Pulse Rhythm Regular Height (in) 66 Weight (lb) 220 Body Mass Index 35.5 Body Surface Area 2.1 Note: self reported vitals Last Documented: On 01/26/2023 9:31AM ; [facility] Results Includes: Results discussed during this encounter No Results Recorded For Specified Dates History of Present Illness Includes: History of Present Illness from this encounter DEWEY SOLANO is a 32 year old female. - Allergy list reviewed - Past medical history reviewed - Medication list reviewed Pt has some days where she gets down and anxious due to some health issues. She is having some joint pains, occ shortness of breath. She has been having some ear problems as well as vertigo and was given Meclizine last 11/24/22. 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 She had to be up at 6:30 am - 8 am then works from 10 am to 6 pm -- 40 hours a week. Pt denied having any mood swings. At times pt can get irritable depending on her situation. 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 She gets home late but Bowen expects her to have a clean house when she gets home which is hard for her to do since she works long hours. She has occ headache but less migraine episodes since she has the AImovig and Topiramate. Pt has not been as motivated in general in doing daily tasks. Sleep has been difficult at times. Pt has not been napping/sleeping too much during the daytime. Pt occ gets tired. Appetite is good but at times may overeat. Pt at times feels bad about self. Since she has been out of Focalin, pt has not been able to focus and concentrate at times. She gets easily distracted, mind tends to wander, it has been harder to pay attention at times. She said that she really needs to get back on her Focalin which has been helping her. She also recently got back on her Cymbalta and Trazodone. Pt denied having any psychomotor restlessness. Pt denied suicidal thoughts. Pt denied having any delusions/hallucinations. I stressed the importance of compliance with her meds to prevent relapse. She uses Gabapentin 100 mg in evening for RLS but it does not seem to be enough so will titrate up. MENTAL STATUS EXAM: Sensorium - alert, oriented to name, place, and time Attitude - cooperative Gait - ambulatory Sleep - difficulty staying asleep at times and having bad dreams Interest/Energy/Motivation - not as motivated Guilt/Worthlessness - absent Concentration/Attention Span - at times hard to focus and concentrate Memory Recall - fairly good Appetite - good - on 09/03/22 pt weighed 230 lbs and on 01/26/23 she weighed 220 lbs so she lost 10 lbs Suicidal Thoughts - absent Homicidal Thoughts - absent Delusions - absent Hallucinations - absent Appearance - casually groomed Motor Behavior - calm, at times can get restless Eye Contact - intermittent Speech - fluent Mood - at times down and anxious Affect - occ worries about things Thought Process - coherent Insight and Judgment - intact Social History Description Last Updated She was born in [place], [place] and raised outside of [facility] [facility] [place]. 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 Her sexual orientation is pansexual or aromantic. She has no past or pending legal history. She enjoys reading, sewing, knitting and gardening. 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 Last Documented On 3 4:31AM ; [facility] Non-smoker 09/03/2022 Last Documented On 3 9:11AM ; [facility] Daily coffee consumption - d rinks 1-2 cups of coffee a week, 1-2 cans of soda a week and 1-2 glasses of green tea with ginseng a week 06/18/2022 Last Documented On 3 9:11AM ; [facility] Not using alcohol - none, past history o f heavy drinking 08/25/2021 Last Documented On 3 9:11AM ; [facility] Drug use - narcotics - 4 -7 pills daily from age [age] having stopped in 200505/29/2021 Last Documented On 3 9:11AM ; [facility] Single 05/29/2021 Last Documented On 3 9:11AM ; [facility] Smoking Status Unknown Procedures and Surgical History Includes: Procedures from this encounter Procedures Code Diagnosis Performing Provider Service L ocation Service Date education and instructions Last Documented On 3 9:11AM ; [facility] dangerousness assessment: suicide risk -not suic idal 3085F Last Documented On 3 9:11AM ; [facility] use of tobacco assessment performed 1000F Last Documented On 3 9:11AM ; [facility] patient screened for future fall risk - no recen t falls 3288F Last Documented On 3 9:11AM ; [facility] review of medications documented 1160F Last Documented On 3 9:11AM ; [facility] screening for adult depressi on: impression and score - please see above treatment and PHQ score Last Documented On 3 9:11AM ; [facility] standardized depression screening: posit bea for symptoms Last Documented On 3 9:11AM ; [facility] encouragement to exercise Last Documented On 3 9:11AM ; [facility] Clinical summary provided to patient Last Documented On 3 9:11AM ; [facility] PHQ-9: total score 11 Last Documented On 3 4:26AM ; [facility] Surgical History Last Updated History of hysterectomy - 08/05/21 022 Last Documented On 3 9:11AM ; [facility] History of abdominal surgery Left fallop jovany tube tumors removed-- 201806/16/2021 Last Documented On 3 9:11AM ; [facility] History of knee surgery - right knee rec onstruction 201405/29/2021 Last Documented On 3 9:11AM ; [facility] History of cholecystectomy - 2018 Last Documented On 3 9:11AM ; [facility] Medical History Includes: Medical History addressed during this encounter Description Last Updated History of gastroparesis 02/24/2023 Last Documented On 3 9:11AM ; [facility] Primary Care Provider: Dr. Iman Jaquez ~Dr. Yaniv Walker -- Airplane Pilot Photogrammetry ~ENT -- [facility] ~Dr. Ember Santos -- Neurologist ~Precision Machinist at [facility] ~Moshe Gutierrez NP -- Band Sawmill Operator ~Transition Mgr Rn at [facility] 02/24/2023 Last Documented On 3 9:11AM ; [facility] History of vertigo - takes Meclizine prn 01/26/2023 Last Documented On 3 4:31AM ; [facility] History of infection of tooth - given Am oxil 500 mg 07/27/22 09/03/2022 Last Documented On 3 9:11AM ; [facility] History of back strain - Deg enerative Disc Disease -- given Flexeril 10 mg and Ibuprofen 600 mg 07/20/22; with bulging discs -- given Prednisone 20 mg and Norflex 100 mg 04/24/22 09/03/2022 Last Documented On 3 9:11AM ; [facility] History of bronchitis - give n Cefdinir 300 mg and Albuterol HFA 90 mcg inhaler 09/03/2022 Last Documented On 3 9:11AM ; [facility] History of COVID-19 infection - tested p ositive/isolation 08/10/22-08/17/22 09/03/2022 Last Documented On 3 9:11AM ; [facility] History of migraine headache 06/19/2022 Last Documented On 3 9:11AM ; [facility] History of Nausea with vomiting - given Zofran 4 mg 03/26/22 04/21/2022 Last Documented On 3 9:11AM ; [facility] History of constipation - gi jefferson Miralax 03/26/22; Senexon-S 8.6mg -50 mg -- started 02/04/22 04/21/2022 Last Documented On 3 9:11AM ; [facility] History of coronavirus 2019- nCoV vaccine - Pfizer #1 03/10/21 #2 04/01/21 #3 02/202204/21/2022 Last Documented On 3 9:11AM ; [facility] History of an endoscopic / f iberoptic examination was performed - for Dysphagia -- 11/2021 -- normal per patient 02/26/2022 Last Documented On 3 9:11AM ; [facility] History of ovarian cyst - CT scan of abdomen/pelvis from 11/2021 showed a 5 cm mass/cyst on an ovary -- has ultrasound every 6-8 weeks to monitor 02/26/2022 Last Documented On 3 9:11AM ; [facility] History of colonoscopy - 11/2021 -- lisa l per patient 02/26/2022 Last Documented On 3 9:11AM ; [facility] History of dysphagia - started Reglan 10 mg 01/05/22 02/26/2022 Last Documented On 3 9:11AM ; [facility] History of acute suppurative sinusitis - given Augmentin 875 mg 02/06/22 02/26/2022 Last Documented On 3 9:11AM ; [facility] History of sleep testing was performed - in 2019 by [facility] -- inconclusive 02/26/2022 Last Documented On 3 9:11AM ; [facility] History of GI bleed - via en doscopy - was hospitalized for 4 days -- 2019 -- should not be using anymore NSAIDS 12/17/2021 Last Documented On 3 9:11AM ; [facility] History of Polycystic Ovaria n Syndrome (PCOS) - age 23 - left fallopian tube removed in 2019 -- complete hysterectomy 08/05/21 -- given Hydrocodone 5/325 #25 -- still has ovaries 08/25/2021 Last Documented On 3 9:11AM ; [facility] History of hyperlipidemia 06/16/2021 Last Documented On 3 9:11AM ; [facility] History of endometriosis - age 23 2020 Last Documented On 3 9:11AM ; [facility] History of fatty liver - age 28 05/29/20 Last Documented On 3 9:11AM ; [facility] History of asthma - since childhood 11/2020 Last Documented On 3 9:11AM ; [facility] Family History Includes: Family History addressed during this encounter Description Last Updated Maternal history of alcoholism - Mother 06/16/2021 Last Documented On 3 9:11AM ; [facility] Maternal history of bipolar disorder NOS - Mother 06/16/2021 Last Documented On 3 9:11AM ; [facility] Paternal history of combined drug and al cohol abuse - Father 06/16/2021 Last Documented On 3 9:11AM ; [facility] Fraternal history of depression - Brothe r 06/16/2021 Last Documented On 3 9:11AM ; [facility] Paternal grandmother's history of depres edward 06/16/2021 Last Documented On 3 9:11AM ; [facility] S Sororal history of depression and Anxiet y - Sister 06/16/2021 Last Documented On 3 9:11AM ; [facility] Paternal grandmother's history of lisy ia 05/29/2021 Last Documented On 3 9:11AM ; [facility] Review of Systems Includes: Review of Systems from this encounter Systemic: Feeling poorly (malaise) - occasionally tired. No fever, no chills, and no night sweats. Head: Headache. Neck: Neck pain and neck stiffness. Eyes: No vision problems. Itching of the eyes. No eye pain. Otolaryngeal: No hearing loss and no earache. Nasal discharge. No hoarseness and no sore throat. Cardiovascular: No chest pain or discomfort, no palpitations, and the heart rate was not fast. Pulmonary: Dyspnea. No cough and no wheezing. Gastrointestinal: No heartburn. No nausea, no vomiting, no diarrhea, and no constipation. Genitourinary: No increase in urinary frequency. No dysuria. Endocrine: No excessive sweating. Musculoskeletal: No muscle aches. Pain [...] Active Last Documented On 01/27/2024 9:10AM ; [facility] Note: Imported from external source. TORADOL Allergy Hives / Urticaria 05/29/2021 A ctive Last Documented On 01/27/2024 9:10AM ; [facility] Note: Imported from external source. Pineapple Allergy 01/26/2023 Active Last Documented On 01/27/2024 9:10AM ; [facility] Note: Imported from external source. Latex Allergy Hives / Urticaria 05/29/2021 A ctive Last Documented On 01/27/2024 9:10AM ; [facility] Note: Imported from external source. Encounters Encounter Provider Location Date Check-In Time Check-Out Time Diagnosis TELEHEALTH ZAC INTERIANO MD [facility] 01/26/20 9:11AM 11:59PM Generalized Anxiety Disorder,Psychoph ysiological Insomnia,Major Depression,Adult Attention Deficit Hyperactivity Disorder Insurance Includes: Active Insurance Policies Plan Name Member ID Group # Subscriber Relationship Effect bea Dates 1 - [facility] [id number] TONY SOLANO Self Clinical Notes Includes: Clinical Notes from this encounter No Clinical Notes Recorded
--- OUTSIDE RECORDS SUMMARY | 2025-01-15 13:10 | XMS_ITS | Clinical Summary ---
Author Organization [facility] Address [address] [place] [address] Phone Care Team Providers Care Print Machine Operator Name Role Phone JAYDON BOSS, ZAC SABILLON Unavailable [phone] Reason for Visit and Chief Complaint The Chief Complaint is: follow up for depression, anxiety, thoughts of self harm Problems Includes: Problems addressed during this encounter and other active Problems Current Visit Onset Date Resolved Date Provider Conditio n Status Migraine Headache 11/29/2022 ZAC Valerio MD Active Last Documented On 3 8:31AM ; [facility] Nonorganic Sleep Apnea Obstructive 11/29/2022 Jason INTERIANO MD Active Last Documented On 3 8:31AM ; [facility] Restless Legs Syndrome 11/29/2022 ZAC KERN MD Active Last Documented On 3 8:31AM ; [facility] Adult Attention Deficit Hype ractivity Disorder 01/27/2022 ZAC INTERIANO MD Active Last Documented On 2 8:44AM ; [facility] Generalized Anxiety Disorder 05/29/2021 ZAC INTERIANO MD Active Last Documented On 1 3:14PM ; [facility] Psychophysiological Insomnia 05/29/2021 ZAC INTERIANO MD Active Last Documented On 1 3:14PM ; [facility] Major Depression 05/29/2021 ZAC INTERIANO MD Active Last Documented On 1 3:14PM ; [facility] Plan of Treatment - Referred to: [facility] Sleep Specialist -- Home Sleep Study to r/o EFRA -- 02/23/23 - Last Documented On 02/24/2023 9:28AM ; [facility] - Transition in care, clinical summary provided - Last Documented On 02/24/2023 9:28AM ; [facility] - Clinical summary transmitted to referring provider electronically with reasonable certainty of receipt - Last Documented On 02/24/2023 9:28AM ; [facility] Generalized Anxiety Disorder - Cymbalta to 90 mg a day for anxiety and mood (04/21/22) Major Depressive Disorder - Cymbalta to 90 mg a day (04/21/22) Attention Deficit Disorder - Focalin 10 mg in am, 1 tab at noon, plan to start Azstarys once she finds her insurance card Migraine Headaches - Topamax 50 mg 2 x a day, Aimovig 70 mg SQ once a month (3 months samples 01/2023) Sumatriptan 100 mg 1 tab a day as needed at the onset of migraine Psychophysiological Insomnia - Trazodone 50 mg 4 tabs at bedtime as needed for sleep, encouraged good sleep hygiene habits EFRA - Home Sleep Study through [facility] - ordered 02/23/23 Restless Legs Syndrome - Gabapentin 300 mg in the evening - Last Documented On 02/24/2023 9:28AM ; [facility] Referrals To Diagnosis Sleep Study at [facility] ADRIAN RHODES MD - ALT ON [facility] - [address] [place] [id number] - Obstructive sleep apnea (adult) (pediatric) Note: Refer to sleep special ist Dr. Rhodes Last Documented On 3 9:44AM ; [facility] Instructions to patient Lose weight -- portion contr ol Last Documented On 3 8:27AM ; [facility] Education and Decision Aids were provided during visit for: Discussed calming techniques such as breathing exercises and other relaxation techniques Last Documented On 3 9:50AM ; [facility] Assessments Includes: Assessments from this encounter Findings - Obstructive sleep apnea - Last Documented On 02/24/2023 9:28AM ; [facility] - Migraine headache - Last Documented On 02/24/2023 9:28AM ; [facility] - Restless legs syndrome - Last Documented On 02/24/2023 9:28AM ; [facility] - Major depressive disorder - Last Documented On 02/24/2023 9:28AM ; [facility] - Psychophysiological insomnia - Last Documented On 02/24/2023 9:28AM ; [facility] - Generalized anxiety disorder - Last Documented On 02/24/2023 9:28AM ; [facility] - Adult attention deficit hyperactivity disorder - Last Documented On 02/24/2023 9:28AM ; [facility] Instructions Includes: Instructions from this encounter Instructions to patient Lose weight -- portion contr ol Last Documented On 8:27AM ; [facility] Education and Decision Aids were provided during visit for: Discussed calming techniques such as breathing exercises and other relaxation techniques Last Documented On 9:50AM ; [facility] Medical Equipment - Implanted Devices Includes: Current [...] 03/22/2023 5:25AM By Marta Interiano MD ; [facility] Aimovig 70 MG/ML Subcutaneous Solution Auto-injector 02/24/2023 Provider: ZAC INTERIANO MD Diagnosis: Migraine w/o aur a, not intractable, w/o status migrainosus as directed - inject 70 mg ( 1 ml) SQ once a month to upper thigh, please rotate sites Last Documented On 02/24/2023 8:48AM By Marta Interiano MD ; [facility] Aimovig 70 MG/ML Subcutaneou s Solution Auto-injector 02/24/2023 Provider: ZAC TEMPLETON MD Diagnosis: Chronic migraine w/o aura, not intractable, w/o stat migr as directed - inject 1 ml (7 0 mg) subcutaneously to upper thigh once a month, please rotate sites Last Documented On 02/24/2023 8:48AM By Marta Interiano MD ; [facility] traZODone HCl 50 MG Oral Tablet 02/22/2023 Provider: ZAC INTERIANO MD Diagnosis: Psychophysiologi c insomnia TAKE 4 TABLETS (200MG) AT BE DTIME NEEDED FOR SLEEP Last Documented On 02/22/2023 7:21AM By Marta Interiano MD ; [facility] Topiramate 50 MG Oral Tablet 02/02/2023 Provider: ZAC INTERIANO MD Diagnosis: Chronic migraine w/o aura, not intractable, w/o stat migr One tablet twice a day Last Documented On 02/02/2023 9:45AM By Marta Interiano MD ; [facility] Focalin 10 MG Oral Tablet 02/01/2023 Provider: ZAC INTERIANO MD Diagnosis: Attn-defct hyper activity disorder, predom inattentive type as directed -- 1 tab in am a nd 1 tab at noon Last Documented On 02/01/2023 4:41AM By Marta Interiano MD ; [facility] Gabapentin 300 MG Oral Capsule 01/26/2023 Provider: ZAC INTERIANO MD Diagnosis: Restless legs sy ndrome as directed -- 1 cap in even ing for restless legs Last Documented On 10:27AM By Marta Interiano MD ; [facility] Meclizine HCl 25 MG Oral Tablet 11/24/2022 Provider: Diagnosis: 1 TAB BID PRN Last Documented On 01/26/2023 9:26AM By DOMINGA COON ; [facility] DULoxetine HCl 30 MG Oral Capsule Delayed Release Particles 08/20/2022 Provider: ZAC INTERIANO MD Diagnosis: Generalized anxi ety disorder TAKE 1 CAPSULE BY MOUTH EVER Y DAY (TAKE WITH 60MG CAPSULE) Last Documented On 11:28AM By Marta Interiano MD ; [facility] Ondansetron HCl 4 MG Oral Tablet 03/26/2022 Provider : MOSHE GUTIERREZ NP Diagnosis: as directed Last Documented On 04/21/2022 4:14PM By DOMINGA COON ; [facility] Senexon-S 8.6-50 MG Oral Tablet 02/04/2022 Provider: MOSHE GUTIERREZ TOOL DISTRIBUTOR Diagnosis: 1 daily prn Last Documented On 02/26/2022 4:13PM By DOMINGA COON ; [facility] Metoclopramide HCl 10 MG Oral Tablet 01/27/2022 Prov ider: MOSHE GUTIERREZ TOOL DISTRIBUTOR Diagnosis: 1 ac tid Last Documented On 02/26/2022 4:14PM By DOMINGA COON ; [facility] Fluticasone Propionate 50 MCG/ACT Nasal Suspension 03/2022 Provider: Diagnosis: Last Documented On 12/17/2021 4:21PM By ALEXIS ELI ; [facility] Pantoprazole Sodium 40 MG Oral Tablet Delayed Release 11/23/2021 Provider: Diagnosis: 1 tab daily Last Documented On 12/17/2021 4:21PM By ALEXIS ELI ; [facility] Gabapentin 100 MG Oral Capsule 08/20/2021 Provider: Diagnosis: [address] Ember Santos Last Documented On 08/25/2021 2:01PM By DOMINGA COON ; [facility] Albuterol Sulfate 108 (90 Ba se) MCG/ACT Inhalation Aerosol Powder Breath Activated 05/29/2021 Provider: Diagnosis: 1-2 puffs q 4-6 hours prn Last Documented On 05/29/2021 3:25PM By DOMINGA COON ; [facility] Blank Allergy 180 MG Oral Tablet 05/29/2021 Provid er: Diagnosis: 1 tab daily otc Last Documented On 05/29/2021 3:24PM By DOMINGA COON ; [facility] Spironolactone 100 MG Oral Tablet 04/21/2021 Provide r: JASON BENITO APN Diagnosis: 1 tab daily Last Documented On 05/29/2021 3:20PM By DOMINGA COON ; [facility] Symbicort 160-4.5 MCG/ACT Inhalation Aerosol Provider: CARLO JAQUEZ MD Diagnosis: 1 puff twice daily Last Documented On 05/29/2021 3:21PM By DOMINGA COON ; [facility] Spiriva HandiHaler 18 MCG Inhalation Capsule 0 Provider: Diagnosis: 1 inhalation daily Last Documented On 05/29/2021 3:22PM By DOMINGA COON ; [facility] Past Medications on file Sunosi 150 MG Oral Tablet 02/24/2023 - 03/26/2023 Provider: ZAC BLACK MD Diagnosis: Obstructive slee p apnea (adult) (pediatric) 1 tablet every morning Last Documented On 02/24/2023 8:41AM By Marta Interiano MD ; [facility] Meclizine HCl 25 MG Oral Tablet 09/03/2022 - Provider: Diagnosis: 1 tab twice daily prn Dr. Ember Santos Last Documented On 09/03/2022 3:07PM By DOMINGA COON ; [facility] Focalin 10 MG Oral Tablet 06/18/2022 - 07/18/2022 Provider: ZAC INTERIANO MD Diagnosis: Attn-defct hyper activity disorder, predom inattentive type as directed -- 1 tab in am, 1 tab at noon Last Documented On 06/18/2022 5:28PM By Marta Interiano MD ; [facility] Focalin 10 MG Oral Tablet 04/21/2022 - 05/21/2022 Provider: ZAC INTERIANO MD Diagnosis: Attn-defct hyper activity disorder, predom inattentive type as directed -- 1 tab in am Last Documented On 04/21/2022 4:54PM By Marta Interiano MD ; [facility] Viibryd Starter Pack 10 & 20 MG Oral Kit 05/29/2021 - 06/28/2021 Provider: ZAC INTERIANO MD Diagnosis: Major depressive disorder, recurrent, moderate as directed -- 10 mg in am w / food for 2 weeks then 20 mg 1 tab in am w/ food thereafter Last Documented On 05/29/2021 4:05PM By Marta Interiano MD ; [facility] Medications Administered Includes: Administered Medications from this encounter No Administered Medications Recorded Vital Signs Includes: Vital Signs from this encounter Vital Name 02/23/2023 10:34A Blood Pressure Sitting L 115/70 BP Cuff Size Regular Pulse Rate-Sitting (bpm) 97 Pulse Rhythm Regular Height (in) 66 Weight (lb) 220 Body Mass Index 35.5 Body Surface Area 2.1 Note: self reported vitals Last Documented: On 02/23/2023 10:35A M ; [facility] Results Includes: Results discussed during this encounter No Results Recorded For Specified Dates History of Present Illness Includes: History of Present Illness from this encounter DEWEY SOLANO is a 32 year old female. - Allergy list reviewed - Past medical history reviewed - Medication list reviewed Pt reported that she gets occ stressed with work since it has been busy but pt said that she is managing/coping so far. Pt has not been feeling as depressed but occ gets anxious but more situational. The Cymbalta seemed to be helping her mood/anxiety for the most part. Pt denied having any mood swings. Pt has not been as irritable. Pt has been motivated in general in doing daily tasks. Sleep has been good with Trazodone. However pt tends to nap/sleep too much during the daytime when she is not at work. Pt wakes up feeling tired and not well rested. She had HSS done at [place] in 2019 but was inconclusive so I recommended repeating it at [facility] to r/o EFRA. In the meantime, I suggested trying Modafinil or Sunosi to help reduce tiredness/hypersomnia during the daytime. Appetite is down but has not been able to lose the weight. She has gastroparesis and is on Metoclopramide and was made aware that this can cause TD i.e., abnormal involuntary movements. She is also on med for constipation given by Moshe Gutierrez - GI nurse practitioner. Pt has not been feeling as bad about self. Pt is not able to focus and concentrate with the Focalin. She gets distracted and inattentive. I recommended Azstarys but she has not been able to find her insurance card since she needs to have a commercial insurance to qualify for the savings coupon. Her medical card will not be able to accept the savings coupon card. Pt occ gets restless. Pt denied suicidal thoughts. Pt denied having any delusions/hallucinations. She has had bad migraine mid January and somehow she said that her Aimovig was not covered so she had to pay out of pocket. She was asked to stop by the office to get Aimovig samples. Gabapentin seems to help with her restless legs. MENTAL STATUS EXAM: Sensorium - alert, oriented to name, place, and time Attitude - cooperative Gait - ambulatory Sleep - good Interest/Energy/Motivation - good except when tired, she wakes up tired, not feeling refreshed Guilt/Worthlessness - absent Concentration/Attention Span - at times hard to focus and concentrate, gets distracted Memory Recall - fairly good Appetite - decreased due to gastroparesis- on 01/26/23 pt weighed 220 lbs and on 02/23/23 she weighed the same Suicidal Thoughts - absent Homicidal Thoughts - absent Delusions - absent Hallucinations - absent Appearance - casually groomed Motor Behavior - calm Eye Contact - intermittent Speech - fluent Mood - not as depressed, occ stressed with work Affect - occ anxious Thought Process - coherent Insight and Judgment - intact Social History Description Last Updated She was born in [place], [place] and raised outside of [facility]. 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 Her sexual orientation is pansexual or aromantic. She has no past or pending legal history. She enjoys reading, sewing, knitting and gardening. 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 02/01/2023 Last Documented On 3 9:50AM ; [facility] Non-smoker 09/03/2022 Last Documented On 3 9:50AM ; [facility] Daily coffee consumption - d rinks 1-2 cups of coffee a week, 1-2 cans of soda a week and 1-2 glasses of green tea with ginseng a week 06/18/2022 Last Documented On 3 9:50AM ; [facility] Not using alcohol - none, past history o f heavy drinking 08/25/2021 Last Documented On 3 9:50AM ; [facility] Work history 08/25/2021 Last Documented On 3 9:50AM ; [facility] Drug use - narcotics - 4 -7 pills daily from age [age] having stopped in 200505/29/2021 Last Documented On 3 9:50AM ; [facility] Single 05/29/2021 Last Documented On 3 9:50AM ; [facility] Smoking Status Unknown Procedures and Surgical History Includes: Procedures from this encounter Procedures Code Diagnosis Performing Provider Service L ocation Service Date education and instructions Last Documented On 3 9:50AM ; [facility] dangerousness assessment: suicide risk -not suic idal 3085F Last Documented On 3 9:50AM ; [facility] use of tobacco assessment performed 1000F Last Documented On 3 9:50AM ; [facility] patient screened for future fall risk - no recen t falls 3288F Last Documented On 3 9:50AM ; [facility] review of medications documented 1160F Last Documented On 3 9:50AM ; [facility] screening for adult depressi on: impression and score - please see above treatment and PHQ score Last Documented On 3 9:50AM ; [facility] standardized depression screening: posit bea for symptoms Last Documented On 3 9:50AM ; [facility] encouragement to exercise Last Documented On 3 9:50AM ; [facility] Counseling on new medication : I discussed the risks, benefits and side effects of Sunosi/Modafinil. Patient verbalized understanding and agreed to treatment Last Documented On 3 8:27AM ; [facility] Clinical summary provided to patient Last Documented On 3 9:50AM ; [facility] PHQ-9: total score 10 Last Documented On 3 8:27AM ; [facility] Surgical History Last Updated History of hysterectomy - 08/05/21 022 Last Documented On 3 9:50AM ; [facility] History of abdominal surgery Left fallop jovany tube tumors removed-- 201806/16/2021 Last Documented On 3 9:50AM ; [facility] History of knee surgery - right knee rec onstruction 201405/29/2021 Last Documented On 3 9:50AM ; [facility] History of cholecystectomy - 2018 Last Documented On 3 9:50AM ; [facility] Medical History Includes: Medical History addressed during this encounter Description Last Updated History of gastroparesis - M etoclopromide and Stimulant Laxative -- from [facility] under Dr. Mooney 02/24/2023 Last Documented On 3 9:28AM ; [facility] Primary Care Provider: Dr. Iman Jaquez ~Dr. Yaniv Walker -- [place] Worker ~Dr. Oscar Flores -- E[facility] ~Dr. Ember Santos -- Neurologist ~Senior Test Analyst at [facility] ~Moshe Gutierrez NP/Dr. 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 [facility] 02/24/2023 Last Documented On 3 9:28AM ; [facility] History of vertigo - takes Meclizine prn 01/26/2023 Last Documented On 3 9:50AM ; [facility] History of infection of tooth - given Am oxil 500 mg 07/27/22 09/03/2022 Last Documented On 3 9:50AM ; [facility] History of back strain - Deg enerative Disc Disease -- given Flexeril 10 mg and Ibuprofen 600 mg 07/20/22; with bulging discs -- given Prednisone 20 mg and Norflex 100 mg 04/24/22 09/03/2022 Last Documented On 3 9:50AM ; [facility] History of bronchitis - give n Cefdinir 300 mg and Albuterol HFA 90 mcg inhaler 09/03/2022 Last Documented On 3 9:50AM ; [facility] History of COVID-19 infection - tested p ositive/isolation 08/10/22-08/17/22 09/03/2022 Last Documented On 3 9:50AM ; [facility] History of migraine headache 06/19/2022 Last Documented On 3 9:50AM ; [facility] History of Nausea with vomiting - given Zofran 4 mg 03/26/22 04/21/2022 Last Documented On 3 9:50AM ; [facility] History of constipation - [facility] Miralax 03/26/22; Senexon-S 8.6mg -50 mg -- started 02/04/22 04/21/2022 Last Documented On 3 9:50AM ; [facility] History of coronavirus 2019- nCoV vaccine - Pfizer #1 03/10/21 #2 04/01/21 #3 02/202204/21/2022 Last Documented On 3 9:50AM ; [facility] History of an endoscopic / f iberoptic examination was performed - for Dysphagia -- 11/2021 -- normal per patient 02/26/2022 Last Documented On 3 9:50AM ; [facility] History of ovarian cyst - CT scan of abdomen/pelvis from 11/2021 showed a 5 cm mass/cyst on an ovary -- has ultrasound every 6-8 weeks to monitor 02/26/2022 Last Documented On 3 9:50AM ; [facility] History of colonoscopy - 11/2021 -- lisa l per patient 02/26/2022 Last Documented On 3 9:50AM ; [facility] History of dysphagia - started Reglan 10 mg 01/05/22 02/26/2022 Last Documented On 3 9:50AM ; [facility] History of acute suppurative sinusitis - given Augmentin 875 mg 02/06/22 02/26/2022 Last Documented On 3 9:50AM ; [facility] History of sleep testing was performed - in 2019 by [facility] -- inconclusive 02/26/2022 Last Documented On 3 9:50AM ; [facility] History of GI bleed - via en doscopy - was hospitalized for 4 days -- 2019 -- should not be using anymore NSAIDS 12/17/2021 Last Documented On 3 9:50AM ; [facility] History of Polycystic Ovaria n Syndrome (PCOS) - age 23 - left fallopian tube removed in 2019 -- complete hysterectomy 08/05/21 -- given Hydrocodone 5/325 #25 -- still has ovaries 08/25/2021 Last Documented On 3 9:50AM ; [facility] History of hyperlipidemia 06/16/2021 Last Documented On 3 9:50AM ; [facility] History of endometriosis - age 23 2020 Last Documented On 3 9:50AM ; [facility] History of fatty liver - age 28 05/29/20 Last Documented On 3 9:50AM ; [facility] History of asthma - since childhood 11/2020 Last Documented On 3 9:50AM ; [facility] Family History Includes: Family History addressed during this encounter Description Last Updated Maternal history of alcoholism - Mother 06/16/2021 Last Documented On 3 9:50AM ; [facility] Maternal history of bipolar disorder NOS - Mother 06/16/2021 Last Documented On 3 9:50AM ; [facility] Paternal history of combined drug and al cohol abuse - Father 06/16/2021 Last Documented On 3 9:50AM ; [facility] Fraternal history of depression - Brothe r 06/16/2021 Last Documented On 3 9:50AM ; [facility] Paternal grandmother's history of depres edward 06/16/2021 Last Documented On 3 9:50AM ; [facility] Sororal history of depression and Anxiet y - Sister 06/16/2021 Last Documented On 3 9:50AM ; [facility] Paternal grandmother's history of lisy ia 05/29/2021 Last Documented On 3 9:50AM ; [facility] Review of Systems Includes: Review of Systems from this encounter Systemic: Feeling poorly (malaise) - occasionally tired. No fever, no chills, and no night sweats. Head: Headache. No sinus pain. Neck: No neck pain and no neck stiffness. Eyes: No vision problems. Itching of the eyes. No eye pain. Otolaryngeal: No hearing loss and no earache. Nasal discharge. No hoarseness and no sore throat. Cardiovascular: No chest pain or discomfort, no palpitations, and the heart rate was not fast. Pulmonary: Dyspnea. No cough and no wheezing. Gastrointestinal: No heartburn. No nausea, no vomiting, no diarrhea, and no constipation. Genitourinary: Increased urinary frequency. No dysuria. Endocrine: No polydipsia and no excessive sweating. Musculoskeletal: Muscle aches, pain localized to one or more joints, and joint stiffness localized to one or [...] Last Documented On 01/27/2024 9:10AM ; [facility] Note: Imported from external source. TORADOL Allergy Hives / Urticaria 05/29/2021 A ctive Last Documented On 01/27/2024 9:10AM ; [facility] Note: Imported from external source. Pineapple Allergy 01/26/2023 Active Last Documented On 01/27/2024 9:10AM ; [facility] Note: Imported from external source. Latex Allergy Hives / Urticaria 05/29/2021 A ctive Last Documented On 01/27/2024 9:10AM ; [facility] Note: Imported from external source. Encounters Encounter Provider Location Date Check-In Time Check-Out Time Diagnosis [facility] INTERIANO MD [facility] 02/24/20 23 9:49AM 11:59PM Generalized Anxiety Disorder,Psychoph ysiological Insomnia,Major Depression,Adult Attention Deficit Hyperactivity Disorder,Nonorgan ic Sleep Apnea Obstructive,Restl ess Legs Syndrome,Migraine Headache Insurance Includes: Active Insurance Policies Plan Name Member ID Group # Subscriber Relationship Effect bea Dates 1 - [facility] [id number] TONY SOLANO Self Clinical Notes Includes: Clinical Notes from this encounter No Clinical Notes Recorded
--- OUTSIDE RECORDS SUMMARY | 2025-01-15 13:14 | XMS_ITS | Clinical Summary ---
Author Organization [facility] Address [address] [place] [address] Phone Care Team Providers Care Assistant Auditor Name Role Phone JAYDON BOSS, ZAC SABILLON Unavailable [phone] Reason for Visit and Chief Complaint PSYCH ADULT FOLLOW UP Problems Includes: Problems addressed during this encounter and other active Problems All Visits Onset Date Resolved Date Provider Condition S tatus Migraine Headache 11/29/2022 Active Last Documented On 3 5:53PM ; [facility] Nonorganic Sleep Apnea Obstructive 11/29/2022 Active Last Documented On 3 5:53PM ; [facility] Restless Legs Syndrome 11/29/2022 Ac tive Last Documented On 3 5:53PM ; [facility] Adult Attention Deficit Hyperactivity Disorder 01/27/2022 Active Last Documented On 3 5:53PM ; [facility] Generalized Anxiety Disorder 05/29/2021 Active Last Documented On 3 5:53PM ; [facility] Psychophysiological Insomnia 05/29/2021 Active Last Documented On 3 5:53PM ; [facility] Major Depression 05/29/2021 Active Last Documented On 3 5:53PM ; [facility] Plan of Treatment No Plan [...] 03/28/2024 2:09PM By Marta Davies MD ; [facility] traZODone HCl 50 MG Oral Tablet 02/29/2024 Provider: ZAC DAVIES MD Diagnosis: Psychophysiologi c insomnia TAKE 3 TABLETS BY MOUTH AT B EDTIME NEEDED FOR SLEEP Last Documented On 02/29/2024 12:32PM By Marta Davies MD ; [facility] rOPINIRole HCl 1 MG Oral Tablet 01/27/2024 Provider: ZAC DAVIES MD Diagnosis: Restless legs sy ndrome as directed -1/2 tab in the evening for 1 week then 1 tab in the evening thereafter Last Documented On 01/27/2024 10:15AM By Marta Davies MD ; [facility] Nurtec 75 MG Oral Tablet Disintegrating 01/27/2024 Provider: ZAC DAVIES MD Diagnosis: Migraine w/o aur a, not intractable, w/o status migrainosus as directed - 1 tab a day as needed at the onset of migraine headaches Last Documented On 01/27/2024 9:42AM By Marta Davies MD ; [facility] Aimovig 70 MG/ML Subcutaneous Solution Auto-injector 01/27/2024 Provider: ZAC DAVIES MD Diagnosis: Migraine w/o aur a, not intractable, w/o status migrainosus as directed - inject 70 mg ( 1 ml) SQ once a month to upper thigh, please rotate sites Last Documented On 01/27/2024 9:42AM By Marta Davies MD ; [facility] Vyvanse 30 MG Oral Capsule 12/13/2023 Provider: ZAC DAVIES MD Diagnosis: Attn-defct hyper activity disorder, predom inattentive type 1 Capsule every morning Last Documented On 12/13/2023 1:47AM By Marta Davies MD ; [facility] Gabapentin 300 MG Oral Capsule [...] On 03/28/2024 10:26AM By ALEXIS ELI ; [facility] DULoxetine HCl 30 MG Oral Capsule Delayed Release Particles 07/29/2023 Provider: ZAC DAVIES MD Diagnosis: Generalized anxi ety disorder TAKE 1 CAPSULE BY MOUTH EVER Y DAY (TAKE WITH 60MG CAPSULE) Last Documented On 03/28/2024 10:26AM By ALEXIS ELI ; [facility] Topiramate 50 MG Oral Tablet 04/20/2023 Provider: ZAC DAVIES MD Diagnosis: Chronic migraine w/o aura, not intractable, w/o stat migr One tablet twice a day Last Documented On 03/28/2024 10:29AM By ALEXIS ELI ; [facility] Meclizine HCl 25 MG OR TABS 11/24/2022 Provider: Diagnosis: 1 TAB BID PRN Last Documented On 03/27/2023 5:34PM By DOMINGA COON ; [facility] Ondansetron HCl 4 MG OR TABS 03/26/2022 Provider: Diagnosis: as directed Last Documented On 03/27/2023 5:34PM By DOMINGA COON ; [facility] Senexon-S 8.6-50 MG OR TABS 02/04/2022 Provider: Diagnosis: 1 daily prn Last Documented On 03/27/2023 5:34PM By DOMINGA COON ; [facility] Metoclopramide HCl 10 MG OR TABS 01/27/2022 Provider : Diagnosis: 1 ac tid Last Documented On 03/27/2023 5:34PM By DOMINGA COON ; [facility] Fluticasone Propionate 50 MCG/ACT NA SUSP 12/03/2021 Provider: Diagnosis: Last Documented On 03/27/2023 5:34PM By ALEXIS ELI ; [facility] Pantoprazole Sodium 40 MG OR TBEC 11/23/2021 Provide r: Diagnosis: 1 tab daily Last Documented On 03/27/2023 5:34PM By ALEXIS ELI ; [facility] Blank Allergy 180 MG OR TABS 05/29/2021 Provider: Diagnosis: 1 tab daily otc Last Documented On 03/27/2023 5:34PM By DOMINGA COON ; [facility] Albuterol Sulfate 108 (90 Base) MCG/ACT IN AEPB 2020 Provider: Diagnosis: 1-2 puffs q 4-6 hours prn Last Documented On 03/27/2023 5:34PM By DOMINGA COON ; [facility] Spironolactone 100 MG OR TABS 04/21/2021 Provider: Diagnosis: 1 tab daily Last Documented On 03/27/2023 5:34PM By DOMINGA COON ; [facility] Symbicort 160-4.5 MCG/ACT IN AERO 12/05/2020 Provide r: Diagnosis: 1 puff twice daily Last Documented On 03/27/2023 5:34PM By DOMINGA COON ; [facility] Spiriva HandiHaler 18 MCG IN CAPS 10/15/2020 Provide r: Diagnosis: 1 inhalation daily Last Documented On 03/27/2023 5:34PM By DOMINGA COON ; [facility] Medications Administered Includes: [...] Last Documented On 01/27/2024 9:10AM ; [facility] Note: Imported from external source. TORADOL Allergy Hives / Urticaria 05/29/2021 A ctive Last Documented On 01/27/2024 9:10AM ; [facility] Note: Imported from external source. Pineapple Allergy 01/26/2023 Active Last Documented On 01/27/2024 9:10AM ; [facility] Note: Imported from external source. Latex Allergy Hives / Urticaria 05/29/2021 A ctive Last Documented On 01/27/2024 9:10AM ; [facility] Note: Imported from external source. Insurance Includes: Active Insurance Policies Plan Name Member ID Group # Subscriber Relationship Effect bea Dates 1 - [facility] [id number] TONY SOLANO Self Clinical Notes Includes: Clinical Notes from this encounter No Clinical Notes Recorded
--- OUTSIDE RECORDS SUMMARY | 2025-01-15 13:14 | XMS_ITS | Clinical Summary ---
Author Organization [facility] Address [address] [place] [address] Phone Care Team Providers Care Yard Pilot Name Role Phone JAYDON BOSS, ZAC SABILLON Unavailable [phone] Reason for Visit and Chief Complaint NO SHOW Problems Includes: Problems addressed during this encounter and other active Problems All Visits Onset Date Resolved Date Provider Condition S tatus Migraine Headache 11/29/2022 ZAC Valerio MD Active Last Documented On 3 8:31AM ; [facility] Nonorganic Sleep Apnea Obstructive 11/29/2022 Jason DAVIES MD Active Last Documented On 3 8:31AM ; [facility] Restless Legs Syndrome 11/29/2022 ZAC KERN MD Active Last Documented On 3 8:31AM ; [facility] Adult Attention Deficit Hype ractivity Disorder 01/27/2022 ZAC DAVIES MD Active Last Documented On 2 8:44AM ; [facility] Generalized Anxiety Disorder 05/29/2021 ZAC DAVIES MD Active Last Documented On 1 3:14PM ; [facility] Psychophysiological Insomnia 05/29/2021 ZAC DAVIES MD Active Last Documented On 1 3:14PM ; [facility] Major Depression 05/29/2021 ZAC DAVIES MD Active Last Documented On 1 3:14PM ; [facility] Plan of Treatment No Plan of Treatment [...] 03/22/2023 5:25AM By Marta Davies MD ; [facility] Aimovig 70 MG/ML Subcutaneous Solution Auto-injector 02/24/2023 Provider: ZAC DAVIES MD Diagnosis: Migraine w/o aur a, not intractable, w/o status migrainosus as directed - inject 70 mg ( 1 ml) SQ once a month to upper thigh, please rotate sites Last Documented On 02/24/2023 8:48AM By Marta Davies MD ; [facility] Aimovig 70 MG/ML Subcutaneou s Solution Auto-injector 02/24/2023 Provider: ZAC TEMPLETON MD Diagnosis: Chronic migraine w/o aura, not intractable, w/o stat migr as directed - inject 1 ml (7 0 mg) subcutaneously to upper thigh once a month, please rotate sites Last Documented On 02/24/2023 8:48AM By Marta Davies MD ; [facility] traZODone HCl 50 MG Oral Tablet 02/22/2023 Provider: ZAC DAVIES MD Diagnosis: Psychophysiologi c insomnia TAKE 4 TABLETS (200MG) AT BE DTIME NEEDED FOR SLEEP Last Documented On 02/22/2023 7:21AM By Marta Davies MD ; [facility] Topiramate 50 MG Oral Tablet 02/02/2023 Provider: ZAC DAVIES MD Diagnosis: Chronic migraine w/o aura, not intractable, w/o stat migr One tablet twice a day Last Documented On 02/02/2023 9:45AM By Marta Davies MD ; [facility] Focalin 10 MG Oral Tablet 02/01/2023 Provider: ZAC DAVIES MD Diagnosis: Attn-defct hyper activity disorder, predom inattentive type as directed -- 1 tab in am a nd 1 tab at noon Last Documented On 02/01/2023 4:41AM By Marta Davies MD ; [facility] Gabapentin 300 MG Oral Capsule 01/26/2023 Provider: ZAC DAVIES MD Diagnosis: Restless legs sy ndrome as directed -- 1 cap in even ing for restless legs Last Documented On 10:27AM By Marta Davies MD ; [facility] Meclizine HCl 25 MG Oral Tablet 11/24/2022 Provider: Diagnosis: 1 TAB BID PRN Last Documented On 01/26/2023 9:26AM By DOMINGA COON ; [facility] DULoxetine HCl 30 MG Oral Capsule Delayed Release Particles 08/20/2022 Provider: ZAC DAVIES MD Diagnosis: Generalized anxi ety disorder TAKE 1 CAPSULE BY MOUTH EVER Y DAY (TAKE WITH 60MG CAPSULE) Last Documented On 11:28AM By Marta Davies MD ; [facility] Ondansetron HCl 4 MG Oral Tablet 03/26/2022 Provider : MARIANN GUTIERREZ ORE SMELTER Diagnosis: as directed Last Documented On 04/21/2022 4:14PM By DOMINGA COON ; [facility] Senexon-S 8.6-50 MG Oral Tablet 02/04/2022 Provider: MARIANN GUTIERREZ NP Diagnosis: 1 daily prn Last Documented On 02/26/2022 4:13PM By DOMINGA COON ; [facility] Metoclopramide HCl 10 MG Oral Tablet 01/27/2022 Prov ider: MARIANN GUTIERREZ ORE SMELTER Diagnosis: 1 ac tid Last Documented On 02/26/2022 4:14PM By DOMINGA COON ; [facility] Fluticasone Propionate 50 MCG/ACT Nasal Suspension 03/2022 Provider: Diagnosis: Last Documented On 12/17/2021 4:21PM By ALEXIS ELI ; [facility] Pantoprazole Sodium 40 MG Oral Tablet Delayed Release 11/23/2021 Provider: Diagnosis: 1 tab daily Last Documented On 12/17/2021 4:21PM By ALEXIS ELI ; [facility] Gabapentin 100 MG Oral Capsule 08/20/2021 Provider: Diagnosis: [address] Ember Santos Last Documented On 08/25/2021 2:01PM By DOMINGA COON ; [facility] Medical [facility] Albuterol Sulfate 108 (90 Ba se) MCG/ACT Inhalation Aerosol Powder Breath Activated 05/29/2021 Provider: Diagnosis: 1-2 puffs q 4-6 hours prn Last Documented On 05/29/2021 3:25PM By DOMINGA COON ; [facility] Medical [facility] Blank Allergy 180 MG Oral Tablet 05/29/2021 Provid er: Diagnosis: 1 tab daily otc Last Documented On 05/29/2021 3:24PM By DOMINGA COON ; [facility] Spironolactone 100 MG Oral Tablet 04/21/2021 Provide r: JASON BENITO APN Diagnosis: 1 tab daily Last Documented On 05/29/2021 3:20PM By DOMINGA COON ; [facility] Symbicort 160-4.5 MCG/ACT Inhalation Aerosol Provider: CARLO JAQUEZ MD Diagnosis: 1 puff twice daily Last Documented On 05/29/2021 3:21PM By DOMINGA COON ; [facility] Spiriva HandiHaler 18 MCG Inhalation Capsule 0 Provider: Diagnosis: 1 inhalation daily Last Documented On 05/29/2021 3:22PM By DOMINGA COON ; [facility] Medications Administered Includes: Administered Medications from [...] Active Last Documented On 01/27/2024 9:10AM ; [facility] Note: Imported from external source. TORADOL Allergy Hives / Urticaria 05/29/2021 A ctive Last Documented On 01/27/2024 9:10AM ; [facility] Note: Imported from external source. Pineapple Allergy 01/26/2023 Active Last Documented On 01/27/2024 9:10AM ; [facility] Note: Imported from external source. Latex Allergy Hives / Urticaria 05/29/2021 A ctive Last Documented On 01/27/2024 9:10AM ; [facility] Note: Imported from external source. Encounters Encounter Provider Location Date Check-In Time Check-Out Time Diagnosis NO SHOW ZAC DAVIES MD [facility] 09/02/2022 4:30PM 11:59PM Insurance Includes: Active Insurance Policies Plan Name Member ID Group # Subscriber Relationship Effect bea Dates 1 - [facility] [id number] TONY SOLANO Self Clinical Notes Includes: Clinical Notes from this encounter No Clinical Notes Recorded
--- OUTSIDE RECORDS SUMMARY | 2025-01-15 13:14 | XMS_ITS | Clinical Summary ---
Author Organization [facility] Address [address] [place] [address] Phone Care Team Providers Care Spare Fixer Name Role Phone JAYDON BOSS, ZAC SABILLON Unavailable [phone] Reason for Visit and Chief Complaint NO SHOW Problems Includes: Problems addressed during this encounter and other active Problems All Visits Onset Date Resolved Date Provider Condition S tatus Migraine Headache 11/29/2022 ZAC Valerio MD Active Last Documented On 3 8:31AM ; [facility] Nonorganic Sleep Apnea Obstructive 11/29/2022 Jason DAVIES MD Active Last Documented On 3 8:31AM ; [facility] Restless Legs Syndrome 11/29/2022 ZAC KERN MD Active Last Documented On 3 8:31AM ; [facility] Adult Attention Deficit Hype ractivity Disorder 01/27/2022 ZAC DAVIES MD Active Last Documented On 2 8:44AM ; [facility] Generalized Anxiety Disorder 05/29/2021 ZAC DAVIES MD Active Last Documented On 1 3:14PM ; [facility] Psychophysiological Insomnia 05/29/2021 ZAC DAVIES MD Active Last Documented On 1 3:14PM ; [facility] Major Depression 05/29/2021 ZAC DAVIES MD Active Last Documented On 1 3:14PM ; [facility] Plan of Treatment No Plan of [...] 03/22/2023 5:25AM By Marta Davies MD ; [facility] Aimovig 70 MG/ML Subcutaneous Solution Auto-injector 02/24/2023 Provider: ZAC DAVIES MD Diagnosis: Migraine w/o aur a, not intractable, w/o status migrainosus as directed - inject 70 mg ( 1 ml) SQ once a month to upper thigh, please rotate sites Last Documented On 02/24/2023 8:48AM By Matra Davies MD ; [facility] Aimovig 70 MG/ML Subcutaneou s Solution Auto-injector 02/24/2023 Provider: ZAC TEMPLETON MD Diagnosis: Chronic migraine w/o aura, not intractable, w/o stat migr as directed - inject 1 ml (7 0 mg) subcutaneously to upper thigh once a month, please rotate sites Last Documented On 02/24/2023 8:48AM By Marta Davies MD ; [facility] traZODone HCl 50 MG Oral Tablet 02/22/2023 Provider: ZAC DAVIES MD Diagnosis: Psychophysiologi c insomnia TAKE 4 TABLETS (200MG) AT BE DTIME NEEDED FOR SLEEP Last Documented On 02/22/2023 7:21AM By Marta Davies MD ; [facility] Topiramate 50 MG Oral Tablet 02/02/2023 Provider: ZAC DAVIES MD Diagnosis: Chronic migraine w/o aura, not intractable, w/o stat migr One tablet twice a day Last Documented On 02/02/2023 9:45AM By Marta Davies MD ; [facility] Focalin 10 MG Oral Tablet 02/01/2023 Provider: ZAC DAVIES MD Diagnosis: Attn-defct hyper activity disorder, predom inattentive type as directed -- 1 tab in am a nd 1 tab at noon Last Documented On 02/01/2023 4:41AM By Marta Davies MD ; [facility] Gabapentin 300 MG Oral Capsule 01/26/2023 Provider: ZAC DAVIES MD Diagnosis: Restless legs sy ndrome as directed -- 1 cap in even ing for restless legs Last Documented On 10:27AM By Marta Davies MD ; [facility] Meclizine HCl 25 MG Oral Tablet 11/24/2022 Provider: Diagnosis: 1 TAB BID PRN Last Documented On 01/26/2023 9:26AM By DOMINGA COON ; [facility] DULoxetine HCl 30 MG Oral Capsule Delayed Release Particles 08/20/2022 Provider: ZAC DAVIES MD Diagnosis: Generalized anxi ety disorder TAKE 1 CAPSULE BY MOUTH EVER Y DAY (TAKE WITH 60MG CAPSULE) Last Documented On 11:28AM By Marta Davies MD ; [facility] Ondansetron HCl 4 MG Oral Tablet 03/26/2022 Provider : MARIANN GUTIERREZ CARDIOLOGY NURSE Diagnosis: as directed Last Documented On 04/21/2022 4:14PM By DOMINGA COON ; [facility] Senexon-S 8.6-50 MG Oral Tablet 02/04/2022 Provider: MARIANN GUTIERREZ NP Diagnosis: 1 daily prn Last Documented On 02/26/2022 4:13PM By DOMINGA COON ; [facility] Metoclopramide HCl 10 MG Oral Tablet 01/27/2022 Prov ider: MARIANN GUTIERREZ CARDIOLOGY NURSE Diagnosis: 1 ac tid Last Documented On 02/26/2022 4:14PM By DOMINGA COON ; [facility] Fluticasone Propionate 50 MCG/ACT Nasal Suspension 03/2022 Provider: Diagnosis: Last Documented On 12/17/2021 4:21PM By ALEXIS ELI ; [facility] Pantoprazole Sodium 40 MG Oral Tablet Delayed Release 11/23/2021 Provider: Diagnosis: 1 tab daily Last Documented On 12/17/2021 4:21PM By ALEXIS ELI ; [facility] Gabapentin 100 MG Oral Capsule 08/20/2021 Provider: Diagnosis: [address] Ember Santos Last Documented On 08/25/2021 2:01PM By DOMINGA COON ; [facility] Medical [facility] Albuterol Sulfate 108 (90 Ba se) MCG/ACT Inhalation Aerosol Powder Breath Activated 05/29/2021 Provider: Diagnosis: 1-2 puffs q 4-6 hours prn Last Documented On 05/29/2021 3:25PM By DOMINGA COON ; [facility] Medical [facility] Blank Allergy 180 MG Oral Tablet 05/29/2021 Provid er: Diagnosis: 1 tab daily otc Last Documented On 05/29/2021 3:24PM By DOMINGA COON ; [facility] Spironolactone 100 MG Oral Tablet 04/21/2021 Provide r: JASON BENITO APN Diagnosis: 1 tab daily Last Documented On 05/29/2021 3:20PM By DOMINGA COON ; [facility] Symbicort 160-4.5 MCG/ACT Inhalation Aerosol Provider: CARLO JAQUEZ MD Diagnosis: 1 puff twice daily Last Documented On 05/29/2021 3:21PM By DOMINGA COON ; [facility] Spiriva HandiHaler 18 MCG Inhalation Capsule 0 Provider: Diagnosis: 1 inhalation daily Last Documented On 05/29/2021 3:22PM By DOMINGA COON ; [facility] Medications Administered Includes: Administered Medications from [...] Active Last Documented On 01/27/2024 9:10AM ; [facility] Note: Imported from external source. TORADOL Allergy Hives / Urticaria 05/29/2021 A ctive Last Documented On 01/27/2024 9:10AM ; [facility] Note: Imported from external source. Pineapple Allergy 01/26/2023 Active Last Documented On 01/27/2024 9:10AM ; [facility] Note: Imported from external source. Latex Allergy Hives / Urticaria 05/29/2021 A ctive Last Documented On 01/27/2024 9:10AM ; [facility] Note: Imported from external source. Encounters Encounter Provider Location Date Check-In Time Check-Out Time Diagnosis NO SHOW ZAC DAVIES MD [facility] 12/25/2022 10:00AM 11:59PM Insurance Includes: Active Insurance Policies Plan Name Member ID Group # Subscriber Relationship Effect bea Dates 1 - [facility] [id number] TONY SOLANO Self Clinical Notes Includes: Clinical Notes from this encounter No Clinical Notes Recorded
--- OUTSIDE RECORDS SUMMARY | 2025-01-15 13:14 | XMS_ITS | Clinical Summary ---
Author Organization [facility] Address [address] [place] [address] Phone Care Team Providers Care Foam Rubber Fabricator Name Role Phone JAYDON BOSS, ZAC SABILLON Unavailable [phone] Reason for Visit and Chief Complaint PSYCH ADULT FOLLOW UP Problems Includes: Problems addressed during this encounter and other active Problems All Visits Onset Date Resolved Date Provider Condition S tatus Migraine Headache 11/29/2022 Active Last Documented On 3 5:53PM ; [facility] Nonorganic Sleep Apnea Obstructive 11/29/2022 Active Last Documented On 3 5:53PM ; [facility] Restless Legs Syndrome 11/29/2022 Ac tive Last Documented On 3 5:53PM ; [facility] Adult Attention Deficit Hyperactivity Disorder 01/27/2022 Active Last Documented On 3 5:53PM ; [facility] Generalized Anxiety Disorder 05/29/2021 Active Last Documented On 3 5:53PM ; [facility] Psychophysiological Insomnia 05/29/2021 Active Last Documented On 3 5:53PM ; [facility] Major Depression 05/29/2021 Active Last Documented On 3 5:53PM ; [facility] Plan of Treatment No [...] 03/28/2024 2:09PM By Marta Davies MD ; [facility] traZODone HCl 50 MG Oral Tablet 02/29/2024 Provider: ZAC DAVIES MD Diagnosis: Psychophysiologi c insomnia TAKE 3 TABLETS BY MOUTH AT B EDTIME NEEDED FOR SLEEP Last Documented On 02/29/2024 12:32PM By Marta Davies MD ; [facility] rOPINIRole HCl 1 MG Oral Tablet 01/27/2024 Provider: ZAC DAVIES MD Diagnosis: Restless legs sy ndrome as directed -1/2 tab in the evening for 1 week then 1 tab in the evening thereafter Last Documented On 01/27/2024 10:15AM By Marta Davies MD ; [facility] Nurtec 75 MG Oral Tablet Disintegrating 01/27/2024 Provider: ZAC DAVIES MD Diagnosis: Migraine w/o aur a, not intractable, w/o status migrainosus as directed - 1 tab a day as needed at the onset of migraine headaches Last Documented On 01/27/2024 9:42AM By Marta Davies MD ; [facility] Aimovig 70 MG/ML Subcutaneous Solution Auto-injector 01/27/2024 Provider: ZAC DAVIES MD Diagnosis: Migraine w/o aur a, not intractable, w/o status migrainosus as directed - inject 70 mg ( 1 ml) SQ once a month to upper thigh, please rotate sites Last Documented On 01/27/2024 9:42AM By Marta Davies MD ; [facility] Vyvanse 30 MG Oral Capsule 12/13/2023 Provider: ZAC DAVIES MD Diagnosis: Attn-defct hyper activity disorder, predom inattentive type 1 Capsule every morning Last Documented On 12/13/2023 1:47AM By Marta Davies MD ; [facility] Gabapentin 300 MG Oral Capsule 07/29/2023 [...] On 03/28/2024 10:26AM By ALEXIS ELI ; [facility] DULoxetine HCl 30 MG Oral Capsule Delayed Release Particles 07/29/2023 Provider: ZAC DAVIES MD Diagnosis: Generalized anxi ety disorder TAKE 1 CAPSULE BY MOUTH EVER Y DAY (TAKE WITH 60MG CAPSULE) Last Documented On 03/28/2024 10:26AM By ALEXIS ELI ; [facility] Topiramate 50 MG Oral Tablet 04/20/2023 Provider: ZAC DAVIES MD Diagnosis: Chronic migraine w/o aura, not intractable, w/o stat migr One tablet twice a day Last Documented On 03/28/2024 10:29AM By ALEXIS ELI ; [facility] Meclizine HCl 25 MG OR TABS 11/24/2022 Provider: Diagnosis: 1 TAB BID PRN Last Documented On 03/27/2023 5:34PM By DOMINGA COON ; [facility] Ondansetron HCl 4 MG OR TABS 03/26/2022 Provider: Diagnosis: as directed Last Documented On 03/27/2023 5:34PM By DOMINGA COON ; [facility] Senexon-S 8.6-50 MG OR TABS 02/04/2022 Provider: Diagnosis: 1 daily prn Last Documented On 03/27/2023 5:34PM By DOMINGA COON ; [facility] Metoclopramide HCl 10 MG OR TABS 01/27/2022 Provider : Diagnosis: 1 ac tid Last Documented On 03/27/2023 5:34PM By DOMINGA COON ; [facility] Fluticasone Propionate 50 MCG/ACT NA SUSP 12/03/2021 Provider: Diagnosis: Last Documented On 03/27/2023 5:34PM By ALEXIS ELI ; [facility] Pantoprazole Sodium 40 MG OR TBEC 11/23/2021 Provide r: Diagnosis: 1 tab daily Last Documented On 03/27/2023 5:34PM By ALEXIS ELI ; [facility] Blank Allergy 180 MG OR TABS 05/29/2021 Provider: Diagnosis: 1 tab daily otc Last Documented On 03/27/2023 5:34PM By DOMINGA COON ; [facility] Albuterol Sulfate 108 (90 Base) MCG/ACT IN AEPB 2020 Provider: Diagnosis: 1-2 puffs q 4-6 hours prn Last Documented On 03/27/2023 5:34PM By DOMINGA COON ; [facility] Spironolactone 100 MG OR TABS 04/21/2021 Provider: Diagnosis: 1 tab daily Last Documented On 03/27/2023 5:34PM By DOMINGA COON ; [facility] Symbicort 160-4.5 MCG/ACT IN AERO 12/05/2020 Provide r: Diagnosis: 1 puff twice daily Last Documented On 03/27/2023 5:34PM By DOMINGA COON ; [facility] Spiriva HandiHaler 18 MCG IN CAPS 10/15/2020 Provide r: Diagnosis: 1 inhalation daily Last Documented On 03/27/2023 5:34PM By DOMINGA COON ; [facility] Medications Administered Includes: Administered Medications from this [...] Active Last Documented On 01/27/2024 9:10AM ; [facility] Note: Imported from external source. TORADOL Allergy Hives / Urticaria 05/29/2021 A ctive Last Documented On 01/27/2024 9:10AM ; [facility] Note: Imported from external source. Pineapple Allergy 01/26/2023 Active Last Documented On 01/27/2024 9:10AM ; [facility] Note: Imported from external source. Latex Allergy Hives / Urticaria 05/29/2021 A ctive Last Documented On 01/27/2024 9:10AM ; [facility] Note: Imported from external source. Insurance Includes: Active Insurance Policies Plan Name Member ID Group # Subscriber Relationship Effect bea Dates 1 - [facility] [id number] TONY SOLANO Self Clinical Notes Includes: Clinical Notes from this encounter No Clinical Notes Recorded
--- OUTSIDE RECORDS SUMMARY | 2025-01-15 13:14 | XMS_ITS ---
Care Plan - [facility] Created on: January 15, 2025 TONY SOLANO : 1990 Sex: Female Author Organization [facility] Address [address] [place] [address] Phone Care Team Providers Care Machine Packager Name Role Phone JAYDON BOSS, ZAC SABILLON Unavailable [phone]
--- OUTSIDE RECORDS SUMMARY | 2025-01-15 13:14 | XMS_ITS | Continuity of Care Document ---
Author Organization [facility] Address [address] [address] Phone Care Team Providers Care Regional Environmental Manager Name Role Phone Bubba Toro MD Unavailable [...] Providers Copied on Encounter OFFICE/OUTPA TIENT VISIT, [facility], [address] [place], [place], [id number], tel:[phone] [facility] knee pain (chief complaint) asthma (chief complaint) Dietary surveillance and counselingAsthmaWei ght gain poorBlood pressure elevatedPain in joint involving lower leg [address] [facility] [place], [place], [id number] , [place]. tel:[phone] Referring Provider: Althea Oseguera [facility], [place], [place], [id number]. tel:[phone] OFFICE/OUTPA TIENT VISIT, [facility], [address] [place], [place], [id number], tel:[phone] [facility] knee pain (chief complaint) Dietary surveillance and counselingPain in joint involving lower leg [address], [place], [id number] , . tel:[phone] Referring Provider: Althea Oseguera [address] [facility] [place], [id number]. tel:[phone] OFFICE/OUTPA TIENT VISIT, [facility], [address] [place], [id number], tel:[phone] [facility] HLP (chief complaint) low vitami D (chief complaint) knee pain (chief complaint) Dietary surveillance and counselingOther and unspecified hyperlipidemiaUnspe cified vitamin d deficiencyPain in joint involving lower leg Feb-2 [address] [place], [place], [id number] , . tel:[phone] Referring Provider: Althea Oseguera [address] [place], [id number]. tel:[phone] PREV VISIT, NEW, AGE 18-39 [facility], [address] [place], [place], [id number], [place] tel:[phone] [facility] Physical (chief complaint) Dietary surveillance and counselingRoutine Medical ExamRoutine Medical Exam 0 [address], [place], [id number] , [place]. tel:[phone] Family History Family Member Type Diagnosis Age At Onset Mother Problem (finding) Hypertension Sister Problem (finding) Diabetes mellitus Mother Problem (finding) Diabetes mellitus Father Problem (finding) Anxiety Payers Payer name Insurance type Covered alliance party ID Authoriza tion(s) No Information Social [...] symbicort. Instructions Date Instruction Additional Infor dixon Prescribed activity/ exercise education Related to Dietary surveillance and counseling Special diet education Related t o Dietary surveillance and counseling Physical activity counseling Rel ated to Dietary surveillance counseling Decrease caloric intake Related to Dietary surveillance counseling Physical activity counseling Rel ated to Dietary surveillance counseling Decrease caloric intake Related to Dietary surveillance counseling Physical activity counseling Rel ated to Dietary surveillance counseling Decrease caloric intake Related to Dietary surveillance counseling Assessments Type Assessment Date assessment Dietary surveillance and bereavement counselor ing assessment Asthma assessment Weight gain poor assessment Blood pressure elevated 015 assessment Pain in joint involving lower le g Mental Status Date Cognitive Assessment Orientation - [place] ed to time, place, person, situation.
--- OUTSIDE RECORDS SUMMARY | 2025-01-15 13:14 | XMS_ITS | Clinical Summary ---
Author Organization [facility] Address [address] [place] [address] Phone Care Team Providers Care Production Control Manager Name Role Phone JAYDON BOSS, ZAC SABILLON Unavailable [phone] Reason for Visit and Chief Complaint The Chief Complaint is: Follow up for depression, anxiety, thoughts of self harm Problems Includes: Problems addressed during this encounter and other active Problems Current Visit Onset Date Resolved Date Provider Conditio n Status Migraine Headache 11/29/2022 Active Last Documented On 3 5:53PM ; [facility] Nonorganic Sleep Apnea Obstructive 11/29/2022 Active Last Documented On 3 5:53PM ; [facility] Restless Legs Syndrome 11/29/2022 Ac tive Last Documented On 3 5:53PM ; [facility] Adult Attention Deficit Hyperactivity Disorder 01/27/2022 Active Last Documented On 3 5:53PM ; [facility] Generalized Anxiety Disorder 05/29/2021 Active Last Documented On 3 5:53PM ; [facility] Psychophysiological Insomnia 05/29/2021 Active Last Documented On 3 5:53PM ; [facility] Major Depression 05/29/2021 Active Last Documented On 3 5:53PM ; [facility] Plan of Treatment Generalized Anxiety Disorder [...] - Last Documented On 02/10/2024 9:28AM ; [facility] Assessments Includes: Assessments from this encounter Findings - Obstructive sleep apnea - Last Documented On 02/10/2024 9:28AM ; [facility] - Migraine headache - Last Documented On 02/10/2024 9:28AM ; [facility] - Restless legs syndrome - Last Documented On 02/10/2024 9:28AM ; [facility] - Major depressive disorder - Last Documented On 02/10/2024 9:28AM ; [facility] - Psychophysiological insomnia - Last Documented On 02/10/2024 9:28AM ; [facility] - Generalized anxiety disorder - Last Documented On 02/10/2024 9:28AM ; [facility] - Adult attention deficit hyperactivity disorder - Last Documented On 02/10/2024 9:28AM ; [facility] Medical Equipment - Implanted Devices [...] 10:27AM By ALEXIS ELI ; [facility] New / Renewed during this visit ZAC INTERIANO MD on 01/27/2024 traZODone HCl 50 MG Oral Tablet Provider: ZAC INTERIANO MD 30 day supply: 90 tablet, 0 refills Diagnosis: Psychophysiologic insomnia TAKE 3 TABLETS AT BEDTIME NEEDED FOR SLEEP Pharmacy: Janice Day [address], [id number] - Last Documented On 02/29/2024 12:26PM By Marta Interiano MD ; [facility] Azstarys 52.3-10.4 MG Oral Capsule Provider: ZAC INTERIANO MD 30 day supply: 30 capsule, 0 refills Diagnosis: Attn-defct hyperactivity disorder, predom inattentive type as directed - 1 cap in am Pharmacy: Eliana Day [facility]) - [address] [facility], [id number] - Last Documented On 03/28/2024 2:02PM By Marta Interiano MD ; [facility] rOPINIRole HCl 1 MG Oral Tablet Provider: ZAC INTERIANO MD 30 day supply: 30 tablet, 3 refills Diagnosis: Restless legs syndrome as directed -1/2 tab in the evening for 1 week then 1 tab in the evening thereafter Pharmacy: Janice Cruz[facility]) - [address] [place] [address], [id number] - Last Documented On 01/27/2024 10:15AM By Marta Interiano MD ; [facility] Nurtec 75 MG Oral Tablet Disintegrating Provider: ZAC INTERIANO MD 30 day supply: 9 tablet, 5 refills Diagnosis: Migraine w/o aura, not intractable, w/o status migrainosus as directed - 1 tab a day as needed at the onset of migraine headaches Pharmacy: Janice Cruz[facility]) - [address] [facility], [id number] - Last Documented On 01/27/2024 9:42AM By Marta Interiano MD ; [facility] Aimovig 70 MG/ML Subcutaneous Solution Auto-injector Provider: ZAC INTERIANO MD 30 day supply: 1 mL, 11 refills Diagnosis: Migraine w/o aura, not intractable, w/o status migrainosus as directed - inject 70 mg ( 1 ml) SQ once a month to upper thigh, please rotate sites Pharmacy: Janice Cruz[facility]) - [address] [facility], [id number] - Last Documented On 01/27/2024 9:42AM By Marta Interiano MD ; [facility] Current Medications (continue as prescribed) Azstarys 52.3-10.4 MG Oral Capsule 03/28/2024 Provider: ZAC INTERIANO MD Diagnosis: Attn-defct hyper activity disorder, predom inattentive type as directed - 1 cap in am Last Documented On 03/28/2024 2:09PM By Marta Interiano MD ; [facility] traZODone HCl 50 MG Oral Tablet 02/29/2024 Provider: ZAC INTERIANO MD Diagnosis: Psychophysiologi c insomnia TAKE 3 TABLETS BY MOUTH AT B EDTIME NEEDED FOR SLEEP Last Documented On 02/29/2024 12:32PM By Marta Interiano MD ; [facility] Vyvanse 30 MG Oral Capsule 12/13/2023 Provider: ZAC INTERIANO MD Diagnosis: Attn-defct hyper activity disorder, predom inattentive type 1 Capsule every morning Last Documented On 12/13/2023 1:47AM By Marta Interiano MD ; [facility] Gabapentin 300 MG Oral Capsule 07/29/2023 Provider: ZAC INTERIANO MD Diagnosis: Restless legs sy ndrome as directed -- 1 cap in even ing for restless legs Last Documented On 03/28/2024 10:27AM By ALEXIS ELI ; [facility] DULoxetine HCl 60 MG Oral Capsule Delayed Release Particles 07/29/2023 Provider: ZAC INTERIANO MD Diagnosis: Major depressive disorder, recurrent, moderate TAKE 1 CAPSULE BY MOUTH EVER Y DAY IN THE MORNING Last Documented On 03/28/2024 10:26AM By ALEXIS ELI ; [facility] DULoxetine HCl 30 MG Oral Capsule Delayed Release Particles 07/29/2023 Provider: ZAC INTERIANO MD Diagnosis: Generalized anxi ety disorder TAKE 1 CAPSULE BY MOUTH EVER Y DAY (TAKE WITH 60MG CAPSULE) Last Documented On 03/28/2024 10:26AM By ALEXIS ELI ; [facility] Topiramate 50 MG Oral Tablet 04/20/2023 Provider: ZAC INTERIANO MD Diagnosis: Chronic migraine w/o aura, not intractable, w/o stat migr One tablet twice a day Last Documented On 03/28/2024 10:29AM By ALEXIS ELI ; [facility] Meclizine HCl 25 MG OR TABS 11/24/2022 Provider: Diagnosis: 1 TAB BID PRN Last Documented On 03/27/2023 5:34PM By DOMINGA COON ; [facility] Ondansetron HCl 4 MG OR TABS 03/26/2022 Provider: Diagnosis: as directed Last Documented On 03/27/2023 5:34PM By DOMINGA COON ; [facility] Senexon-S 8.6-50 MG OR TABS 02/04/2022 Provider: Diagnosis: 1 daily prn Last Documented On 03/27/2023 5:34PM By DOMINGA COON ; [facility] Metoclopramide HCl 10 MG OR TABS 01/27/2022 Provider : Diagnosis: 1 ac tid Last Documented On 03/27/2023 5:34PM By DOMINGA COON ; [facility] Fluticasone Propionate 50 MCG/ACT NA SUSP 12/03/2021 Provider: Diagnosis: Last Documented On 03/27/2023 5:34PM By ALEXIS ELI ; [facility] Pantoprazole Sodium 40 MG OR TBEC 11/23/2021 Provide r: Diagnosis: 1 tab daily Last Documented On 03/27/2023 5:34PM By ALEXIS ELI ; [facility] Blank Allergy 180 MG OR TABS 05/29/2021 Provider: Diagnosis: 1 tab daily otc Last Documented On 03/27/2023 5:34PM By DOMINGA COON ; [facility] Albuterol Sulfate 108 (90 Base) MCG/ACT IN AEPB 2020 Provider: Diagnosis: 1-2 puffs q 4-6 hours prn Last Documented On 03/27/2023 5:34PM By DOMINGA COON ; [facility] Spironolactone 100 MG OR TABS 04/21/2021 Provider: Diagnosis: 1 tab daily Last Documented On 03/27/2023 5:34PM By DOMINGA COON ; [facility] Symbicort 160-4.5 MCG/ACT IN AERO 12/05/2020 Provide r: Diagnosis: 1 puff twice daily Last Documented On 03/27/2023 5:34PM By DOMINGA COON ; [facility] Spiriva HandiHaler 18 MCG IN CAPS 10/15/2020 Provide r: Diagnosis: 1 inhalation daily Last Documented On 03/27/2023 5:34PM By DOMINGA COON ; [facility] Past Medications on file Sunosi 150 MG OR TABS 02/24/2023 - 03/26/2023 Provider: ZAC BLACK MD Diagnosis: Obstructive slee p apnea (adult) (pediatric) 1 tablet every morning Last Documented On 03/27/2023 5:34PM By Marta Interiano MD ; [facility] Zoloft 100 MG OR TABS 05/06/2011 - 11/02/2011 Provider: YA SCHNEIDER D.O. Diagnosis: DEPRESSIVE DISOR EMMA NEC Last Documented On 05/06/2011 2:19PM By LEIGH FALCON MA ; [facility] Zoloft 100 MG OR TABS 02/25/2011 - 06/25/2011 Provider: YA SCHNEIDER D.O. Diagnosis: DEPRESSIVE DISOR EMMA NEC 1 1/2 pills qd x7d, then 2 pills qd Last Documented On 02/25/2011 6:16PM By YA SCHNEIDER DO ; [facility] Medications Administered Includes: Administered Medications from this encounter No Administered Medications Recorded Vital Signs Includes: Vital Signs from this encounter Vital Name 01/27/2024 09:18A Blood Pressure Sitting L 128/80 BP Cuff Size Regular Pulse Rate-Sitting (bpm) 75 Pulse Rhythm Regular Height (in) 66 Weight (lb) 233 Body Mass Index 37.6 Body Surface Area 2.1 Last Documented: On 01/27/2024 9:18AM ; [facility] Results Includes: Results discussed during [...] more work related. 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 Her sexual orientation is pansexual or aromantic. She has no past or pending legal history. She enjoys reading, sewing, knitting and gardening. Her jewish background as a child was [employer] and currently is [place]. 01/27/2024 Last Documented On 4 9:04AM ; [facility] Tobacco non-user 01/27/2024 Last Documented On 4 9:28AM ; [facility] Smoking Status Unknown Procedures and Surgical History Includes: Procedures from this encounter Procedures Code Diagnosis Performing Provider Service Location Service Date PSYCHOTHERAPY 45 MIN W/ PT-WHEN PERFMD WITH E/ [id number] Major depressive disorder, recurrent, unspecified, Attn-defct hyperactivity disorder, predom inattentive type, Generalized anxiety disorder, Restless legs syndrome ZAC INTERIANO MD [facility]-PSY 01/27/2024 Last Documented On 4 4:08PM ; [facility] education and instructions Last Documented On 4 9:04AM ; [facility] supportive care and encourag ement--given positive reinforcement to keep patient motivated and active Last Documented On 4 9:23AM ; [facility] ~* Call 911/[phone] and /or go t o the nearest emergency room or call me if suicidal/homicidal ideation or other serious concerns arise. ~ ~* I gave instructions to call me should there be any questions or concerns. ~ ~* Patient voiced understanding and agreed to treatment plan Last Documented On 4 9:17AM ; [facility] dangerousness assessment: no suicide risk 3085F Last Documented On 4 9:04AM ; [facility] use of tobacco assessment performed 1000F Last Documented On 4 9:17AM ; [facility] patient screened for future fall risk: documentation of any fall with injury in past year - no recent falls 1100F Last Documented On 4 9:17AM ; [facility] review of medications documented 1160F Last Documented On 4 9:17AM ; [facility] assessment of suicide risk performed - n ot suicidal Last Documented On 4 9:17AM ; [facility] screening for adult depression: impressi on and score Last Documented On 4 9:17AM ; [facility] standardized depression screening: posit bea for symptoms Last Documented On 4 9:17AM ; [facility] encouragement to exercise - balanced nithya l plan, low fat low carb diet Last Documented On 4 9:17AM ; [facility] Clinical summary provided to patient Last Documented On 4 9:04AM ; [facility] PHQ-9: total score 12 Last Documented On 4 1:50PM ; [facility] Medical History Includes: Medical History addressed during this encounter Description Last Updated Primary Care Provider: Dr. Iman Walker -- Title Camera Operator Dr. Oscar Flores -- ENT at [facility] Dr. Ember Santos -- Neurologist Sign Installer at [facility] Moshe Quintero, JACQUELINE/Dr. Mooney -- Study Assistant Comp[employer] [facility] Endoscopic / fiberoptic examination - for Dysphagia -- 11/2021 -- normal per patient. Sleep testing was performed - in 2019 by [facility] -- inconclusiveDiagnoses: URI -- given Zpak [...] 201401/27/2024 Last Documented On 4 9:04AM ; [facility] Family History Includes: Family History addressed during this encounter Description Last Updated Paternal: Combined drug and alcohol abuse - FatherMaternal: Alcoholism - Mother Bipolar disorder NOS - MotherPaternal grandmother's: Dementia DepressionFraternal: Depression - BrotherSororal: Depression and Anxiety - Sister 01/27/2024 Last Documented On 4 9:04AM ; [facility] Review of Systems Includes: [...] Active Last Documented On 01/27/2024 9:10AM ; [facility] Note: Imported from external source. TORADOL Allergy Hives / Urticaria 05/29/2021 A ctive Last Documented On 01/27/2024 9:10AM ; [facility] Note: Imported from external source. Pineapple Allergy 01/26/2023 Active Last Documented On 01/27/2024 9:10AM ; [facility] Note: Imported from external source. Latex Allergy Hives / Urticaria 05/29/2021 A ctive Last Documented On 01/27/2024 9:10AM ; [facility] Note: Imported from external source. Encounters Encounter Provider Location Date Check-In Time Check-Out Time Diagnosis PSYCH ADULT FOLLOW UP ZAC INTERIANO MD [facility]-PSY 01/27/20 24 8:59AM 10:03AM Migraine Headache,General ized Anxiety Disorder,Restles s Legs Syndrome,Nonorga gaye Sleep Apnea Obstructive,Psyc hophysiological Insomnia,Major Depression,Adult Attention Deficit Hyperactivity Disorder Insurance Includes: Active Insurance Policies Plan Name Member ID Group # Subscriber Relationship Effect bea Dates 1 - [facility] [id number] EDILIA SOLANO Self Clinical Notes Includes: Clinical Notes from this encounter * Progress note Date Encounter Last Documented by 01/27/2024 PSYCH ADULT FOLLOW UP Last docum ented on 02/10/2024; 9:28 AM, ZAC INTERIANO MD; [facility] Top of Document Medication psychotherapy 45 minutes [...] more work related. 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 Phu Walker -- Title Camera Operator Dr. Oscar Flores -- ENT at [facility] Dr. Ember Santos -- Neurologist Sign Installer at [facility] Moshe Quintero, JACQUELINE/Dr. Mooney -- Study Assistant Compounder [employer] at [facility] Other: Endoscopic / fiberoptic examination - for Dysphagia -- 11/2021 -- normal per patient. Sleep testing was performed - in 2019 by [facility] -- inconclusive Diagnoses: URI -- given [...] [age] having stopped in 2005. 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 She was born in [place], [place] and raised outside of [facility]. 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 Her sexual orientation is pansexual or aromantic. She has no past or pending legal history. She enjoys reading, sewing, knitting and gardening. Her jewish background as a child was [facility] and currently is [place]. Allergies - Latex [...] Clinical summary provided to patient. * Call [phone] and /or go to the nearest emergency [...]
--- OUTSIDE RECORDS SUMMARY | 2025-01-15 13:14 | XMS_ITS | Continuity of Care Document ---
Author Organization [employer] [facility] Address [address] [place] [address] Phone Care Team Providers Care Welding Inspector Name Role Phone Unavailable Unavailable Unavailable Allergies, [...] Diagnoses Date Provider Providers Copied on Encounter [facility], [address] [place] [address], [facility], tel:[phone] [place] No Information Jan-2 2 No Information OFFICE/OUTPA TIENT VISIT, [facility] [address], [address] [place] [address], [facility], tel: [phone] [place] cough (chief complaint) sore throat (chief complaint) body aches/pain (chief complaint) BronchitisOthe r asthmaLaryngit is 0- 0 Fred Lakesha. [address] [place] [address], [facility], . tel:[phone] OFFICE/OUTPA TIENT VISIT, [facility] [address], [address] [place] [address], [facility], tel: [phone] [place] TOOTH PAIN (chief complaint) Dental infectionPain, dental Reza- 2 9 Cecilio Delvalle. [address] [place] [address]. tel:[phone] OFFICE/OUTPA TIENT VISIT, [facility] [address], [address] [place] [address], [facility], tel: [phone] [place] Sore throat (chief complaint) BronchitisAcut e non-recurrent frontal sinusitis Jan- 9 Fred Lakesha. [address] [place] [address], [facility], . tel:[phone] OFFICE/OUTPA TIENT VISIT, [facility] [address], [address] [place] [address], [facility], tel: [phone] [place] CHEST COLD (chief complaint) Acute upper respiratory infection, unspecified Sep- 0-201 8 Bar Gulam. [address] [place] [address], [facility], . tel:[phone] OFFICE/OUTPA TIENT VISIT, [facility] [address], [address] [place] [address], [facility], tel:[phone] [place] URI (chief complaint) Acute upper respiratory infection, unspecified Feb- 8 No Information OFFICE/OUTPA TIENT VISIT, [facility], [address] [place] [address], [facility], tel:[phone] Adal DIZZY (chief complaint) Seasonal allergic rhinitis, unspecified triggerExcessi ve cerumen in both ear canalsLeft serous otitis media, unspecified chronicity 8 Fred Lakesha. [address] [place] [address], [facility], . [phone] OFFICE/OUTPA TIENT VISIT, [facility] [address], [address] [place] [address], [facility], tel:[phone] Adal Chills. (chief complaint) Vomiting (chief complaint) Acute non-recurrent frontal sinusitis 7 Kvng Ornelas. [address], [place], [facility], . tel:[phone] OFFICE/OUTPA TIENT VISIT, [facility], [address] [place] [address], [facility], tel:[phone] Adal both ear pain (chief complaint) Cold symptoms (chief complaint) Impacted cerumen, bilateralOtiti s externaOtitis media, unspecified, left ear 7 Fred Lakesha. [address] [place] [address], [facility], . tel:[phone] Family History Family Member Type Diagnosis Age [...] Of Treatment Date Type Action Status Goal Pap/HPV testing. Due on due Goal Tdap. Due on due Goal Depression screening. Due on due Goal Td vaccine. Due on 20 due Goal Influenza vaccine. Due on due Patient Education Laryngitis: After [...] scheduled an appointment with a dentist at [facility] on 05/12/2019. She denies fever, chills, dysphagia. TOOTH PAIN The symptoms beg an 30 minutes ago. Pt states on the upper left side one of her teeth broke off while eating. Pt states it is painful. Pt states she thought it was infected. Pt goes to the dentist Wednesday. Sore throat (comments) Some dysp deridre and wheezing with exertion but well controlled [...] Information Instructions Date Instruction Additional Infor dixon Education given that antibiotics are not needed for viral infections Related to Bronchitis Continue over the co unter cough and cold medicine Related to Bronchitis Increase fluids and rest Related to Bronchitis Continue maintenance medications Related to Other asthma Follow up with primary Related t o Other asthma Warm fluids, warm te a with honey may help, throat lozenges Related to Laryngitis Tylenol or Ibuprofen for discomf ort. Related to Laryngitis Follow-up with denti st as scheduled 05/12/2019. Related to Dental infection Warm salt water rins es. Antibiotics as prescribed. Related to Dental infection Finish all antibiotics [...] Related to Acute upper respiratory infection, unspecified Dramamine over the c ounter for vertigo if needed Related to Left serous otitis media, unspecified chronicity change positions slowly Related to Left serous otitis media, unspecified chronicity do not drive if feeling dizzy Re lated to Left serous otitis media, unspecified chronicity Avoid triggers Related to Seaso nal allergic rhinitis, unspecified trigger Keep air filters in home changed regularly Related to Seasonal allergic rhinitis, unspecified trigger Do not sleep with windows open R elated to Seasonal allergic rhinitis, unspecified trigger restart your Zyrtec and FLonase Related to Left serous otitis media, unspecified chronicity Take medication as directed Rela fatemeh to Acute non-recurrent frontal sinusitis Observe for worsening s/s. Relat ed to Acute non-recurrent frontal sinusitis Rest,increase intake of clear fl uids. Related to Acute non-recurrent frontal sinusitis Finish all antibiotics as prescr ibed. Related to Otitis media, unspecified, left ear Avoid q-tip use Related to Impac fatemeh cerumen, bilateral over the counter Allie brennen and gentle flushing once a month may prevent this Related to Impacted cerumen, bilateral Tylenol or Ibuprofen for discomf ort Related to Otitis externa Warm heating pad or rice pack may help with discomfort Related to Otitis externa Assessments Type Assessment Date No Information Patient Care Teams Name Effective Dates (start - stop) Status Members No Information
--- OUTSIDE RECORDS SUMMARY | 2025-01-15 13:15 | XMS_ITS ---
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 Name Role Phone JAYDON BOSS, ZAC SABILLON Unavailable [phone] Problems Includes: Active, inactive, and resolved Problems All Visits Onset Date Resolved Date Provider Condition S tatus Migraine Headache 11/29/2022 ZAC Valerio MD Active Last Documented On 3 8:31AM ; [facility] Nonorganic Sleep Apnea Obstructive 11/29/2022 M GISSELLE INTERIANO MD Active Last Documented On 3 8:31AM ; [facility] Restless Legs Syndrome 11/29/2022 ZAC KERN MD Active Last Documented On 3 8:31AM ; [facility] Adult Attention Deficit Hype ractivity Disorder 01/27/2022 ZAC INTERIANO MD Active Last Documented On 2 8:44AM ; [facility] Generalized Anxiety Disorder 05/29/2021 ZAC INTERIANO MD Active Last Documented On 1 3:14PM ; [facility] Psychophysiological Insomnia 05/29/2021 ZAC INTERIANO MD Active Last Documented On 1 3:14PM ; [facility] Major Depression 05/29/2021 ZAC INTERIANO MD Active Last Documented On 1 3:14PM ; [facility] Plan of Treatment Findings Encounter Date Clinical summary transmitted to referring provider electronically with reasonable certainty of receipt TELEHEALTH with ZAC INTERIANO MD 02/23/2023 Last Documented On 3 9:28AM ; [facility] Ordered Transition in care, clinical summary provided TELEHEALTH with ZAC INTERIANO MD 02/23/2023 Last Documented On 3 9:28AM ; [facility] Requested Referred to: [facility] -- Home Sleep Study to r/o EFRA -- 02/23/23 TELEHEALTH with ZAC INTERIANO MD 02/23/2023 Last Documented On 3 9:28AM ; [facility] Referrals To Diagnosis Sleep Study at [facility] ADRIAN RHODES MD - ALT ON [address] [id number] - Obstructive sleep apnea (adult) (pediatric) Note: Refer to sleep special ist Dr. Rhodes Last Documented On 3 9:44AM ; [facility] Instructions to patient Lose weight -- portion contr ol Last Documented On 3 8:27AM ; [facility] Lose weight -- lost 10 lbs s rina last visit Last Documented On 3 4:27AM ; [facility] Lose weight - gained 5 lbs s rina last visit Last Documented On 2 11:32AM ; [facility] Lose weight - lost 10 lbs si nce last visit Last Documented On 2 8:42AM ; [facility] Lose weight - portion contro l, balanced diet Last Documented On 2 8:49AM ; [facility] Lose weight Last Documented On 2 4:18PM ; [facility] Lose weight Last Documented On 1 2:02PM ; [facility] Lose weight Last Documented On 1 5:27PM ; [facility] Education and Decision Aids were provided during visit for: Discussed calming techniques such as breathing exercises and other relaxation techniques Last Documented On 3 9:50AM ; [facility] Patient education about medi cation ---Education was given on medication(s) and diagnosis. I reviewed the risks, benefits and side effects of patient's medications Last Documented On 3 9:11AM ; [facility] Discussed calming techniques such as breathing exercises and other relaxation techniques Last Documented On 3 9:11AM ; [facility] Discussed good sleep hygiene habits Last Documented On 3 9:27AM ; [facility] Patient education about medi cation ---Education was given on medication(s) and diagnosis. I reviewed the risks, benefits and side effects of patient's medications Last Documented On 2 10:10AM ; [facility] Discussed calming techniques such as breathing exercises and other relaxation techniques Last Documented On 2 10:10AM ; [facility] Discussed good sleep hygiene habits Last Documented On 2 10:22AM ; [facility] Patient education about medi cation --- I educated patient on medication(s) and diagnosis. I reviewed the risks, benefits and side effects of patient's medications Last Documented On 2 4:43PM ; [facility] Discussed calming techniques such as breathing exercises and other relaxation techniques Last Documented On 2 4:43PM ; [facility] Counseling for nutrition/zeinab ght management provided Last Documented On 2 4:54PM ; [facility] Discussed good sleep hygiene habits Last Documented On 2 4:54PM ; [facility] Patient education about medi cation --- I educated patient on medication(s) and diagnosis. I reviewed the risks, benefits and side effects of patient's medications Last Documented On 2 3:53PM ; [facility] Discussed calming techniques such as breathing exercises and other relaxation techniques Last Documented On 2 3:53PM ; [facility] Counseling for nutrition/zeinab ght management provided Last Documented On 2 4:15PM ; [facility] Discussed good sleep hygiene habits Last Documented On 2 4:15PM ; [facility] Patient education about medi cation --- I educated patient on medication(s) and diagnosis. I reviewed the risks, benefits and side effects of patient's medications Last Documented On 2 4:03PM ; [facility] Discussed calming techniques such as breathing exercises and other relaxation techniques Last Documented On 2 4:03PM ; [facility] Patient education about medi cation --- I educated patient on medication(s) and diagnosis. I reviewed the risks, benefits and side effects of patient's medications Last Documented On 2 3:49PM ; [facility] Discussed calming techniques such as breathing exercises and other relaxation techniques Last Documented On 2 3:49PM ; [facility] Counseling for nutrition/zeinab ght management provided Last Documented On 2 4:18PM ; [facility] Discussed good sleep hygiene habits Last Documented On 2 4:18PM ; [facility] Patient education about medi cation --- I educated patient on medication(s) and diagnosis. I reviewed the risks, benefits and side effects of patient's medications Last Documented On 1 1:41PM ; [facility] Discussed calming techniques such as breathing exercises and other relaxation techniques Last Documented On 1 1:41PM ; [facility] Counseling for nutrition/zeinab ght management provided Last Documented On 1 2:02PM ; [facility] Discussed good sleep hygiene habits Last Documented On 1 2:02PM ; [facility] Patient education about medi cation --- I educated patient on medication(s) and diagnosis. I reviewed the risks, benefits and side effects of patient's medications Last Documented On 1 5:17PM ; [facility] Discussed calming techniques such as breathing exercises and other relaxation techniques Last Documented On 1 5:17PM ; [facility] Counseling for nutrition/zeinab ght management provided Last Documented On 1 5:27PM ; [facility] Discussed good sleep hygiene habits Last Documented On 1 5:27PM ; [facility] Patient education about medi cation --- I educated patient on medication(s) and diagnosis. I reviewed the risks, benefits and side effects of patient's medications Last Documented On 1 2:59PM ; [facility] Discussed calming techniques such as breathing exercises and other relaxation techniques Last Documented On 1 2:59PM ; [facility] Counseling for nutrition/zeinab ght management provided Last Documented On 1 7:43AM ; [facility] Discussed good sleep hygiene habits Last Documented On 1 3:27PM ; [facility] Assessments Includes: Assessments for all patient encounters Findings Encounter Date Adult attention deficit hype ractivity disorder TELEHEALTH with ZAC INTERINAO MD 02/23/2023 Last Documented On 3 9:28AM ; [facility] Generalized anxiety disorder TELEHEALTH with MET BENITO INTERIANO MD 02/23/2023 Last Documented On 3 9:28AM ; [facility] Major depressive disorder TELEHEALTH with PEDRO INTERIANO MD 02/23/2023 Last Documented On 3 9:28AM ; [facility] Migraine headache TELEHEALTH with ZAC TORRES MD 02/23/2023 Last Documented On 3 9:28AM ; [facility] Obstructive sleep apnea TELEHEALTH with ZAC INTERIANO MD 02/23/2023 Last Documented On 3 9:28AM ; [facility] Psychophysiological insomnia TELEHEALTH with MET BENITO INTERIANO MD 02/23/2023 Last Documented On 3 9:28AM ; [facility] Restless legs syndrome TELEHEALTH with ZAC INTERIANO MD 02/23/2023 Last Documented On 3 9:28AM ; [facility] Adult attention deficit hype ractivity disorder TELEHEALTH with ZAC INTERIANO MD 01/26/2023 Last Documented On 3 4:31AM ; [facility] Generalized anxiety disorder TELEHEALTH with MET BENITO INTERIANO MD 01/26/2023 Last Documented On 3 4:31AM ; [facility] Major depressive disorder TELEHEALTH with PEDRO INTERIANO MD 01/26/2023 Last Documented On 3 4:31AM ; [facility] Psychophysiological insomnia TELEHEALTH with MET BENITO INTERIANO MD 01/26/2023 Last Documented On 3 4:31AM ; [facility] Adult attention deficit hype ractivity disorder TELEHEALTH with ZAC INTERIANO MD 09/03/2022 Last Documented On 2 4:23AM ; [facility] Generalized anxiety disorder TELEHEALTH with MET BENITO INTERIANO MD 09/03/2022 Last Documented On 2 4:23AM ; [facility] Major depressive disorder TELEHEALTH with PEDRO INTERIANO MD 09/03/2022 Last Documented On 2 4:23AM ; [facility] Psychophysiological insomnia TELEHEALTH with MET BENITO INTERIANO MD 09/03/2022 Last Documented On 2 4:23AM ; [facility] Adult attention deficit hype ractivity disorder TELEHEALTH with ZAC INTERIANO MD 06/18/2022 Last Documented On 2 8:44AM ; [facility] Generalized anxiety disorder TELEHEALTH with MET BENITO INTERIANO MD 06/18/2022 Last Documented On 2 8:44AM ; [facility] Major depressive disorder TELEHEALTH with PEDRO INTERIANO MD 06/18/2022 Last Documented On 2 8:44AM ; [facility] Psychophysiological insomnia TELEHEALTH with MET BENITO INTERIANO MD 06/18/2022 Last Documented On 2 8:44AM ; [facility] Adult attention deficit hype ractivity disorder TELEHEALTH with ZAC INTERIANO MD 04/21/2022 Last Documented On 2 8:55AM ; [facility] Generalized anxiety disorder TELEHEALTH with MET BENITO INTERIANO MD 04/21/2022 Last Documented On 2 8:55AM ; [facility] Major depressive disorder TELEHEALTH with PEDRO INTERIANO MD 04/21/2022 Last Documented On 2 8:55AM ; [facility] Psychophysiological insomnia TELEHEALTH with MET BENITO INTERIANO MD 04/21/2022 Last Documented On 2 8:55AM ; [facility] Adult attention deficit hype ractivity disorder TELEHEALTH with ZAC INTERIANO MD 02/26/2022 Last Documented On 2 8:52AM ; [facility] Generalized anxiety disorder TELEHEALTH with MET BENITO INTERIANO MD 02/26/2022 Last Documented On 2 8:52AM ; [facility] Major depressive disorder TELEHEALTH with PEDRO INTERIANO MD 02/26/2022 Last Documented On 2 8:52AM ; [facility] Psychophysiological insomnia TELEHEALTH with MET BENITO INTERIANO MD 02/26/2022 Last Documented On 2 8:52AM ; [facility] Generalized anxiety disorder TELEHEALTH with MET BENITO INTERIANO MD 12/17/2021 Last Documented On 2 9:06AM ; [facility] Major depressive disorder TELEHEALTH with PEDRO INTERIANO MD 12/17/2021 Last Documented On 2 9:06AM ; [facility] Psychophysiological insomnia TELEHEALTH with MET BENITO INTERIANO MD 12/17/2021 Last Documented On 2 9:06AM ; [facility] Generalized anxiety disorder FOLLOW UP with PITER INTERIANO MD 08/25/2021 Last Documented On 1 11:01AM ; [facility] Major depressive disorder FOLLOW UP with ZAC INTERIANO MD 08/25/2021 Last Documented On 1 11:01AM ; [facility] Psychophysiological insomnia FOLLOW UP with PITER INTERIANO MD 08/25/2021 Last Documented On 1 11:01AM ; [facility] Generalized anxiety disorder FOLLOW UP with PITER INTERIANO MD 07/15/2021 Last Documented On 1 4:24PM ; [facility] Major depressive disorder FOLLOW UP with ZAC INTERIANO MD 07/15/2021 Last Documented On 1 4:24PM ; [facility] Psychophysiological insomnia FOLLOW UP with PITER INTERIANO MD 07/15/2021 Last Documented On 1 4:24PM ; [facility] Generalized anxiety disorder PSYCH NEW P ATIENT EXAM- ADULT with ZAC INTERIANO MD 05/29/2021 Last Documented On 1 7:48AM ; [facility] Major depressive disorder PSYCH NEW MARKY ENT EXAM- ADULT with ZAC INTERIANO MD 05/29/2021 Last Documented On 1 7:48AM ; [facility] Psychophysiological insomnia PSYCH NEW P ATIENT EXAM- ADULT with ZAC INTERIANO MD 05/29/2021 Last Documented On 1 7:48AM ; [facility] Instructions Includes: Instructions for all patient encounters Instructions to patient Lose weight -- portion contr ol Last Documented On 3 8:27AM ; [facility] Lose weight -- lost 10 lbs s rina last visit Last Documented On 3 4:27AM ; [facility] Lose weight - gained 5 lbs s rina last visit Last Documented On 2 11:32AM ; [facility] Lose weight - lost 10 lbs si nce last visit Last Documented On 2 8:42AM ; [facility] Lose weight - portion contro l, balanced diet Last Documented On 2 8:49AM ; [facility] Lose weight Last Documented On 2 4:18PM ; [facility] Lose weight Last Documented On 1 2:02PM ; [facility] Lose weight Last Documented On 1 5:27PM ; [facility] Education and Decision Aids were provided during visit for: Discussed calming techniques such as breathing exercises and other relaxation techniques Last Documented On 3 9:50AM ; [facility] Patient education about medi cation ---Education was given on medication(s) and diagnosis. I reviewed the risks, benefits and side effects of patient's medications Last Documented On 3 9:11AM ; [facility] Discussed calming techniques such as breathing exercises and other relaxation techniques Last Documented On 3 9:11AM ; [facility] Discussed good sleep hygiene habits Last Documented On 3 9:27AM ; [facility] Patient education about medi cation ---Education was given on medication(s) and diagnosis. I reviewed the risks, benefits and side effects of patient's medications Last Documented On 2 10:10AM ; [facility] Discussed calming techniques such as breathing exercises and other relaxation techniques Last Documented On 2 10:10AM ; [facility] Discussed good sleep hygiene habits Last Documented On 2 10:22AM ; [facility] Patient education about medi cation --- I educated patient on medication(s) and diagnosis. I reviewed the risks, benefits and side effects of patient's medications Last Documented On 2 4:43PM ; [facility] Discussed calming techniques such as breathing exercises and other relaxation techniques Last Documented On 2 4:43PM ; [facility] Counseling for nutrition/zeinab ght management provided Last Documented On 2 4:54PM ; [facility] Discussed good sleep hygiene habits Last Documented On 2 4:54PM ; [facility] Patient education about medi cation --- I educated patient on medication(s) and diagnosis. I reviewed the risks, benefits and side effects of patient's medications Last Documented On 2 3:53PM ; [facility] Discussed calming techniques such as breathing exercises and other relaxation techniques Last Documented On 2 3:53PM ; [facility] Counseling for nutrition/zeinab ght management provided Last Documented On 2 4:15PM ; [facility] Discussed good sleep hygiene habits Last Documented On 2 4:15PM ; [facility] Patient education about medi cation --- I educated patient on medication(s) and diagnosis. I reviewed the risks, benefits and side effects of patient's medications Last Documented On 2 4:03PM ; [facility] Discussed calming techniques such as breathing exercises and other relaxation techniques Last Documented On 2 4:03PM ; [facility] Patient education about medi cation --- I educated patient on medication(s) and diagnosis. I reviewed the risks, benefits and side effects of patient's medications Last Documented On 2 3:49PM ; [facility] Discussed calming techniques such as breathing exercises and other relaxation techniques Last Documented On 2 3:49PM ; [facility] Counseling for nutrition/zeinab ght management provided Last Documented On 2 4:18PM ; [facility] Discussed good sleep hygiene habits Last Documented On 2 4:18PM ; [facility] Patient education about medi cation --- I educated patient on medication(s) and diagnosis. I reviewed the risks, benefits and side effects of patient's medications Last Documented On 1 1:41PM ; [facility] Discussed calming techniques such as breathing exercises and other relaxation techniques Last Documented On 1 1:41PM ; [facility] Counseling for nutrition/zeinab ght management provided Last Documented On 1 2:02PM ; [facility] Discussed good sleep hygiene habits Last Documented On 1 2:02PM ; [facility] Patient education about medi cation --- I educated patient on medication(s) and diagnosis. I reviewed the risks, benefits and side effects of patient's medications Last Documented On 1 5:17PM ; [facility] Discussed calming techniques such as breathing exercises and other relaxation techniques Last Documented On 1 5:17PM ; [facility] Counseling for nutrition/zeinab ght management provided Last Documented On 1 5:27PM ; [facility] Discussed good sleep hygiene habits Last Documented On 1 5:27PM ; [facility] Patient education about [facility] cation --- I educated patient on medication(s) and diagnosis. I reviewed the risks, benefits and side effects of patient's medications Last Documented On 1 2:59PM ; [facility] Discussed calming techniques such as breathing exercises and other relaxation techniques Last Documented On 1 2:59PM ; [facility] Counseling for nutrition/zeinab ght management provided Last Documented On 1 7:43AM ; [facility] Discussed good sleep hygiene habits Last Documented On 1 3:27PM ; [facility] Medical Equipment - Implanted Devices [...] 5:25AM By Marta Interiano MD ; [facility] Aimovig 70 MG/ML Subcutaneous Solution Auto-injector 02/24/2023 Provider: ZAC INTERIANO MD Diagnosis: Migraine w/o aur a, not intractable, w/o status migrainosus as directed - inject 70 mg ( 1 ml) SQ once a month to upper thigh, please rotate sites Last Documented On 02/24/2023 8:48AM By Marta Interiano MD ; [facility] Aimovig 70 MG/ML Subcutaneou s Solution Auto-injector 02/24/2023 Provider: ZAC TEMPLETON MD Diagnosis: Chronic migraine w/o aura, not intractable, w/o stat migr as directed - inject 1 ml (7 0 mg) subcutaneously to upper thigh once a month, please rotate sites Last Documented On 02/24/2023 8:48AM By Marta Interiano MD ; [facility] traZODone HCl 50 MG Oral Tablet 02/22/2023 Provider: ZAC INTERIANO MD Diagnosis: Psychophysiologi c insomnia TAKE 4 TABLETS (200MG) AT BE DTIME NEEDED FOR SLEEP Last Documented On 02/22/2023 7:21AM By Marta Interiano MD ; [facility] Topiramate 50 MG Oral Tablet 02/02/2023 Provider: ZAC INTERIANO MD Diagnosis: Chronic migraine w/o aura, not intractable, w/o stat migr One tablet twice a day Last Documented On 02/02/2023 9:45AM By Matra Interiano MD ; [facility] Focalin 10 MG Oral Tablet 02/01/2023 Provider: ZAC INTERIANO MD Diagnosis: Attn-defct hyper activity disorder, predom inattentive type as directed -- 1 tab in am a nd 1 tab at noon Last Documented On 02/01/2023 4:41AM By Marta Interiano MD ; [facility] Gabapentin 300 MG Oral Capsule 01/26/2023 Provider: ZAC INTERIANO MD Diagnosis: Restless legs sy ndrome as directed -- 1 cap in even ing for restless legs Last Documented On 10:27AM By Marta Interiano MD ; [facility] Meclizine HCl 25 MG Oral Tablet 11/24/2022 Provider: Diagnosis: 1 TAB BID PRN Last Documented On 01/26/2023 9:26AM By DOMINGA COON ; [facility] DULoxetine HCl 30 MG Oral Capsule Delayed Release Particles 08/20/2022 Provider: ZAC INTERIANO MD Diagnosis: Generalized anxi ety disorder TAKE 1 CAPSULE BY MOUTH EVER Y DAY (TAKE WITH 60MG CAPSULE) Last Documented On 11:28AM By Marta Interiano MD ; [facility] Ondansetron HCl 4 MG Oral Tablet 03/26/2022 Provider : MOSHE GUTIERREZ COAT PADDER Diagnosis: as directed Last Documented On 04/21/2022 4:14PM By DOMINGA COON ; [facility] Senexon-S 8.6-50 MG Oral Tablet 02/04/2022 Provider: MOSHE GUTIERREZ COAT PADDER Diagnosis: 1 daily prn Last Documented On 02/26/2022 4:13PM By DOMINGA COON ; [facility] Metoclopramide HCl 10 MG Oral Tablet 01/27/2022 Prov ider: MOSHE GUTIERREZ COAT PADDER Diagnosis: 1 ac tid Last Documented On 02/26/2022 4:14PM By DOMINGA COON ; [facility] Fluticasone Propionate 50 MCG/ACT Nasal Suspension 03/2022 Provider: Diagnosis: Last Documented On 12/17/2021 4:21PM By ALEXIS ELI ; [facility] Pantoprazole Sodium 40 MG Oral Tablet Delayed Release 11/23/2021 Provider: Diagnosis: 1 tab daily Last Documented On 12/17/2021 4:21PM By ALEXIS ELI ; [facility] Gabapentin 100 MG Oral Capsule 08/20/2021 Provider: Diagnosis: [address] Ember Santos Last Documented On 08/25/2021 2:01PM By DOMINGA COON ; [facility] Albuterol Sulfate 108 (90 Ba se) MCG/ACT Inhalation Aerosol Powder Breath Activated 05/29/2021 Provider: Diagnosis: 1-2 puffs q 4-6 hours prn Last Documented On 05/29/2021 3:25PM By DOMINGA COON ; [facility] Blank Allergy 180 MG Oral Tablet 05/29/2021 Provid er: Diagnosis: 1 tab daily otc Last Documented On 05/29/2021 3:24PM By DOMINGA COON ; [facility] Spironolactone 100 MG Oral Tablet 04/21/2021 Provide r: JASON BENITO APN Diagnosis: 1 tab daily Last Documented On 05/29/2021 3:20PM By DOMINGA COON ; [facility] Symbicort 160-4.5 MCG/ACT Inhalation Aerosol 1 Provider: CARLO JAQUEZ MD Diagnosis: 1 puff twice daily Last Documented On 05/29/2021 3:21PM By DOMINGA COON ; [facility] Spiriva HandiHaler 18 MCG Inhalation Capsule 0 Provider: Diagnosis: 1 inhalation daily Last Documented On 05/29/2021 3:22PM By DOMINGA COON ; [facility] Past Medications on file Aimovig 70 MG/ML Subcutaneous Solution Auto-injector 02/24/2023 - 02/23/2023 Provider: ZAC INTERIANO MD Diagnosis: Migraine w/o aur a, not intractable, w/o status migrainosus as directed - once a month SQ Last Documented On 02/24/2023 8:38AM By Marta Interiano MD ; [facility] Sunosi 150 MG Oral Tablet 02/24/2023 - 03/26/2023 Provider: ZAC BLACK MD Diagnosis: Obstructive slee p apnea (adult) (pediatric) 1 tablet every morning Last Documented On 02/24/2023 8:41AM By Marta Interiano MD ; [facility] traZODone HCl 50 MG Oral Tablet 01/22/2023 - 02/22/2023 Provider: ZAC INTERIANO MD Diagnosis: Psychophysiologi c insomnia as directed -- 4 tabs at bed time as needed for sleep Last Documented On 02/22/2023 7:16AM By Marta Interiano MD ; [facility] Focalin 10 MG Oral Tablet 11/26/2022 - 01/26/2023 Provider: ZAC INTERIANO MD Diagnosis: Attn-defct hyper activity disorder, predom inattentive type as directed -- 1 tab in am a nd 1 tab at noon Last Documented On 02/01/2023 4:30AM By Marta Interiano MD ; [facility] Focalin 10 MG Oral Tablet 09/03/2022 - 11/26/2022 Provider: ZAC INTERIANO MD Diagnosis: Attn-defct hyper activity disorder, predom inattentive type as directed -- 1 tab in am a nd 1 tab at noon Last Documented On 11/26/2022 3:40PM By Marta Interiano MD ; [facility] Topiramate 50 MG Oral Tablet 09/03/2022 - 02/02/2023 Provider: ZAC INTERIANO MD Diagnosis: Chronic migraine w/o aura, not intractable, w/o stat migr One tablet twice a day Last Documented On 02/02/2023 9:32AM By Marta Interiano MD ; [facility] Meclizine HCl 25 MG Oral Tablet 09/03/2022 - Provider: Diagnosis: 1 tab twice daily prn Dr. Ember Santos Last Documented On 09/03/2022 3:07PM By DOMINGA COON ; [facility] Cymbalta 60 MG Oral Capsule Delayed Release Particles 09/03/2022 - 03/22/2023 Provider: ZAC INTERIANO MD Diagnosis: Major depressive disorder, recurrent, moderate 1 Capsule every morning Last Documented On 03/22/2023 5:23AM By Marta Interiano MD ; [facility] Aimovig 70 MG/ML Subcutaneous Solution Auto-injector 07/24/2022 - 02/23/2023 Provider: ZAC INTERIANO MD Diagnosis: Chronic migraine w/o aura, not intractable, w/o stat migr as directed - inject 1 ml (7 0 mg) subcutaneously to upper thigh once a month, please rotate sites Last Documented On 02/24/2023 8:38AM By Marta Interiano MD ; [facility] busPIRone HCl 10 MG Oral Tablet 06/18/2022 - 09/23/2022 Provider: ZAC INTERIANO MD Diagnosis: Generalized anxi ety disorder One tablet twice a day Last Documented On 11:36AM By Marta Interiano MD ; [facility] Topiramate 50 MG Oral Tablet 06/18/2022 - 09/03/2022 Provider: ZAC INTERIANO MD Diagnosis: Chronic migraine w/o aura, not intractable, w/o stat migr One tablet twice a day Last Documented On 2 10:53AM By Marta Interiano MD ; [facility] Focalin 10 MG Oral Tablet 06/18/2022 - 07/18/2022 Provider: ZAC INTERAINO MD Diagnosis: Attn-defct hyper activity disorder, predom inattentive type as directed -- 1 tab in am, 1 tab at noon Last Documented On 06/18/2022 5:28PM By Marta Interiano MD ; [facility] traZODone HCl 50 MG Oral Tablet 06/03/2022 - 01/22/2023 Provider: ZAC INTERIANO MD Diagnosis: Psychophysiologi c insomnia as directed -- 4 tabs at bed time as needed for sleep Last Documented On 01/22/2023 9:01AM By Marta Interiano MD ; [facility] Cymbalta 30 MG Oral Capsule Delayed Release Particles 04/21/2022 - 08/20/2022 Provider: ZAC INTERIANO MD Diagnosis: Generalized anxi ety disorder 1 capsule daily Last Documented On 2 11:13AM By Marta Interiano MD ; [facility] Focalin 10 MG Oral Tablet 04/21/2022 - 05/21/2022 Provider: ZAC INTERIANO MD Diagnosis: Attn-defct hyper activity disorder, predom inattentive type as directed -- 1 tab in am Last Documented On 04/21/2022 4:54PM By Marta Interiano MD ; [facility] SUMAtriptan Succinate 100 MG Oral Tablet 03/26/2022 - 06/18/2022 Provider: ZAC INTERIANO MD Diagnosis: Chronic migraine w/o aura, not intractable, w/o stat migr TAKE 1/2 - 1 TABLET A DAY AT THE ONSET OF MIGRAINE HEADACHE Last Documented On 06/18/2022 5:08PM By Marta Interiano MD ; [facility] busPIRone HCl 10 MG Oral Tablet 02/26/2022 - 06/03/2022 Provider: ZAC INTERIANO MD Diagnosis: Generalized anxi ety disorder as directed -- 1 tab 2 x a day Last Documented On 06/03/2022 8:38AM By Marta Interiano MD ; [facility] SUMAtriptan Succinate 100 MG Oral Tablet 12/25/2021 - 03/26/2022 Provider: ZAC INTERIANO MD Diagnosis: Chronic migraine w/o aura, not intractable, w/o stat migr DIRECTED - 1/2 - 1 TAB A DAY AT THE ONSET OF MIGRAINE HEADACHE Last Documented On 2 10:06AM By Marta Interiano MD ; [facility] Cymbalta 60 MG Oral Capsule Delayed Release Particles 12/17/2021 - 09/03/2022 Provider: ZAC INTERIANO MD Diagnosis: Major depressive disorder, recurrent, moderate 1 Capsule every morning Last Documented On 2 10:51AM By Marta Interiano MD ; [facility] Topiramate 50 MG Oral Tablet 12/17/2021 - 06/18/2022 Provider: ZAC INTERIANO MD Diagnosis: Chronic migraine w/o aura, not intractable, w/o stat migr One tablet twice a day Last Documented On 06/18/2022 5:14PM By Marta Interiano MD ; [facility] traZODone HCl 50 MG Oral Tablet 12/17/2021 - 06/03/2022 Provider: ZAC INTERIANO MD Diagnosis: Psychophysiologi c insomnia as directed -- 4 tabs at bed time as needed for sleep Last Documented On 06/03/2022 9:13AM By Marta Interiano MD ; [facility] Topiramate 25 MG Oral Tablet 11/19/2021 - 03/19/2022 Provider: ZAC INTERIANO MD Diagnosis: Chronic migraine w/o aura, not intractable, w/o stat migr as directed -- 1 tab 2 x a day Last Documented On 03/19/2022 8:48AM By Marta Interiano MD ; [facility] SUMAtriptan Succinate 100 MG Oral Tablet 10/22/2021 - 12/25/2021 Provider: ZAC INTERIANO MD Diagnosis: Chronic migraine w/o aura, not intractable, w/o stat migr DIRECTED - 1/2 - 1 TAB A DAY AT THE ONSET OF MIGRAINE HEADACHE Last Documented On 12/25/2021 7:43AM By Marta Interiano MD ; [facility] traZODone HCl 50 MG Oral Tablet 08/25/2021 - 09/23/2022 Provider: ZAC INTERIANO MD Diagnosis: Psychophysiologi c insomnia as directed -3 tabs at bedti me as needed for sleep Last Documented On 11:36AM By Marta Interiano MD ; [facility] Cymbalta 30 MG Oral Capsule Delayed Release Particles 08/25/2021 - 03/19/2022 Provider: ZAC INTERIANO MD Diagnosis: Generalized anxi ety disorder 1 Capsule every morning Last Documented On 03/19/2022 8:48AM By Marta Interiano MD ; [facility] Meclizine HCl 25 MG Oral Tablet 08/20/2021 - Provider: Diagnosis: [address] Ember Santos Last Documented On 09/03/2022 3:07PM By DOMINGA COON ; [facility] Imitrex 100 MG Oral Tablet 07/15/2021 - 10/22/2021 Provider: ZAC BLACK MD Diagnosis: Chronic migraine w/o aura, not intractable, w/o stat migr as directed - 1/2 - 1 tab a day at the onset of migraine headache Last Documented On 10/22/2021 2:11PM By Marta Interiano MD ; [facility] traZODone HCl 50 MG Oral Tablet 07/15/2021 - 08/25/2021 Provider: ZAC INTERIANO MD Diagnosis: Psychophysiologi c insomnia as directed - 2 tabs at bedt rand as needed for sleep Last Documented On 08/25/2021 2:35PM By Marta Interiano MD ; [facility] Viibryd 40 MG Oral Tablet 07/15/2021 - 09/23/2022 Provider: ZAC BLACK MD Diagnosis: Major depressive disorder, recurrent, moderate as directed -- 1 tab in am with food Last Documented On 11:36AM By Marta Interiano MD ; [facility] Topiramate 25 MG Oral Tablet 07/15/2021 - 11/19/2021 Provider: ZAC INTERIANO MD Diagnosis: Chronic migraine w/o aura, not intractable, w/o stat migr as directed -- 1 tab 2 x a day Last Documented On 11/19/2021 8:56AM By Marta Interiano MD ; [facility] Viibryd Starter Pack 10 & 20 MG Oral Kit 05/29/2021 - 06/28/2021 Provider: ZAC INTERIANO MD Diagnosis: Major depressive disorder, recurrent, moderate as directed -- 10 mg in am w / food for 2 weeks then 20 mg 1 tab in am w/ food thereafter Last Documented On 05/29/2021 4:05PM By Marta Interiano MD ; [facility] traZODone HCl 50 MG Oral [...] On 01/26/2023 9:20AM By DOMINGA COON ; [facility] Racheal 0.35 MG Oral Tablet 05/29/2021 - 07/15/2021 Pro vider: Diagnosis: 1 tab daily Last Documented On 07/15/2021 5:22PM By DOMINGA COON ; [facility] Citalopram Hydrobromide 20 M G Oral Tablet 05/05/2021 - 07/15/2021 Provider: CARLO JAQUEZ MD Diagnosis: 1 tab daily Last Documented On 07/15/2021 5:22PM By DOMINGA COON ; [facility] Medications Administered Includes: Administered Medications in patient's chart No Administered Medications Recorded Results Includes: Results from 01/15/2024 through 01/15/2025 No Results Recorded For Specified Dates History of Present Illness History of Present Illness not supported for this document type No History of Present Illness Recorded Social History Description Last Updated She was born in [place], [place] and raised outside of [facility]. 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 Her sexual orientation is pansexual or aromantic. She has no past or pending legal history. She enjoys reading, sewing, knitting and gardening. 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 02/01/2023 Last Documented On 3 4:31AM ; [facility] Non-smoker 09/03/2022 Last Documented On 2 4:23AM ; [facility] Daily coffee consumption - d rinks 1-2 cups of coffee a week, 1-2 cans of soda a week and 1-2 glasses of green tea with ginseng a week 06/18/2022 Last Documented On 2 8:44AM ; [facility] Not using alcohol - none, past history o f heavy drinking 08/25/2021 Last Documented On 1 11:01AM ; [facility] Work history 08/25/2021 Last Documented On 1 11:01AM ; [facility] No tobacco use 07/15/2021 Last Documented On 1 4:24PM ; [facility] Drug use - narcotics - 4 -7 pills daily from age [age] having stopped in 200505/29/2021 Last Documented On 1 7:48AM ; [facility] Alcohol 05/29/2021 Last Documented On 1 7:48AM ; [facility] Current nonsmoker 05/29/2021 Last Documented On 1 7:48AM ; [facility] Single 05/29/2021 Last Documented On 1 7:48AM ; [facility] Smoking Status Unknown Procedures and Surgical History Surgical History Last Updated History of hysterectomy - 08/05/21 022 Last Documented On 2 8:52AM ; [facility] History of abdominal surgery Left fallop jovany tube tumors removed-- 201806/16/2021 Last Documented On 1 7:48AM ; [facility] History of knee surgery - right knee rec onstruction 201405/29/2021 Last Documented On 1 7:48AM ; [facility] History of cholecystectomy - 2018 Last Documented On 1 7:48AM ; [facility] Medical History Includes: Medical History in patient's chart Description Last Updated History of gastroparesis - M etoclopromide and Stimulant Laxative -- from [facility] under Dr. Mooney 02/24/2023 Last Documented On 3 9:28AM ; [facility] Primary Care Provider: Dr. Iman Jaquez ~Dr. Yaniv Walker -- Senior Research Manager ~Dr. Oscar Flores -- ENT at [facility] ~Dr. Ember Santos -- Neurologist ~Chief Of Field Operations at [facility] ~Moshe Gutierrez NP/Dr. Mooney -- Ehs Teacher ~Mechanical Service Representative at [facility] 02/24/2023 Last Documented On 3 9:28AM ; [facility] History of vertigo - takes Meclizine prn 01/26/2023 Last Documented On 3 4:31AM ; [facility] History of infection of tooth - given Am oxil 500 mg 07/27/22 09/03/2022 Last Documented On 2 4:23AM ; [facility] History of back strain - Deg enerative Disc Disease -- given Flexeril 10 mg and Ibuprofen 600 mg 07/20/22; with bulging discs -- given Prednisone 20 mg and Norflex 100 mg 04/24/22 09/03/2022 Last Documented On 2 4:23AM ; [facility] History of bronchitis - give n Cefdinir 300 mg and Albuterol HFA 90 mcg inhaler 09/03/2022 Last Documented On 2 4:23AM ; [facility] History of COVID-19 infection - tested p ositive/isolation 08/10/22-08/17/22 09/03/2022 Last Documented On 2 4:23AM ; [facility] History of migraine headache 06/19/2022 Last Documented On 2 8:44AM ; [facility] History of Nausea with vomiting - given Zofran 4 mg 03/26/22 04/21/2022 Last Documented On 2 8:55AM ; [facility] History of constipation - gi [facility] Miralax 03/26/22; Senexon-S 8.6mg -50 mg -- started 02/04/22 04/21/2022 Last Documented On 2 8:55AM ; [facility] History of coronavirus 2019- nCoV vaccine - [employer] #1 03/10/21 #2 04/01/21 #3 02/202204/21/2022 Last Documented On 2 8:55AM ; [facility] History of an endoscopic / f iberoptic examination was performed - for Dysphagia -- 11/2021 -- normal per patient 02/26/2022 Last Documented On 2 8:52AM ; [facility] History of ovarian cyst - CT scan of abdomen/pelvis from 11/2021 showed a 5 cm mass/cyst on an ovary -- has ultrasound every 6-8 weeks to monitor 02/26/2022 Last Documented On 2 8:52AM ; [facility] History of colonoscopy - 11/2021 -- lisa l per patient 02/26/2022 Last Documented On 2 8:52AM ; [facility] History of dysphagia - started Reglan 10 mg 01/05/22 02/26/2022 Last Documented On 2 8:52AM ; [facility] History of acute suppurative sinusitis - given Augmentin 875 mg 02/06/22 02/26/2022 Last Documented On 2 8:52AM ; [facility] History of sleep testing was performed - in 2019 by [facility] -- inconclusive 02/26/2022 Last Documented On 2 8:52AM ; [facility] History of GI bleed - via en doscopy - was hospitalized for 4 days -- 2019 -- should not be using anymore NSAIDS 12/17/2021 Last Documented On 2 9:06AM ; [facility] History of Polycystic Ovaria n Syndrome (PCOS) - age 23 - left fallopian tube removed in 2019 -- complete hysterectomy 08/05/21 -- given Hydrocodone 5/325 #25 -- still has ovaries 08/25/2021 Last Documented On 1 11:01AM ; [facility] History of hyperlipidemia 06/16/2021 Last Documented On 1 7:48AM ; [facility] History of endometriosis - age 23 2020 Last Documented On 1 7:48AM ; [facility] History of fatty liver - age 28 05/29/20 Last Documented On 1 7:48AM ; [facility] History of asthma - since childhood 11/2020 Last Documented On 1 7:48AM ; [facility] Family History Includes: Family History in patient's chart Description Last Updated Maternal history of alcoholism - Mother 06/16/2021 Last Documented On 1 7:48AM ; [facility] Maternal history of bipolar disorder NOS - Mother 06/16/2021 Last Documented On 1 7:48AM ; [facility] Paternal history of combined drug and al cohol abuse - Father 06/16/2021 Last Documented On 1 7:48AM ; [facility] Fraternal history of depression - Brothe r 06/16/2021 Last Documented On 1 7:48AM ; [facility] Paternal grandmother's history of depres edward 06/16/2021 Last Documented On 1 7:48AM ; [facility] Sororal history of depression and Anxiet y - Sister 06/16/2021 Last Documented On 1 7:48AM ; [facility] Paternal grandmother's history of lisy ia 05/29/2021 Last Documented On 7:48AM ; [facility] Review of Systems Review [...] Active Last Documented On 01/27/2024 9:10AM ; [facility] Note: Imported from external source. TORADOL Allergy Hives / Urticaria 05/29/2021 A ctive Last Documented On 01/27/2024 9:10AM ; [facility] Note: Imported from external source. Pineapple Allergy 01/26/2023 Active Last Documented On 01/27/2024 9:10AM ; [facility] Note: Imported from external source. Latex Allergy Hives / Urticaria 05/29/2021 A ctive Last Documented On 01/27/2024 9:10AM ; [facility] Note: Imported from external source. Insurance Includes: Active Insurance Policies Plan Name Member ID Group # Subscriber Relationship Effect bea Dates 1 - [facility] [id number] TONY SOLANO Self Clinical Notes Includes: Signed Clinical Notes starting from 12/18/2022 No Clinical Notes Recorded
--- OUTSIDE RECORDS SUMMARY | 2025-01-15 13:15 | XMS_ITS | Clinical Summary ---
Author Organization [facility] Address [address] [place] [address] Phone Care Team Providers Care Lead Pastor Name Role Phone JAYDON BOSS, ZAC SABILLON Unavailable [phone] Reason for Visit and Chief Complaint The Chief Complaint is: Follow up for depression, anxiety, thoughts of self harm Problems Includes: Problems addressed during this encounter and other active Problems Current Visit Onset Date Resolved Date Provider Conditio n Status Migraine Headache 11/29/2022 Active Last Documented On 3 5:53PM ; [facility] Nonorganic Sleep Apnea Obstructive 11/29/2022 Active Last Documented On 3 5:53PM ; [facility] Restless Legs Syndrome 11/29/2022 Ac tive Last Documented On 3 5:53PM ; [facility] Adult Attention Deficit Hyperactivity Disorder 01/27/2022 Active Last Documented On 3 5:53PM ; [facility] Generalized Anxiety Disorder 05/29/2021 Active Last Documented On 3 5:53PM ; [facility] Psychophysiological Insomnia 05/29/2021 Active Last Documented On 3 5:53PM ; [facility] Major Depression 05/29/2021 Active Last Documented On 3 5:53PM ; [facility] Plan of Treatment Generalized Anxiety Disorder [...] - Last Documented On 12/13/2023 1:59AM ; [facility] Education and Decision Aids were provided during visit for: Discussed good sleep hygiene habits Last Documented On 4 1:54AM ; [facility] Calming techniques such as b reathing exercises/meditation and other relaxation techniques Last Documented On 4 1:54AM ; [facility] Assessments Includes: Assessments from this encounter Findings - Obstructive sleep apnea - Last Documented On 12/13/2023 1:59AM ; [facility] - Migraine headache - Last Documented On 12/13/2023 1:59AM ; [facility] - Restless legs syndrome - Last Documented On 12/13/2023 1:59AM ; [facility] - Major depressive disorder - Last Documented On 12/13/2023 1:59AM ; [facility] - Psychophysiological insomnia - Last Documented On 12/13/2023 1:59AM ; [facility] - Generalized anxiety disorder - Last Documented On 12/13/2023 1:59AM ; [facility] - Adult attention deficit hyperactivity disorder - Last Documented On 12/13/2023 1:59AM ; [facility] Instructions Includes: Instructions from this encounter Education and Decision Aids were provided during visit for: Discussed good sleep hygiene habits Last Documented On 4 1:54AM ; [facility] Calming techniques such as b reathing exercises/meditation and other relaxation techniques Last Documented On 4 1:54AM ; [facility] Medical Equipment - Implanted Devices Includes: Current Devices No Medical Equipment Recorded Medications Includes: Medications discussed during this encounter and other current Medications Discontinued / Stopped on this date ZAC INTERIANO MD on 11/05/2023 Vyvanse 30 MG Oral Capsule Provider: ZAC INTERIANO MD Diagnosis: Attn-defct hyper activity disorder, predom inattentive type Last Documented On 12/13/2023 1:40AM By Marta Interiano MD ; [facility] Current Medications (continue as prescribed) Azstarys 52.3-10.4 MG Oral Capsule 03/28/2024 Provider: ZAC INTERIANO MD Diagnosis: Attn-defct hyper activity disorder, predom inattentive type as directed - 1 cap in am Last Documented On 03/28/2024 2:09PM By Marta Interiano MD ; [facility] traZODone HCl 50 MG Oral Tablet 02/29/2024 Provider: ZAC INTERIANO MD Diagnosis: Psychophysiologi c insomnia TAKE 3 TABLETS BY MOUTH AT B EDTIME NEEDED FOR SLEEP Last Documented On 02/29/2024 12:32PM By Marta Interiano MD ; [facility] rOPINIRole HCl 1 MG Oral Tablet 01/27/2024 Provider: ZAC INTERIANO MD Diagnosis: Restless legs sy ndrome as directed -1/2 tab in the evening for 1 week then 1 tab in the evening thereafter Last Documented On 01/27/2024 10:15AM By Marta Interiano MD ; [facility] Nurtec 75 MG Oral Tablet Disintegrating 01/27/2024 Provider: ZAC INTERIANO MD Diagnosis: Migraine w/o aur a, not intractable, w/o status migrainosus as directed - 1 tab a day as needed at the onset of migraine headaches Last Documented On 01/27/2024 9:42AM By Marta Interiano MD ; [facility] Aimovig 70 MG/ML Subcutaneous Solution Auto-injector 01/27/2024 Provider: ZAC INTERIANO MD Diagnosis: Migraine w/o aur a, not intractable, w/o status migrainosus as directed - inject 70 mg ( 1 ml) SQ once a month to upper thigh, please rotate sites Last Documented On 01/27/2024 9:42AM By Marta Interiano MD ; [facility] Vyvanse 30 MG Oral Capsule 12/13/2023 Provider: ZAC INTERIANO MD Diagnosis: Attn-defct hyper activity disorder, predom inattentive type 1 Capsule every morning Last Documented On 12/13/2023 1:47AM By Marta Interiano MD ; [facility] Gabapentin 300 MG Oral Capsule 07/29/2023 Provider: ZAC INTERIAON MD Diagnosis: Restless legs sy ndrome as directed -- 1 cap in even ing for restless legs Last Documented On 03/28/2024 10:27AM By ALEXIS ELI ; [facility] DULoxetine HCl 60 MG Oral Capsule Delayed Release Particles 07/29/2023 Provider: ZAC INTERIANO MD Diagnosis: Major depressive disorder, recurrent, moderate TAKE 1 CAPSULE BY MOUTH EVER Y DAY IN THE MORNING Last Documented On 03/28/2024 10:26AM By ALEXIS ELI ; [facility] DULoxetine HCl 30 MG Oral Capsule Delayed Release Particles 07/29/2023 Provider: ZAC INTERIANO MD Diagnosis: Generalized anxi ety disorder TAKE 1 CAPSULE BY MOUTH EVER Y DAY (TAKE WITH 60MG CAPSULE) Last Documented On 03/28/2024 10:26AM By ALEXIS ELI ; [facility] Topiramate 50 MG Oral Tablet 04/20/2023 Provider: ZAC INTERIANO MD Diagnosis: Chronic migraine w/o aura, not intractable, w/o stat migr One tablet twice a day Last Documented On 03/28/2024 10:29AM By ALEXIS ELI ; [facility] Meclizine HCl 25 MG OR TABS 11/24/2022 Provider: Diagnosis: 1 TAB BID PRN Last Documented On 03/27/2023 5:34PM By DOMINGA COON ; [facility] Ondansetron HCl 4 MG OR TABS 03/26/2022 Provider: Diagnosis: as directed Last Documented On 03/27/2023 5:34PM By DOMINGA COON ; [facility] Senexon-S 8.6-50 MG OR TABS 02/04/2022 Provider: Diagnosis: 1 daily prn Last Documented On 03/27/2023 5:34PM By DOMINGA COON ; [facility] Metoclopramide HCl 10 MG OR TABS 01/27/2022 Provider : Diagnosis: 1 ac tid Last Documented On 03/27/2023 5:34PM By DOMINGA COON ; [facility] Fluticasone Propionate 50 MCG/ACT NA SUSP 12/03/2021 Provider: Diagnosis: Last Documented On 03/27/2023 5:34PM By ALEXIS ELI ; [facility] Pantoprazole Sodium 40 MG OR TBEC 11/23/2021 Provide r: Diagnosis: 1 tab daily Last Documented On 03/27/2023 5:34PM By ALEXIS ELI ; [facility] Blank Allergy 180 MG OR TABS 05/29/2021 Provider: Diagnosis: 1 tab daily otc Last Documented On 03/27/2023 5:34PM By DOMINGA COON ; [facility] Albuterol Sulfate 108 (90 Base) MCG/ACT IN AEPB 2020 Provider: Diagnosis: 1-2 puffs q 4-6 hours prn Last Documented On 03/27/2023 5:34PM By DOMINGA COON ; [facility] Spironolactone 100 MG OR TABS 04/21/2021 Provider: Diagnosis: 1 tab daily Last Documented On 03/27/2023 5:34PM By DOMINGA COON ; [facility] Symbicort 160-4.5 MCG/ACT IN AERO 12/05/2020 Provide r: Diagnosis: 1 puff twice daily Last Documented On 03/27/2023 5:34PM By DOMINGA COON ; [facility] Spiriva HandiHaler 18 MCG IN CAPS 10/15/2020 Provide r: Diagnosis: 1 inhalation daily Last Documented On 03/27/2023 5:34PM By DOMINGA COON ; [facility] Past Medications on file Sunosi 150 MG OR TABS 02/24/2023 - 03/26/2023 Provider: ZAC BLACK MD Diagnosis: Obstructive slee p apnea (adult) (pediatric) 1 tablet every morning Last Documented On 03/27/2023 5:34PM By Marta Interiano MD ; [facility] Zoloft 100 MG OR TABS 05/06/2011 - 11/02/2011 Provider: YA SCHNEIDER D.O. Diagnosis: DEPRESSIVE DISOR EMMA NEC Last Documented On 05/06/2011 2:19PM By LEIGH FALCON MA ; [facility] Zoloft 100 MG OR TABS [...] vitals Last Documented: On 12/10/2023 5:30PM ; [facility] Results Includes: Results discussed during [...] her job situation. 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 She gets easily [...] age 15-15 having stopped in 2005.Work: Occupation [employer].Marital: Single.She was born in [place], [place] and raised outside of [facility]. 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 Her sexual orientation is pansexual or aromantic. She has no past or pending legal history. She enjoys reading, sewing, knitting and gardening. Her uatsdin background as a child was [place] and currently is [place]. 12/10/2023 Last Documented On 4 5:18PM ; [facility] Tobacco non-user 12/10/2023 Last Documented On 4 1:59AM ; [facility] Smoking Status Unknown Procedures and Surgical History Includes: Procedures from this encounter Procedures Code Diagnosis Performing Provider Service L ocation Service Date education and instructions Last Documented On 4 5:18PM ; [facility] supportive care and encourag ement--given positive reinforcement to keep patient motivated and active, supportive listening provided, grief supportive therapy Last Documented On 4 1:55AM ; [facility] ~* Call [phone] and /or go t o the nearest emergency room or call me if suicidal/homicidal ideation or other serious concerns arise. ~ ~* I gave instructions to call me should there be any questions or concerns. ~ ~* Patient voiced understanding and agreed to treatment plan Last Documented On 4 5:27PM ; [facility] dangerousness assessment: no suicide risk 3085F Last Documented On 4 5:18PM ; [facility] use of tobacco assessment performed 1000F Last Documented On 4 5:28PM ; [facility] patient screened for future fall risk: documentation of any fall with injury in past year - no recent falls 1100F Last Documented On 4 5:27PM ; [facility] review of medications documented 1160F Last Documented On 4 5:27PM ; [facility] assessment of suicide risk performed - n ot suicidal Last Documented On 4 5:28PM ; [facility] screening for adult depressi on: impression and score - please see above for treatment and PHQ score Last Documented On 4 5:28PM ; [facility] standardized depression screening: posit bea for symptoms Last Documented On 4 5:28PM ; [facility] encouragement to exercise - balanced nithya l plan, low fat low carb diet Last Documented On 4 5:27PM ; [facility] Counseling on new medication : I discussed the risks, benefits and side effects of Azstarys . Patient verbalized understanding and agreed to treatment Last Documented On 4 1:54AM ; [facility] Clinical summary provided to patient Last Documented On 4 5:18PM ; [facility] PHQ-9: total score 19 Last Documented On 4 1:54AM ; [facility] Medical History Includes: Medical History addressed during this encounter Description Last Updated Primary Care Provider: Dr. Iman Walker -- Senior It Specialist Dr. Oscar Flores -- ENT at [facility] Dr. Ember Santos -- Neurologist Cake Stripper at [facility] Moshe Quintero NP/Dr. Mooney [facility] fiberoptic examination - for Dysphagia -- 11/2021 -- normal per patient. Sleep testing was performed - in 2019 by [facility] -- inconclusiveDiagnoses: URI -- given Zpak [...] 201412/10/2023 Last Documented On 4 5:34PM ; [facility] Family History Includes: Family History addressed during this encounter Description Last Updated Paternal: Combined drug and alcohol abuse - FatherMaternal: Alcoholism - Mother Bipolar disorder NOS - MotherPaternal grandmother's: Dementia DepressionFraternal: Depression - BrotherSororal: Depression and Anxiety - Sister 12/10/2023 Last Documented On 4 5:18PM ; [facility] Review of Systems Includes: Review [...] Active Last Documented On 01/27/2024 9:10AM ; [facility] Note: Imported from external source. TORADOL Allergy Hives / Urticaria 05/29/2021 A ctive Last Documented On 01/27/2024 9:10AM ; [facility] Note: Imported from external source. Pineapple Allergy 01/26/2023 Active Last Documented On 01/27/2024 9:10AM ; [facility] Note: Imported from external source. Latex Allergy Hives / Urticaria 05/29/2021 A ctive Last Documented On 01/27/2024 9:10AM ; [facility] Note: Imported from external source. Encounters Encounter Provider Location Date Check-In Time Check-Out Time Diagnosis [facility] ESTABLISHED ZAC INTERIANO MD [facility] 024 5:16PM 11:59PM Migraine Headache,General ized Anxiety Disorder,Restles s Legs Syndrome,Nonorga gaye Sleep Apnea Obstructive,Psyc hophysiological Insomnia,Major Depression,Adult Attention Deficit Hyperactivity Disorder Insurance Includes: Active Insurance Policies Plan Name Member ID Group # Subscriber Relationship Effect bea Dates 1 - [facility] [id number] TONY SOLANO Self Clinical Notes Includes: Clinical Notes from this encounter * Progress note Date Encounter Last Documented by 12/10/2023 [facility]LE[facility] ESTABLISH ED Last documented on 12/13/2023; 1:59 AM, ZAC INTERIANO MD; [facility] Top of Document Medication psychotherapy [...] her job situation. 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 She gets easily [...] Primary Care Provider: Dr. Phu Walker -- Senior It Specialist Dr. Oscar Flores -- ENT at [facility] Dr. Ember Santos -- Neurologist Cake Stripper at [facility] Moshe Quintero NP/Dr. Mooney -- Sound Technician Cylinder Batcher [facility] Other: Endoscopic / fiberoptic examination - for Dysphagia -- 11/2021 -- normal per patient. Sleep testing was performed - in 2019 by [facility] -- inconclusive Diagnoses: URI -- given [...] [age] having stopped in 2005. Work: Occupation [employer]. 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 She was born in [place], [place] and raised outside of [facility]. 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 Her sexual orientation is pansexual or aromantic. She has no past or pending legal history. She enjoys reading, sewing, knitting and gardening. Her uatsdin background as a child was [employer] and [...] Clinical summary provided to patient. * Call [phone] and /or go to the nearest emergency [...]
--- OUTSIDE RECORDS SUMMARY | 2025-01-15 13:15 | XMS_ITS ---
Care Plan - [facility] Created on: January 15, 2025 TONY SOLANO : 1990 Sex: Female Author Organization [facility] Address [address] [place] [address] Phone Care Team Providers Care Wild Oyster Harvester Name Role Phone JAYDON BSOS, ZAC SABILLON Unavailable [phone]
--- OUTSIDE RECORDS SUMMARY | 2025-01-15 13:15 | XMS_ITS | Clinical Summary ---
Author Organization [facility] S Address [address] [place] [address] Phone Care Team Providers Care Special Delivery Messenger Name Role Phone JAYDON BOSS, ZAC SABILLON Unavailable [phone] Reason for Visit and Chief Complaint The Chief Complaint is: follow up for depression, anxiety, thoughts of self harm Problems Includes: Problems addressed during this encounter and other active Problems Current Visit Onset Date Resolved Date Provider Conditio n Status Adult Attention Deficit Hyperactivity Disorder 01/27/2022 ZAC TEMPLETON MD Active Last Documented On 2 8:44AM ; [facility] Generalized Anxiety Disorder 05/29/2021 ZAC INTERIANO MD Active Last Documented On 1 3:14PM ; [facility] Psychophysiological Insomnia 05/29/2021 ZAC INTERIANO MD Active Last Documented On 1 3:14PM ; [facility] Major Depression 05/29/2021 ZAC INTERIANO MD Active Last Documented On 1 3:14PM ; [facility] Past Visits Onset Date Resolved Date Provider Condition Status Migraine Headache 11/29/2022 ZAC Valerio MD Active Last Documented On 3 8:31AM ; [facility] Nonorganic Sleep Apnea Obstructive 11/29/2022 Jason INTERIANO MD Active Last Documented On 3 8:31AM ; [facility] Restless Legs Syndrome 11/29/2022 ZAC KERN MD Active Last Documented On 3 8:31AM ; [facility] Plan of Treatment Generalized Anxiety Disorder [...] - Last Documented On 09/24/2022 4:23AM ; [facility] Instructions to patient Lose weight - gained 5 lbs s rina last visit Last Documented On 2 11:32AM ; [facility] Education and Decision Aids were provided during visit for: Patient education about medi cation ---Education was given on medication(s) and diagnosis. I reviewed the risks, benefits and side effects of patient's medications Last Documented On 2 10:10AM ; [facility] Discussed calming techniques such as breathing exercises and other relaxation techniques Last Documented On 2 10:10AM ; [facility] Discussed good sleep hygiene habits Last Documented On 2 10:22AM ; [facility] Assessments Includes: Assessments from this encounter Findings - Major depressive disorder - Last Documented On 09/24/2022 4:23AM ; [facility] - Psychophysiological insomnia - Last Documented On 09/24/2022 4:23AM ; [facility] - Generalized anxiety disorder - Last Documented On 09/24/2022 4:23AM ; [facility] - Adult attention deficit hyperactivity disorder - Last Documented On 09/24/2022 4:23AM ; [facility] Instructions Includes: Instructions from this encounter Instructions to patient Lose weight - gained 5 lbs s rina last visit Last Documented On 2 11:32AM ; [facility] Education and Decision Aids were provided during visit for: Patient education about medi cation ---Education was given on medication(s) and diagnosis. I reviewed the risks, benefits and side effects of patient's medications Last Documented On 2 10:10AM ; [facility] Discussed calming techniques such as breathing exercises and other relaxation techniques Last Documented On 2 10:10AM ; [facility] Discussed good sleep hygiene habits Last Documented On 2 10:22AM ; [facility] Medical Equipment - Implanted Devices [...] a nd 1 tab at noon Pharmacy: [address], [address] - Last Documented On 11/26/2022 3:40PM By Marta Interiano MD ; [facility] Topiramate 50 MG Oral Tablet Provider: ZAC INTERIANO MD 90 day supply: 180 tablet, 1 refills Diagnosis: Chronic migraine w/o aura, not intractable, w/o stat migr One tablet twice a day Pharmacy: [facility] [address], [address] - Last Documented On 02/02/2023 9:32AM By Marta Interiano MD ; [facility] Cymbalta 60 MG Oral Capsule Delayed Release Particles Provider: ZAC INTERIANO MD 90 day supply: 90 capsule, 1 refills Diagnosis: Major depressive disorder, recurrent, moderate 1 Capsule every morning Pharmacy: [facility], [address] - Last Documented On 03/22/2023 5:23AM By Marta Interiano MD ; [facility] Current Medications (continue as prescribed) DULoxetine HCl 60 MG Oral Capsule Delayed Release Particles 03/22/2023 Provider: ZAC INTERIANO MD Diagnosis: Major depressive disorder, recurrent, moderate TAKE 1 CAPSULE BY MOUTH EVER Y DAY IN THE MORNING Last Documented On 03/22/2023 5:25AM By Marta Interiano MD ; [facility] Aimovig 70 MG/ML Subcutaneous Solution Auto-injector 02/24/2023 Provider: ZAC INTERIANO MD Diagnosis: Migraine w/o aur a, not intractable, w/o status migrainosus as directed - inject 70 mg ( 1 ml) SQ once a month to upper thigh, please rotate sites Last Documented On 02/24/2023 8:48AM By Marta Interiano MD ; [facility] Aimovig 70 MG/ML Subcutaneou s Solution Auto-injector 02/24/2023 Provider: ZAC TEMPLETON MD Diagnosis: Chronic migraine w/o aura, not intractable, w/o stat migr as directed - inject 1 ml (7 0 mg) subcutaneously to upper thigh once a month, please rotate sites Last Documented On 02/24/2023 8:48AM By Marta Interiano MD ; [facility] traZODone HCl 50 MG Oral Tablet 02/22/2023 Provider: ZAC INTERIANO MD Diagnosis: Psychophysiologi c insomnia TAKE 4 TABLETS (200MG) AT BE DTIME NEEDED FOR SLEEP Last Documented On 02/22/2023 7:21AM By Marta Interiano MD ; [facility] Topiramate 50 MG Oral Tablet 02/02/2023 Provider: ZAC INTERIANO MD Diagnosis: Chronic migraine w/o aura, not intractable, w/o stat migr One tablet twice a day Last Documented On 02/02/2023 9:45AM By Marta Interiano MD ; [facility] Focalin 10 MG Oral Tablet 02/01/2023 Provider: ZAC INTERIANO MD Diagnosis: Attn-defct hyper activity disorder, predom inattentive type as directed -- 1 tab in am a nd 1 tab at noon Last Documented On 02/01/2023 4:41AM By Marta Interiano MD ; [facility] Gabapentin 300 MG Oral Capsule 01/26/2023 Provider: ZAC INTERIANO MD Diagnosis: Restless legs sy ndrome as directed -- 1 cap in even ing for restless legs Last Documented On 10:27AM By Marta Interiano MD ; [facility] Meclizine [...] On 11:28AM By Marta Interiano MD ; [facility] Ondansetron [...] On 08/25/2021 2:01PM By DOMINGA COON ; [facility] Albuterol Sulfate 108 (90 Ba [...] DOMINGA COON ; [facility] Past Medications on file Sunosi 150 MG Oral Tablet 02/24/2023 - 03/26/2023 Provider: ZAC BLACK MD Diagnosis: Obstructive slee p apnea (adult) (pediatric) 1 tablet every morning Last Documented On 02/24/2023 8:41AM By Marta Interiano MD ; [facility] Meclizine HCl 25 MG Oral Tablet 09/03/2022 - 2 Provider: Diagnosis: 1 tab twice daily prn Dr. Ember Santos Last Documented On 09/03/2022 3:07PM By DOMINGA COON ; [facility] Focalin 10 MG Oral Tablet 06/18/2022 - 07/18/2022 Provider: ZAC INTERIANO MD Diagnosis: Attn-defct hyper activity disorder, predom inattentive type as directed -- 1 tab in am, 1 tab at noon Last Documented On 06/18/2022 5:28PM By Marta Interiano MD ; [facility] Focalin 10 MG Oral Tablet 04/21/2022 - 05/21/2022 Provider: ZAC INTERIANO MD Diagnosis: Attn-defct hyper activity disorder, predom inattentive type as directed -- 1 tab in am Last Documented On 04/21/2022 4:54PM By Marta Interiano MD ; [facility] Viibryd Starter Pack 10 & 20 MG Oral Kit 05/29/2021 - 06/28/2021 Provider: ZAC INTERIANO MD Diagnosis: Major depressive disorder, recurrent, moderate as directed -- 10 mg in am w / food for 2 weeks then 20 mg 1 tab in am w/ food thereafter Last Documented On 05/29/2021 4:05PM By Marta Interiano MD ; [facility] Medications Administered [...] Last Documented: On 09/03/2022 10:24A M ; [facility] Results Includes: Results discussed during this [...] weeks ago 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 She goes [...] Description Last Updated She was born in [place], [place] and raised outside of [facility]. 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 Her sexual orientation is pansexual or aromantic. She has no past or pending legal history. She enjoys reading, sewing, knitting and gardening. 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 Last Documented On 2 10:10AM ; [facility] Non-smoker 09/03/2022 Last Documented On 2 4:23AM ; [facility] Daily coffee consumption - d rinks 1-2 cups of coffee a week, 1-2 cans of soda a week and 1-2 glasses of green tea with ginseng a week 06/18/2022 Last Documented On 2 10:10AM ; [facility] Not using alcohol - none, past history o f heavy drinking 08/25/2021 Last Documented On 2 10:10AM ; [facility] Drug use - narcotics - 4 -7 pills daily from age [age] having stopped in 200505/29/2021 Last Documented On 2 10:10AM ; [facility] Single 05/29/2021 Last Documented On 2 10:10AM ; [facility] Smoking Status Unknown Procedures and Surgical History Includes: Procedures from this encounter Procedures Code Diagnosis Performing Provider Service L ocation Service Date education and instructions Last Documented On 2 10:10AM ; [facility] dangerousness assessment: suicide risk -not suic idal 3085F Last Documented On 2 10:10AM ; [facility] use of tobacco assessment performed 1000F Last Documented On 2 10:10AM ; [facility] patient screened for future fall risk - no recen t falls 3288F Last Documented On 2 10:10AM ; [facility] review of medications documented 1160F Last Documented On 2 10:10AM ; [facility] screening for adult depressi on: impression and score - please see above treatment and PHQ score Last Documented On 2 10:10AM ; [facility] standardized depression screening: posit bea for symptoms Last Documented On 2 10:10AM ; [facility] encouragement to exercise Last Documented On 2 10:10AM ; [facility] Clinical summary provided to patient Last Documented On 2 10:10AM ; [facility] PHQ-9: total score 5 Last Documented On 2 11:31AM ; [facility] Surgical History Last Updated History of hysterectomy - 08/05/21 022 Last Documented On 2 10:10AM ; [facility] History of abdominal surgery Left fallop jovany tube tumors removed-- 201806/16/2021 Last Documented On 2 10:10AM ; [facility] History of knee surgery - right knee rec onstruction 201405/29/2021 Last Documented On 2 10:10AM ; [facility] History of cholecystectomy - 2018 Last Documented On 2 10:10AM ; [facility] Medical History Includes: Medical History addressed during this encounter Description Last Updated History of gastroparesis 02/24/2023 Last Documented On 2 10:10AM ; [facility] Primary Care Provider: Dr. Iman Jaquez ~Dr. Yaniv Walker -- [place] ~ENT -- at [facility] ~Dr. Ember Santos -- Neurologist ~Broth Mixer at [facility] ~Moshe Gutierrez NP -- [employer] ~[employer] Phone [employer]r at [facility] 02/24/2023 Last Documented On 2 10:10AM ; [facility] History of infection of tooth - given Am oxil 500 mg 07/27/22 09/03/2022 Last Documented On 2 4:23AM ; [facility] History of back strain - Deg enerative Disc Disease -- given Flexeril 10 mg and Ibuprofen 600 mg 07/20/22; with bulging discs -- given Prednisone 20 mg and Norflex 100 mg 04/24/22 09/03/2022 Last Documented On 2 4:23AM ; [facility] History of bronchitis - give n Cefdinir 300 mg and Albuterol HFA 90 mcg inhaler 09/03/2022 Last Documented On 2 4:23AM ; [facility] History of COVID-19 infection - tested p ositive/isolation 08/10/22-08/17/22 09/03/2022 Last Documented On 2 4:23AM ; [facility] History of migraine headache 06/19/2022 Last Documented On 2 10:10AM ; [facility] History of Nausea with vomiting - given Zofran 4 mg 03/26/22 04/21/2022 Last Documented On 2 10:10AM ; [facility] History of constipation - gi je[facility]erson Miralax 03/26/22; Senexon-S 8.6mg -50 mg -- started 02/04/22 04/21/2022 Last Documented On 2 10:10AM ; [facility] History of coronavirus 2019- nCoV vaccine - Pfizer #1 03/10/21 #2 04/01/21 #3 02/202204/21/2022 Last Documented On 2 10:10AM ; [facility] History of an endoscopic / f iberoptic examination was performed - for Dysphagia -- 11/2021 -- normal per patient 02/26/2022 Last Documented On 2 10:10AM ; [facility] History of ovarian cyst - CT scan of abdomen/pelvis from 11/2021 showed a 5 cm mass/cyst on an ovary -- has ultrasound every 6-8 weeks to monitor 02/26/2022 Last Documented On 2 10:10AM ; [facility] History of colonoscopy - 11/2021 -- lisa l per patient 02/26/2022 Last Documented On 2 10:10AM ; [facility] History of dysphagia - started Reglan 10 mg 01/05/22 02/26/2022 Last Documented On 2 10:10AM ; [facility] History of acute suppurative sinusitis - given Augmentin 875 mg 02/06/22 02/26/2022 Last Documented On 2 10:10AM ; [facility] History of sleep testing was performed - in 2019 by [facility] -- inconclusive 02/26/2022 Last Documented On 2 10:10AM ; [facility] History of GI bleed - via en doscopy - was hospitalized for 4 days -- 2019 -- should not be using anymore NSAIDS 12/17/2021 Last Documented On 2 10:10AM ; [facility] History of Polycystic Ovaria n Syndrome (PCOS) - age 23 - left fallopian tube removed in 2019 -- complete hysterectomy 08/05/21 -- given Hydrocodone 5/325 #25 -- still has ovaries 08/25/2021 Last Documented On 2 10:10AM ; [facility] History of hyperlipidemia 06/16/2021 Last Documented On 2 10:10AM ; [facility] History of endometriosis - age 23 2020 Last Documented On 2 10:10AM ; [facility] History of fatty liver - age 28 05/29/20 Last Documented On 2 10:10AM ; [facility] History of asthma - since childhood 11/2020 Last Documented On 2 10:10AM ; [facility] Family History Includes: Family History addressed during this encounter Description Last Updated Maternal history of alcoholism - Mother 06/16/2021 Last Documented On 2 10:10AM ; [facility] Maternal history of bipolar disorder NOS - Mother 06/16/2021 Last Documented On 2 10:10AM ; [facility] Paternal history of combined drug and al cohol abuse - Father 06/16/2021 Last Documented On 2 10:10AM ; [facility] Fraternal history of depression - Brothe r 06/16/2021 Last Documented On 2 10:10AM ; [facility] Paternal grandmother's history of depres edward 06/16/2021 Last Documented On 2 10:10AM ; [facility] Sororal history of depression and Anxiet y - Sister 06/16/2021 Last Documented On 2 10:10AM ; [facility] Paternal grandmother's history of lisy ia 05/29/2021 Last Documented On 2 10:10AM ; [facility] Review of Systems Includes: Review of [...] Active Last Documented On 01/27/2024 9:10AM ; [facility] Note: Imported from external source. TORADOL Allergy Hives / Urticaria 05/29/2021 A ctive Last Documented On 01/27/2024 9:10AM ; [facility] Note: Imported from external source. Pineapple Allergy 01/26/2023 Active Last Documented On 01/27/2024 9:10AM ; [facility] Note: Imported from external source. Latex Allergy Hives / Urticaria 05/29/2021 A ctive Last Documented On 01/27/2024 9:10AM ; [facility] Note: Imported from external source. Encounters Encounter Provider Location Date Check-In Time Check-Out Time Diagnosis [facility] INTERIANO MD [facility] 09/03/20 22 10:09AM 11:59PM Generalized Anxiety Disorder,Psychoph ysiological Insomnia,Major Depression,Adult Attention Deficit Hyperactivity Disorder Insurance Includes: Active Insurance Policies Plan Name Member ID Group # Subscriber Relationship Effect bea Dates 1 - [facility] [id number] EDILIA SOLANO Self Clinical Notes Includes: Clinical Notes from this encounter No Clinical Notes Recorded
--- OUTSIDE RECORDS SUMMARY | 2025-01-15 13:15 | XMS_ITS ---
Author Organization [facility] Address [address] [place] [address] Phone Care Team Providers Care Human Resource Officer Name Role Phone JAYDON BOSS, ZAC SABILLON Unavailable [phone] Problems Includes: Active, inactive, and resolved Problems All Visits Onset Date Resolved Date Provider Condition S tatus Migraine Headache 11/29/2022 Active Last Documented On 3 5:53PM ; [facility] Nonorganic Sleep Apnea Obstructive 11/29/2022 Active Last Documented On 3 5:53PM ; [facility] Restless Legs Syndrome 11/29/2022 Ac tive Last Documented On 3 5:53PM ; [facility] Adult Attention Deficit Hyperactivity Disorder 01/27/2022 Active Last Documented On 3 5:53PM ; [facility] Generalized Anxiety Disorder 05/29/2021 Active Last Documented On 3 5:53PM ; [facility] Psychophysiological Insomnia 05/29/2021 Active Last Documented On 3 5:53PM ; [facility] Major Depression 05/29/2021 Active Last Documented On 3 5:53PM ; [facility] Plan of Treatment Education and Decision Aids were provided during visit for: Discussed good sleep hygiene habits Last Documented On 4 1:54AM ; [facility] Calming techniques such as b reathing exercises/meditation and other relaxation techniques Last Documented On 4 1:54AM ; [facility] Calming techniques such as b reathing exercises/meditation and other relaxation techniques Last Documented On 3 7:19AM ; [facility] Assessments Includes: Assessments for all patient encounters Findings Encounter Date Adult attention deficit hype ractivity disorder PSYCH ADULT FOLLOW UP with ZAC INTERIANO MD 01/27/2024 Last Documented On 4 9:28AM ; [facility] Generalized anxiety disorder PSYCH ADULT FOLLOW UP with ZAC INTERIANO MD 01/27/2024 Last Documented On 4 9:28AM ; [facility] Major depressive disorder PSYCH ADULT FO LLOW UP with ZAC INTERIANO MD 01/27/2024 Last Documented On 4 9:28AM ; [facility] Migraine headache PSYCH ADULT FOLLOW UP with MET BENITO INTERIANO MD 01/27/2024 Last Documented On 4 9:28AM ; [facility] Obstructive sleep apnea PSYCH ADULT FOLLOW UP wi th ZAC INTERIANO MD 01/27/2024 Last Documented On 4 9:28AM ; [facility] Psychophysiological insomnia PSYCH ADULT FOLLOW UP with ZAC INTERIANO MD 01/27/2024 Last Documented On 4 9:28AM ; [facility] Restless legs syndrome PSYCH ADULT FOLLOW UP wit h ZAC INTERIANO MD 01/27/2024 Last Documented On 4 9:28AM ; [facility] Adult attention deficit hype ractivity disorder TELEHEALTH ADULT PSYCH ESTABLISHED with ZAC INTERIANO MD 12/10/2023 Last Documented On 4 1:59AM ; [facility] Generalized anxiety disorder TELEHEALTH ADULT PSYCH ESTABLISHED with ZAC INTERIANO MD 12/10/2023 Last Documented On 4 1:59AM ; [facility] Major depressive disorder TELEHEALTH SEKOU LT PSYCH ESTABLISHED with ZAC INTERIANO MD 12/10/2023 Last Documented On 4 1:59AM ; [facility] Migraine headache TELEHEALTH ADULT PSY CH ESTABLISHED with ZAC INTERIANO MD 12/10/2023 Last Documented On 4 1:59AM ; [facility] Obstructive sleep apnea TELEHEALTH ADULT PSYCH ESTABLISHED with ZAC INTERIANO MD 12/10/2023 Last Documented On 4 1:59AM ; [facility] Psychophysiological insomnia TELEHEALTH ADULT PSYCH ESTABLISHED with ZAC INTERIANO MD 12/10/2023 Last Documented On 4 1:59AM ; [facility] Restless legs syndrome TELEHEALTH ADULT PSYCH ESTABLISHED with ZAC INTERIANO MD 12/10/2023 Last Documented On 4 1:59AM ; [facility] Adult attention deficit hype ractivity disorder PSYCH ADULT FOLLOW UP with ZAC INTERIANO MD 07/29/2023 Last Documented On 3 7:26AM ; [facility] Generalized anxiety disorder PSYCH ADULT FOLLOW UP with ZAC INTERIANO MD 07/29/2023 Last Documented On 3 7:26AM ; [facility] Major depressive disorder PSYCH ADULT FO LLOW UP with ZAC INTERIANO MD 07/29/2023 Last Documented On 3 7:26AM ; [facility] Migraine headache PSYCH ADULT FOLLOW UP with MET BENITO INTERIANO MD 07/29/2023 Last Documented On 3 7:26AM ; [facility] Obstructive sleep apnea PSYCH ADULT FOLLOW UP wi th ZAC INTERIANO MD 07/29/2023 Last Documented On 3 7:26AM ; [facility] Psychophysiological insomnia PSYCH ADULT FOLLOW UP with ZAC INTERIANO MD 07/29/2023 Last Documented On 3 7:26AM ; [facility] Restless legs syndrome PSYCH ADULT FOLLOW UP wit h ZAC INTERIANO MD 07/29/2023 Last Documented On 3 7:26AM ; [facility] Adult attention deficit hype ractivity disorder TELEHEALTH ADULT PSYCH ESTABLISHED with ZAC INTERIANO MD 04/20/2023 Last Documented On 3 9:12AM ; [facility] Generalized anxiety disorder TELEHEALTH ADULT PSYCH ESTABLISHED with ZAC INTERIANO MD 04/20/2023 Last Documented On 3 9:12AM ; [facility] Major depressive disorder TELEHEALTH SEKOU LT PSYCH ESTABLISHED with ZAC INTERIANO MD 04/20/2023 Last Documented On 3 9:12AM ; [facility] Migraine headache TELEHEALTH ADULT PSY CH ESTABLISHED with ZAC INTERIANO MD 04/20/2023 Last Documented On 3 9:12AM ; [facility] Obstructive sleep apnea TELEHEALTH ADULT PSYCH ESTABLISHED with ZAC INTERIANO MD 04/20/2023 Last Documented On 3 9:12AM ; [facility] Psychophysiological insomnia TELEHEALTH ADULT PSYCH ESTABLISHED with ZAC INTERIANO MD 04/20/2023 Last Documented On 3 9:12AM ; [facility] Restless legs syndrome TELEHEALTH ADULT PSYCH ESTABLISHED with ZAC INTERIANO MD 04/20/2023 Last Documented On 3 9:12AM ; [facility] Cervicalgia THE PREDNISONE P RESCRIBED UNDERNEATH DEPRESSION IS FOR THE NECK PAIN MED CHECK with YAGRESHAM D.O. 05/06/2011 Last Documented On 1 2:55PM ; [facility] Depression F/U 6 MONTHS MED CHECK with YAGRESHAM D.O. 05/06/2011 Last Documented On 1 2:55PM ; [facility] Anxiety disorder NOS which i s inadequately controlled increased the zoloft.,f/u 1 monthj MED CHECK with YAGRESHAM D.O. 02/25/2011 Last Documented On 1 6:34PM ; [facility] Dentoalveolar abscess antibi otic prescribed MED CHECK with YAGRESHAM D.O. 02/25/2011 Last Documented On 1 6:34PM ; [facility] Dermatitis medrol dose pack MED CHECK with LESTE R A JOHNCER D.O. 02/25/2011 Last Documented On 1 6:34PM ; [facility] Headache syndromes PROBLEM VISIT with YAMADRID D.O. 06/25/2010 Last Documented On 0 7:28PM ; [facility] Depression which is well-con trolled CONTINUE MEDS MED CHECK with YAGRESHAM D.O. 06/12/2010 Last Documented On 0 4:51PM ; [facility] Headache syndromes which is inadequately controlled F/U 1 MONTH MED CHECK with YA A CRANCER D.O. 06/12/2010 Last Documented On 0 4:51PM ; [facility] Contraceptive management SURY L CONT ORTHO TRICYCLEN F/U 3 MONTHS 1 MONTH CHECK with YA A CRANCER D.O. 04/17/2010 Last Documented On 0 10:18AM ; [facility] Depression which is stable 1 MONTH CHECK with LE STER A CRANCER D.O. 04/17/2010 Last Documented On 0 10:18AM ; [facility] Dysmenorrhea HEAVY MENSTRUAL PERIODS SINCE STARTING ABN,WILL STOP THAT. THE ORTHOCYCLIN SCRIPT WAS GIVEN TO THE PT. F/U 4 WEEKS MED CHECK with YA A CRANCER D.O. 03/18/2010 Last Documented On 0 4:08PM ; [facility] Contraceptive management 2 WK CK-UP with YA A CRANCER D.O. 02/14/2010 Last Documented On 0 1:55PM ; [facility] Depression which is well-con trolled F/U 3 MONTHS 2 WK CK-UP with YA A CRANCER D.O. 02/14/2010 Last Documented On 0 1:55PM ; [facility] Acute sinusitis 3 WK CK-UP with YA A CRANCER D.O. 01/24/2010 Last Documented On 0 11:42AM ; [facility] Depression which is inadequa tely controlled CELEXA MAKES HER EDGY 3 WK CK-UP with YA A CRANCER D.O. 01/24/2010 Last Documented On 0 11:42AM ; [facility] Depression which is inadequa tely controlled LONGTERM NEW PATIENT VISIT with YA A CRANCER D.O. 01/03/2010 Last Documented On 0 2:53PM ; [facility] LEFT KNEE PAIN NEW PATIENT VISIT with YA A CRANCER D.O. 01/03/2010 Last Documented On 0 2:53PM ; [facility] Pain in limb B/L HIP PAIN ON/OFF NEW PAT IENT VISIT with YA A CRANCER D.O. 01/03/2010 Last Documented On 0 2:53PM ; [facility] RIGHT KNEE PAIN NEW PATIENT VISIT with YA SCHNEIDER D.O. 01/03/2010 Last Documented On 0 2:53PM ; [facility] Instructions Includes: Instructions for all patient encounters Education and Decision Aids were provided during visit for: Discussed good sleep hygiene habits Last Documented On 4 1:54AM ; [facility] Calming techniques such as b reathing exercises/meditation and other relaxation techniques Last Documented On 4 1:54AM ; [facility] Calming techniques such as b reathing exercises/meditation and other relaxation techniques Last Documented On 3 7:19AM ; [facility] Medical Equipment - Implanted Devices Includes: Current and historical Devices No Medical Equipment Recorded Medications Includes: Current and historical Medications Current Medications (continue as prescribed) Azstarys 52.3-10.4 MG Oral Capsule 03/28/2024 Provider: ZAC INTERIANO MD Diagnosis: Attn-defct hyper activity disorder, predom inattentive type as directed - 1 cap in am Last Documented On 03/28/2024 2:09PM By Marta Interiano MD ; [facility] traZODone HCl 50 MG Oral Tablet 02/29/2024 Provider: ZAC INTERIANO MD Diagnosis: Psychophysiologi c insomnia TAKE 3 TABLETS BY MOUTH AT B EDTIME NEEDED FOR SLEEP Last Documented On 02/29/2024 12:32PM By Marta Interiano MD ; [facility] rOPINIRole HCl 1 MG Oral Tablet 01/27/2024 Provider: ZAC INTERIANO MD Diagnosis: Restless legs sy ndrome as directed -1/2 tab in the evening for 1 week then 1 tab in the evening thereafter Last Documented On 01/27/2024 10:15AM By Marta Interiano MD ; [facility] Nurtec 75 MG Oral Tablet Disintegrating 01/27/2024 Provider: ZAC INTERIANO MD Diagnosis: Migraine w/o aur a, not intractable, w/o status migrainosus as directed - 1 tab a day as needed at the onset of migraine headaches Last Documented On 01/27/2024 9:42AM By Marta Interiano MD ; [facility] Aimovig 70 MG/ML Subcutaneous Solution Auto-injector 01/27/2024 Provider: ZAC INTERIANO MD Diagnosis: Migraine w/o aur a, not intractable, w/o status migrainosus as directed - inject 70 mg ( 1 ml) SQ once a month to upper thigh, please rotate sites Last Documented On 01/27/2024 9:42AM By Marta Interiano MD ; [facility] Vyvanse 30 MG Oral Capsule 12/13/2023 Provider: ZAC INTERIANO MD Diagnosis: Attn-defct hyper activity disorder, predom inattentive type 1 Capsule every morning Last Documented On 12/13/2023 1:47AM By Marta Interiano MD ; [facility] Gabapentin 300 MG Oral Capsule 07/29/2023 Provider: ZAC INTERIANO MD Diagnosis: Restless legs sy ndrome as directed -- 1 cap in even ing for restless legs Last Documented On 03/28/2024 10:27AM By ALEXIS ELI ; [facility] DULoxetine HCl 60 MG Oral Capsule Delayed Release Particles 07/29/2023 Provider: ZAC INTERIANO MD Diagnosis: Major depressive disorder, recurrent, moderate TAKE 1 CAPSULE BY MOUTH EVER Y DAY IN THE MORNING Last Documented On 03/28/2024 10:26AM By ALEXIS ELI ; [facility] DULoxetine HCl 30 MG Oral Capsule Delayed Release Particles 07/29/2023 Provider: ZAC INTERIANO MD Diagnosis: Generalized anxi ety disorder TAKE 1 CAPSULE BY MOUTH EVER Y DAY (TAKE WITH 60MG CAPSULE) Last Documented On 03/28/2024 10:26AM By ALEXIS ELI ; [facility] Topiramate 50 MG Oral Tablet 04/20/2023 Provider: ZAC INTERIANO MD Diagnosis: Chronic migraine w/o aura, not intractable, w/o stat migr One tablet twice a day Last Documented On 03/28/2024 10:29AM By ALEXIS ELI ; [facility] Meclizine HCl 25 MG OR TABS 11/24/2022 Provider: Diagnosis: 1 TAB BID PRN Last Documented On 03/27/2023 5:34PM By DOMINGA COON ; [facility] Ondansetron HCl 4 MG OR TABS 03/26/2022 Provider: Diagnosis: as directed Last Documented On 03/27/2023 5:34PM By DOMINGA COON ; [facility] Senexon-S 8.6-50 MG OR TABS 02/04/2022 Provider: Diagnosis: 1 daily prn Last Documented On 03/27/2023 5:34PM By DOMINGA COON ; [facility] Metoclopramide HCl 10 MG OR TABS 01/27/2022 Provider : Diagnosis: 1 ac tid Last Documented On 03/27/2023 5:34PM By DOMINGA COON ; [facility] Fluticasone Propionate 50 MCG/ACT NA SUSP 12/03/2021 Provider: Diagnosis: Last Documented On 03/27/2023 5:34PM By ALEXIS ELI ; [facility] Pantoprazole Sodium 40 MG OR TBEC 11/23/2021 Provide r: Diagnosis: 1 tab daily Last Documented On 03/27/2023 5:34PM By ALEXIS ELI ; [facility] Blank Allergy 180 MG OR TABS 05/29/2021 Provider: Diagnosis: 1 tab daily otc Last Documented On 03/27/2023 5:34PM By DOMINGA COON ; [facility] Albuterol Sulfate 108 (90 Base) MCG/ACT IN AEPB 2020 Provider: Diagnosis: 1-2 puffs q 4-6 hours prn Last Documented On 03/27/2023 5:34PM By DOMINGA COON ; [facility] Spironolactone 100 MG OR TABS 04/21/2021 Provider: Diagnosis: 1 tab daily Last Documented On 03/27/2023 5:34PM By DOMINGA COON ; [facility] Symbicort 160-4.5 MCG/ACT IN AERO 12/05/2020 Provide r: Diagnosis: 1 puff twice daily Last Documented On 03/27/2023 5:34PM By DOMINGA COON ; [facility] Spiriva HandiHaler 18 MCG IN CAPS 10/15/2020 Provide r: Diagnosis: 1 inhalation daily Last Documented On 03/27/2023 5:34PM By DOMINGA COON ; [facility] Past Medications on file traZODone HCl 50 MG Oral Tablet 01/27/2024 - 02/29/2024 Provider: ZAC INTERIANO MD Diagnosis: Psychophysiologi c insomnia TAKE 3 TABLETS AT BEDTIME NEEDED FOR SLEEP Last Documented On 02/29/2024 12:26PM By Marta Interiano MD ; [facility] Azstarys 52.3-10.4 MG Oral Capsule 01/27/2024 - 03/28/2024 Provider: ZAC INTERIANO MD Diagnosis: Attn-defct hyper activity disorder, predom inattentive type as directed - 1 cap in am Last Documented On 03/28/2024 2:02PM By Marta Interiano MD ; [facility] Azstarys 39.2-7.8 MG Oral Capsule 12/13/2023 - 03/28/2024 Provider: ZAC INTERIANO MD Diagnosis: Attn-defct hyper activity disorder, predom inattentive type as directed - 1 capsule at noon Last Documented On 03/28/2024 10:25AM By ALEXIS ELI ; [facility] Vyvanse 30 MG Oral Capsule 11/05/2023 - 12/10/2023 Provider: ZAC INTERIANO MD Diagnosis: Attn-defct hyper activity disorder, predom inattentive type 1 Capsule every morning Last Documented On 12/13/2023 1:40AM By Marta Interiano MD ; [facility] Nurtec 75 MG Oral Tablet Disintegrating 08/12/2023 - 01/27/2024 Provider: ZAC INTERIANO MD Diagnosis: Migraine w/o aur a, not intractable, w/o status migrainosus as directed - 1 tab a day as needed only at the onset of migraine headache Last Documented On 03/28/2024 10:27AM By ALEXIS ELI ; [facility] Nurtec 75 MG Oral Tablet Disintegrating 08/12/2023 - 01/27/2024 Provider: ZAC INTERIANO MD Diagnosis: Migraine w/o aur a, not intractable, w/o status migrainosus as directed - 1 tab a day as needed at the onset of migraine headaches Last Documented On 01/27/2024 9:35AM By Marta Interiano MD ; [facility] Vyvanse 30 MG Oral Capsule 07/29/2023 - 11/05/2023 Provider: ZAC INTERIANO MD Diagnosis: Attn-defct hyper activity disorder, predom inattentive type 1 Capsule every morning Last Documented On 11/05/2023 3:10PM By Marta Interiano MD ; [facility] traZODone HCl 50 MG Oral Tablet 07/29/2023 - 01/27/2024 Provider: ZAC INTERIANO MD Diagnosis: Psychophysiologi c insomnia TAKE 4 TABLETS (200MG) AT BE DTIME NEEDED FOR SLEEP Last Documented On 01/27/2024 9:54AM By Marta Interiano MD ; [facility] Aimovig 70 MG/ML Subcutaneous Solution Auto-injector 04/20/2023 - 01/27/2024 Provider: ZAC INTERIANO MD Diagnosis: Migraine w/o aur a, not intractable, w/o status migrainosus as directed - inject 70 mg ( 1 ml) SQ once a month to upper thigh, please rotate sites Last Documented On 01/27/2024 9:35AM By Marta Interiano MD ; [facility] traZODone HCl 50 MG Oral Tablet 04/20/2023 - 07/29/2023 Provider: ZAC INTERIANO MD Diagnosis: Psychophysiologi c insomnia TAKE 4 TABLETS (200MG) AT BE DTIME NEEDED FOR SLEEP Last Documented On 07/29/2023 10:58AM By Marta Interiano MD ; [facility] DULoxetine HCl 30 MG Oral Capsule Delayed Release Particles 04/20/2023 - 07/29/2023 Provider: ZAC INTERIANO MD Diagnosis: Generalized anxi ety disorder TAKE 1 CAPSULE BY MOUTH EVER Y DAY (TAKE WITH 60MG CAPSULE) Last Documented On 07/29/2023 10:53AM By Marta Interiano MD ; [facility] DULoxetine HCl 60 MG Oral Capsule Delayed Release Particles 04/20/2023 - 07/29/2023 Provider: ZAC INTERIANO MD Diagnosis: Major depressive disorder, recurrent, moderate TAKE 1 CAPSULE BY MOUTH EVER Y DAY IN THE MORNING Last Documented On 07/29/2023 10:52AM By Marta Interiano MD ; [facility] Vyvanse 30 MG Oral Capsule 04/20/2023 - 12/13/2023 Provider: ZAC INTERIANO MD Diagnosis: Attn-defct hyper activity disorder, predom inattentive type 1 Capsule every morning Last Documented On 03/28/2024 10:30AM By ALEXIS ELI ; [facility] DULoxetine HCl 60 MG OR CPEP 03/22/2023 - 04/20/2023 Provider: ZAC INTERIANO MD Diagnosis: Major depressive disorder, recurrent, moderate TAKE 1 CAPSULE BY MOUTH EVER Y DAY IN THE MORNING Last Documented On 04/20/2023 10:01AM By Marta Interiano MD ; [facility] Aimovig 70 MG/ML SC SOAJ 02/24/2023 - 02/23/2023 Provider: ZAC INTERIANO MD Diagnosis: Migraine w/o aur a, not intractable, w/o status migrainosus as directed - once a month SQ Last Documented On 03/27/2023 5:34PM By Marta Interiano MD ; [facility] Aimovig 70 MG/ML SC SOAJ 02/24/2023 - 04/20/2023 Provider: ZAC INTERIANO MD Diagnosis: Migraine w/o aur a, not intractable, w/o status migrainosus as directed - inject 70 mg ( 1 ml) SQ once a month to upper thigh, please rotate sites Last Documented On 04/20/2023 10:06AM By Marta Interiano MD ; [facility] Aimovig 70 MG/ML SC SOAJ 02/24/2023 - 04/20/2023 Provider: ZAC INTERIANO MD Diagnosis: Chronic migraine w/o aura, not intractable, w/o stat migr as directed - inject 1 ml (7 0 mg) subcutaneously to upper thigh once a month, please rotate sites Last Documented On 04/20/2023 9:13AM By ALEXIS ELI ; [facility] Sunosi 150 MG OR TABS 02/24/2023 - 03/26/2023 Provider: ZAC BLACK MD Diagnosis: Obstructive slee p apnea (adult) (pediatric) 1 tablet every morning Last Documented On 03/27/2023 5:34PM By Marta Interiano MD ; [facility] traZODone HCl 50 MG OR TABS 02/22/2023 - 04/20/2023 Provider: ZAC INTERIANO MD Diagnosis: Psychophysiologi c insomnia TAKE 4 TABLETS (200MG) AT BE DTIME NEEDED FOR SLEEP Last Documented On 04/20/2023 10:03AM By Marta Interiano MD ; [facility] Topiramate 50 MG OR TABS 02/02/2023 - 04/20/2023 Provider: ZAC INTERIANO MD Diagnosis: Chronic migraine w/o aura, not intractable, w/o stat migr One tablet twice a day Last Documented On 04/20/2023 9:44AM By Marta Interiano MD ; [facility] Focalin 10 MG OR TABS 02/01/2023 - 04/20/2023 Provider: ZAC INTERIANO MD Diagnosis: Attn-defct hyper activity disorder, predom inattentive type as directed -- 1 tab in am a nd 1 tab at noon Last Documented On 04/20/2023 9:44AM By Marta Interiano MD ; [facility] Gabapentin 300 MG OR CAPS 01/26/2023 - 07/29/2023 Provider: ZAC INTERIANO MD Diagnosis: Restless legs syndrome as directed -- 1 cap in even ing for restless legs Last Documented On 07/29/2023 10:50AM By Marta Interiano MD ; [facility] traZODone HCl 50 MG OR TABS 01/22/2023 - 02/22/2023 Provider: ZAC INTERIANO MD Diagnosis: Psychophysiologi c insomnia as directed -- 4 tabs at bed time as needed for sleep Last Documented On 03/27/2023 5:34PM By Marta Interiano MD ; [facility] Focalin 10 MG OR TABS 11/26/2022 - 01/26/2023 Provider: ZAC INTERIANO MD Diagnosis: Attn-defct hyper activity disorder, predom inattentive type as directed -- 1 tab in am a nd 1 tab at noon Last Documented On 03/27/2023 5:34PM By Marta Interiano MD ; [facility] Topiramate 50 MG OR TABS 09/03/2022 - 02/02/2023 Provider: ZAC INTERIANO MD Diagnosis: Chronic migraine w/o aura, not intractable, w/o stat migr One tablet twice a day Last Documented On 03/27/2023 5:34PM By Marta Interiano MD ; [facility] Cymbalta 60 MG OR CPEP 09/03/2022 - 03/22/2023 Provider: ZAC BLACK MD Diagnosis: Major depressive disorder, recurrent, moderate 1 Capsule every morning Last Documented On 03/27/2023 5:34PM By Marta Interiano MD ; [facility] Focalin 10 MG OR TABS 09/03/2022 - 11/26/2022 Provider: ZAC INTERIANO MD Diagnosis: Attn-defct hyper activity disorder, predom inattentive type as directed -- 1 tab in am a nd 1 tab at noon Last Documented On 03/27/2023 5:34PM By Marta Interiano MD ; [facility] Meclizine HCl 25 MG OR TABS 09/03/2022 - 11/24/2022 Pr ovider: Diagnosis: 1 tab twice daily prn Dr. Ember Santos Last Documented On 03/28/2024 10:27AM By ALEXIS ELI ; [facility] DULoxetine HCl 30 MG OR CPEP 08/20/2022 - 04/20/2023 Provider: ZAC INTERIANO MD Diagnosis: Generalized anxi ety disorder TAKE 1 CAPSULE BY MOUTH EVER Y DAY (TAKE WITH 60MG CAPSULE) Last Documented On 04/20/2023 10:02AM By Marta Interiano MD ; [facility] Aimovig 70 MG/ML SC SOAJ 07/24/2022 - 02/23/2023 Provider: ZAC INTERIANO MD Diagnosis: Chronic migraine w/o aura, not intractable, w/o stat migr as directed - inject 1 ml (7 0 mg) subcutaneously to upper thigh once a month, please rotate sites Last Documented On 03/27/2023 5:34PM By Marta Interiano MD ; [facility] Topiramate 50 MG OR TABS 06/18/2022 - 09/03/2022 Provider: ZAC INTERIANO MD Diagnosis: Chronic migraine w/o aura, not intractable, w/o stat migr One tablet twice a day Last Documented On 03/27/2023 5:34PM By Marta Interiano MD ; [facility] Focalin 10 MG OR TABS 06/18/2022 - 03/28/2024 Provider: ZAC INTERIANO MD Diagnosis: Attn-defct hyper activity disorder, predom inattentive type as directed -- 1 tab in am, 1 tab at noon Last Documented On 03/28/2024 10:26AM By ALEXIS ELI ; [facility] busPIRone HCl 10 MG OR TABS 06/18/2022 - 09/23/2022 Provider: ZAC INTERIANO MD Diagnosis: Generalized anxi ety disorder One tablet twice a day Last Documented On 03/27/2023 5:34PM By Marta Interiano MD ; [facility] traZODone HCl 50 MG OR TABS 06/03/2022 - 01/22/2023 Provider: ZAC INTERIANO MD Diagnosis: Psychophysiologi c insomnia as directed -- 4 tabs at bed time as needed for sleep Last Documented On 03/27/2023 5:34PM By Marta Interiano MD ; [facility] Focalin 10 MG OR TABS 04/21/2022 - 05/21/2022 Provider: ZAC INTERIANO MD Diagnosis: Attn-defct hyper activity disorder, predom inattentive type as directed -- 1 tab in am Last Documented On 03/28/2024 10:27AM By ALEXIS ELI ; [facility] Cymbalta 30 MG OR CPEP 04/21/2022 - 08/20/2022 Provider: ZAC INTERIANO MD Diagnosis: Generalized anxi ety disorder 1 capsule daily Last Documented On 03/27/2023 5:34PM By Marta Interiano MD ; [facility] SUMAtriptan Succinate 100 MG OR TABS 03/26/2022 - 06/18/2022 Provider: ZAC INTERIANO MD Diagnosis: Chronic migraine w/o aura, not intractable, w/o stat migr TAKE 1/2 - 1 TABLET A DAY AT THE ONSET OF MIGRAINE HEADACHE Last Documented On 03/27/2023 5:34PM By Marta Interiano MD ; [facility] busPIRone HCl 10 MG OR TABS 02/26/2022 - 06/03/2022 Provider: ZAC INTERIANO MD Diagnosis: Generalized anxi ety disorder as directed -- 1 tab 2 x a day Last Documented On 03/27/2023 5:34PM By Marta Interiano MD ; [facility] SUMAtriptan Succinate 100 MG OR TABS 12/25/2021 - 03/26/2022 Provider: ZAC INTERIANO MD Diagnosis: Chronic migraine w/o aura, not intractable, w/o stat migr DIRECTED - 1/2 - 1 TAB A DAY AT THE ONSET OF MIGRAINE HEADACHE Last Documented On 03/27/2023 5:34PM By Marta Interiano MD ; [facility] traZODone HCl 50 MG OR TABS 12/17/2021 - 06/03/2022 Provider: ZAC INTERIANO MD Diagnosis: Psychophysiologi c insomnia as directed -- 4 tabs at bed time as needed for sleep Last Documented On 03/27/2023 5:34PM By Marta Interiano MD ; [facility] Cymbalta 60 MG OR CPEP 12/17/2021 - 09/03/2022 Provider: ZAC BLACK MD Diagnosis: Major depressive disorder, recurrent, moderate 1 Capsule every morning Last Documented On 03/27/2023 5:34PM By Marta Interiano MD ; [facility] Topiramate 50 MG OR TABS 12/17/2021 - 06/18/2022 Provider: ZAC INTERIANO MD Diagnosis: Chronic migraine w/o aura, not intractable, w/o stat migr One tablet twice a day Last Documented On 03/27/2023 5:34PM By Marta Interiano MD ; [facility] Topiramate 25 MG OR TABS 11/19/2021 - 03/19/2022 Provider: ZAC INTERIANO MD Diagnosis: Chronic migraine w/o aura, not intractable, w/o stat migr as directed -- 1 tab 2 x a day Last Documented On 03/27/2023 5:34PM By Marta Interiano MD ; [facility] SUMAtriptan Succinate 100 MG OR TABS 10/22/2021 - 12/25/2021 Provider: ZAC INTERIANO MD Diagnosis: Chronic migraine w/o aura, not intractable, w/o stat migr DIRECTED - 1/2 - 1 TAB A DAY AT THE ONSET OF MIGRAINE HEADACHE Last Documented On 03/27/2023 5:34PM By Marta Interiano MD ; [facility] Cymbalta 30 MG OR CPEP 08/25/2021 - 03/19/2022 Provider: ZAC INTERIANO MD Diagnosis: Generalized anxi ety disorder 1 Capsule every morning Last Documented On 03/27/2023 5:34PM By Marta Interiano MD ; [facility] traZODone HCl 50 MG OR TABS 08/25/2021 - 09/23/2022 Provider: ZAC INTERIANO MD Diagnosis: Psychophysiologi c insomnia as directed -3 tabs at bedti me as needed for sleep Last Documented On 03/27/2023 5:34PM By Marta Interiano MD ; [facility] Gabapentin 100 MG OR CAPS 08/20/2021 - 04/20/2023 Prov ider: Diagnosis: [address] Ember Santos Last Documented On 04/20/2023 9:37AM By ALEXIS ELI ; [facility] Meclizine HCl 25 MG OR TABS 08/20/2021 - 09/03/2022 Pr ovider: Diagnosis: [address] Ember Santos Last Documented On 03/27/2023 5:34PM By DOMINGA COON ; [facility] Viibryd 40 MG OR TABS 07/15/2021 - 09/23/2022 Provider : ZAC INTERIANO MD Diagnosis: Major depressive disorder, recurrent, moderate as directed -- 1 tab in am with food Last Documented On 03/27/2023 5:34PM By Marta Interiano MD ; [facility] Imitrex 100 MG OR TABS 07/15/2021 - 10/22/2021 Provider: ZAC BLACK MD Diagnosis: Chronic migraine w/o aura, not intractable, w/o stat migr as directed - 1/2 - 1 tab a day at the onset of migraine headache Last Documented On 03/27/2023 5:34PM By Marta Interiano MD ; [facility] Topiramate 25 MG OR TABS 07/15/2021 - 11/19/2021 Provider: ZAC INTERIANO MD Diagnosis: Chronic migraine w/o aura, not intractable, w/o stat migr as directed -- 1 tab 2 x a day Last Documented On 03/27/2023 5:34PM By Marta Interiano MD ; [facility] traZODone HCl 50 MG OR TABS 07/15/2021 - 08/25/2021 Provider: ZAC INTERIANO MD Diagnosis: Psychophysiologi c insomnia as directed - 2 tabs at bedt rand as needed for sleep Last Documented On 03/27/2023 5:34PM By Marta Interiano MD ; [facility] traZODone HCl 50 MG OR TABS 05/29/2021 - 07/15/2021 Provider: ZAC INTERIANO MD Diagnosis: Psychophysiologi c insomnia as directed - 1 tab at bedti me as needed for sleep Last Documented On 03/27/2023 5:34PM By Marta Interiano MD ; [facility] Viibryd Starter Pack 10 & 20 MG OR KIT 05/29/2021 - 06/28/2021 Provider: ZAC INTERIANO MD Diagnosis: Major depressive disorder, recurrent, moderate as directed -- 10 mg in am w / food for 2 weeks then 20 mg 1 tab in am w/ food thereafter Last Documented On 03/28/2024 10:29AM By ALEXIS ELI ; [facility] Magnesium Oxide 250 MG OR TABS 05/29/2021 - 2022 Provider: Diagnosis: 1 tab daily otc Last Documented On 03/27/2023 5:34PM By DOMINGA COON ; [facility] Racheal 0.35 MG OR TABS 05/29/2021 - 07/15/2021 Provide r: Diagnosis: 1 tab daily Last Documented On 03/27/2023 5:34PM By DOMINGA COON ; [facility] Citalopram Hydrobromide 20 MG OR TABS 05/05/2021 - Provider: Diagnosis: 1 tab daily Last Documented On 03/27/2023 5:34PM By DOMINGA COON ; [facility] Zoloft 100 MG OR TABS 05/06/2011 - 11/02/2011 Provider: YA SCHNEIDER D.O. Diagnosis: DEPRESSIVE DISOR EMMA NEC Last Documented On 05/06/2011 2:19PM By LEIGH FALCON MA ; [facility] predniSONE 10 MG OR TABS 05/06/2011 - 06/05/2011 Provider: YA SCHNEIDER D.O. Diagnosis: DEPRESSIVE DISOR EMMA NEC 4 tabs qd x2days, 3 tabs qd x2days, 2 tabs qd x2days, 1 tab qd x2days Last Documented On 03/28/2024 10:29AM By ALEXIS ELI ; [facility] Zoloft 100 MG OR TABS 04/13/2011 - 05/06/2011 Provider: YA SCHNEIDER D.O. Diagnosis: DEPRESSIVE DISOR EMMA NEC TAKE 1 1/2 TABLET BY MOUTH E VERY DAY FOR 7 DAYS . THEN 2 TABLETS BY MOUTH EVERY DAY . Last Documented On 05/06/2011 2:19PM By LEIGH FALCON MA ; [facility] Ortho-Cyclen (28) 0.25-35 MG-MCG OR TABS 02/25/2011 - 01/27/2012 Provider: YA SCHNEIDER D.O. Diagnosis: DYSMENORRHEA Last Documented On 03/28/2024 10:28AM By ALEXIS ELI ; [facility] Amoxicillin 500 MG OR TABS 02/25/2011 - 03/28/2024 Provider: YA SCHNEIDER D.O. Diagnosis: ACUTE SINUSITIS NOS Last Documented On 03/28/2024 10:26AM By ALEXIS ELI ; [facility] Zoloft 100 MG OR TABS 02/25/2011 - 06/25/2011 Provider: YA SCHNEIDER D.O. Diagnosis: DEPRESSIVE DISOR EMMA NEC 1 1/2 pills qd x7d, then 2 pills qd Last Documented On 02/25/2011 6:16PM By YA SCHNEIDER DO ; [facility] Propranolol HCl 20 MG OR TABS 07/06/2010 - 08/05/2010 Provider: YA SCHNEIDER D.O. Diagnosis: HEADACHE SYNDROM E NEC Last Documented On 03/28/2024 10:31AM By ALEXIS ELI ; [facility] Midrin 325-65-100 MG OR CAPS 06/15/2010 - 07/15/2010 Provider: YA SCHNEIDER D.O. Diagnosis: HEADACHE SYNDROM E NEC 2 PILLS INITIALLY THEN 1 PO Q1 HR MAX 5 PILLSA DAY Last Documented On 03/28/2024 10:27AM By ALEXIS ELI ; [facility] Propranolol HCl 40 MG OR TABS 06/15/2010 - 07/15/2010 Provider: YA SCHNEIDER D.O. Diagnosis: HEADACHE SYNDROM E NEC Last Documented On 03/28/2024 10:31AM By ALEXIS ELI ; [facility] Ortho-Cyclen (28) 0.25-35 MG-MCG OR TABS 04/17/2010 - 02/25/2011 Provider: YA SCHNEIDER D.O. Diagnosis: DYSMENORRHEA Last Documented On 02/25/2011 6:17PM By YA BLACKMAN [facility] Ortho-Cyclen (28) 0.25-35 MG-MCG OR TABS 03/18/2010 - 04/17/2010 Provider: YA SCHNEIDER D.O. Diagnosis: DYSMENORRHEA Last Documented On 04/17/2010 10:12AM By YA SCHNEIDER DO ; [facility] BAN 3-0.02 MG OR TABS 02/16/2010 - 03/16/2010 Provider: YA SCHNEIDER D.O. Diagnosis: OTHER FAMILY MAGALI NNING ADVICE NEC Last Documented On 03/28/2024 10:30AM By ALEXIS Rojas [facility] Zoloft 100 MG OR TABS 02/16/2010 - 02/25/2011 Provider: YA SCHNEIDER D.O. Diagnosis: DEPRESSIVE DISOR EMMA NEC Last Documented On 02/25/2011 6:16PM By YA BLACKMAN [facility] Zoloft 100 MG OR TABS 01/26/2010 - 04/13/2011 Provider: YA SCHNEIDER D.O. Diagnosis: DEPRESSIVE DISOR EMMA NEC 1/2 PILL A DAY FOR 1 WEEK,TH EN 1 PILL A DAY Last Documented On 04/13/2011 1:56PM By YA BLACKMAN [facility] Amoxicillin 500 MG OR TABS 01/26/2010 - 02/25/2011 Provider: YA SCHNEIDER D.O. Diagnosis: ACUTE SINUSITIS NOS Last Documented On 02/25/2011 6:15PM By YA BLACKMAN [facility] CeleXA 20 MG OR TABS 01/05/2010 - 03/28/2024 Provider: YA SCHNEIDER D.O. Diagnosis: DEPRESSIVE DISOR EMMA NEC Last Documented On 03/28/2024 10:26AM By ALEXIS ELI ; [facility] Medications Administered Includes: Administered Medications in patient's chart No Administered Medications Recorded Vital Signs Includes: Vital Signs from 01/15/2024 through 01/15/2025 Vital Name 01/27/2024 09:18A Blood Pressure Sitting L 128/80 BP Cuff Size Regular Pulse Rate-Sitting (bpm) 75 Pulse Rhythm Regular Height (in) 66 Weight (lb) 233 Body Mass Index 37.6 Body Surface Area 2.1 Last Documented: On 01/27/2024 9:18AM ; [facility] Results Includes: Results from 01/15/2024 through 01/15/2025 No Results Recorded For Specified Dates History of Present Illness History of Present Illness not supported for this document type No History of Present Illness Recorded Social History Description Last Updated Tobacco non-user 01/27/2024 Last Documented On 4 9:28AM ; [facility] Not smoking 05/06/2011 Last Documented On 1 2:55PM ; [facility] Chronic emotional stress which is inadeq uately controlled 02/25/2011 Last Documented On 1 6:34PM ; [facility] Recent emotional stress she feels she is in a stressful academic environment 02/25/2011 Last Documented On 1 6:34PM ; [facility] Smoking Status Unknown Procedures and Surgical History Includes: Procedures from 01/15/2024 through 01/15/2025 Procedures Code Diagnosis Performing Provider Service Location Service Date PSYCHOTHERAPY 45 MIN W/ PT-WHEN PERFMD WITH E/ [id number] Major depressive disorder, recurrent, unspecified, Attn-defct hyperactivity disorder, predom inattentive type, Generalized anxiety disorder, Restless legs syndrome ZAC INTERIANO MD [facility]PSY 01/27/2024 Last Documented On 4 4:08PM ; [facility] Medical History Includes: Medical History in patient's chart Description Last Updated DEPRESSION,B/L KNEE PAIN 01/05/2010 Last Documented On 0 2:53PM ; [facility] Family History Includes: Family History in [...] Last Documented On 01/27/2024 9:10AM ; [facility] Note: Imported from external source. TORADOL Allergy Hives / Urticaria 05/29/2021 A ctive Last Documented On 01/27/2024 9:10AM ; [facility] Note: Imported from external source. Pineapple Allergy 01/26/2023 Active Last Documented On 01/27/2024 9:10AM ; [facility] Note: Imported from external source. Latex Allergy Hives / Urticaria 05/29/2021 A ctive Last Documented On 01/27/2024 9:10AM ; [facility] Note: Imported from external source. Encounters Includes: Encounters from 01/15/2024 through 01/15/2025 Encounter Provider Location Date Check-In Time Check-Out Time Diagnosis PSYCH ADULT FOLLOW UP ZAC INTERIANO MD [facility]PSY 01/27/20 24 8:59AM 10:03AM Migraine Headache,General ized Anxiety Disorder,Restles s Legs Syndrome,Nonorga gaye Sleep Apnea Obstructive,Psyc hophysiological Insomnia,Major Depression,Adult Attention Deficit Hyperactivity Disorder Insurance Includes: Active Insurance Policies Plan Name Member ID Group # Subscriber Relationship Effect bea Dates 1 - [facility] [id number] EDILIA SOLANO Self Clinical Notes Includes: Signed Clinical Notes starting from 12/18/2022 * Progress note Date Encounter Last Documented by 01/27/2024 PSYCH ADULT FOLLOW UP Last docum ented on 02/10/2024; 9:28 AM, ZAC INTERIANO MD; [facility] Top of Document Medication [...] more work related. 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 Phu Walker -- Gas Systems Worker Dr. Oscar Flores -- ENT at [facility] Dr. Ember Santos -- Neurologist Attending Pathologist at [facility] Moshe Quintero NP/Dr. Mooney -- Tobacco Blender Continuous Improvement Director at [facility] Other: Endoscopic / fiberoptic examination - for Dysphagia -- 11/2021 -- normal per patient. Sleep testing was performed - in 2019 by [facility] -- inconclusive Diagnoses: URI -- given [...] [age] having stopped in 2005. 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 She was born in [place], [place] and raised outside of [facility]. 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 Her sexual orientation is pansexual or aromantic. She has no past or pending legal history. She enjoys reading, sewing, knitting and gardening. Her islam background as a child was Ep[employer]opalean and currently is [place]. Allergies - Latex Reaction: Hives / Urticaria [...] Clinical summary provided to patient. * Call [phone] and /or go to the nearest emergency [...]
--- OUTSIDE RECORDS SUMMARY | 2025-01-15 13:15 | XMS_ITS | Clinical Summary ---
Author Organization [facility] S Address [address] [place] [address] Phone Care Team Providers Care Modeling Instructor Name Role Phone JAYDON BOSS, ZAC SABILLON Unavailable [phone] Reason for Visit and Chief Complaint The Chief Complaint is: follow up for depression, anxiety, thoughts of self harm Problems Includes: Problems addressed during this encounter and other active Problems Current Visit Onset Date Resolved Date Provider Conditio n Status Migraine Headache 11/29/2022 ZAC Valerio MD Active Last Documented On 3 8:31AM ; [facility] Nonorganic Sleep Apnea Obstructive 11/29/2022 Jason INTERIANO MD Active Last Documented On 3 8:31AM ; [facility] Restless Legs Syndrome 11/29/2022 ZAC KERN MD Active Last Documented On 3 8:31AM ; [facility] Adult Attention Deficit Hype ractivity Disorder 01/27/2022 ZAC INTERIANO MD Active Last Documented On 2 8:44AM ; [facility] Generalized Anxiety Disorder 05/29/2021 ZAC INTERIANO MD Active Last Documented On 1 3:14PM ; [facility] Psychophysiological Insomnia 05/29/2021 ZAC INTERIANO MD Active Last Documented On 1 3:14PM ; [facility] Major Depression 05/29/2021 ZAC INTERIANO MD Active Last Documented On 1 3:14PM ; [facility] Plan of Treatment - Referred to: [facility] Sleep Specialist -- Home Sleep Study to r/o EFRA -- 02/23/23 - Last Documented On 02/24/2023 9:28AM ; [facility] - Transition in care, clinical summary provided - Last Documented On 02/24/2023 9:28AM ; [facility] - Clinical summary transmitted to referring provider electronically with reasonable certainty of receipt - Last Documented On 02/24/2023 9:28AM ; [facility] Generalized Anxiety Disorder - Cymbalta to 90 [...] habits EFRA - Home Sleep Study through [facility] - ordered 02/23/23 Restless Legs Syndrome - Gabapentin 300 mg in the evening - Last Documented On 02/24/2023 9:28AM ; [facility] Referrals To Diagnosis Sleep Study at [facility] ADRIAN RHODES MD - ALT ON [facility] - [address] [place] [id number] - Obstructive sleep apnea (adult) (pediatric) Note: Refer to sleep special ist Dr. Rhodes Last Documented On 3 9:44AM ; [facility] Instructions to patient Lose weight -- portion contr ol Last Documented On 3 8:27AM ; [facility] Education and Decision Aids were provided during visit for: Discussed calming techniques such as breathing exercises and other relaxation techniques Last Documented On 3 9:50AM ; [facility] Assessments Includes: Assessments from this encounter Findings - Obstructive sleep apnea - Last Documented On 02/24/2023 9:28AM ; [facility] - Migraine headache - Last Documented On 02/24/2023 9:28AM ; [facility] Restless legs syndrome - Last Documented On 02/24/2023 9:28AM ; [facility] - Major depressive disorder - Last Documented On 02/24/2023 9:28AM ; [facility] - Psychophysiological insomnia - Last Documented On 02/24/2023 9:28AM ; [facility] - Generalized anxiety disorder - Last Documented On 02/24/2023 9:28AM ; [facility] - Adult attention deficit hyperactivity disorder - Last Documented On 02/24/2023 9:28AM ; [facility] Instructions Includes: Instructions from this encounter Instructions to patient Lose weight -- portion contr ol Last Documented On 8:27AM ; [facility] Education and Decision Aids were provided during visit for: Discussed calming techniques such as breathing exercises and other relaxation techniques Last Documented On 9:50AM ; [facility] Medical Equipment - Implanted Devices [...] 03/22/2023 5:25AM By Marta Interiano MD ; [facility] Aimovig 70 MG/ML Subcutaneous Solution Auto-injector 02/24/2023 Provider: ZAC INTERIANO MD Diagnosis: Migraine w/o aur a, not intractable, w/o status migrainosus as directed - inject 70 mg ( 1 ml) SQ once a month to upper thigh, please rotate sites Last Documented On 02/24/2023 8:48AM By Marta Interiano MD ; [facility] Aimovig 70 MG/ML Subcutaneou s Solution Auto-injector 02/24/2023 Provider: ZAC TEMPLETON MD Diagnosis: Chronic migraine w/o aura, not intractable, w/o stat migr as directed - inject 1 ml (7 0 mg) subcutaneously to upper thigh once a month, please rotate sites Last Documented On 02/24/2023 8:48AM By Marta Interiano MD ; [facility] traZODone HCl 50 MG Oral Tablet 02/22/2023 Provider: ZAC INTERIANO MD Diagnosis: Psychophysiologi c insomnia TAKE 4 TABLETS (200MG) AT BE DTIME NEEDED FOR SLEEP Last Documented On 02/22/2023 7:21AM By Marta Inteirano MD ; [facility] Topiramate 50 MG Oral Tablet 02/02/2023 Provider: ZAC INTERIANO MD Diagnosis: Chronic migraine w/o aura, not intractable, w/o stat migr One tablet twice a day Last Documented On 02/02/2023 9:45AM By Marta Interiano MD ; [facility] Focalin 10 MG Oral Tablet 02/01/2023 Provider: ZAC INTERIANO MD Diagnosis: Attn-defct hyper activity disorder, predom inattentive type as directed -- 1 tab in am a nd 1 tab at noon Last Documented On 02/01/2023 4:41AM By Marta Interiano MD ; [facility] Gabapentin 300 MG Oral Capsule 01/26/2023 Provider: ZAC INTERIANO MD Diagnosis: Restless legs sy ndrome as directed -- 1 cap in even ing for restless legs Last Documented On 10:27AM By Marta Interiano MD ; [facility] Meclizine HCl 25 MG Oral Tablet 11/24/2022 Provider: Diagnosis: 1 TAB BID PRN Last Documented On 01/26/2023 9:26AM By DOMINGA COON ; [facility] DULoxetine HCl 30 MG Oral Capsule Delayed Release Particles 08/20/2022 Provider: ZAC INTERIANO MD Diagnosis: Generalized anxi ety disorder TAKE 1 CAPSULE BY MOUTH EVER Y DAY (TAKE WITH 60MG CAPSULE) Last Documented On 11:28AM By Marta Interiano MD ; [facility] Ondansetron HCl 4 MG Oral Tablet 03/26/2022 Provider : MOSHE GUTIERREZ NP Diagnosis: as directed Last Documented On 04/21/2022 4:14PM By DOMINGA COON ; [facility] Senexon-S 8.6-50 MG Oral Tablet 02/04/2022 Provider: MOSHE GUTIERREZ WARP KNITTER Diagnosis: 1 daily prn Last Documented On 02/26/2022 4:13PM By DOMINGA COON ; [facility] Metoclopramide HCl 10 MG Oral Tablet 01/27/2022 Prov ider: MOSHE GUTIERREZ WARP KNITTER Diagnosis: 1 ac tid Last Documented On 02/26/2022 4:14PM By DOMINGA COON ; [facility] Fluticasone Propionate 50 MCG/ACT Nasal Suspension 03/2022 Provider: Diagnosis: Last Documented On 12/17/2021 4:21PM By ALEXIS ELI ; [facility] Pantoprazole Sodium 40 MG Oral Tablet Delayed Release 11/23/2021 Provider: Diagnosis: 1 tab daily Last Documented On 12/17/2021 4:21PM By ALEXIS ELI ; [facility] Gabapentin 100 MG Oral Capsule 08/20/2021 Provider: Diagnosis: [address] Ember Santos Last Documented On 08/25/2021 2:01PM By DOMINGA COON ; [facility] Albuterol Sulfate 108 (90 Ba se) MCG/ACT Inhalation Aerosol Powder Breath Activated 05/29/2021 Provider: Diagnosis: 1-2 puffs q 4-6 hours prn Last Documented On 05/29/2021 3:25PM By DOMINGA COON ; [facility] Blank Allergy 180 MG Oral Tablet 05/29/2021 Provid er: Diagnosis: 1 tab daily otc Last Documented On 05/29/2021 3:24PM By DOMINGA COON ; [facility] Spironolactone 100 MG Oral Tablet 04/21/2021 Provide r: JASON BENITO APN Diagnosis: 1 tab daily Last Documented On 05/29/2021 3:20PM By DOMINGA COON ; [facility] Symbicort 160-4.5 MCG/ACT Inhalation Aerosol Provider: CARLO JAQUEZ MD Diagnosis: 1 puff twice daily Last Documented On 05/29/2021 3:21PM By DOMINGA COON ; [facility] Spiriva HandiHaler 18 MCG Inhalation Capsule 0 Provider: Diagnosis: 1 inhalation daily Last Documented On 05/29/2021 3:22PM By DOMINGA COON ; [facility] Past Medications on file Sunosi 150 MG Oral Tablet 02/24/2023 - 03/26/2023 Provider: ZAC BLACK MD Diagnosis: Obstructive slee p apnea (adult) (pediatric) 1 tablet every morning Last Documented On 02/24/2023 8:41AM By Marta Interiano MD ; [facility] Meclizine HCl 25 MG Oral Tablet 09/03/2022 - Provider: Diagnosis: 1 tab twice daily prn Dr. Ember Santos Last Documented On 09/03/2022 3:07PM By DOMINGA COON ; [facility] Focalin 10 MG Oral Tablet 06/18/2022 - 07/18/2022 Provider: ZAC INTERIANO MD Diagnosis: Attn-defct hyper activity disorder, predom inattentive type as directed -- 1 tab in am, 1 tab at noon Last Documented On 06/18/2022 5:28PM By Marta Interiano MD ; [facility] Focalin 10 MG Oral Tablet 04/21/2022 - 05/21/2022 Provider: ZAC INTERIANO MD Diagnosis: Attn-defct hyper activity disorder, predom inattentive type as directed -- 1 tab in am Last Documented On 04/21/2022 4:54PM By Marta Interiano MD ; [facility] Viibryd Starter Pack 10 & 20 MG Oral Kit 05/29/2021 - 06/28/2021 Provider: ZAC INTERIANO MD Diagnosis: Major depressive disorder, recurrent, moderate as directed -- 10 mg in am w / food for 2 weeks then 20 mg 1 tab in am w/ food thereafter Last Documented On 05/29/2021 4:05PM By Marta Interiano MD ; [facility] Medications Administered Includes: Administered Medications [...] Last Documented: On 02/23/2023 10:35A M ; [facility] Results Includes: Results [...] well rested. She had HSS done at [facility] in 2019 but was inconclusive so I recommended repeating it at [facility] to r/o EFRA. In the meantime, I [...] Description Last Updated She was born in [place], [place] and raised outside of [facility]. 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 Her sexual orientation is pansexual or aromantic. She has no past or pending legal history. She enjoys reading, sewing, knitting and gardening. 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 02/01/2023 Last Documented On 3 9:50AM ; [facility] Non-smoker 09/03/2022 Last Documented On 3 9:50AM ; [facility] Daily coffee consumption - d rinks 1-2 cups of coffee a week, 1-2 cans of soda a week and 1-2 glasses of green tea with ginseng a week 06/18/2022 Last Documented On 3 9:50AM ; [facility] Not using alcohol - none, past history o f heavy drinking 08/25/2021 Last Documented On 3 9:50AM ; [facility] Work history 08/25/2021 Last Documented On 3 9:50AM ; [facility] Drug use - narcotics - 4 -7 pills daily from age [age] having stopped in 200505/29/2021 Last Documented On 3 9:50AM ; [facility] Single 05/29/2021 Last Documented On 3 9:50AM ; [facility] Smoking Status Unknown Procedures and Surgical History Includes: Procedures from this encounter Procedures Code Diagnosis Performing Provider Service L ocation Service Date education and instructions Last Documented On 3 9:50AM ; [facility] dangerousness assessment: suicide risk -not suic idal 3085F Last Documented On 3 9:50AM ; [facility] use of tobacco assessment performed 1000F Last Documented On 3 9:50AM ; [facility] patient screened for future fall risk - no recen t falls 3288F Last Documented On 3 9:50AM ; [facility] review of medications documented 1160F Last Documented On 3 9:50AM ; [facility] screening for adult depressi on: impression and score - please see above treatment and PHQ score Last Documented On 3 9:50AM ; [facility] standardized depression screening: posit bea for symptoms Last Documented On 3 9:50AM ; [facility] encouragement to exercise Last Documented On 3 9:50AM ; [facility] Counseling on new medication : I discussed the risks, benefits and side effects of Sunosi/Modafinil. Patient verbalized understanding and agreed to treatment Last Documented On 3 8:27AM ; [facility] Clinical summary provided to patient Last Documented On 3 9:50AM ; [facility] PHQ-9: total score 10 Last Documented On 3 8:27AM ; [facility] Surgical History Last Updated History of hysterectomy - 08/05/21 022 Last Documented On 3 9:50AM ; [facility] History of abdominal surgery Left fallop jovany tube tumors removed-- 201806/16/2021 Last Documented On 3 9:50AM ; [facility] History of knee surgery - right knee rec onstruction 201405/29/2021 Last Documented On 3 9:50AM ; [facility] History of cholecystectomy - 2018 Last Documented On 3 9:50AM ; [facility] Medical History Includes: Medical History addressed during this encounter Description Last Updated History of gastroparesis - M etoclopromide and Stimulant Laxative -- from [facility] under Dr. Mooney 02/24/2023 Last Documented On 3 9:28AM ; [facility] Primary Care Provider: Dr. Iman Jaquez ~Dr. Yaniv Walker -- Cookie Padder ~Dr. Oscar Flores -- ENT at [facility] ~Dr. Ember Santos -- Neurologist ~Facial Operator at [facility] ~Moshe Gutierrez NP/Dr. Mooney -- Geophysical Laboratory Director ~Health Administration Teacher at [employer] 02/24/2023 Last Documented On 3 9:28AM ; [facility] History of vertigo - takes Meclizine prn 01/26/2023 Last Documented On 3 9:50AM ; [facility] History of infection of tooth - given Am oxil 500 mg 07/27/22 09/03/2022 Last Documented On 3 9:50AM ; [facility] History of back strain - Deg enerative Disc Disease -- given Flexeril 10 mg and Ibuprofen 600 mg 07/20/22; with bulging discs -- given Prednisone 20 mg and Norflex 100 mg 04/24/22 09/03/2022 Last Documented On 3 9:50AM ; [facility] History of bronchitis - giv en Cefdinir 300 mg and Albuterol HFA 90 mcg inhaler 09/03/2022 Last Documented On 3 9:50AM ; [facility] History of COVID-19 infection - tested p ositive/isolation 08/10/22-08/17/22 09/03/2022 Last Documented On 3 9:50AM ; [facility] History of migraine headache 06/19/2022 Last Documented On 3 9:50AM ; [facility] History of Nausea with vomiting - given Zofran 4 mg 03/26/22 04/21/2022 Last Documented On 3 9:50AM ; [facility] History of constipation - gi jefferson Miralax 03/26/22; Senexon-S 8.6mg -50 mg -- started 02/04/22 04/21/2022 Last Documented On 3 9:50AM ; [facility] History of coronavirus 2019- nCoV vaccine - Pfizer #1 03/10/21 #2 04/01/21 #3 02/202204/21/2022 Last Documented On 3 9:50AM ; [facility] History of an endoscopic / f iberoptic examination was performed - for Dysphagia -- 11/2021 -- normal per patient 02/26/2022 Last Documented On 3 9:50AM ; [facility] History of ovarian cyst - CT scan of abdomen/pelvis from 11/2021 showed a 5 cm mass/cyst on an ovary -- has ultrasound every 6-8 weeks to monitor 02/26/2022 Last Documented On 3 9:50AM ; [facility] History of colonoscopy - 11/2021 -- lisa l per patient 02/26/2022 Last Documented On 3 9:50AM ; [facility] History of dysphagia - started Reglan 10 mg 01/05/22 02/26/2022 Last Documented On 3 9:50AM ; [facility] History of acute suppurative sinusitis - given Augmentin 875 mg 02/06/22 02/26/2022 Last Documented On 3 9:50AM ; [facility] History of sleep testing was performed - in 2019 by [facility] -- inconclusive 02/26/2022 Last Documented On 3 9:50AM ; [facility] History of GI bleed - via en doscopy - was hospitalized for 4 days -- 2019 -- should not be using anymore NSAIDS 12/17/2021 Last Documented On 3 9:50AM ; [facility] History of Polycystic Ovaria n Syndrome (PCOS) - age 23 - left fallopian tube removed in 2019 -- complete hysterectomy 08/05/21 -- given Hydrocodone 5/325 #25 -- still has ovaries 08/25/2021 Last Documented On 3 9:50AM ; [facility] History of hyperlipidemia 06/16/2021 Last Documented On 3 9:50AM ; [facility] History of endometriosis - age 23 2020 Last Documented On 3 9:50AM ; [facility] History of fatty liver - age 28 05/29/20 Last Documented On 3 9:50AM ; [facility] History of asthma - since childhood 11/2020 Last Documented On 3 9:50AM ; [facility] Family History Includes: Family History addressed during this encounter Description Last Updated Maternal history of alcoholism - Mother 06/16/2021 Last Documented On 3 9:50AM ; [facility] Maternal history of bipolar disorder NOS - Mother 06/16/2021 Last Documented On 3 9:50AM ; [facility] Paternal history of combined drug and al cohol abuse - Father 06/16/2021 Last Documented On 3 9:50AM ; [facility] Fraternal history of depression - Brothe r 06/16/2021 Last Documented On 3 9:50AM ; [facility] Paternal grandmother's history of depres edward 06/16/2021 Last Documented On 3 9:50AM ; [facility] Sororal history of depression and Anxiet y - Sister 06/16/2021 Last Documented On 3 9:50AM ; [facility] Paternal grandmother's history of lisy ia 05/29/2021 Last Documented On 3 9:50AM ; [facility] Review of Systems Includes: Review [...] 9:10AM ; [facility] Note: Imported from external source. TORADOL Allergy Hives / Urticaria 05/29/2021 A ctive Last Documented On 01/27/2024 9:10AM ; [facility] Note: Imported from external source. Pineapple Allergy 01/26/2023 Active Last Documented On 01/27/2024 9:10AM ; [facility] Note: Imported from external source. Latex Allergy Hives / Urticaria 05/29/2021 A ctive Last Documented On 01/27/2024 9:10AM ; [facility] Note: Imported from external source. Encounters Encounter Provider Location Date Check-In Time Check-Out Time Diagnosis [facility] INTERIANO MD [facility] 02/24/20 23 9:49AM 11:59PM Generalized Anxiety Disorder,Psychoph ysiological Insomnia,Major Depression,Adult Attention Deficit Hyperactivity Disorder,Nonorgan ic Sleep Apnea Obstructive,Restl ess Legs Syndrome,Migraine Headache Insurance Includes: Active Insurance Policies Plan Name Member ID Group # Subscriber Relationship Effect bea Dates 1 - [facility] [id number] TONY SOLANO Self Clinical Notes Includes: Clinical Notes from this encounter No Clinical Notes Recorded
--- OUTSIDE RECORDS SUMMARY | 2025-01-15 13:16 | XMS_ITS | Clinical Summary ---
Author Organization [facility] Address [address] [place] [address] Phone Care Team Providers Care Inbound Sales Manager Name Role Phone JAYDON BOSS, ZAC SABILLON Unavailable [phone] Reason for Visit and Chief Complaint The Chief Complaint is: follow up ADD, anxiety, depression and insomnia, The Chief Complaint is: Follow up for depression, anxiety, thoughts of self harm Problems Includes: Problems addressed during this encounter and other active Problems Current Visit Onset Date Resolved Date Provider Conditio n Status Migraine Headache 11/29/2022 Active Last Documented On 3 5:53PM ; [facility] Nonorganic Sleep Apnea Obstructive 11/29/2022 Active Last Documented On 3 5:53PM ; [facility] Restless Legs Syndrome 11/29/2022 Ac tive Last Documented On 3 5:53PM ; [facility] Adult Attention Deficit Hyperactivity Disorder 01/27/2022 Active Last Documented On 3 5:53PM ; [facility] Generalized Anxiety Disorder 05/29/2021 Active Last Documented On 3 5:53PM ; [facility] Psychophysiological Insomnia 05/29/2021 Active Last Documented On 3 5:53PM ; [facility] Major Depression 05/29/2021 Active Last Documented On 3 5:53PM ; [facility] Plan of Treatment Generalized Anxiety Disorder [...] - Last Documented On 08/12/2023 7:26AM ; [facility] Education and Decision Aids were provided during visit for: Calming techniques such as b reathing exercises/meditation and other relaxation techniques Last Documented On 7:19AM ; [facility] Assessments Includes: Assessments from this encounter Findings - Obstructive sleep apnea - Last Documented On 08/12/2023 7:26AM ; [facility] - Migraine headache - Last Documented On 08/12/2023 7:26AM ; [facility] - Restless legs syndrome - Last Documented On 08/12/2023 7:26AM ; [facility] - Major depressive disorder - Last Documented On 08/12/2023 7:26AM ; [facility] - Psychophysiological insomnia - Last Documented On 08/12/2023 7:26AM ; [facility] - Generalized anxiety disorder - Last Documented On 08/12/2023 7:26AM ; [facility] - Adult attention deficit hyperactivity disorder - Last Documented On 08/12/2023 7:26AM ; [facility] Instructions Includes: Instructions from this encounter Education and Decision Aids were provided during visit for: Calming techniques such as b reathing exercises/meditation and other relaxation techniques Last Documented On 7:19AM ; [facility] Medical Equipment - Implanted Devices Includes: Current Devices No Medical Equipment Recorded Medications Includes: Medications discussed during this encounter and other current Medications New / Renewed during this visit ZAC INTERIANO MD on 07/29/2023 Vyvanse 30 MG Oral Capsule Provider: ZAC INTERIANO MD 30 day supply: 30 capsule, 0 refills Diagnosis: Attn-defct hyperactivity disorder, predom inattentive type 1 Capsule every morning Pharmacy: [facility]) [address] [place] [address] [place], [id number] - Last Documented On 11/05/2023 3:10PM By Marta Interiano MD ; [facility] Gabapentin 300 MG Oral Capsule Provider: ZAC INTERIANO MD 90 day supply: 90 capsule, 1 refills Diagnosis: Restless legs syndrome as directed -- 1 cap in even ing for restless legs [facility]: [facility] - [address] [facility], [id number] - Last Documented On 03/28/2024 10:27AM By ALEXIS ELI ; [facility] DULoxetine HCl 60 MG Oral Capsule Delayed Release Particles Provider: ZAC INTERIANO MD 90 day supply: 90 capsule, 1 refills Diagnosis: Major depressive disorder, recurrent, moderate TAKE 1 CAPSULE BY MOUTH EVER Y DAY IN THE MORNING [facility] [address] [facility], [id number] - Last Documented On 03/28/2024 10:26AM By ALEXIS ELI ; [facility] DULoxetine HCl 30 MG Oral Capsule Delayed Release Particles Provider: ZAC INTERIANO MD 90 day supply: 90 capsule, 1 refills Diagnosis: Generalized anxiety disorder TAKE 1 CAPSULE BY MOUTH EVER Y DAY (TAKE WITH 60MG CAPSULE) [facility] - [address] [facility], [id number] - Last Documented On 03/28/2024 10:26AM By ALEXIS ELI ; [facility] traZODone HCl 50 MG Oral Tablet Provider: ZAC INTERIANO MD 30 day supply: 120 tablet, 0 refills Diagnosis: Psychophysiologic insomnia TAKE 4 TABLETS (200MG) AT BE DTIRI NEEDED FOR SLEEP [facility] - [address] [facility], [id number] - Last Documented On 01/27/2024 9:54AM By Marta Interiano MD ; [facility] Current Medications (continue as prescribed) Azstarys 52.3-10.4 MG Oral Capsule 03/28/2024 Provider: ZAC INTERIANO MD Diagnosis: Attn-defct hyper activity disorder, predom inattentive type as directed - 1 cap in am Last Documented On 03/28/2024 2:09PM By Marta Interiano MD ; [facility] traZODone HCl 50 MG Oral Tablet 02/29/2024 Provider: ZAC INTERIANO MD Diagnosis: Psychophysiologi c insomnia TAKE 3 TABLETS BY MOUTH AT B EDTIME NEEDED FOR SLEEP Last Documented On 02/29/2024 12:32PM By Marta Interiano MD ; [facility] rOPINIRole HCl 1 MG Oral Tablet 01/27/2024 Provider: ZAC INTERIANO MD Diagnosis: Restless legs sy ndrome as directed -1/2 tab in the evening for 1 week then 1 tab in the evening thereafter Last Documented On 01/27/2024 10:15AM By Marta Interiano MD ; [facility] Nurtec 75 MG Oral Tablet Disintegrating 01/27/2024 Provider: ZAC INTERIANO MD Diagnosis: Migraine w/o aur a, not intractable, w/o status migrainosus as directed - 1 tab a day as needed at the onset of migraine headaches Last Documented On 01/27/2024 9:42AM By Marta Interiano MD ; [facility] Aimovig 70 MG/ML Subcutaneous Solution Auto-injector 01/27/2024 Provider: ZAC INTERIANO MD Diagnosis: Migraine w/o aur a, not intractable, w/o status migrainosus as directed - inject 70 mg ( 1 ml) SQ once a month to upper thigh, please rotate sites Last Documented On 01/27/2024 9:42AM By Marta Interiano MD ; [facility] Vyvanse 30 MG Oral Capsule 12/13/2023 Provider: ZAC INTERIANO MD Diagnosis: Attn-defct hyper activity disorder, predom inattentive type 1 Capsule every morning Last Documented On 12/13/2023 1:47AM By Marta Interiano MD ; [facility] Topiramate 50 MG Oral Tablet 04/20/2023 Provider: ZAC INTERIANO MD Diagnosis: Chronic migraine w/o aura, not intractable, w/o stat migr One tablet twice a day Last Documented On 03/28/2024 10:29AM By ALEXIS ELI ; [facility] Meclizine HCl 25 MG OR TABS 11/24/2022 Provider: Diagnosis: 1 TAB BID PRN Last Documented On 03/27/2023 5:34PM By DOMINGA COON ; [facility] Ondansetron HCl 4 MG OR TABS 03/26/2022 Provider: Diagnosis: as directed Last Documented On 03/27/2023 5:34PM By DOMINGA COON ; [facility] Senexon-S 8.6-50 MG OR TABS 02/04/2022 Provider: Diagnosis: 1 daily prn Last Documented On 03/27/2023 5:34PM By DOMINGA COON ; [facility] Metoclopramide HCl 10 MG OR TABS 01/27/2022 Provider : Diagnosis: 1 ac tid Last Documented On 03/27/2023 5:34PM By DOMINGA COON ; [facility] Fluticasone Propionate 50 MCG/ACT NA SUSP 12/03/2021 Provider: Diagnosis: Last Documented On 03/27/2023 5:34PM By ALEXIS ELI ; [facility] Pantoprazole Sodium 40 MG OR TBEC 11/23/2021 Provide r: Diagnosis: 1 tab daily Last Documented On 03/27/2023 5:34PM By ALEXIS ELI ; [facility] Blank Allergy 180 MG OR TABS 05/29/2021 Provider: Diagnosis: 1 tab daily otc Last Documented On 03/27/2023 5:34PM By DOMINGA COON ; [facility] Albuterol Sulfate 108 (90 Base) MCG/ACT IN AEPB 2020 Provider: Diagnosis: 1-2 puffs q 4-6 hours prn Last Documented On 03/27/2023 5:34PM By DOMINGA COON ; [facility] Spironolactone 100 MG OR TABS 04/21/2021 Provider: Diagnosis: 1 tab daily Last Documented On 03/27/2023 5:34PM By DOMINGA COON ; [facility] Symbicort 160-4.5 MCG/ACT IN AERO 12/05/2020 Provide r: Diagnosis: 1 puff twice daily Last Documented On 03/27/2023 5:34PM By DOMINGA COON ; [facility] Spiriva HandiHaler 18 MCG IN CAPS 10/15/2020 Provide r: Diagnosis: 1 inhalation daily Last Documented On 03/27/2023 5:34PM By DOMINGA COON ; [facility] Past Medications on file Sunosi 150 MG OR TABS 02/24/2023 - 03/26/2023 Provider: ZCA BLACK MD Diagnosis: Obstructive slee p apnea (adult) (pediatric) 1 tablet every morning Last Documented On 03/27/2023 5:34PM By Marta Interiano MD ; [facility] Zoloft 100 MG OR TABS 05/06/2011 - 11/02/2011 Provider: YA SCHNEIDER D.O. Diagnosis: DEPRESSIVE DISOR EMMA NEC Last Documented On 05/06/2011 2:19PM By LEIGH FALCON MA ; [facility] Zoloft 100 MG OR TABS 02/25/2011 - 06/25/2011 Provider: YA SCHNEIDER D.O. Diagnosis: DEPRESSIVE DISOR EMMA NEC 1 1/2 pills qd x7d, then 2 pills qd Last Documented On 02/25/2011 6:16PM By YA SCHNEIDER DO ; [facility] [...] Last Documented: On 07/29/2023 10:11A M ; [facility] Results Includes: Results discussed during this encounter [...] and ended up in an apt in [place]. She is still in the middle of unpacking and organizing. 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 Her sexual orientation is pansexual or aromantic. She has no past or pending legal history. She enjoys reading, sewing, knitting and gardening. Her zoroastrian background as a child was [employer] and currently is [place]. 07/29/2023 Last Documented On 3 9:57AM ; [facility] Tobacco non-user 07/29/2023 Last Documented On 3 7:26AM ; [facility] Smoking Status Unknown Procedures and Surgical History Includes: Procedures from this encounter Procedures Code Diagnosis Performing Provider Service L ocation Service Date education and instructions Last Documented On 3 9:57AM ; [facility] supportive care and encourag ement--given positive reinforcement to keep patient motivated and active Last Documented On 3 10:14AM ; [facility] ~* Call [phone] and /or go t o the nearest emergency room or call me if suicidal/homicidal ideation or other serious concerns arise. ~ ~* I gave instructions to call me should there be any questions or concerns. ~ ~* Patient voiced understanding and agreed to treatment plan Last Documented On 3 10:09AM ; [facility] dangerousness assessment: no suicide risk 3085F Last Documented On 3 9:57AM ; [facility] use of tobacco assessment performed 1000F Last Documented On 3 9:57AM ; [facility] patient screened for future fall risk: documentation of any fall with injury in past year - no recent falls 1100F Last Documented On 3 9:57AM ; [facility] review of medications documented 1160F Last Documented On 3 9:57AM ; [facility] assessment of suicide risk performed - n ot suicidal Last Documented On 3 10:10AM ; [facility] screening for adult depressi on: impression and score - please see above treatment and PHQ score Last Documented On 3 9:57AM ; [facility] standardized depression screening: posit bea for symptoms Last Documented On 3 9:57AM ; [facility] encouragement to exercise - balanced nithya l plan, low fat low carb diet Last Documented On 3 10:09AM ; [facility] Counseling on new medication : I discussed the risks, benefits and side effects of Nurtec ODT . Patient verbalized understanding and agreed to treatment Last Documented On 3 7:19AM ; [facility] Clinical summary provided to patient Last Documented On 3 9:57AM ; [facility] PHQ-9: total score 11 Last Documented On 3 7:19AM ; [facility] Medical History Includes: Medical History addressed during this encounter Description Last Updated Primary Care Provider: Dr. Iman Walker -- [place] Dr. Oscar Flores -- ENT at [facility] Dr. Ember Santos -- Neurologist S3[employer] Multi Sensor Operator at [facility] Moshe Quintero NP/Dr. Mooney -- Hand Binder Cutter Computer [facility]: [facility] / fiberoptic examination - for Dysphagia -- 11/2021 -- normal per patient. Sleep testing was performed - in 2019 by [facility] -- inconclusiveDiagnoses: Acute suppurative sinusitis - [...] 201407/29/2023 Last Documented On 3 9:57AM ; [facility] Family History Includes: Family History addressed during this encounter Description Last Updated Paternal: Combined drug and alcohol abuse - FatherMaternal: Alcoholism - Mother Bipolar disorder NOS - MotherPaternal grandmother's: Dementia DepressionFraternal: Depression - BrotherSororal: Depression and Anxiety - Sister 07/29/2023 Last Documented On 3 9:57AM ; [facility] Review of Systems Includes: [...] Active Last Documented On 01/27/2024 9:10AM ; [facility] Note: Imported from external source. TORADOL Allergy Hives / Urticaria 05/29/2021 A ctive Last Documented On 01/27/2024 9:10AM ; [facility] Note: Imported from external source. Pineapple Allergy 01/26/2023 Active Last Documented On 01/27/2024 9:10AM ; [facility] Note: Imported from external source. Latex Allergy Hives / Urticaria 05/29/2021 A ctive Last Documented On 01/27/2024 9:10AM ; [facility] Note: Imported from external source. Encounters Encounter Provider Location Date Check-In Time Check-Out Time Diagnosis PSYCH ADULT FOLLOW UP ZAC INTERIANO MD [facility] 07/29/20 23 9:55AM 10:59AM Migraine Headache,General ized Anxiety Disorder,Restles s Legs Syndrome,Nonorga gaye Sleep Apnea Obstructive,Psyc hophysiological Insomnia,Major Depression,Adult Attention Deficit Hyperactivity Disorder Insurance Includes: Active Insurance Policies Plan Name Member ID Group # Subscriber Relationship Effect bea Dates 1 - [facility] [id number] EDILIA SOLANO Self Clinical Notes Includes: Clinical Notes from this encounter * Progress note Date Encounter Last Documented by 07/29/2023 PSYCH ADULT FOLLOW UP Last docum ented on 08/12/2023; 7:26 AM, ZAC INTERIANO MD; [facility] Top of Document Medication [...] and ended up in an apt in [place]. She is still in the middle of unpacking and organizing. She thought that her roommate told her that they have zoroastrian differences and so she was kiccked out [...] Primary Care Provider: Dr. Phu Walker -- [place] Dr. Oscar Flores -- ENT at [facility] Dr. Ember Santos -- Neurologist S3[employer] Multi Sensor Operator at [facility] Moshe Quintero NP/Dr. Mooney -- Hand Binder Cutter Computer Help Desk Specialist at [facility] Other: Endoscopic / fiberoptic examination - for Dysphagia -- 11/2021 -- normal per patient. Sleep testing was performed - in 2019 by [facility] -- inconclusive Diagnoses: Acute suppurative sinusitis [...] [age] having stopped in 2005. 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 She was born in [place], [place] and raised outside of [facility]. 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 Her sexual orientation is pansexual or aromantic. She has no past or pending legal history. She enjoys reading, sewing, knitting and gardening. Her zoroastrian background as a child was [employer] and [...] Clinical summary provided to patient. * Call [phone] and /or go to the nearest emergency [...]
--- OUTSIDE RECORDS SUMMARY | 2025-01-15 13:16 | XMS_ITS | Clinical Summary ---
Author Organization [facility] S Address [address] [place] [address] Phone Care Team Providers Care Design Engineering Technician Name Role Phone JAYDON BOSS, ZAC SABILLON Unavailable [phone] Reason for Visit and Chief Complaint The Chief Complaint is: follow up for depression, anxiety, thoughts of self harm Problems Includes: Problems addressed during this encounter and other active Problems Current Visit Onset Date Resolved Date Provider Conditio n Status Adult Attention Deficit Hyperactivity Disorder 01/27/2022 ZAC TEMPLETON MD Active Last Documented On 2 8:44AM ; [facility] Generalized Anxiety Disorder 05/29/2021 ZAC INTERIANO MD Active Last Documented On 1 3:14PM ; [facility] Psychophysiological Insomnia 05/29/2021 ZAC INTERIANO MD Active Last Documented On 1 3:14PM ; [facility] Major Depression 05/29/2021 ZAC INTERIANO MD Active Last Documented On 1 3:14PM ; [facility] Past Visits Onset Date Resolved Date Provider Condition Status Migraine Headache 11/29/2022 ZAC Valerio MD Active Last Documented On 3 8:31AM ; [facility] Nonorganic Sleep Apnea Obstructive 11/29/2022 Jason INTERIANO MD Active Last Documented On 3 8:31AM ; [facility] Restless Legs Syndrome 11/29/2022 ZAC KERN MD Active Last Documented On 3 8:31AM ; [facility] Plan of Treatment Generalized [...] - Last Documented On 02/01/2023 4:31AM ; [facility] Instructions to patient Lose weight -- lost 10 lbs s rina last visit Last Documented On 3 4:27AM ; [facility] Education and Decision Aids were provided during visit for: Patient education about medi cation ---Education was given on medication(s) and diagnosis. I reviewed the risks, benefits and side effects of patient's medications Last Documented On 3 9:11AM ; [facility] Discussed calming techniques such as breathing exercises and other relaxation techniques Last Documented On 3 9:11AM ; [facility] Discussed good sleep hygiene habits Last Documented On 3 9:27AM ; [facility] Assessments Includes: Assessments from this encounter Findings - Major depressive disorder - Last Documented On 02/01/2023 4:31AM ; [facility] - Psychophysiological insomnia - Last Documented On 02/01/2023 4:31AM ; [facility] - Generalized anxiety disorder - Last Documented On 02/01/2023 4:31AM ; [facility] - Adult attention deficit hyperactivity disorder - Last Documented On 02/01/2023 4:31AM ; [facility] Instructions Includes: Instructions from this encounter Instructions to patient Lose weight -- lost 10 lbs s rina last visit Last Documented On 3 4:27AM ; [facility] Education and Decision Aids were provided during visit for: Patient education about medi cation ---Education was given on medication(s) and diagnosis. I reviewed the risks, benefits and side effects of patient's medications Last Documented On 3 9:11AM ; [facility] Discussed calming techniques such as breathing exercises and other relaxation techniques Last Documented On 3 9:11AM ; [facility] Discussed good sleep hygiene habits Last Documented On 3 9:27AM ; [facility] Medical Equipment - Implanted [...] 02/01/2023 4:30AM By Marta Interiano MD ; [facility] Magnesium Oxide 250 MG Oral Tablet Pr ovider: Diagnosis: Last Documented On 01/26/2023 9:20AM By DOMINGA COON ; [facility] New / Renewed during this visit ZAC INTERIANO MD on 01/26/2023 Gabapentin 300 MG Oral Capsule Provider: ZAC INTERIANO MD 30 day supply: 30 capsule, 3 refills Diagnosis: Restless legs syndrome as directed -- 1 cap in even ing for restless legs Pharmacy: [facility], [address] Last Documented On 3 10:27AM By Marta Interiano MD ; [facility] Current Medications (continue as prescribed) DULoxetine HCl 60 MG Oral Capsule Delayed Release Particles 03/22/2023 Provider: ZAC INTERIANO MD Diagnosis: Major depressive disorder, recurrent, moderate TAKE 1 CAPSULE BY MOUTH EVER Y DAY IN THE MORNING Last Documented On 03/22/2023 5:25AM By Marta Interiano MD ; [facility] Aimovig 70 MG/ML Subcutaneous Solution Auto-injector 02/24/2023 Provider: ZAC INTERIANO MD Diagnosis: Migraine w/o aur a, not intractable, w/o status migrainosus as directed - inject 70 mg ( 1 ml) SQ once a month to upper thigh, please rotate sites Last Documented On 02/24/2023 8:48AM By Marta Interiano MD ; [facility] Aimovig 70 MG/ML Subcutaneou s Solution Auto-injector 02/24/2023 Provider: ZAC TEMPLETON MD Diagnosis: Chronic migraine w/o aura, not intractable, w/o stat migr as directed - inject 1 ml (7 0 mg) subcutaneously to upper thigh once a month, please rotate sites Last Documented On 02/24/2023 8:48AM By Marta Interiano MD ; [facility] traZODone HCl 50 MG Oral Tablet 02/22/2023 Provider: ZAC INTERIANO MD Diagnosis: Psychophysiologi c insomnia TAKE 4 TABLETS (200MG) AT BE DTIME NEEDED FOR SLEEP Last Documented On 02/22/2023 7:21AM By Marta Interiano MD ; [facility] Topiramate 50 MG Oral Tablet 02/02/2023 Provider: ZAC INTERIANO MD Diagnosis: Chronic migraine w/o aura, not intractable, w/o stat migr One tablet twice a day Last Documented On 02/02/2023 9:45AM By Marta Interiano MD ; [facility] Focalin 10 MG Oral Tablet 02/01/2023 Provider: ZAC INTERIANO MD Diagnosis: Attn-defct hyper activity disorder, predom inattentive type as directed -- 1 tab in am a nd 1 tab at noon Last Documented On 02/01/2023 4:41AM By Marta Interiano MD ; [facility] Meclizine HCl 25 MG Oral Tablet 11/24/2022 Provider: Diagnosis: 1 TAB BID PRN Last Documented On 01/26/2023 9:26AM By DOMINGA COON ; [facility] DULoxetine HCl 30 MG Oral Capsule Delayed Release Particles 08/20/2022 Provider: ZAC INTERIANO MD Diagnosis: Generalized anxi ety disorder TAKE 1 CAPSULE BY MOUTH EVER Y DAY (TAKE WITH 60MG CAPSULE) Last Documented On 11:28AM By Marta Interiano MD ; [facility] Ondansetron HCl 4 MG Oral Tablet 03/26/2022 Provider : MOSHE GUTIERREZ NP Diagnosis: as directed Last Documented On 04/21/2022 4:14PM By DOMINGA COON ; [facility] Senexon-S 8.6-50 MG Oral Tablet 02/04/2022 Provider: MOSHE GUTIERREZ NP Diagnosis: 1 daily prn Last Documented On 02/26/2022 4:13PM By DOMINGA COON ; [facility] Metoclopramide HCl 10 MG Oral Tablet 01/27/2022 Prov ider: MOSHE GUTIERREZ PEDIATRIC SPORTS MEDICINE SPECIALIST Diagnosis: 1 ac tid Last Documented On 02/26/2022 4:14PM By DOMINGA COON ; [facility] Fluticasone Propionate 50 MCG/ACT Nasal Suspension 03/2022 Provider: Diagnosis: Last Documented On 12/17/2021 4:21PM By ALEXIS ELI ; [facility] Pantoprazole Sodium 40 MG Oral Tablet Delayed Release 11/23/2021 Provider: Diagnosis: 1 tab daily Last Documented On 12/17/2021 4:21PM By ALEXIS EIL ; [facility] Gabapentin 100 MG Oral Capsule 08/20/2021 Provider: Diagnosis: [address] Ember Santos Last Documented On 08/25/2021 2:01PM By DOMINGA COON ; [facility] Albuterol Sulfate 108 (90 Ba se) MCG/ACT Inhalation Aerosol Powder Breath Activated 05/29/2021 Provider: Diagnosis: 1-2 puffs q 4-6 hours prn Last Documented On 05/29/2021 3:25PM By DOMINGA COON ; [facility] Blank Allergy 180 MG Oral Tablet 05/29/2021 Provid er: Diagnosis: 1 tab daily otc Last Documented On 05/29/2021 3:24PM By DOMINGA COON ; [facility] Spironolactone 100 MG Oral Tablet 04/21/2021 Provide r: JASON BENITO APN Diagnosis: 1 tab daily Last Documented On 05/29/2021 3:20PM By DOMINGA CONO ; [facility] Symbicort 160-4.5 MCG/ACT Inhalation Aerosol Provider: CARLO JAQUEZ MD Diagnosis: 1 puff twice daily Last Documented On 05/29/2021 3:21PM By DOMINGA COON ; [facility] Spiriva HandiHaler 18 MCG Inhalation Capsule 0 Provider: Diagnosis: 1 inhalation daily Last Documented On 05/29/2021 3:22PM By DOMINGA COON ; [facility] Past Medications on file Sunosi 150 MG Oral Tablet 02/24/2023 - 03/26/2023 Provider: ZAC BLACK MD Diagnosis: Obstructive slee p apnea (adult) (pediatric) 1 tablet every morning Last Documented On 02/24/2023 8:41AM By Marta Interiano MD ; [facility] Meclizine HCl 25 MG Oral Tablet 09/03/2022 - Provider: Diagnosis: 1 tab twice daily prn Dr. Ember Santos Last Documented On 09/03/2022 3:07PM By DOMINGA COON ; [facility] Focalin 10 MG Oral Tablet 06/18/2022 - 07/18/2022 Provider: ZAC INTERIANO MD Diagnosis: Attn-defct hyper activity disorder, predom inattentive type as directed -- 1 tab in am, 1 tab at noon Last Documented On 06/18/2022 5:28PM By Marta Interiano MD ; [facility] Focalin 10 MG Oral Tablet 04/21/2022 - 05/21/2022 Provider: ZAC INTERIANO MD Diagnosis: Attn-defct hyper activity disorder, predom inattentive type as directed -- 1 tab in am Last Documented On 04/21/2022 4:54PM By Marta Interiano MD ; [facility] Viibryd Starter Pack 10 & 20 MG Oral Kit 05/29/2021 - 06/28/2021 Provider: ZAC INTERIANO MD Diagnosis: Major depressive disorder, recurrent, moderate as directed -- 10 mg in am w / food for 2 weeks then 20 mg 1 tab in am w/ food thereafter Last Documented On 05/29/2021 4:05PM By Marta Interiano MD ; [facility] Medications Administered Includes: Administered [...] vitals Last Documented: On 01/26/2023 9:31AM ; [facility] Results Includes: Results discussed [...] 11/24/22. 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 She had to be up at 6:30 am - 8 am then works from 10 am to 6 pm -- 40 hours a week. Pt denied having any mood swings. At times pt can get irritable depending on her situation. At times she and Bowen are not in agreement with each other as far as knife edger. She gets home late but Bowen expects [...] Description Last Updated She was born in [place], [place] and raised outside of [facility]. 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 Her sexual orientation is pansexual or aromantic. She has no past or pending legal history. She enjoys reading, sewing, knitting and gardening. 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 -- before and after school program -- from 6:30 am - 8 am then from 10 am - 6 pm. 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 Last Documented On 3 4:31AM ; [facility] Non-smoker 09/03/2022 Last Documented On 3 9:11AM ; [facility] Daily coffee consumption - d rinks 1-2 cups of coffee a week, 1-2 cans of soda a week and 1-2 glasses of green tea with ginseng a week 06/18/2022 Last Documented On 3 9:11AM ; [facility] Not using alcohol - none, past history o f heavy drinking 08/25/2021 Last Documented On 3 9:11AM ; [facility] Drug use - narcotics - 4 -7 pills daily from age [age] having stopped in 200505/29/2021 Last Documented On 3 9:11AM ; [facility] Single 05/29/2021 Last Documented On 3 9:11AM ; [facility] Smoking Status Unknown Procedures and Surgical History Includes: Procedures from this encounter Procedures Code Diagnosis Performing Provider Service L ocation Service Date education and instructions Last Documented On 3 9:11AM ; [facility] dangerousness assessment: suicide risk -not suic idal 3085F Last Documented On 3 9:11AM ; [facility] use of tobacco assessment performed 1000F Last Documented On 3 9:11AM ; [facility] patient screened for future fall risk - no recen t falls 3288F Last Documented On 3 9:11AM ; [facility] review of medications documented 1160F Last Documented On 3 9:11AM ; [facility] screening for adult depressi on: impression and score - please see above treatment and PHQ score Last Documented On 3 9:11AM ; [facility] standardized depression screening: posit bea for symptoms Last Documented On 3 9:11AM ; [facility] encouragement to exercise Last Documented On 3 9:11AM ; [facility] Clinical summary provided to patient Last Documented On 3 9:11AM ; [facility] PHQ-9: total score 11 Last Documented On 3 4:26AM ; [facility] Surgical History Last Updated History of hysterectomy - 08/05/21 022 Last Documented On 3 9:11AM ; [facility] History of abdominal surgery Left fallop jovany tube tumors removed-- 201806/16/2021 Last Documented On 3 9:11AM ; [facility] History of knee surgery - right knee rec onstruction 201405/29/2021 Last Documented On 3 9:11AM ; [facility] History of cholecystectomy - 2018 Last Documented On 3 9:11AM ; [facility] Medical History Includes: Medical History addressed during this encounter Description Last Updated History of gastroparesis 02/24/2023 Last Documented On 3 9:11AM ; [facility] Primary Care Provider: Dr. Iman Jaquez ~Dr. Yaniv Walker -- Snaker ~ENT -- at [facility] ~Dr. Ember Santos -- Neurologist ~Electrocardiograph Technician at [facility] ~Moshe Gutierrez NP -- Weatherization Specialist ~Composition Mixer at [facility] 02/24/2023 Last Documented On 3 9:11AM ; [facility] History of vertigo - takes Meclizine prn 01/26/2023 Last Documented On 3 4:31AM ; [facility] History of infection of tooth - given Am oxil 500 mg 07/27/22 09/03/2022 Last Documented On 3 9:11AM ; [facility] History of back strain - Deg enerative Disc Disease -- given Flexeril 10 mg and Ibuprofen 600 mg 07/20/22; with bulging discs -- given Prednisone 20 mg and Norflex 100 mg 04/24/22 09/03/2022 Last Documented On 3 9:11AM ; [facility] History of bronchitis - give n Cefdinir 300 mg and Albuterol HFA 90 mcg inhaler 09/03/2022 Last Documented On 3 9:11AM ; [facility] History of COVID-19 infection - tested p ositive/isolation 08/10/22-08/17/22 09/03/2022 Last Documented On 3 9:11AM ; [facility] History of migraine headache 06/19/2022 Last Documented On 3 9:11AM ; [facility] History of Nausea with vomiting - given Zofran 4 mg 03/26/22 04/21/2022 Last Documented On 3 9:11AM ; [facility] History of constipation - gi [facility] Miralax 03/26/22; Senexon-S 8.6mg -50 mg -- started 02/04/22 04/21/2022 Last Documented On 3 9:11AM ; [facility] History of coronavirus 2019- nCoV vaccine - Pfizer #1 03/10/21 #2 04/01/21 #3 02/202204/21/2022 Last Documented On 3 9:11AM ; [facility] History of an endoscopic / f iberoptic examination was performed - for Dysphagia -- 11/2021 -- normal per patient 02/26/2022 Last Documented On 3 9:11AM ; [facility] History of ovarian cyst - CT scan of abdomen/pelvis from 11/2021 showed a 5 cm mass/cyst on an ovary -- has ultrasound every 6-8 weeks to monitor 02/26/2022 Last Documented On 3 9:11AM ; [facility] History of colonoscopy - 11/2021 -- lisa l per patient 02/26/2022 Last Documented On 3 9:11AM ; [facility] History of dysphagia - started Reglan 10 mg 01/05/22 02/26/2022 Last Documented On 3 9:11AM ; [facility] History of acute suppurative sinusitis - given Augmentin 875 mg 02/06/22 02/26/2022 Last Documented On 3 9:11AM ; [facility] History of sleep testing was performed - in 2019 by [facility] -- inconclusive 02/26/2022 Last Documented On 3 9:11AM ; [facility] History of GI bleed - via en doscopy - was hospitalized for 4 days -- 2019 -- should not be using anymore NSAIDS 12/17/2021 Last Documented On 3 9:11AM ; [facility] History of Polycystic Ovaria n Syndrome (PCOS) - age 23 - left fallopian tube removed in 2019 -- complete hysterectomy 08/05/21 -- given Hydrocodone 5/325 #25 -- still has ovaries 08/25/2021 Last Documented On 3 9:11AM ; [facility] History of hyperlipidemia 06/16/2021 Last Documented On 3 9:11AM ; [facility] History of endometriosis - age 23 2020 Last Documented On 3 9:11AM ; [facility] History of fatty liver - age 28 05/29/20 Last Documented On 3 9:11AM ; [facility] History of asthma - since childhood 11/2020 Last Documented On 3 9:11AM ; [facility] Family History Includes: Family History addressed during this encounter Description Last Updated Maternal history of alcoholism - Mother 06/16/2021 Last Documented On 3 9:11AM ; [facility] Maternal history of bipolar disorder NOS - Mother 06/16/2021 Last Documented On 3 9:11AM ; [facility] Paternal history of combined drug and al cohol abuse - Father 06/16/2021 Last Documented On 3 9:11AM ; [facility] Fraternal history of depression - Brothe r 06/16/2021 Last Documented On 3 9:11AM ; [facility] Paternal grandmother's history of depres edward 06/16/2021 Last Documented On 3 9:11AM ; [facility] S Sororal history of depression and Anxiet y - Sister 06/16/2021 Last Documented On 3 9:11AM ; [facility] Paternal grandmother's history of lisy ia 05/29/2021 Last Documented On 3 9:11AM ; [facility] Review of Systems Includes: Review of [...] Active Last Documented On 01/27/2024 9:10AM ; [facility] Note: Imported from external source. TORADOL Allergy Hives / Urticaria 05/29/2021 A ctive Last Documented On 01/27/2024 9:10AM ; [facility] Note: Imported from external source. Pineapple Allergy 01/26/2023 Active Last Documented On 01/27/2024 9:10AM ; [facility] Note: Imported from external source. Latex Allergy Hives / Urticaria 05/29/2021 A ctive Last Documented On 01/27/2024 9:10AM ; [facility] Note: Imported from external source. Encounters Encounter Provider Location Date Check-In Time Check-Out Time Diagnosis [facility]LE[facility] ZAC INTERIANO MD [facility] 01/26/20 9:11AM 11:59PM Generalized Anxiety Disorder,Psychoph ysiological Insomnia,Major Depression,Adult Attention Deficit Hyperactivity Disorder Insurance Includes: Active Insurance Policies Plan Name Member ID Group # Subscriber Relationship Effect bea Dates 1 - [facility] [id number] TONY SOLANO Self Clinical Notes Includes: Clinical Notes from this encounter No Clinical Notes Recorded
[2025-01-15 13:36] LABS: EDCOVIDSCREEN Negative (Negative); EDINFLUASCREEN Negative (Negative); EDINFLUBSCREEN Negative (Negative)
== END 2025-01-15 12:20 | disposition home or self-care (01) ==
PROVIDERS: Emergency Provider Registered Nurse; PCP Emergency Medicine
DX: J06.9 Acute upper respiratory infection, unspecified (principal); Z20.822 Contact with and (suspected) exposure to COVID-19; I10 Essential (primary) hypertension; J45.909 Unspecified asthma, uncomplicated; M19.90 Unspecified osteoarthritis, unspecified site; E28.2 Polycystic ovarian syndrome; K76.0 Fatty (change of) liver, not elsewhere classified
CPT/HCPCS: 87426; 87804; 99212; G0463

== ENCOUNTER 2025-05-29 10:21 | Emergency (ER) | payer SELFPAY ==
--- OUTSIDE RECORDS SUMMARY | 2025-05-29 10:30 | XMS_ITS | Clinical Summary ---
Author Organization [facility] Address [address] [place] [id number] Phone Care Team Providers Care Real Estate Acquisition Analyst Name Role Phone Phu Wadsworth MD Primary Care Provider [phone] Allergies Active Allergy Reactions Criticality Noted Date Comments Ketorolac Tromethamine 03/26/2022 Tramadol Hives,Itching High 08/16/2019 Medications budesonide-for moterol (SYMBICORT) 160-4.5 MCG/ACT inhaler Symbicort 160-4.5 MCG/ACT Inhalation Aerosol QTY: 0 Days: 30 Refills: 0 Written: 12/05/20 Patient Instructions: 1 puff twice daily 1 Active DULoxetine (CYMBALTA) [address] capsule duloxetine 60 mg capsule,delayed release TAKE 1 CAPSULE BY MOUTH EVERY DAY IN THE MORNING Active fluticasone (FLONASE) 50 MCG/ACT nasal spray fluticasone propionate 50 mcg/actuation nasal spray,suspension USE TWO SPRAYS IN EACH NOSTRIL ONCE A DAY 1 Active meclizine (ANTIVERT) 25 MG tablet meclizine 25 mg tablet TAKE 1 (ONE) TABLET BY MOUTH 2 TIMES DAILY 1 Active metoclopramide (REGLAN) 10 MG tablet metoclopramide 10 mg tablet PLEASE SEE ATTACHED FOR DETAILED DIRECTIONS 2 Active gabapentin (NEURONTIN) 100 MG capsule gabapentin 100 mg capsule TAKE 1 (ONE) CAPSULE BY MOUTH AT BEDTIME 1 Active ondansetron (ZOFRAN) 4 MG tablet Take [...] day Active ergocalciferol (VITAMIN D2) 1.25 MG (67260 UT) capsule Take 1 capsule (50,000 Units total) by mouth 1 (one) time per week 5 capsule 11 3 Active Active Problems Problem Noted Date Diagnosed [...] Tobacco: Never Tobacco Cessation:Counseling Given: Not Answered Comments Unknown Sex and Gender Information Value Date Recorded Sex Assigned at Not on file Legal Sex Female 8:30 AM [facility] Gender Identity Not on file Sexual Orientation [...] 2:36 PM CDT Height 162.6 cm (5' 4) 05/09/2024 2:36 PM CDT Body Mass Index 38.96 05/09/2024 2:36 PM CDT Plan of Treatment Health Maintenance Due Date Last Done Comments Diabetic Foot Exam 1998 Ophthalmology Exam 1998 Pneumococcal PPSV23 Highest Risk Adult (1 of 3 - PCV13 ) 2007 Influenza Vaccine (Season Ended) 2025 Insurance Care Teams Real Estate Acquisition Analyst Relationship Specialty Start Date End Date Phu Wadsworth MD PCP - General Family Medicine 08/26/22
--- OUTSIDE RECORDS SUMMARY | 2025-05-29 10:30 | XMS_ITS | Referral Summary ---
Author Organization [facility] Address [address] [place] [address] Care Team Providers Care Set Up Technician Name Role Phone Phu Wadsworth MD Primary Care Provider [phone] Allergies Active Allergy Reactions Criticality Noted Date [...] Diabetes mellitus 01/21/2021 Persistent asthma without complication Social History [...] on file Legal Sex Female 8:55 PM SHOCK ABSORBER INSTALLER Gender Identity Not on file Sexual Orientation Not on file Last Filed Vital Signs Vital Sign Reading Time Taken Comments Blood Pressure 110/85 11/11/2024 5:16 PM SHOCK ABSORBER INSTALLER Pulse 81 11/11/2024 5:16 PM SHOCK ABSORBER INSTALLER Temperature 36.6 C (97.9 F) 11/11/2024 3:11 PM SHOCK ABSORBER INSTALLER Respiratory Rate 16 11/11/2024 5:16 PM SHOCK ABSORBER INSTALLER Oxygen Saturation 98% 11/11/2024 5:16 PM SHOCK ABSORBER INSTALLER Inhaled Oxygen Concentration - - Weight 104.3 kg (230 lb) 11/11/2024 3:11 PM SHOCK ABSORBER INSTALLER Height 165.1 cm (5' 5) 11/11/2024 3:11 PM SHOCK ABSORBER INSTALLER Body Mass Index 38.27 11/11/2024 3:11 PM SHOCK ABSORBER INSTALLER Plan of Treatment Not on file Procedures Procedure Name Priority Date/Time Associated Diagnosis Comments EGFR Routine 03/04/2023 8:09 AM CDT from Last 3 Months or Most Recently Relevant to Health Maintenance Results * eGFR (03/04/2023 8:09 AM CDT) eGFR [...] LAB BLOOD ORDERABLES Final Resul t QUIQUE BARRETO (AUGUST) 1 [facility] [place] [address] from Last 3 Months or Most Recently Relevant to Health Maintenance Insurance [facility] IDME Advance Directives For more information, please contact: [phone] * Full Code (Latest Code Status on File) Date Activated Date Inactivated Comments 01/19/2022 12:48 PM 01/19/2022 6:31 PM * Full Code Date Activated Date Inactivated Comments 01/19/2022 12:48 PM 01/19/2022 12:48 PM Care Teams Set Up Technician Relationship Specialty Start Date End Date Phu Wadsworth MD PCP - General Emergency Medicine 06/11/21
--- OUTSIDE RECORDS SUMMARY | 2025-05-29 10:30 | XMS_ITS | Continuity of Care Document ---
Author Organization [facility] Address [address] [facility] [place] [address] Phone Care Team Providers Care Manager Family Name Role Phone Bubba Toro MD Unavailable [...] Providers Copied on Encounter OFFICE/OUTPA TIENT VISIT, [facility], [place], [address] [place], [place], [id number], tel:[phone] [facility] knee pain (chief complaint) asthma (chief complaint) Dietary surveillance and counselingAsthmaWei ght gain poorBlood pressure elevatedPain in joint involving lower leg 5 Cort[address] Mac. [address] [facility] [place], [id number] , [place]. tel:[phone] Referring Provider: Althea Oseguera [facility], [place], [place], [id number]. tel:[phone] OFFICE/OUTPA TIENT VISIT, [facility], [place], [address] [place], [place], [id number], tel:[phone] [facility] knee pain (chief complaint) Dietary surveillance and counselingPain in joint involving lower leg 5 Cortez Mac. [address] [place], [id number] , . tel:[phone] Referring Provider: Althea Oseguera [facility] [place], [address]. tel:[phone] OFFICE/OUTPA TIENT VISIT, [facility], [place], [address] [place], [id number], tel:[phone] [facility] HLP (chief complaint) low vitami D (chief complaint) knee pain (chief complaint) Dietary surveillance and counselingOther and unspecified hyperlipidemiaUnspe cified vitamin d deficiencyPain in joint involving lower leg Feb-2 5 Cortez Gaffney [address] [place], [place], [address] , . tel:[phone] Referring Provider: Althea Oseguera [address] [place], [id number]. tel:[phone] PREV VISIT, NEW, AGE 18-39 [facility], [address] [place], [address], [place] tel:[phone] [facility] Physical (chief complaint) Dietary surveillance and counselingRoutine Medical ExamRoutine Medical Exam 0 5 Cortez Gaffney [address] [place], [place], [address] , [place]. tel:[phone] Family History Family Member Type Diagnosis Age At Onset Mother Problem (finding) Hypertension Sister Problem (finding) Diabetes mellitus Mother Problem (finding) Diabetes mellitus Father Problem (finding) Anxiety Payers Payer name Insurance type Covered libertarian ID Authoriza tion(s) No Information Social History [...] Date Complaint History Of Prese nt Illness asthma The initial visi t date was 05/02/2015. Additional information: Pt has asthma. Pt is out of symticort Pt statse that when she has symbicort, pt rarely uses albuterol. Pt needs more albuterol without symbicort. knee pain Location: knee. Additional information: Pt has chronic right knee pain. Pt had MRI done which showed some meniscus tear and also chondromalacia. Pt denies any worsening pain. Pt c/o daily pain. Pt denie any swelling. Instructions Date Instruction Additional Infor dixon Special [...] Type Assessment Date assessment Dietary surveillance and addiction counselor ing assessment Asthma assessment Weight gain poor assessment Blood pressure elevated 015 assessment Pain in joint involving lower le g Mental Status Date Cognitive Assessment Orientation - Jetmore ed to time, place, person, situation.
--- OUTSIDE RECORDS SUMMARY | 2025-05-29 10:30 | XMS_ITS | Clinical Summary ---
Author Organization [facility] Address [address] [place] [address] Care Team Providers Care Quality Checker Name Role Phone Phu Wadsworth MD Primary Care Provider [phone] Source Comments [facility],non-owned Affiliates and Associated Physician Practices is amultiple site organization consisting of ambulatory clinics and hospital sitesin [place], [place], [place] and [place]. This disclosure is being madepursuant to the Care Everywhere program and may not contain all information available regarding this patient. Last updated 18.[facility] Allergies Active Allergy Reactions Criticality Noted Date Comments Ketorolac Tromethamine Urticaria Medium 05/20/2020 Latex Urticaria,Itching,Ot her Medium 08/16/2019 Reddness; Latex gloves Reddness; Latex gloves Pineapple Unknown 08/20/2021 Tramadol Urticaria,Itching Medium 08/16/2019 Medications * Be aware that medications may not be up to date on this document. Alwaysverify current medications with the patient. fexofenadine (JESSICA) 180 MG tablet Take 180 mg by mouth once daily 1 Active magnesium (V-R MAGNESIUM) 250 MG tablet Take 250 mg by mouth once daily 1 Active Albuterol Sulfate 108 (90 Base) MCG/ACT Inhale 90 mcg by mouth as directed Active budesonide-formo terol (SYMBICORT) 160-4.5 MCG/ACT inhaler Inhale 1 puff by mouth 2 times daily 1 Active tiotropium (SPIRIVA HANDIHALER) 18 MCG inhalation capsule Inhale 1 capsule by mouth once daily 0 Active spironolactone (ALDACTONE) 100 MG tablet Take 1 tablet by mouth once daily 1 Active traZODone (DESYREL) 50 MG tablet Take 50 mg by mouth nightly as needed 1 Active Vilazodone HCl (VIIBRYD PO) Take 50 mg by mouth once daily Active SUMAtriptan (IMITREX) 100 MG tablet Take 100 mg by mouth once Active topiramate (TOPAMAX) 25 MG tablet Take 25 mg by mouth 2 times daily Active DULoxetine (CYMBALTA) 30 MG capsule Take 30 mg by mouth once daily 1 Active meclizine (Antivert) 25 MG tabletIndication s:Benign paroxysmal positional vertigo, unspecified laterality TAKE 1 (ONE) TABLET BY MOUTH 2 TIMES DAILY 60 tablet 11 2 Active gabapentin (Neurontin) 100 MG capsuleIndicatio ns:Benign paroxysmal positional vertigo, unspecified laterality TAKE 1 (ONE) CAPSULE BY MOUTH AT BEDTIME 90 capsule 3 2 Active fluticasone propionate (Flonase) 50 MCG/ACT nasal spray USE TWO SPRAYS IN EACH NOSTRIL ONCE A DAY 48 g 4 3 Active Active Problems Problem Noted Date Diagnosed Date Gastroesophageal reflux disease without esophagi tis 07/01/2021 Diabetes mellitus 01/21/2021 Nonalcoholic fatty liver disease 01/21/2021 Persistent asthma without complication 1 Social History Tobacco Use Types Packs/Day Years Used Date Smoking Tobacco: Never Smokeless Tobacco: Never Alcohol Use Standard Drinks/Week Comments Not Currently 0 (1 standard drink = 0.6 oz pur e alcohol) Comments Unknown Sex and Gender Information Value Date Recorded Sex Assigned at Not on file Legal Sex Female 12:46 PM CDT Gender Identity Not on file [...] 9:19 AM CDT Height 165.1 cm (5' 5) 08/27/2021 9:19 AM CDT Body Mass Index 41.27 08/27/2021 9:19 AM CDT Plan of Treatment Health Maintenance Due Date Last Done Comments HIV SCREENING 2003 HEPATITIS C SCREENING 07/06/2006 DIABETES-SERUM CREATININE 2006 DTAP/TDAP/TD VACCINES (1 - Tdap) 2007 HEPATITIS B VACCINE (1 of 3 - 19+ 3-dose series) 2007 PNEUMOCOCCAL VACCINE (1 of 2 - PCV) 2007 PAP SMEAR 2009 DIABETES RETINOPATHY SCREENING 08/27/2021 DIABETES-FOOT EXAM WITH MONOFILAMENT 08/27/2021 DIABETES-HGB A1C 08/27/2021 COVID-19 VACCINE (1 - 2023-2 5 season) 2024 DEPRESSION SCREENING 11/29/2024 DIABETES - URINE PROTEIN SCREENING 11/29/2024 INFLUENZA VACCINE (Season Ended) 2025 ZOSTER VACCINE (1 of 2) 2038 HIB VACCINE Aged Out No longer eligi ble based on patient's age to complete this topic HPV VACCINE Aged Out No longer eligi ble based on patient's age to complete this topic MENINGOCOCCAL (Group B) VACC INE SHARED DECISION-MAKING Aged Out No longer eligibl e based on patient's age to complete this topic MENINGOCOCCAL GROUPS A/C/Y/W VACCINE Aged Out No longer eligible b ased on patient's age to complete this topic Insurance [facility] Care Teams Quality Checker Relationship Specialty Start Date End Date Phu Wadsworth MD [address] [place] [address] PCP - General 08/14/21
--- OUTSIDE RECORDS SUMMARY | 2025-05-29 10:30 | XMS_ITS | Clinical Summary ---
Author Organization [facility] Address [address], [address] [address] Phone Care Team Providers Care Mathematics Technician Name Role Phone Phu Wadsworth MD Primary Care Provider [phone] Myles Dmitriy Inderjit DO Unavailable [phone] Allergies Active Allergy Reactions Criticality Noted Date [...] Comments Blood Pressure 138/80 01/21/2021 11:45 AM TAX ACCOUNTING MANAGER Pulse 65 01/21/2021 11:45 AM TAX ACCOUNTING MANAGER Temperature 36.4 C (97.5 F) 01/21/2021 10:27 AM TAX ACCOUNTING MANAGER Respiratory Rate 22 01/21/2021 11:45 AM TAX ACCOUNTING MANAGER Oxygen Saturation 100% 01/21/2021 11:45 AM TAX ACCOUNTING MANAGER Inhaled Oxygen Concentration - - Weight 115.7 kg (255 lb) 01/21/2021 10:18 AM TAX ACCOUNTING MANAGER Height 165.1 cm (5' 5) 01/21/2021 10:18 AM TAX ACCOUNTING MANAGER Body Mass Index 42.43 01/21/2021 10:18 AM TAX ACCOUNTING MANAGER Plan of Treatment Health Maintenance Due Date Last Done Comments Hepatitis C Virus (HCV) Screening 1988 TdaP Immunization 1988 Human Papillomavirus (HPV) Immunization (1 - 3-dose series) 2003 Hepatitis B Immunization (1 of 3 - 19+ 3-dose series) 2007 SARS-COV-2 Immunization (2023- season) 2024 Influenza Immunization (Seas on Ended) 2025 Respiratory Syncytial Virus (RSV) Immunization (Adult) (1 - 1-dose 75+ series) 2063 Meningococcal Immunization (ACWY) Aged Out No longer eligible based on patient's age to complete this topic Pneumococcal Immunization Combined Aged Out No longer eligible based on patient's age to complete this topic Rotavirus Immunization Aged Out No lo nger eligible based on patient's age to complete this topic Insurance MEDICAID [employer] Care Teams Mathematics Technician Relationship Specialty Start Date End Date Phu Wadsworth MD [address] [address] PCP - General Family Medicine 08/15/19 Dmitriy Bueno DO [address] [address] Gastroenterology 08/15/19
--- OUTSIDE RECORDS SUMMARY | 2025-05-29 10:30 | XMS_ITS | Clinical Summary ---
Author Organization [facility] Address [address] [place] [address] Care Team Providers Care Bottom Painter Name Role Phone Phu Wadsworth MD Primary Care Provider Allergies Active Allergy Reactions Criticality Noted Date [...] mellitus 01/21/2021 Persistent asthma without complication 1 Surgical History Surgery Date Site/Laterality Comments ABDOMINAL SURGERY LAPAROSCOPIC CHOLECYSTECTOMY 11/29/2018 - 11/28/2019 COLONOSCOPY 11/29/2018 - 11/28/2019 at [facility] Medical History Medical History Date Comments Asthma [...] on file Legal Sex Female 8:55 PM WINDOW DRESSER Gender Identity Not on file Sexual Orientation Not on file Obstetrics History Last Filed Vital Signs Vital Sign Reading Time Taken Comments Blood Pressure 110/85 11/11/2024 5:16 PM WINDOW DRESSER Pulse 81 11/11/2024 5:16 PM WINDOW DRESSER Temperature 36.6 C (97.9 F) 11/11/2024 3:11 PM WINDOW DRESSER Respiratory Rate 16 11/11/2024 5:16 PM WINDOW DRESSER Oxygen Saturation 98% 11/11/2024 5:16 PM WINDOW DRESSER Inhaled Oxygen Concentration - - Weight 104.3 kg (230 lb) 11/11/2024 3:11 PM WINDOW DRESSER Height 165.1 cm (5' 5) 11/11/2024 3:11 PM WINDOW DRESSER Body Mass Index 38.27 11/11/2024 3:11 PM WINDOW DRESSER Plan of Treatment Health Maintenance Due Date [...] 10/21/2021, Additional history exists Influenza Vaccine (#1) 2025 08/10/2019 DTaP/Tdap/Td Vaccine (2 - Td or [...] MD LAB BLOOD ORDERABLES Final Resul t [facility]) [address] [facility] [place] [address] from Last 3 Months or Most Recently Relevant to Health Maintenance Insurance [facility] IDPA Advance Directives For more information, please contact: [phone] * Full Code (Latest Code Status on File) Date Activated Date Inactivated Comments 01/19/2022 12:48 PM 01/19/2022 6:31 PM * Full Code Date Activated Date Inactivated Comments 01/19/2022 12:48 PM 01/19/2022 12:48 PM Care Teams Bottom Painter Relationship Specialty Start Date End Date Phu Wadsworth MD PCP - General Emergency Medicine 06/11/21
--- OUTSIDE RECORDS SUMMARY | 2025-05-29 10:31 | XMS_ITS | Continuity of Care Document ---
Author Organization [facility] Address [address] [place] [address] Phone Care Team Providers Care Input Output Clerk Name Role Phone Unavailable Unavailable Unavailable Allergies, [...] Diagnoses Date Provider Providers Copied on Encounter [facility], [address] [place] [address], [facility], tel:[phone] [place] No Information Jan-2 2 No Information OFFICE/OUTPA TIENT VISIT, [facility], [address] [place] [address], [facility], tel: [phone] [place] cough (chief complaint) sore throat (chief complaint) body aches/pain (chief complaint) BronchitisOthe r asthmaLaryngit is 0- 0 Fred Lakesha. [address] [place] [address], [facility], . tel:[phone] OFFICE/OUTPA TIENT VISIT, [facility], [address] [place] [address], [facility], tel: [phone] [place] TOOTH PAIN (chief complaint) Dental infectionPain, dental Reza- 2 9 Cecilio Delvalle. [address] [place] [address]. tel:[phone] OFFICE/OUTPA TIENT VISIT, [facility], [address] [place] [address], [facility], tel: [phone] [place] Sore throat (chief complaint) BronchitisAcut e non-recurrent frontal sinusitis Jan- 9 Fred Lakesha. [address] [place] [address], [facility], . tel:[phone] OFFICE/OUTPA TIENT VISIT, [facility], [address] [place] [address], [facility], tel: [phone] [place] CHEST COLD (chief complaint) Acute upper respiratory infection, unspecified Sep- 0-201 8 Bar Gulam. [address] [place] [address], [facility], . tel:[phone] OFFICE/OUTPA TIENT VISIT, [facility], [address] [place] [address], [facility], tel:[phone] [place] URI (chief complaint) Acute upper respiratory infection, unspecified 8 No Information OFFICE/OUTPA TIENT VISIT, [facility], [address] [place] [address], [facility], [phone] Adal DIZZY (chief complaint) Seasonal allergic rhinitis, unspecified triggerExcessi ve cerumen in both ear canalsLeft serous otitis media, unspecified chronicity 8 Fred Lakesha. [address] [place] [address], [facility], . [phone] OFFICE/OUTPA TIENT VISIT, [facility], [address] [place] [address], [facility], tel:[phone] Adal Chills. (chief complaint) Vomiting (chief complaint) Acute non-recurrent frontal sinusitis 7 Kvng Ornelas. [address], [place], [facility], . tel:[phone] OFFICE/OUTPA TIENT VISIT, [facility], [address] [place] [address], [facility], tel:[phone] Adal both ear pain (chief complaint) Cold symptoms (chief complaint) Impacted cerumen, bilateralOtiti s externaOtitis media, unspecified, left ear 7 Fred Lakesha. [address] [place] [address], [facility], . tel:[phone] Family History Family Member Type Diagnosis Age At Onset Brother Problem (finding) hypertension Mother Problem (finding) Mental illness Mother Problem (finding) Diabetes mellitus Mother Problem (finding) hypertension Brother Problem (finding) Mental illness Payers Payer name Insurance type Covered alliance [...] scheduled an appointment with a dentist at [facility] on 05/12/2019. She denies fever, [...] Related to Acute upper respiratory infection, unspecified do not drive if feeling dizzy Re [...]
--- OUTSIDE RECORDS SUMMARY | 2025-05-29 10:35 | XMS_ITS | Data Portability ---
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 Plan of Treatment Reminders Order Date Submit Date Provider Last Modified By Organization Details Last Modified Time Details Appointments None recorded. Lab None recorded. Referral None recorded. Procedures None recorded. Surgeries None recorded. Imaging US, transvagina l 2021 022 [address], [address], [place], [address], 22:05:09 US, pelvis 2021 022 [address], [address], [place], [address], 19:45:54 US, transvagina l 2021 022 [address], [address], [place], [address], 19:45:54 Medication Orders None recorded. Patient TargetsNo targets recorded. Patient InstructionsNo instructions recorded. Reason for Referral None Reported. Results Created Date Observation Date Name Description Value Unit Range Abnormal Flag Note LastModifiedBy Organization Detail LastModifiedTime 02/17/20 22 02/16/2022 US, pelvi s No observ ation record ed. [email or web address] [facility] [address], [place], [address], 02/16/2022 15:20:32 02/17/20 22 02/16/2022 US, trans vagin al No observ ation record ed. [email or web address] [facility] [address], [place], [address], 02/16/2022 15:20:41 02/17/20 22 02/16/2022 US, pelvi s No observ ation record ed. [email or web address] [address], [place], [address], 05/18/2023 17:54:31 04/20/20 22 04/20/2022 US, trans vagin al No observ ation record ed. [email or web address] [facility] [address], [place], [address], 04/20/2022 18:33:54 04/20/20 22 04/20/2022 US, trans vagin al No observ ation record ed. [email or web address] [address], [place], [address], 04/20/2022 21:18:24 Result Notes None recorded. 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 12:45:[address] Concept Completed 201601/21/2021 Encntr for general adult medical exam w/o abnormal findings ;Recorde d Elsewher e: No Locat ion: [facility] S ource: EHR Feller Machine Operator gaye: N Practi ce ID: [id number] Silverio lable Time: 10:30:00 AM Marie pablo [facility] 12:45:32 Pain in female genitali a Completed 201401/21/2021 Dysmenor glynn;Rec orded Elsewher e: No Locat ion: [facility] S ource: EHR Feller Machine Operator gaye: N Almitati ce ID: [id number] Silverio lable Time: 09:30:00 AM Marie pablo [facility] 12:45:[address] Concept Completed 201801/21/2021 Encntr for optometrist assistant exam (general ) (routine ) w/o abn findings ;Recorde d Elsewher e: No Locat ion: [facility] S ource: EHR Feller Machine Operator gaye: N Almitati ce ID: [id number] Silverio lable Time: 01:00:00 PM Marie pablo [facility] 12:45:33 Pelvic and perineal pain [id number] Completed 201801/21/2021 Pelvic and perineal pain;Rec orded Elsewher e: No Locat ion: [facility] N Almitati ce ID: [id number] Silverio lable Time: 04:15:00 PM Marie pablo [facility] 12:45:27 Speciali zed medical examinat ion Completed 201401/21/2021 Gynecolo gical Examinat ion;Sachin rded Elsewher e: No Locat ion: [facility] S ource: EHR Feller Machine Operator gaye: N Practi ce ID: [id number] Silverio lable Time: 11:15:00 AM Marie pablo [facility] 12:45:35 Screenin g for malignan t neoplasm of rectum Completed 201701/21/2021 Encounte r for screenin g for malignan t neoplasm of rectum;R ecorded Elsewher e: No Locat ion: [facility] S ource: EHR Feller Machine Operator gaye: N Almitati ce ID: 0001 Silverio lable Time: 02:30:00 PM Marie pablo [facility] 12:45:30 Pregnanc y test negative [id number] Completed 201401/21/2021 Encounte r for pregnanc y test, result negative ;Recorde d Elsewher e: No Locat ion: [facility] S ource: EHR Feller Machine Operator gaye: N Almitati ce ID: [id number] Silverio lable Time: 09:30:00 AM Marie pablo [facility] 12:45:29 Adult health examinat ion Completed 201401/21/2021 ROUTINE MEDICAL EXAM;Rec orded Elsewher e: No Locat ion: [facility] S ource: EHR Feller Machine Operator gaye: N Almitati ce ID: 0001 Silverio lable Time: 11:15:00 AM Marie pablo [facility] 12:45:20 Surveill ance of contrace ption Completed 201501/21/2021 Encounte r for surveill ance of contrace ptives, unspecif ied;Sachin rded Elsewher e: No Locat ion: [facility] S ource: EHR Feller Machine Operator gaye: N Almitati ce ID: 0001 Silverio lable Time: 01:00:00 PM Marie pablo [facility] 12:45:36 Endometr iosis (clinica l) [id number] Completed 201801/21/2021 Endometr iosis;Re corded Elsewher e: No Locat ion: [facility] S ource: EHR Feller Machine Operator gaye: N Almitati ce ID: 0001 Silverio lable Time: 04:30:00 PM Marie pablo [facility] 12:45:24 Endometr itis 93690476 Active 2020 Mariestacy Dudley samy, [facility] 14:03:19 Asthma 100607772 Active 2020 Mariestacy Dudley samy, [facility] 14:05:44 Diabetes mellitus 59480199 Active 2020 Marie Luis Enrique [facility], [facility] 14:05:49 Non-alco holic fatty liver 736983516 Active 2020 Marie Greer [facility], [facility] 14:06:19 Mental disorder 11071228 Active 2020 Marie Doran [facility] [place], [facility] 14:06:26 Problem Notes None recorded. Procedures Surgical History Date Name Laterality Status Provider Name and Address Organization Details Recorded Time 08/01/20 21 TOTAL HYSTERECTOMY, LAPAROSCOPIC, WITH BILATERAL SALPINGECTOMY (SURG) completed Brigitte Aranda [facility] 08/05/2021 11:15:44 01/22/20 21 Date of Last Pap Smear completed Marie Doran [facility] 01/21/2021 14:04:24 10/31/20 19 left salpingectomy completed [facility] 02/12/2021 15:09:08 10/31/20 19 Endometrial Biopsy completed [facility] 02/12/2021 15:10:12 08/29/20 19 cholecystectomy completed [facility] 05/29/2020 15:55:01 Endometrial Biopsy completed [facility] 06/09/2021 14:30:41 Total Hysterectomy completed [facility] 01/05/2022 10:05:54 reconstruction of anterior cruciate ligament of knee joint completed Imelda Sanchez [facility] 05/29/2020 15:54:29 Imaging Results None recorded. Procedure Notes None recorded. Medical Equipment None Reported. Allergies Allergen ID Allergen Name Allergen Category Reaction Reaction Severity Criticality Documentation Date Start Date Code Code System Note Provider Name and Address Organization Details Recorded Time 1175 ketorolac medicatio n Not available Not available Not available 05/29/2020 03885 [facility] 15:44:58 1176 pineapple extract food Not available Not available Not available 05/29/2020 99168 74 RxNorm Imelda pablo [facility] 0 15:45:24 Medications Name Sig Start [...] every 3 months 11/20 completed Prescrib ed Elsewher e: No Locat ion: [facility] odify By: sri vidal DateTime : 11/20/20 [...] Prescrib ed Elsewher e: Yes Loca tion: [facility] odify By: sawyer acevedo DateTime : 09/20/20 19 04:15:00 PM Not Available Not Available Not Available Qvar 40 mcg/actua tion Metered Aerosol oral inhaler inhale 2 puff by inhalati on route 2 times every day 01/21 completed Prescrib ed Elsewher e: Yes Loca tion: [facility] odify By: poly vidal DateTime : [...] Prescrib ed Elsewher e: No Locat ion: [facility] odify By: sawyer acevedo DateTime : [...] Prescrib ed Elsewher e: Yes Loca tion: [facility] odify By: poly vidal DateTime : [...] Prescrib ed Elsewher e: Yes Loca tion: [facility] odify By: sawyer acevedo DateTime : 09/20/20 19 04:15:00 PM Not Available Not Available Not Available topiramat e 50 mg tablet TAKE 1 TABLET BY MOUTH TWICE A DAY active Not Available Not Available No t Available Ortho-Cyc norman (28) 0.25 mg-35 mcg tablet take 1 tablet by oral route every day 11/20 completed Prescrib ed Elsewher e: No Locat ion: [facility] odify By: [email or web address] tz Encou nter DateTime : 09/09/20 02:33:30 PM Not Available Not Available Not [...] Prescrib ed Elsewher e: Yes Loca tion: [facility] odify By: poly Castellon ncounter DateTime : 08/27/20 15 11:15:00 AM [...] Prescrib ed Elsewher e: Yes Loca tion: [facility] M odify By: poly vidal DateTime : 08/27/20 11:15:00 AM Not Available Not Available Not Available Aleve 220 mg capsule 08/24 completed Prescrib ed Elsewher e: Yes Loca tion: [facility] M odify By: bambi augustin DateTime : 08/27/20 11:15:00 AM Not Available Not Available Not [...] Updated DateTime 01/05/2022 168.91 cm 38.6 kg/m2 914458.9 5 g 111 mm[Hg] 79 mm[Hg] [facility] 2 10:05:50 Date Recorded Body height Body mass index (BMI) Body weight Systolic blood pressure Diastolic blood pressure Provider Name and Address Organization Details Last Updated DateTime 02/18/2022 168.91 cm 38.3 kg/m2 103507.7 6 g 119 mm[Hg] 82 mm[Hg] [facility] 2 18:13:30 Date Recorded Body height Body mass index (BMI) Body weight Systolic blood pressure Diastolic blood pressure Provider Name and Address Organization Details Last Updated DateTime 04/23/2022 168.91 cm 36.7 kg/m2 561452.8 4 g 107 mm[Hg] 74 mm[Hg] Imelda Sanchez [facility] 17:13:49 Social History Question Answer Notes LastModified by Organizat ion Details LastModified Time Tobacco Smoking Status Never Smoker Biju pablo, [facility] 04/23/2022 16:49:04 Do You Have An Advance Directive? Yes Information n ot available 06/09/2021 How Many Years Have You Consumed Alcohol? 15 Information not available 06/09/2021 Are You Blind Or Do You Have Difficulty Seeing? No Information n ot available 06/09/2021 What Is Your Level Of Caffeine Consumption? Moderate Information not available 06/09/2021 How Much Tobacco Do You Chew? None Information not available 06/09/2021 In The 14 Days Before Symptom Onset, Have You Had Close Contact With A Laboratory-confirm ed COVID-19 While That Case Was Ill? No Information n ot available 06/09/2021 In The 14 Days Before [...] Of Diet Are You Following? REGULAR Information n ot available 06/09/2021 What Is The Highest Grade Or Level Of School You Have Completed Or The Highest Degree You Have Received? [id number] Information not available 06/09/2021 Are There Any [...] Functional Status Question Answer Note LastModified by Organizat ion Details LastModified Time Do you use any illicit or recreational drugs? No Information not available 06/09/2021 What is your level of alcohol consumption? Occasional Information not available 06/09/2021 Are you able to walk? 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 Moderate Information not available 06/09/2021 Mental Status Question Answer Note LastModified by Organization D etails LastModified Time Do you feel stressed (tense, restless, nervous, or anxious, or unable to sleep at night)? [id number] Information not available 06/09/2021 Family History Relationship Description Onset Age of this Age Resolved Age Notes LastModified by Organization Details LastModified Time Brother Mental disorder Not available 2020 09:51:23 Paternal Grandmother Seizure disorder [email or web address] Not available 2021 16:49:03 Paternal Grandmother Blood [...] Not available 2020 09:51:23 Sister Mental disorder [email or web address] Not available 2020 09:51:23 Sister Anemia Not available 08/08/2021 09:51:23 Medical History Condition Response Allergies (Food, seasonal, environmental ) Y Diabetes Y Endometriosis Y Asthma Y Psychiatric Illness [...] SNOMED-CT Code Diagnosis ICD10 Code Diagnosis Note [id number] Yaniv Walker MD [facility] [address] [address] 05/29/2020 15:28:51 05/29/2020 17:00:35 Pain in pelvis 46326742 R10.2 This patient is a 29-year-ol d [...] of life and activities of daily living. [id number] Jessy Melchor CNM [facility] [address] [address] 01/22/2021 10:13:43 01/22/2021 10:51:12 Gynecologic examination 51152986 Z01.419 Take Calcium with Vitamin D 1200mg [...] paper copy of today's plan if desired. [id number] Yaniv Walker MD [facility] [address] [address] 06/09/2021 13:43:38 06/09/2021 15:37:58 Menorrhagia 864216151 N92.0 Dysmenorrhea 577431694 N 94.6 Pain in pelvis 42132567 R10.2 This patient is a 30-year-ol d [...] ic hysterecto my bilateral salpingo-o ophorectom y. [id number] Yaniv Walker MD [facility] [address],[facility] [place] [address] 07/24/2021 14:54:21 07/25/2021 09:33:48 Menorrhagia 398805710 N92.0 this patient is a 31-year-ol d female who presents for preoperati ve care. She has severe menorrhagi a and we have agreed to perform total laparoscop ic hysterecto my and bilateral salpingect gurpreet. She understand s the risks, benefits, and alternativ es. She has completed the informed consent process and is ready to proceed. [id number] Yaniv Walker MD [facility] [address],[place] [address] 08/07/2021 09:15:33 08/07/2021 09:17:08 [id number] Yaniv Walker MD [facility] [address],[place] [address] 08/08/2021 09:37:37 08/08/2021 10:24:53 Postoperative care 510463419 Z48.89 This patient is a 31-year-ol d female presents for postop follow-up. She is 1 week postop from a [facility]. She is recovering normally. She has had some nausea and that is resolving. Her incisions are clean dry and intact. She has no foul-smell ing vaginal discharge. She denies any vomiting, fever, chills. To follow-up as needed. [id number] Yaniv Walker MD [facility] [address],[facility] [place] [address] 09/11/2021 12:41:56 09/12/2021 14:05:22 Postoperative care 434766770 Z48.89 this patient is a 31-year-ol d female presents for postop follow-up. She is recovering from a total laparoscop ic hysterecto my bilateral salpingect gurpreet. She is recovering normally. Her incisions are clean dry and intact. She has no complaints . She feels well. She denies any vaginal bleeding. She will follow up as needed. [id number] MD Luiz Luther [address],[place] [address] 01/05/2022 09:49:19 01/05/2022 11:10:33 Cyst of ovary 52943048 N83.209 this patient is a 31-year-ol d [...] 6 weeks. She will see me afterwards [id number] MD Luiz Luther [address],[place] [address] 02/16/2022 14:50:19 02/16/2022 15:25:44 Imaging finding [id number] R93.5 N83.291 [id number] MD Luiz [facility] [address],[facility] [place] [address] 02/18/2022 17:20:31 02/19/2022 15:18:38 Cyst of ovary 92717189 N83.209 This patient is a 31-year-ol d [...] observe. We repeat ultrasound in 3 months. [id number] MD Luiz Luther [address],[facility] [place] [address] 04/20/2022 17:16:47 04/20/2022 18:29:44 Cyst of right ovary 0732682874 [id number] N83.291 [id number] Yaniv Walker MD [facility] [address] [address] 04/23/2022 16:48:45 04/23/2022 17:43:26 Cyst of ovary 09884824 N83.209 This patient is a 31-year-ol d [...] None Recorded Advance Directives Directive Y: Payers Insurance Date Sequence Insurance Name Policy Number Policy [place] Covered Member ID [place] Member ID Guarantor Name 07/27/2021 1 [facility] PRIOR TO 05/29/2021 (MEDICAID REPLACEMENT - HMO) Edilia Washington [id number] Edilia Washington 04/23/2022 1 [facility] ON OR AFTER 05/29/21 (MEDICAID REPLACEMENT - HMO) Edilia [place] [id number] Edilia [place] Notes Date Note Type Note Provider Name [...] afterwards Yaniv Walker MD [address], [place], [address], [facility] 01/05/2022 10:51:46 02/18/2022 text/html This patient is a 31-year-old female presents for follow-up on ovarian cyst. Ultrasound was repeated and showed her to have a stable 4-5 cm ovarian cyst. We discussed these findings. We discussed treatment options. We discussed risk. We spent more than 15 minutes [id number] and agreed to observe the problem. She does not want any surgical treatment at this time and we agreed to observe. We repeat ultrasound in 3 months. Yaniv Walker MD [address], [place], [address], [facility] 02/18/2022 23:10:21 04/23/2022 text/html This patient [...] indicated. Yaniv Walker MD [address], [place], [address], [facility] 04/23/2022 17:42:54 OBGyn Episode No OBEpisode recorded.
[2025-05-29 10:39] VITALS: BP 132/83; PULSE 72; RESP 18; TEMP 36.3; O2SAT 100
--- NOTE | 2025-05-29 11:31 | ED_ITS ---
HPI - Dental/Oral General Chief complaint: Dental/Oral Stated complaint: Tooth Pain Source: patient Mode of arrival: ambulatory Limitations: no limitations History of Present Illness HPI Narrative: Patient presents for evaluation of left upper dental pain. Symptom onset about 1 month ago. She was initially given a prescription for clindamycin. She took the medication as directed. She did not have considerable improvement in her symptoms. She rates her pain 4/10 in severity. She denies any fever, chills, nausea, vomiting. She does not smoke. Related Data Home Medications ?Medication ?Instructions ?Recorded ?Confirmed ?Last Taken ?Type albuterol sulfate 90 mcg/actuation 2 puff inhalation Q4H PRN 07/03/20 01/15/25 07/29/21 History aerosol inhaler (Ventolin HFA) Shortness Of Breath budesonide-formoterol HFA 160 1 inh inhalation DIRECTED 02/07/24 01/15/25 Unknown History mcg-4.5 mcg/actuation aerosol inhaler (Symbicort) duloxetine 60 mg capsule,delayed 60 mg PO DIRECTED 02/07/24 01/15/25 Unknown History release Allergies Allergy/AdvReac Type Severity Reaction Status Date / Time pineapple Allergy Severe Anaphylactic Verified 05/29/25 10:39 Shock codeine Allergy Intermediate Hives Verified 05/29/25 10:39 ketorolac Allergy Intermediate HIVE Verified 05/29/25 10:39 latex Allergy Intermediate Hives Verified 05/29/25 10:39 cat dander Allergy Mild Sneezing Verified 05/29/25 10:39 pollen extracts Allergy Mild Unknown Verified 05/29/25 10:39 tramadol Allergy Mild Hives Verified 05/29/25 10:39 house dust AdvReac Intermediate Unknown Verified 05/29/25 10:39 Review of Systems Review of Systems: CONSTITUTIONAL: Denies fever, chills, or sweats. EYES: Denies visual changes, redness, or discharge. ENT: Reports left upper dental pain with associated facial swelling CARDIOVASCULAR: Denies chest pain, palpitations, or edema. RESPIRATORY: Denies cough or dyspnea. GASTROINTESTINAL: Denies abdominal pain, nausea, vomiting, or diarrhea. GENITOURINARY: Denies dysuria or hematuria. SKIN: Denies rash or itching. MUSCULOSKELETAL: Denies back pain, joint pain, or myalgia. NEUROLOGIC: Denies headache, numbness, dizziness, or weakness. PSYCHIATRIC: Denies anxiety or depression. [facility] Past Medical History Medical History Hypertension Anxiety Asthma Fatty liver Bronchitis Arthritis Chronic endomyometritis PCOS (polycystic ovarian syndrome) Allergies Migraine Asthma Surgical History Surgical History H/O: hysterectomy History of cholecystectomy Family History Family History Mother Diabetes mellitus Hypertension Depression Father Alcoholism Depression Sibling Depression Grandparent Skin cancer Grandparent Skin cancer Hypertension Heart disease Cerebrovascular accident Other Asthma Family history of arthritis Family history of cardiovascular disease Family history of malignant neoplasm Family history of migraine headaches Family history of seizure disorder Social History Social History Smoking status: Never smoker Alcohol intake: current Alcohol use details: 1-2 servings a month Substance use: never Substance use type: does not use Living arrangements: with family Gender identity (if verbalized by the patient): Female Spiritual care concerns: No Exam Narrative: GENERAL: Well-appearing, well-nourished, and in no acute distress. HEAD: Normocephalic, atraumatic. EYES: PERRLA and EOMI. ENT: Nares clear, no rhinorrhea or epistaxis. Mucous membranes moist. There are several absent teeth. There is trace left-sided maxillary facial swelling. There is no visible or palpable dental abscess. Bilateral TMs pearly crump nonbulging NECK: Supple. No adenopathy or masses. No carotid bruits or JVD CHEST: Clear to auscultation. No respiratory distress. No wheezes rales or rhonchi HEART: Regular rate and rhythm. No murmur heard. Normal peripheral pulses. ABDOMEN: Soft, nontender, nondistended, normal active bowel sounds. EXTREMITIES: Normal range of motion. No edema. SKIN: Warm, dry, no rash. NEURO: No focal deficits. Alert and oriented x3. PSYCH: Normal mood and affect. Course Course Emergency Course: This is a 34-year-old female who presented for evaluation of left upper dental pain and facial swelling. She is missing several teeth. Her dentition is suboptimal. I do not appreciate of visible or palpable abscess. Will treat with penicillin. Follow-up with dentist. Go to the ER for worsening symptoms. Patient in agreement with plan of care. Level of Care: Express Care Visit Vital Signs Vital signs: Vital Signs Temperature 36.3 C L 05/29/25 10:39 Pulse Rate 72 05/29/25 10:39 Respiratory Rate 18 05/29/25 10:39 Blood Pressure 132/83 05/29/25 10:39 Pulse Oximetry 100 05/29/25 10:39 Oxygen Delivery Room Air 05/29/25 10:39 Temperature 36.3 C L 05/29/25 10:39 Pulse Rate 72 05/29/25 10:39 Respiratory Rate 18 05/29/25 10:39 Blood Pressure 132/83 05/29/25 10:39 Pulse Oximetry 100 05/29/25 10:39 Oxygen Delivery Room Air 05/29/25 10:39 Discharge Plan Discharge Clinical Impression: Pain, dental Patient Disposition: Home Condition: Stable Instructions: Antibiotic Form, Toothache (ED) Patient Language: Malay Prescriptions: New penicillin V potassium 500 mg tablet 500 mg PO Q6H 10 Days Qty: 40 0RF No Action duloxetine 60 mg capsule,delayed release(DR/EC) 60 mg PO DIRECTED budesonide-formoterol [Symbicort] 160-4.5 mcg/actuation HFA aerosol inhaler 1 inh INHALATION DIRECTED albuterol sulfate [Ventolin HFA] 90 mcg/actuation HFA aerosol inhaler 2 puff INHALATION Q4H PRN (Reason: Shortness Of Breath) Follow-up/Referrals: Phu Wadsworth MD [Primary Care Provider] - Time of Disposition: 11:30
== END 2025-05-29 11:40 | disposition home or self-care (01) ==
PROVIDERS: Emergency Provider Nurse Practitioner; PCP Emergency Medicine
DX: K08.89 Other specified disorders of teeth and supporting structures (principal); I10 Essential (primary) hypertension; J45.909 Unspecified asthma, uncomplicated; K76.0 Fatty (change of) liver, not elsewhere classified; M19.90 Unspecified osteoarthritis, unspecified site; E28.2 Polycystic ovarian syndrome
CPT/HCPCS: 99213; G0463